=== PATIENT | female | born 1970 | race Caucasian/White ===

== ENCOUNTER → 2018-03-02 11:00 | Outpatient (CLI) | payer OTHER, SELFPAY ==
[2018-03-02 11:29] LABS: Bilirubin Urine UA NEGATIVE (NEGATIVE); Color Urine UA YELLOW; Glucose Urine UA NEGATIVE (Normal); Ketones Urine UA NEGATIVE (NEGATIVE); Leukocyte Esterase Urine UA TRACE (NEGATIVE); Nitrite Urine UA Negative (Negative); Occult Blood Urine UA 2+ (Negative); Protein Urine UA NEGATIVE (Negative); Specific Gravity Urine UA 1.025 (1.000-1.035); Urobilinogen Urine UA 0.2 E.U./dL (0.2)
[2018-03-02 11:54] LABS: Appearance Urine UA Slightly Cloudy
[2018-03-02 11:55] LABS: Bacteria Urine Few (2-10); Culture Indicated Urine Specimen Cultured; RBC Urine 30-100/HPF (0-5/HPF); Squamous Epithelial Cell Urine 1-5 /HPF; WBC Urine 10-30/HPF (0-5/HPF)
== END ==
PROVIDERS: Family Medicine; PCP Family Medicine; Visit Provider Family Medicine
DX: N30.00 Acute cystitis without hematuria (principal)
CPT/HCPCS: 81001; 87077; 87086; 87186

== ENCOUNTER → 2018-03-16 14:00 | Outpatient (CLI) | payer OTHER, SELFPAY ==
[2018-03-16 14:08] LABS: Bacteria Urine None Seen; RBC Urine None Seen (0-5/HPF); WBC Urine None Seen (0-5/HPF)
[2018-03-16 14:58] LABS: Appearance Urine UA CLEAR; Bilirubin Urine UA NEGATIVE (NEGATIVE); Color Urine UA YELLOW; Glucose Urine UA NEGATIVE (Normal); Ketones Urine UA NEGATIVE (NEGATIVE); Leukocyte Esterase Urine UA NEGATIVE (NEGATIVE); Nitrite Urine UA Negative (Negative); Occult Blood Urine UA NEGATIVE (Negative); Protein Urine UA NEGATIVE (Negative); Specific Gravity Urine UA 1.025 (1.000-1.035); Urobilinogen Urine UA 0.2 E.U./dL (0.2)
[2018-03-16 15:15] LABS: Squamous Epithelial Cell Urine 1-5 /HPF
[2018-03-16 15:16] LABS: Culture Indicated Urine Cult Not Indicated; Uric Acid Crystals Urine Occasional
== END ==
PROVIDERS: PCP Family Medicine; Visit Provider Family Medicine
DX: E06.3 Autoimmune thyroiditis (principal); N39.0 Urinary tract infection, site not specified
CPT/HCPCS: 81001

== ENCOUNTER → 2018-05-30 07:48 | Outpatient (CLI) | payer OTHER, SELFPAY ==
[2018-05-30 09:44] LABS: Thyroid Stimulating Hormone < 0.02 uIU/mL (0.47-4.68)
[2018-05-30 19:35] LABS: Free T3, Triiodothyronine Free 4.51 pg/mL (2.77-5.27); Free T4, Direct Thyroxine 1.25 ng/dL (0.78-2.19)
[2018-05-31 15:02] LABS: Anti Thyroglobulin Antibody 3 IU/mL (< 2); Thyroid Peroxidase Antibodies 15 IU/mL (< 9)
[2018-06-05 13:28] LABS: Triiodothyronine T3 Reverse 18 ng/dL (8-25)
== END ==
PROVIDERS: PCP Family Medicine; Visit Provider Family Medicine
DX: E06.3 Autoimmune thyroiditis (principal)
CPT/HCPCS: 36415; 84439; 84443; 84481; 84482; 86376; 86800

== ENCOUNTER → 2018-08-29 07:18 | Outpatient (CLI) | payer OTHER, SELFPAY ==
[2018-08-29 09:29] LABS: Free T3, Triiodothyronine Free 3.95 pg/mL (2.77-5.27); Free T4, Direct Thyroxine 1.08 ng/dL (0.78-2.19)
[2018-08-29 09:42] LABS: Thyroid Stimulating Hormone < 0.02 uIU/mL (0.47-4.68)
[2018-09-01 14:15] LABS: Triiodothyronine T3 Reverse 17 ng/dL (8-25)
== END ==
PROVIDERS: PCP Family Medicine; Visit Provider Family Medicine
DX: E06.3 Autoimmune thyroiditis (principal)
CPT/HCPCS: 36415; 84439; 84443; 84481; 84482

== ENCOUNTER → 2018-11-07 11:03 | Outpatient (CLI) | payer OTHER, SELFPAY ==
--- NOTE | 2018-11-07 | DI.MG.S_ITS ---
BILATERAL DIGITAL SCREENING MAMMOGRAM 3D/2D WITH CAD: 11/07/2018 CLINICAL: Routine screening. Comparison is made to exams dated: 10/07/2017 mammogram, 09/13/2016 mammogram, and 09/09/2015 mammogram - [facility]. The tissue of both breasts is heterogeneously dense. This may lower the sensitivity of mammography. Current study was also evaluated with a Computer Aided Detection (CAD) system. No significant masses, calcifications, or other findings are seen in either breast. There has been no significant interval change. IMPRESSION: NEGATIVE There is no mammographic evidence of malignancy. A 1 year screening mammogram is recommended. This exam was interpreted at Station ID: [id number]. NOTE: For mammograms, a report in lay terms will be sent to the patient. Approximately 15% of breast malignancies will not be visualized mammographically. In the management of a palpable breast mass, a negative mammogram must not discourage biopsy of a clinically suspicious lesion. Electronically Signed By: Nelly driver/paula:11/07/2018 13:25:22 letter sent: Normal Exam ACR BI-RADS Category 1: Negative [id number]
== END ==
PROVIDERS: PCP Family Medicine; Visit Provider Family Medicine
DX: Z12.31 Encounter for screening mammogram for malignant neoplasm of breast (principal)
CPT/HCPCS: 77063; 77067

== ENCOUNTER → 2018-12-29 07:43 | Outpatient (CLI) | payer OTHER, SELFPAY ==
[2018-12-29 09:43] LABS: Free T3, Triiodothyronine Free 4.59 pg/mL (2.77-5.27); Free T4, Direct Thyroxine 1.12 ng/dL (0.78-2.19)
[2019-01-01 14:12] LABS: Thyroid Stimulating Hormone < 0.02 uIU/mL (0.47-4.68)
[2019-01-01 21:03] LABS: Triiodothyronine T3 Reverse 16 ng/dL (8-25)
== END ==
PROVIDERS: PCP Family Medicine; Visit Provider Family Medicine
DX: E06.3 Autoimmune thyroiditis (principal)
CPT/HCPCS: 36415; 84439; 84443; 84481; 84482

== ENCOUNTER → 2019-01-10 15:48 | Outpatient (CLI) | payer OTHER, SELFPAY ==
[2019-01-10 16:49] LABS: HEMOLYSIS < 15 (0-50); Iron 42 ug/dL (37-170)
[2019-01-10 16:51] LABS: Alanine Aminotransferase 28 IU/L (9-52); Albumin Globulin Ratio 1.7 (1.0-2.8); Alkaline Phosphatase 82 U/L (38-126); Aspartate Aminotransferase 25 IU/L (14-36); Bilirubin Total 0.1 mg/dL (0.2-1.3); Blood Urea Nitrogen 21 mg/dL (7-17); Calcium 9.4 mg/dL (8.4-10.2); Carbon Dioxide 26 mmol/L (22-32); Chloride 106 mmol/L (98-107); Estimated Glomerular Filt Rate > 60.0 mL/min (>60); Globulin 2.3 g/dL (1.7-4.1); Glucose 108 mg/dL (70-100); HEMOLYSIS < 15 (0-50); Potassium 3.9 mmol/L (3.4-5.1); Sodium 140 mmol/L (137-145); Total Protein 6.3 g/dL (6.3-8.2)
[2019-01-10 16:59] LABS: Percent Iron Saturation 13 % (15-50); Total Iron Binding Capacity 314 ug/dL (265-497); Transferrin 257 mg/dL (206-381)
[2019-01-10 17:24] LABS: Ferritin 58.7 ng/mL (6.27-137)
[2019-01-10 17:54] LABS: Vitamin B12 665 pg/mL (239-931)
[2019-01-10 18:11] LABS: Vitamin D 25 Hydroxy (D3) 52.9 ng/mL (30.0-100.0)
[2019-01-12 19:45] LABS: Homocysteine 5.9 umol/L (< 10.4)
[2019-01-13 09:30] LABS: Vitamin B6 76.7 ng/mL (2.1-21.7)
[2019-01-16 16:35] LABS: Methylmalonic Acid 232 nmol/L (87-318)
== END ==
PROVIDERS: PCP Family Medicine; Visit Provider Family Medicine
DX: E06.3 Autoimmune thyroiditis (principal); K05.6 Periodontal disease, unspecified; K90.49 Malabsorption due to intolerance, not elsewhere classified; N95.9 Unspecified menopausal and perimenopausal disorder; G35 Multiple sclerosis; I10 Essential (primary) hypertension
CPT/HCPCS: 36415; 80053; 82306; 82607; 82728; 82746; 83090; 83540; 83550; 83921; 84207

== ENCOUNTER → 2019-03-08 07:49 | Outpatient (CLI) | payer OTHER, SELFPAY ==
[2019-03-08 10:30] LABS: Free T3, Triiodothyronine Free 4.34 pg/mL (2.77-5.27); Free T4, Direct Thyroxine 1.01 ng/dL (0.78-2.19)
[2019-03-08 10:43] LABS: Thyroid Stimulating Hormone < 0.02 uIU/mL (0.47-4.68)
[2019-03-12 14:40] LABS: Triiodothyronine T3 Reverse 14 ng/dL (8-25)
== END ==
PROVIDERS: PCP Family Medicine; Visit Provider Family Medicine
DX: E06.3 Autoimmune thyroiditis (principal)
CPT/HCPCS: 36415; 84439; 84443; 84481; 84482

== ENCOUNTER 2019-04-30 18:33 | Emergency (ER) | payer OTHER, SELFPAY ==
[2019-04-30 18:36] VITALS: BP 134/81; PULSE 85; RESP 16; TEMP 36.5; O2SAT 96
[2019-04-30 19:19] LABS: Appearance Urine UA CLOUDY; Bilirubin Urine UA NEGATIVE (NEGATIVE); Color Urine UA YELLOW; Glucose Urine UA NEGATIVE (Negative); Ketones Urine UA TRACE (NEGATIVE); Leukocyte Esterase Urine UA 2+ (NEGATIVE); Nitrite Urine UA POSITIVE (Negative); Occult Blood Urine UA 3+ (Negative); Protein Urine UA 2+ (Negative); Specific Gravity Urine UA 1.015 (1.000-1.035); Urobilinogen Urine UA 0.2 E.U./dL (0.2)
[2019-04-30 19:23] LABS: Bacteria Urine Moderate (10-30); Culture Indicated Urine Specimen Cultured; RBC Urine 30-100/HPF (0-5/HPF); Squamous Epithelial Cell Urine 0-1 /HPF (0-5/HPF); WBC Urine 30-100/HPF (0-5/HPF)
--- NOTE | 2019-04-30 20:02 | ED_ITS ---
HPI - Female Genitourinary <JEFFERY Hopper - Last Filed: 04/30/19 20:09> General Chief complaint: Urogenital-Female Stated complaint: UTI Time Seen by Provider: 04/30/19 19:46 Source: patient Mode of arrival: ambulatory Limitations: no limitations History of Present Illness HPI Narrative: This is a 49-year-old female, history of former smoker, presents to ED with urinary symptoms which started this afternoon such as urinary urgency, burning sensation, frequency. She noticed small blood clot this afternoon and thought will seek medical evaluation. She had in the past UTI. Patient states woke up this morning with headache, diarrhea which improved at this time. Patient denies fever, chills, nausea, vomiting, flank pain. Patient had menopause and reports no chance of being . Related Data Home Medications Medication Instructions Recorded Confirmed meclizine 25 mg PO PRN #0 06/02/12 03/16/19 Previous Rx's Medication Instructions Recorded cetirizine 10 mg PO QDAY #30 tab 05/11/17 liothyronine 5 mcg tablet 17.5 mcg PO BID #630 tab 01/10/19 Bi-est 50/50 0.2 mg TOP QAM #18 mg 03/07/19 [naltrexone] 4.5 mg PO Q DAY #90 cap 03/07/19 progesterone e4m 75 mg PO .HS #90 caplet 03/07/19 cephalexin [Keflex] 500 mg PO BID 7 Days #14 cap 04/30/19 Allergies Allergy/AdvReac Type Severity Reaction Status Date / Time No Known Drug Allergies Allergy Unknown Verified 03/16/19 14:02 DUST Allergy Mild RHINITIS Uncoded 03/16/19 14:02 GOOSE FEATHERS Allergy Mild RHINITIS Uncoded 03/16/19 14:02 Review of Systems <JEFFERY Hopper - Last Filed: 04/30/19 20:09> Review of Systems Narrative: General: See HPI HEENT: Denies sinus pain, ear pain, sore throat, difficulty swallowing, dizziness. Respiratory: Denies dyspnea, cough, wheezing, hemoptysis, sputum. Cardiovascular: Denies chest pain, palpitations, orthopnea, edema. Gastrointestinal: Denies nausea, vomiting, abdominal pain, diarrhea, c onstipation, melena. : See HPI Musculoskeletal: Denies weakness, joint pain or bony pain. Skin: Denies rash, skin lesions, or other. Neurologic: Denies weakness, headache, numbness, change in speech, confusion, seizures, incoordination. Psychiatric: No concerning psychosocial issues. 12-point review of systems is negative except for those stated above. PFSH <JEFFERY Hopper - Last Filed: 04/30/19 20:09> Medical History Abnormal Pap smear of cervix (Resolved 1988) Abnormal posture (Chronic) Anemia (Resolved 1990) Chicken pox (Resolved 1980) Chlamydia (Resolved 1988) Chronic back pain (Chronic 1982) Degenerative joint disease (DJD) of lumbar spine (Chronic 2014) Depression (Chronic 1987) Foot fracture (Resolved 1981) Genital warts (Resolved 1989) Yogesh's disease (Chronic 2014) Hyperlipidemia (Chronic 1999) Hypothyroidism (Chronic 1999) Irregular menstrual cycle (Chronic 2014) Lichen sclerosus (Chronic 1999) Mumps (Resolved 1979) Muscle weakness (Chronic) Peripheral neuropathy (Chronic 2014) Raynaud's disease (Chronic 2012) Shoulder pain (Chronic 2014) 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) Typhus (Resolved 1996) Vertigo (Resolved ~2007) Surgical History Anesthesia complication (Resolved) Status post delivery (Resolved 06/20/00) Status post hammer toe correction (Resolved 1997) Family History (Updated 05/15/18 @ 14:14 by Mela Kennedy) Brother Age: 41 Benign tumor Psoriasis High cholesterol Father Age: 71 Common variable immunodeficiency High cholesterol Restless leg syndrome Sleep apnea Grandfather Heart disease Lung disease Sleep apnea Grandmother History of hysterectomy Hypothyroidism Uterine cancer Kidney disease Yogesh's disease Mother Age: 70 Kidney disease Osteopenia Raynaud's disease MGUS (monoclonal gammopathy of unknown significance) Grandfather Heart disease Bone cancer Myeloma High cholesterol Sister Age: 46 Kidney infection High cholesterol MS (multiple sclerosis) Pancreatitis Family/Other Uterine cancer Other Alcoholism Cancer Depression Thyroid cancer Social History Smoking Status: Former smoker Family History Brother Age: 41 Benign tumor Psoriasis High cholesterol Father Age: 71 Common variable immunodeficiency High cholesterol Restless leg syndrome Sleep apnea Grandfather Heart disease Lung disease Sleep apnea Grandmother History of hysterectomy Hypothyroidism Uterine cancer Kidney disease Yogesh's disease Mother Age: 70 Kidney disease Osteopenia Raynaud's disease MGUS (monoclonal gammopathy of unknown significance) Grandfather Heart disease Bone cancer Myeloma High cholesterol Sister Age: 46 Kidney infection High cholesterol MS (multiple sclerosis) Pancreatitis Family/Other Uterine cancer Other Alcoholism Cancer Depression Thyroid cancer Social History Smoking Status: Former smoker Exam <JEFFERY Hopper - Last Filed: 04/30/19 20:09> Narrative Exam Narrative: General appearance: well developed, well nourished, in no acute distress. Head: normocephalic, atraumatic, no scalp lesions, non-tender. Eye: pupil equal, round. EOMI. Nose: nares patent. Oral: mucosa moist. Neck/Thyroid: neck supple, full range of motion, no visible masses. Skin: no suspicious rashes, lesions over visible areas. Warm and dry. Heart: no clubbing, no cyanosis, no edema. Lungs: Breathing even and unlabored. No stridor. No accessory muscles used. Chest: normal shape and expansion. Abdomen: non-obese, non-distended. Neurologic: alert and oriented. Cognitive exam, CROSSING GUARD and PNS grossly intact on informal exam. Psych: good eye contact, normal affect. Initial Vital Signs Initial Vital Signs: Vital Signs Temperature 97.7 F 04/30/19 18:36 Pulse Rate 85 04/30/19 18:36 Respiratory Rate 16 04/30/19 18:36 Blood Pressure 134/81 04/30/19 18:36 Pulse Oximetry 96 04/30/19 18:36 <Namita Clay DO - Last Filed: 05/01/19 05:36> Initial Vital Signs Initial Vital Signs: Vital Signs Temperature 97.7 F 04/30/19 18:36 Pulse Rate 85 04/30/19 18:36 Respiratory Rate 16 04/30/19 18:36 Blood Pressure 134/81 04/30/19 18:36 Pulse Oximetry 96 04/30/19 18:36 Course <JEFFERY Hopper - Last Filed: 04/30/19 20:09> Orders Ordered: ED Orders 04/30/19 18:25 Urinalysis and Microscopic Stat Urine Culture Stat Vital Signs Vital signs: Vital Signs - 8 hr 04/30/19 18:36 Temperature 97.7 F Pulse Rate 85 Respiratory Rate 16 Blood Pressure 134/81 Pulse Oximetry 96 <Namita Clay DO - Last Filed: 05/01/19 05:36> Orders Ordered: ED Orders 04/30/19 18:25 Urinalysis and Microscopic Stat Urine Culture Stat Vital Signs Vital signs: Vital Signs - 8 hr 04/30/19 18:36 Temperature 97.7 F Pulse Rate 85 Respiratory Rate 16 Blood Pressure 134/81 Pulse Oximetry 96 MDM - Female Genitourinary <JEFFERY Hopper - Last Filed: 04/30/19 20:09> Differential Diagnosis Differential diagnosis: Likely urinary tract infection and cystitis Medical Records Attestation: I reviewed the patient's medical records. Lab Data Attestation: I reviewed the patient's lab results. Labs: Lab Results 04/30/19 04/30/19 Range/Units 18:25 18:58 Urine Color Yellow Urine Appearance Cloudy Urine pH 8.0 (4.5-8.0) Ur Specific [place] 1.015 (1.000-1.035) Urine Protein 2+ H (Negative) Urine Glucose (UA) Negative (Negative) g/dL Urine Ketones Trace H (NEGATIVE) Urine Occult Blood 3+ H (Negative) Urine Nitrate Positive (Negative) Urine Bilirubin Negative (NEGATIVE) Urine Urobilinogen 0.2 (0.2) E.U./dL Ur Leukocyte Esterase 2+ H (NEGATIVE) Urine RBC 30-100/hpf H Cancelled (0-5/HPF) Urine WBC 30-100/hpf H Cancelled (0-5/HPF) Ur Squamous Epith Cells 0-1 /hpf Cancelled (0-5/HPF) Ur Transition Epith Cell Cancelled Ur Renal Epithelial Cell Cancelled Calcium Oxalate Crystal Cancelled Uric Acid Crystals Cancelled Triple Phos Crystals Cancelled Other Crystals Cancelled Amorphous Sediment Cancelled Urine Bacteria Moderate (10-30) H Cancelled (None) Hyaline Casts Cancelled Granular Casts Cancelled RBC Casts Cancelled WBC Casts Cancelled Other Casts Cancelled Urine Mucus Cancelled Urine Trichomonas Cancelled Urine Yeast Cancelled Urine Sperm Cancelled Ur Culture Indicated? Specimen cultured Cancelled Micro UA Comment Cancelled Point of Care Testing Test Results Negative Urine Dip Bedside Urine Glucose Negative Bedside Urine Bilirubin - Negative Bedside Urine Ketone +/- 5 Urine Specific [place] 1.015 Bedside Urine Occult Blood +++ Bedside Urine pH 8.0 Bedside Urine Protein ++ 100 Bedside Urine Urobilinogen +/- 1mg Bedside Urine Nitrite + Positive Bedside Urine Leukocytes +++ 500 Esterase MDM Narrative Medical decision making narrative: Patient reports UTI symptoms which started this afternoon. She is nontoxic-appearing, denies nausea vomiting, flank pain. Urine test result is consistent with UTI. Urine test micro showed moderate urine bacteria, and is being cultured at this time for the sensitivity. Patient declines Pyridium for discomfort. Patient is discharged with Keflex b.i.d. for 7 day course. Return precautions were discussed with patient and patient advised to follow up with her primary care physician in a few days for recheck. Patient has no further questions at this time and agrees with treatment plan. <Namita Clay, DO - Last Filed: 05/01/19 05:36> Lab Data Labs: Lab Results 04/30/19 04/30/19 Range/Units 18:25 18:58 Urine Color Yellow Urine Appearance Cloudy Urine pH 8.0 (4.5-8.0) Ur Specific [place] 1.015 (1.000-1.035) Urine Protein 2+ H (Negative) Urine Glucose (UA) Negative (Negative) g/dL Urine Ketones Trace H (NEGATIVE) Urine Occult Blood 3+ H (Negative) Urine Nitrate Positive (Negative) Urine Bilirubin Negative (NEGATIVE) Urine Urobilinogen 0.2 (0.2) E.U./dL Ur Leukocyte Esterase 2+ H (NEGATIVE) Urine RBC 30-100/hpf H Cancelled (0-5/HPF) Urine WBC 30-100/hpf H Cancelled (0-5/HPF) Ur Squamous Epith Cells 0-1 /hpf Cancelled (0-5/HPF) Ur Transition Epith Cell Cancelled Ur Renal Epithelial Cell Cancelled Calcium Oxalate Crystal Cancelled Uric Acid Crystals Cancelled Triple Phos Crystals Cancelled Other Crystals Cancelled Amorphous Sediment Cancelled Urine Bacteria Moderate (10-30) H Cancelled (None) Hyaline Casts Cancelled Granular Casts Cancelled RBC Casts Cancelled WBC Casts Cancelled Other Casts Cancelled Urine Mucus Cancelled Urine Trichomonas Cancelled Urine Yeast Cancelled Urine Sperm Cancelled Ur Culture Indicated? Specimen cultured Cancelled Micro UA Comment Cancelled Point of Care Testing Test Results Negative Urine Dip Bedside Urine Glucose Negative Bedside Urine Bilirubin - Negative Bedside Urine Ketone +/- 5 Urine Specific [place] 1.015 Bedside Urine Occult Blood +++ Bedside Urine pH 8.0 Bedside Urine Protein ++ 100 Bedside Urine Urobilinogen +/- 1mg Bedside Urine Nitrite + Positive Bedside Urine Leukocytes +++ 500 Esterase Discharge Plan Departure Patient Disposition: Home Clinical Impression: UTI (urinary tract infection) Qualifiers: Urinary tract infection type: site unspecified Hematuria presence: with hematuria Qualified Code(s): N39.0 - Urinary tract infection, site not specified Discharge Date/Time: 04/30/19 20:07 Instructions: DI for Urinary Tract Infection (UTI) Activity Restrictions/Additional Instructions: You have been diagnosed with [urinary tract infection. Your urine test appears to be you have any infection and is being cultured at this time for antibiotic medication sensitivity test]. What to do: *Take your medications as directed. Please start Keflex tonight and complete a 7 day course twice a day. Please increase hydration for UTI symptoms and treatment. *Follow up with your primary care provider in 2-3 days, call for an appointment. Let them know you were seen in the ED and that we asked you to be seen in follow up. *Return to ED if you have any new, worsening, or concerning symptoms, such as [fever, flank pain, unable to tolerate fluids, chest pain, breathing difficulty, or any acute concerns]. Prescriptions: New cephalexin [Keflex] 500 mg capsule 500 mg PO BID 7 Days Qty: 14 RF: 0 No Action meclizine 25 MG tablet,chewable 25 mg PO PRN Qty: 0 RF: 0 cetirizine 10 MG tablet 10 mg PO QDAY Qty: 30 RF: 5 Bi-est 50/50 cream 0.2 mg TOP QAM Qty: 18 RF: 1 [naltrexone] 4.5 mg capsule 4.5 mg PO Q DAY Qty: 90 RF: 1 progesterone e4m 75 mg PO .HS Qty: 90 RF: 1 liothyronine [Cytomel] 5 mcg tablet 17.5 mcg PO BID Qty: 630 RF: 0 Referrals: Cristiane Parish DO [Primary Care Provider] -
[2019-04-30 20:03] VITALS: BP 122/78; PULSE 72; RESP 18; O2SAT 98
== END 2019-04-30 20:07 | disposition home or self-care (01) ==
PROVIDERS: Emergency Medicine; Emergency Provider Nurse Practitioner Family; PCP Family Medicine
DX: N39.0 Urinary tract infection, site not specified (principal)
CPT/HCPCS: 81001; 81003; 81025; 87077; 87086; 87186; 99282; 99283

== ENCOUNTER → 2019-07-24 07:56 | Outpatient (CLI) | payer OTHER, SELFPAY ==
[2019-07-24 09:23] LABS: Free T3, Triiodothyronine Free 4.56 pg/mL (2.77-5.27); Free T4, Direct Thyroxine 1.21 ng/dL (0.78-2.19)
[2019-07-24 09:37] LABS: Thyroid Stimulating Hormone < 0.02 uIU/mL (0.47-4.68)
[2019-07-26 14:58] LABS: Thyroid Peroxidase Antibodies 8 IU/mL (< 9)
[2019-08-01 18:24] LABS: Triiodothyronine T3 Reverse 15 ng/dL (8-25)
== END ==
PROVIDERS: PCP Family Medicine; Visit Provider Family Medicine
DX: E06.3 Autoimmune thyroiditis (principal)
CPT/HCPCS: 36415; 82542; 84439; 84443; 84481; 84482; 86376

== ENCOUNTER → 2019-11-19 07:18 | Outpatient (CLI) | payer OTHER, SELFPAY ==
[2019-11-19 07:39] LABS: Add Manual Diff / Slide Review NO; Basophils Absolute Auto 0 /uL (0-100); Basophils Percent Auto 0.5 % (0-2); Eosinophils Absolute Auto 100 /uL (0-450); Eosinophils Percent Auto 2.5 % (2-4); Hematocrit 40.7 % (36-46); Hemoglobin 13.7 g/dL (12.0-16.0); Lymphocytes Absolute Auto 2200 /uL (1100-4500); Lymphocytes Percent Auto 40.6 % (25-40); Mean Corpuscular HGB Conc 33.5 % (30-36); Mean Corpuscular Hemoglobin 30.2 PG (26-34); Mean Corpuscular Volume 90.2 fL (80-100); Monocytes Absolute Auto 300 /uL (0-900); Monocytes Percent Auto 6.4 % (3-14); Neutrophils Absolute Auto 2800 /uL (1500-7000); Platelet Count 330 X10^3/uL (150-400); Red Blood Cell Count 4.52 X10^6/uL (4.0-5.2); Red Cell Distribution Width 13.8 % (11.6-14.8); White Blood Cell Count 5.5 X10^3/uL (4.5-11.0)
[2019-11-19 08:43] LABS: HEMOLYSIS < 15 (0-50); Iron 114 ug/dL (37-170)
[2019-11-19 08:54] LABS: Percent Iron Saturation 32 % (15-50); Total Iron Binding Capacity 357 ug/dL (265-497); Transferrin 293 mg/dL (206-381)
[2019-11-19 09:01] LABS: Free T3, Triiodothyronine Free 3.06 pg/mL (2.77-5.27); Free T4, Direct Thyroxine 0.84 ng/dL (0.78-2.19)
[2019-11-19 09:14] LABS: Thyroid Stimulating Hormone < 0.02 uIU/mL (0.47-4.68)
[2019-11-19 09:20] LABS: Ferritin 49 ng/mL (6-137)
[2019-11-20 16:36] LABS: Anti Thyroglobulin Antibody 2.3 IU/mL (0.0-0.9); Thyroid Peroxidase Antibodies 11 IU/mL (0-34)
[2019-11-22 02:44] LABS: Triiodothyronine T3 Reverse 14.6 ng/dL (9.2-24.1)
== END ==
PROVIDERS: PCP Family Medicine; Referring Provider Family Medicine; Visit Provider Family Medicine
DX: D64.9 Anemia, unspecified (principal); E06.3 Autoimmune thyroiditis; K58.0 Irritable bowel syndrome with diarrhea; K63.89 Other specified diseases of intestine
CPT/HCPCS: 36415; 82728; 83540; 83550; 84439; 84443; 84481; 84482; 85025; 86376; 86800

== ENCOUNTER → 2020-02-18 07:27 | Outpatient (CLI) | payer OTHER, SELFPAY ==
[2020-02-18 08:29] LABS: Free T3, Triiodothyronine Free 4.79 pg/mL (2.77-5.27); Free T4, Direct Thyroxine 1.37 ng/dL (0.78-2.19)
[2020-02-18 08:44] LABS: Thyroid Stimulating Hormone < 0.015 uIU/mL (0.47-4.68)
[2020-02-19 06:36] LABS: Thyroid Peroxidase Antibodies 12 IU/mL (0-34)
[2020-02-25 10:08] LABS: Triiodothyronine T3 Reverse 17.8 ng/dL (9.2-24.1)
== END ==
PROVIDERS: PCP Family Medicine; Referring Provider Family Medicine; Visit Provider Family Medicine
DX: E06.3 Autoimmune thyroiditis (principal)
CPT/HCPCS: 36415; 84439; 84443; 84481; 84482; 86376; 86800

== ENCOUNTER → 2020-03-13 11:24 | Outpatient (CLI) | payer OTHER, SELFPAY ==
--- NOTE | 2020-03-13 | DI.MG.S_ITS ---
BILATERAL DIGITAL SCREENING MAMMOGRAM 3D/2D WITH CAD: 03/13/2020 CLINICAL: Routine screening. Comparison is made to exams dated: 11/07/2018 mammogram, 10/07/2017 mammogram, and 09/13/2016 mammogram - [facility]. There are scattered fibroglandular elements in both breasts. Current study was also evaluated with a Computer Aided Detection (CAD) system. No significant masses, calcifications, or other findings are seen in either breast. There has been no significant interval change. IMPRESSION: NEGATIVE There is no mammographic evidence of malignancy. A 1 year screening mammogram is recommended. This exam was interpreted at Station ID: [id number]. NOTE: For mammograms, a report in lay terms will be sent to the patient. Approximately 15% of breast malignancies will not be visualized mammographically. In the management of a palpable breast mass, a negative mammogram must not discourage biopsy of a clinically suspicious lesion. Electronically Signed By: Prasanna stern/paula:03/13/2020 12:20:00 letter sent: Normal Exam ACR BI-RADS Category 1: Negative [id number]
== END ==
PROVIDERS: PCP Family Medicine; Referring Provider Family Medicine; Visit Provider Family Medicine
DX: Z12.31 Encounter for screening mammogram for malignant neoplasm of breast (principal)
CPT/HCPCS: 77063; 77067

== ENCOUNTER 2020-05-16 08:15 | Outpatient (RCR) | payer OTHER, SELFPAY ==
--- NOTE | 2020-01-10 16:06 | PT.OIE ---
Current Diagnoses Ankylosis, unspecified joint (01/10/20) Plantar fascial fibromatosis (01/10/20) Past Medical History (Last Updated 06/25/19 @ 14:02 by Cristiane Parish DO) Abnormal Pap smear of cervix (Resolved 1988) Abnormal posture (Chronic) Anemia (Resolved 1990) Chicken pox (Resolved 1980) Chlamydia (Resolved 1988) Chronic back pain (Chronic 1982) Degenerative joint disease (DJD) of lumbar spine (Chronic 2014) Depression (Chronic 1987) Foot fracture (Resolved 1981) Genital warts (Resolved 1989) Yogesh's disease (Chronic 2014) Hyperlipidemia (Chronic 1999) Hypothyroidism (Chronic 1999) Irregular menstrual cycle (Chronic 2014) Lichen sclerosus (Chronic 1999) Mumps (Resolved 1979) Muscle weakness (Chronic) Peripheral neuropathy (Chronic 2014) Raynaud's disease (Chronic 2012) Shoulder pain (Chronic 2014) Small intestinal bacterial overgrowth (Acute) 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) Typhus (Resolved 1996) Vertigo (Resolved ~2007) Past Surgical History (Last Reviewed 04/30/19 @ 20:04 by JEFFERY Hopper) Anesthesia complication (Resolved) Status post delivery (Resolved 06/20/00) Status post hammer toe correction (Resolved 1997) Visit Care Team Role Provider Type Cristiane Parish DO Primary Care Provider Physician Specialty: Family Practice Address: [address] [place] [address], [address], [address] Email: [email or web address] Tonia Katz DPM Attending Provider Non-Staff Referring Provider Specialty: Podiatry Address: [address] [place] [address], [phone] Email: Physical Therapy Initial Evaluation PT-OP-A Visit Information Start: 01/08/20 21:01 Freq: Status: Active Protocol: Document 01/10/20 09:51 LRN (Rec: 01/10/20 10:41 LRN [id number]) Out-Patient Physical Therapy Visit Information Visit Information Visit Type Initial Evaluation Visit Start Time 09:51 Visit Stop Time 10:41 Evaluation Information Evaluation Date 01/10/20 Precautions Precautions Hx of Vertigo Hypothyroid As child suffered crushed tailbone, with L4, L5, S1 residual dysfunction. PT-OP-B Current Condition Start: 01/08/20 21:01 Freq: Status: Active Protocol: Document 01/10/20 09:51 LRN (Rec: 01/10/20 10:41 LRN [id number]) Current Condition History of Current Condition Onset Date R foot-09/05/18; L foot - 2018 History of Current Condition Difficulty walking with limping gait. L foot hurts more after resting and decreases with gait. R foot hurts constantly. R big toe surgery to remove bone spur and debride joint - 09/05/18. L foot plantar fasciitis - 2018 Previous rx: Insoles, K-tape but causes some irritation if worn too long. Wears shoes in house not that she has plantar fasciitis. Prior Treatments and Tests Home ex's of passive and active R big toe ext/flex. Massage therapy for L foot that was interrupted by COVID 19. Future Testing and Treatments Planned No further physician visits planned. Developmental History Developmental History See above Treatment Goals Patient/Caregiver Goals Walk normal and without pain. Hiking 6 miles a day. Squatting in shower to shave legs, Squat to weed. No pain with stair ambulation. Prior Functional Status Baseline Function- ADL's Independent Baseline Function- Mobility Independent Baseline Function- Gait Antalgic gait. Needs railing for stair ambulation. Baseline Function- Recreation/Hobbies Hiked 3-6 miles daily on trails. Current Functional Impairments (Reported) Functional Limitations- ADL's Squatting for functional activities (shaving legs, weeding). Functional Limitations- Mobility/Gait Antalgic gait. Single stepping on stairs. Needs railing for stair ambulation. Functional Limitations- Recreation/ Hiking. Hobbies Walking on level pavement at most 1 mile Personal Factors Other Personal Factors That May Effect Chronicity of L foot plantar Therapy/Recovery fasciitis since 01/2019 Back pain Thyroid disorder Autoimmune disorders. PT-OP-C Subjective Start: 01/08/20 21:01 Freq: Status: Active Protocol: Document 01/10/20 09:51 LRN (Rec: 01/10/20 10:41 LRN [id number]) Patient Questionnaires Foot & Ankle Ability Measure- ADL and Sports FAAM-ADL Score 36 FAAM-ADL Impairment 40 to 59% Impaired (Score 33- 49) OP-PT Pain Assessment Location L foot Pain Location Details Plantar surface of L foot Intensity 4 Scale Used Numeric (1 - 10) Description Aching Description- Other Sharp pain in heel Variations/Patterns Pain first thing in morning. R foot Pain Location Details Tip of Big toe>plantar aspect of 1st jt, along medial foot to anterior heel Intensity 5 Scale Used Numeric (1 - 10) Description Aching,Burning,Pressure,Sharp, Tender,Tightness Description- Other Changes in level of intensity; sharp if hit or place foot wrong Frequency Constant Pain Aggravating Factors Activity Other Pain Alleviating Factors Epsom salt soak, massage, exercise to loosen joint. PT-OP-D Balance Start: 01/08/20 21: Freq: Status: Active Protocol: Document 01/10/20 09:51 LRN (Rec: 01/10/20 15:53 LRN [id number]) Balance Tests Single Limb Standing Single Limb- Right 1 Single Limb- Left 19 PT-OP-E Functional Tests Start: 01/08/20 21:01 Freq: Status: Active Protocol: Document 01/10/20 09:51 LRN (Rec: 01/10/20 15:53 LRN [id number]) Functional Tests Tinetti Balance and Gait Assessment Balance Score 15 Gait Score 8 Composite Score 23 Balance Score Impairment Rating 1 to <20% Impaired (Score 13- 15) Gait Score Impairment Rating 20 to <40% Impaired (Score 8-9 ) Composite Score Impairment Rating 1 to <20% Impaired (Score 23- 27) PT-OP-G Mobility & Gait Start: 01/08/20 21:01 Freq: Status: Active Protocol: Document 01/10/20 09:51 LRN (Rec: 01/10/20 15:53 LRN [id number]) OP Gait Assessment Assistive Devices Assistive Device None Gait Deviations General Gait Pattern Antalgic Factors Limiting Gait Function Factors Limiting Gait Function Decreased Activity Tolerance, Limited Range of Motion,Pain Stair Climbing Evaluation Technique/Endurance Stair Climbing Direction Ascend and Descend Stair Climbing Technique Step to Step PT-OP-H Neuro Start: 01/08/20 21:01 Freq: Status: Active Protocol: Document 01/10/20 09:51 LRN (Rec: 05/21/20 15:53 LRN [id number]) Sensation Evaluation Comments Summary Comments Soft touch Sensation: R foot hypersensitivity around well healed scar. L foot sensation is normal. PT-OP-J Posture/Palpation/Skin Start: 01/08/20 21:01 Freq: Status: Active Protocol: Document 01/10/20 09:51 LRN (Rec: 01/10/20 15:53 LRN [id number]) Posture Evaluation Position Standing Knee Posture (R) Genu Varus,(L) Genu Recurvatum,(R) Genu Recurvatum Ankle/Foot Posture (L) Supinated,(R) Supinated Foot Arch (L) High Arch Comments Posture Comments Big Toe Aducted. Right: slight cross over, Left: no crossover. Palpation Assessment Location R big toe Palpation Location R big toe caudal surface Palpation Findings Soft Tissue Tightness PT-OP-K Range of Motion Start: 01/08/20 21:01 Freq: Status: Active Protocol: Document 01/10/20 09:51 LRN (Rec: 01/10/20 15:53 LRN [id number]) Ankle and Foot Goniometric Range of Motion Ankle and Foot Right Active Testing Position Supine Dorsiflexion with Knee Flexed 19 Dorsiflexion with Knee Extended 14 Inversion 42 Eversion 20 Left Active Testing Position Supine Dorsiflexion with Knee Flexed 24 Dorsiflexion with Knee Extended 15 Inversion 40 Eversion 20 Toe Range of Motion Toe Right Great Toe Toe ROM WFL No MTP Flexion Active (degrees) 24 MTP Extension Active (degrees) 19 Left Great Toe Toe ROM WFL Yes MTP Flexion Active (degrees) 32 MTP Extension Active (degrees) 36 Toes ROM Limitations Comments Big toe resting position: Right: ADD 18 deg's Left: ADD 12 deg's PT-OP-M Strength Start: 01/08/20 21:01 Freq: Status: Active Protocol: Document 01/10/20 09:51 LRN (Rec: 01/10/20 15:53 LRN [id number]) Ankle/Foot Strength Ankle and Foot Manual Muscle Testing Right Reason Not Measured WFL Left Reason Not Measured WFL Toe Strength Toe Manual Muscle Testing Right Great Toe Flexion 4 Good Extension 4 Good Comments MMT is within available ROM Left Great Toe Comments Generally 5/5 Cramping of plantar fascia during testing. PT-OP-Q Treatments Start: 01/08/20 21:01 Freq: Status: Active Protocol: Document 01/10/20 09:51 LRN (Rec: 01/10/20 15:53 LRN [id number]) Manual Therapy Treatment Soft Tissue Mobilization Scar mob Body Location R foot Scar Mob Mobilization Type Myofascial Release Intensity/Depth Superficial Body Position Supine Joint Mobilizations R MTP joint Joint R MTP jt Direction PA & AP Grade II Body Position Supine Reps/Duration 3' Comments Decreased mobility in both directions, not able to normalize after mobilization. Self-Care/Home Management Treatment Education Patient Education Pain Management Activities Self-Care/Home Management Activities Pt educated in edema management of L foot with use of frozen water bottle as needed, and briefly identified objects at her home that she could use for stretching of plantar fascial tissues. I/S pt in warm up ex of active L ankle PF/DF prior to getting out of bed in AM. I/S pt in active/passive 1st toe R MTP flex/ext ROM self care ex, discussing limit of tolerance to avoid pain. PT-OP-T Assessment and Plan Start: 01/08/20 21:01 Freq: Status: Active Protocol: Document 01/10/20 09:51 LRN (Rec: 01/10/20 15:53 [facility] [id number]) Physical Therapy Assessment Rehab Potential Rehabilitation Potential Excellent Evaluation Complexity Number of Personal Factors/Comorbidities 1-2 Number of Body Systems Impaired 4 or More Clinical Presentation at Evaluation Evolving Impairments Impairments Activity Tolerance,Balance, Gait,Pain,ROM,Soft Tissue Mobility,Strength Goals Five Impairment Foot pain (Right 5/10, Left 4/ 10) limiting gait tolerance. Chart Changer Goal (LTG) Decrease foot pain to no greater than 1/10 with pt able to return to hiking 3 miles and being able to squat in the shower to shave legs without pain. LTG Duration 04/09/20 Four Impairment Decreased Balance: SLS EO ( Right - 1 sec, Left 19 sec), Tinetti 23/28 Assisted Goal (LTG) Pt will be able to SLS EO - 10 sec bilaterally without LOB to improve function and safety with resulting in improved Tinetti Score of > 24. LTG Duration 04/09/20 Three Impairment Decreased ankle AROM Assisted Goal (LTG) Active Ankle DF (legs straight ) no less than 15 deg's. Active Ankle DF (knees flexed) no less than 24 deg's Pt will be able to ambulate up /down stairs with normal gait pattern. LTG Duration 04/09/20 Two Impairment Decreased Big Toe Right MTP jt AROM (flex 24 deg's, ext 20 deg's) Short Term Goal (STG) Improve R big toe MTP AROM to ext 36 deg's, flex 32 deg's ( equal to left foot) with pt able to ambulate with equal step lengths without use of assistive device. STG Duration 02/08/20 Chart Changer Goal (LTG) Improve functional ability, per Foot and Ankle Ability Measure (FAAM) Score ( initially 36) no less than 50 . One Impairment Lacks appropriate HEP Short Term Goal (STG) Self care I/S for scar tissue management and edema management. STG Duration 01/21/20 Chart Changer Goal (LTG) Pt will be independent in a self care HEP to manage her mobility, strength and endurance of her bilateral foot/ankles. LTG Duration 04/09/20 Assessment Summary Assessment Pt presents with antalgic gait and poor balance following R big toe bone spur surgery and chronic L plantar fasciitis. The pt shows limited toe mobility, decreased mobility of feet and ankles and decreased activity tolerance due to pain. She functionally is limited in gait and stair mobility due to pain. The pt has soft tissue and joint mobility tightness and mobility restrictions. The pt will benefit from skilled physical therapy to improve ROM, functional strength, endurance, balance and gait mechanics. Physical Therapy Plan Frequency and Duration Frequency of Treatment 2x/Week Plan of Care Start Date 01/10/20 Plan of Care End Date 04/09/20 Therapeutic Interventions Therapeutic Interventions Balance Training,Gait Training ,Home Exercise Program,Joint Mobilizations,Manual Therapy, Patient/Caregiver Education, Self-Care/Home Management,Soft Tissue Mobilization,Taping, Therapeutic Exercises Modalities Cold Pack/Ice Massage,Hot Packs,Iontophoresis,Ultrasound Other Therapeutic Interventions Iontophoresis with 4 mg/mL Dexamethasone w/Sodium Phospate. Next Visit Focus/Plan Next Note Type Treatment Note Next Visit Plan R foot: Possible need for modality to start () JMT (foot/ankle), Manual therapy Therapeutic Ex - ROM, strengthening foot/ankle L foot: US Cross Friction massage of plantar fascia and Gastroc/ Soleus complex JMT (Ankle) Therapeutic Ex - Gastroc/ Soleus stretching, ankle ROM Ex for Plantar fascia strengthening Gait training - level & stairs . Contrast Baths HEP education. I/S for home mob of plantar fascia.
--- NOTE | 2020-01-10 16:06 | PT.OPPOC ---
Physical, Occupational & Speech Therapy At [facility] Current Diagnoses Ankylosis, unspecified joint (01/10/20) Plantar fascial fibromatosis (01/10/20) Visit Care Team Role Provider Type Cristiane Parish DO Primary Care Provider Physician Specialty: Family Practice Address: [address] [place] [address], [facility] [address], [place], [address] Email: [email or web address] Tonia Katz DPM Attending Provider Non-Staff Referring Provider Specialty: Podiatry Address: [address] [place], [address] Email: Plan Of Care PT-OP-T Assessment and Plan Start: 01/08/20 21:01 Freq: Status: Active Protocol: Document 01/10/20 09:51 LRN (Rec: 01/10/20 15:53 LRN [id number]) Physical Therapy Assessment Rehab Potential Rehabilitation Potential Excellent Evaluation Complexity Number of Personal Factors/Comorbidities 1-2 Number of Body Systems Impaired 4 or More Clinical Presentation at Evaluation Evolving Impairments Impairments Activity Tolerance,Balance, Gait,Pain,ROM,Soft Tissue Mobility,Strength Goals Five Impairment Foot pain (Right 5/10, Left 4/ 10) limiting gait tolerance. Labor Delivery Rn Goal (LTG) Decrease foot pain to no greater than 1/10 with pt able to return to hiking 3 miles and being able to squat in the shower to shave legs without pain. LTG Duration 04/09/20 Four Impairment Decreased Balance: SLS EO ( Right - 1 sec, Left 19 sec), Tinetti 23/28 Labor Delivery Rn Goal (LTG) Pt will be able to SLS EO - 10 sec bilaterally without LOB to improve function and safety with resulting in improved Tinetti Score of > 24. LTG Duration 04/09/20 Three Impairment Decreased ankle AROM Labor Delivery Rn Goal (LTG) Active Ankle DF (legs straight ) no less than 15 deg's. Active Ankle DF (knees flexed) no less than 24 deg's Pt will be able to ambulate up /down stairs with normal gait pattern. LTG Duration 04/09/20 Two Impairment Decreased Big Toe Right MTP jt AROM (flex 24 deg's, ext 20 deg's) Short Term Goal (STG) Improve R big toe MTP AROM to ext 36 deg's, flex 32 deg's ( equal to left foot) with pt able to ambulate with equal step lengths without use of assistive device. STG Duration 02/08/20 Labor Delivery Rn Goal (LTG) Improve functional ability, per Foot and Ankle Ability Measure (FAAM) Score ( initially 36) no less than 50 . One Impairment Lacks appropriate HEP Short Term Goal (STG) Self care I/S for scar tissue management and edema management. STG Duration 01/21/20 Half-Way Goal (LTG) Pt will be independent in a self care HEP to manage her mobility, strength and endurance of her bilateral foot/ankles. LTG Duration 04/09/20 Assessment Summary Assessment Pt presents with antalgic gait and poor balance following R big toe bone spur surgery and chronic L plantar fasciitis. The pt shows limited toe mobility, decreased mobility of feet and ankles and decreased activity tolerance due to pain. She functionally is limited in gait and stair mobility due to pain. The pt has soft tissue and joint mobility tightness and mobility restrictions. The pt will benefit from skilled physical therapy to improve ROM, functional strength, endurance, balance and gait mechanics. Physical Therapy Plan Frequency and Duration Frequency of Treatment 2x/Week Plan of Care Start Date 01/10/20 Plan of Care End Date 04/09/20 Therapeutic Interventions Therapeutic Interventions Balance Training,Gait Training ,Home Exercise Program,Joint Mobilizations,Manual Therapy, Patient/Caregiver Education, Self-Care/Home Management,Soft Tissue Mobilization,Taping, Therapeutic Exercises Modalities Cold Pack/Ice Massage,Hot Packs,Iontophoresis,Ultrasound Other Therapeutic Interventions Iontophoresis with 4 mg/mL Dexamethasone w/Sodium Phospate. Next Visit Focus/Plan Next Note Type Treatment Note Next Visit Plan R foot: Possible need for modality to start () JMT (foot/ankle), Manual therapy Therapeutic Ex - ROM, strengthening foot/ankle L foot: US Cross Friction massage of plantar fascia and Gastroc/ Soleus complex JMT (Ankle) Therapeutic Ex - Gastroc/ Soleus stretching, ankle ROM Ex for Plantar fascia strengthening Gait training - level & stairs . Contrast Baths HEP education. I/S for home mob of plantar fascia. Plan of Care Dates Plan of Care Start Date 01/10/20 Plan of Care End Date 04/09/20 Electronically Signed by: Nelly Mohr, PT 01/10/20 4820 Please Sign and Return: I have reviewed this Plan of Care and certify that the skilled therapy services above are required to meet the patient?s needs. Physician Signature Date Printed Name and Credentials Clinical Instructor Signature Printed Name and Credentials d
--- NOTE | 2020-01-15 19:57 | PT.OTN ---
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 PT-OP-B Current Condition Start: 01/08/20 21:01 Freq: Status: Active Protocol: Document 01/10/20 09:51 LRN (Rec: 01/10/20 10:41 LRN [id number]) Current Condition History of Current Condition Onset Date R foot-09/05/18; L foot - 2018 History of Current Condition Difficulty walking with limping gait. L foot hurts more after resting and decreases with gait. R foot hurts constantly. R big toe surgery to remove bone spur and debride joint - 09/05/18. L foot plantar fasciitis - 2018 Previous rx: Insoles, K-tape but causes some irritation if worn too long. Wears shoes in house not that she has plantar fasciitis. Prior Treatments and Tests Home ex's of passive and active R big toe ext/flex. Massage therapy for L foot that was interrupted by COVID 19. Future Testing and Treatments Planned No further physician visits planned. Developmental History Developmental History See above Treatment Goals Patient/Caregiver Goals Walk normal and without pain. Hiking 6 miles a day. Squatting in shower to shave legs, Squat to weed. No pain with stair ambulation. Prior Functional Status Baseline Function- ADL's Independent Baseline Function- Mobility Independent Baseline Function- Gait Antalgic gait. Needs railing for stair ambulation. Baseline Function- Recreation/Hobbies Hiked 3-6 miles daily on trails. Current Functional Impairments (Reported) Functional Limitations- ADL's Squatting for functional activities (shaving legs, weeding). Functional Limitations- Mobility/Gait Antalgic gait. Single stepping on stairs. Needs railing for stair ambulation. Functional Limitations- Recreation/ Hiking. Hobbies Walking on level pavement at most 1 mile Personal Factors Other Personal Factors That May Effect Chronicity of L foot plantar Therapy/Recovery fasciitis since 01/2019 Back pain Thyroid disorder Autoimmune disorders. PT-OP-C Subjective Start: 01/08/20 21:01 Freq: Status: Active Protocol: Document 01/15/20 16:05 LRN (Rec: 01/15/20 16:49 LRN [id number]) OP-PT Subjective Patient Comments Patient Comments No change since last appt. PT-OP-D Balance Start: 01/08/20 21:01 Freq: Status: Active Protocol: Document 01/10/20 09:51 LRN (Rec: 01/10/20 15:53 LRN [id number]) Balance Tests Single Limb Standing Single Limb- Right 1 Single Limb- Left 19 PT-OP-E Functional Tests Start: 01/08/20 21:01 Freq: Status: Active Protocol: Document 01/10/20 09:51 LRN (Rec: 01/10/20 15:53 LRN [id number]) Functional Tests Tinetti Balance and Gait Assessment Balance Score 15 Gait Score 8 Composite Score 23 Balance Score Impairment Rating 1 to <20% Impaired (Score 13- 15) Gait Score Impairment Rating 20 to <40% Impaired (Score 8-9 ) Composite Score Impairment Rating 1 to <20% Impaired (Score 23- 27) PT-OP-G Mobility & Gait Start: 01/08/20 21:01 Freq: Status: Active Protocol: Document 01/10/20 09:51 LRN (Rec: 01/10/20 15:53 LRN [id number]) OP Gait Assessment Assistive Devices Assistive Device None Gait Deviations General Gait Pattern Antalgic Factors Limiting Gait Function Factors Limiting Gait Function Decreased Activity Tolerance, Limited Range of Motion,Pain Stair Climbing Evaluation Technique/Endurance Stair Climbing Direction Ascend and Descend Stair Climbing Technique Step to Step PT-OP-H Neuro Start: 01/08/20 21:01 Freq: Status: Active Protocol: Document 01/10/20 09:51 LRN (Rec: 01/10/20 15:53 LRN [id number]) Sensation Evaluation Comments Summary Comments Soft touch Sensation: R foot hypersensitivity around well healed scar. L foot sensation is normal. PT-OP-J Posture/Palpation/Skin Start: 01/08/20 21:01 Freq: Status: Active Protocol: Document 01/10/20 09:51 LRN (Rec: 01/10/20 15:53 LRN [id number]) Posture Evaluation Position Standing Knee Posture (R) Genu Varus,(L) Genu Recurvatum,(R) Genu Recurvatum Ankle/Foot Posture (L) Supinated,(R) Supinated Foot Arch (L) High Arch Comments Posture Comments Big Toe Aducted. Right: slight cross over, Left: no crossover. Palpation Assessment Location R big toe Palpation Location R big toe caudal surface Palpation Findings Soft Tissue Tightness PT-OP-K Range of Motion Start: 01/08/20 21:01 Freq: Status: Active Protocol: Document 01/10/20 09:51 LRN (Rec: 01/10/20 15:53 LRN [id number]) Ankle and Foot Goniometric Range of Motion Ankle and Foot Right Active Testing Position Supine Dorsiflexion with Knee Flexed 19 Dorsiflexion with Knee Extended 14 Inversion 42 Eversion 20 Left Active Testing Position Supine Dorsiflexion with Knee Flexed 24 Dorsiflexion with Knee Extended 15 Inversion 40 Eversion 20 Toe Range of Motion Toe Right Great Toe Toe ROM WFL No MTP Flexion Active (degrees) 24 MTP Extension Active (degrees) 19 Left Great Toe Toe ROM WFL Yes MTP Flexion Active (degrees) 32 MTP Extension Active (degrees) 36 Toes ROM Limitations Comments Big toe resting position: Right: ADD 18 deg's Left: ADD 12 deg's PT-OP-M Strength Start: 01/08/20 21:01 Freq: Status: Active Protocol: Document 01/10/20 09:51 LRN (Rec: 01/10/20 15:53 LRN [id number]) Ankle/Foot Strength Ankle and Foot Manual Muscle Testing Right Reason Not Measured WFL Left Reason Not Measured WFL Toe Strength Toe Manual Muscle Testing Right Great Toe Flexion 4 Good Extension 4 Good Comments MMT is within available ROM Left Great Toe Comments Generally 5/5 Cramping of plantar fascia during testing. PT-OP-Q Treatments Start: 01/08/20 21:01 Freq: Status: Active Protocol: Document 01/15/20 16:05 LRN (Rec: 01/15/20 19:48 LRN [id number]) Gait Training Gait Activity R Big Toe CKC ext Description Toe off phase for proper positioning Device Used UE support Level of Assistance moderate physical and verbal cuing. Surface Level Distance/Duration 10' Treatment Focus Proper positioning for proper stretch & teaching max stretch tolerance Comments Pt needed much training before being able to identify proper positioning and posturing of knee over ankle and controlling inversion of R ankle. Manual Therapy Treatment Soft Tissue Mobilization L Gastrocsoleus Complex Body Location L Gastrocsoleus Comples Mobilization Type Myofascial Release,Trigger Point Release Intensity/Depth Moderate Body Position Prone Comments Pt had active trigger points that resolved with treatment of the medial gastroc complex. L plantar fascia Body Location L plantar fascia Mobilization Type Cross-Friction,Instrument Assisted Intensity/Depth Moderate Body Position Prone Comments Massage lotion used. Scar mob Body Location R foot Scar Mob Mobilization Type Myofascial Release Intensity/Depth Superficial Body Position Supine Joint Mobilizations L ankle Joint PA mob of Talus Grade III Body Position Prone Reps/Duration 2' R ankle Joint PA & Lateral mob of Talus Grade II Body Position Prone Reps/Duration 3' R MTP joint Joint R MTP jt Direction PA & AP Grade II Body Position Supine Reps/Duration 3' Comments Decreased mobility in both directions, not able to normalize after mobilization. Manual Traction R Big Toe Details Gentle Manual traction of R Big Toe Body Position Prone Comments No pain with gentle traction. Manual Techniques PROM R Big Toe Type Passive Flex/Ext Body Location Right Big Toe PIP joint. Body Position Prone Comments Long hold stretching with gradual progression towards greater mobility. Self-Care/Home Management Treatment Education Patient Education Home Exercise Program Activities Self-Care/Home Management Activities Issued & reviewed HEP of gastroc/soleus stretching. Pt needed training to keep heel on floor and to learn maximal stretch needed. PT-OP-R Modalities Start: 01/08/20 21:01 Freq: Status: Active Protocol: Document 01/15/20 16:05 LRN (Rec: 01/15/20 16:49 LRN [id number]) Ultrasound Therapy Treatment L plantar fascia Treatment Duration (minutes) 8 Patient Position Prone Frequency Setting (mHz) 3 Duty Cycle 100% Intensity Setting (w/cm2) 1.0 PT-OP-T Assessment and Plan Start: 01/08/20 21:01 Freq: Status: Active Protocol: Document 01/15/20 16:05 LRN (Rec: 01/15/20 16:49 LRN [id number]) Physical Therapy Assessment Goals Five Impairment Foot pain (Right 5/10, Left 4/ 10) limiting gait tolerance. Snf Goal (LTG) Decrease foot pain to no greater than 1/10 with pt able to return to hiking 3 miles and being able to squat in the shower to shave legs without pain. LTG Duration 04/09/20 Four Impairment Decreased Balance: SLS EO ( Right - 1 sec, Left 19 sec), Tinetti 23/28 Snf Goal (LTG) Pt will be able to SLS EO - 10 sec bilaterally without LOB to improve function and safety with resulting in improved Tinetti Score of > 24. LTG Duration 04/09/20 Three Impairment Decreased ankle AROM Snf Goal (LTG) Active Ankle DF (legs straight ) no less than 15 deg's. Active Ankle DF (knees flexed) no less than 24 deg's Pt will be able to ambulate up /down stairs with normal gait pattern. LTG Duration 04/09/20 Two Impairment Decreased Big Toe Right MTP jt AROM (flex 24 deg's, ext 20 deg's) Short Term Goal (STG) Improve R big toe MTP AROM to ext 36 deg's, flex 32 deg's ( equal to left foot) with pt able to ambulate with equal step lengths without use of assistive device. STG Duration 02/08/20 Policy Manager Goal (LTG) Improve functional ability, per Foot and Ankle Ability Measure (FAAM) Score ( initially 36) no less than 50 . One Impairment Lacks appropriate HEP Short Term Goal (STG) Self care I/S for scar tissue management and edema management. STG Duration 01/21/20 Snf Goal (LTG) Pt will be independent in a self care HEP to manage her mobility, strength and endurance of her bilateral foot/ankles. 01/15/20: Progressing. LTG Duration 04/09/20 Assessment Summary Assessment Decreased pain complaints L foot post therapy, + response to US & X friction massage of L plantar fascia. Pt able to stand on her feet without pain L plantar fascia pain. Pt able to perform proper techinque of R knee over toes 1/4 times during gait training without verbal cuing, physical cuing needed. Physical Therapy Plan Frequency and Duration Frequency of Treatment 2x/Week Plan of Care Start Date 01/10/20 Plan of Care End Date 04/09/20 Next Visit Focus/Plan Next Note Type Treatment Note Next Visit Plan R foot: Teach scar mob and discuss edema management ( contrast Bath HEP education). Possible need for modality to start () during US of L ankle. JMT (foot/ankle), Manual therapy Therapeutic Ex - ROM, strengthening foot/ankle L foot: Cont. US, Cross Friction massage of plantar fascia and Gastroc/Soleus complex JMT (Ankle) Therapeutic Ex - Review: Gastroc/Soleus stretching, Initiate ex for ankle & if appropriate Plantar fascia strengthening Cont: Gait training - level & stairs. I/S for home mob of plantar fascia.
--- NOTE | 2020-01-15 20:02 | PT.OTN ---
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 PT-OP-B Current Condition Start: 01/08/20 21:01 Freq: Status: Active Protocol: Document 01/10/20 09:51 LRN (Rec: 01/10/20 10:41 LRN [id number]) Current Condition History of Current Condition Onset Date R foot-09/05/18; L foot - 2018 History of Current Condition Difficulty walking with limping gait. L foot hurts more after resting and decreases with gait. R foot hurts constantly. R big toe surgery to remove bone spur and debride joint - 09/05/18. L foot plantar fasciitis - 2018 Previous rx: Insoles, K-tape but causes some irritation if worn too long. Wears shoes in house not that she has plantar fasciitis. Prior Treatments and Tests Home ex's of passive and active R big toe ext/flex. Massage therapy for L foot that was interrupted by COVID 19. Future Testing and Treatments Planned No further physician visits planned. Developmental History Developmental History See above Treatment Goals Patient/Caregiver Goals Walk normal and without pain. Hiking 6 miles a day. Squatting in shower to shave legs, Squat to weed. No pain with stair ambulation. Prior Functional Status Baseline Function- ADL's Independent Baseline Function- Mobility Independent Baseline Function- Gait Antalgic gait. Needs railing for stair ambulation. Baseline Function- Recreation/Hobbies Hiked 3-6 miles daily on trails. Current Functional Impairments (Reported) Functional Limitations- ADL's Squatting for functional activities (shaving legs, weeding). Functional Limitations- Mobility/Gait Antalgic gait. Single stepping on stairs. Needs railing for stair ambulation. Functional Limitations- Recreation/ Hiking. Hobbies Walking on level pavement at most 1 mile Personal Factors Other Personal Factors That May Effect Chronicity of L foot plantar Therapy/Recovery fasciitis since 01/2019 Back pain Thyroid disorder Autoimmune disorders. PT-OP-C Subjective Start: 01/08/20 21:01 Freq: Status: Active Protocol: Document 01/15/20 16:05 LRN (Rec: 01/15/20 16:49 LRN [id number]) OP-PT Subjective Patient Comments Patient Comments No change since last appt. PT-OP-D Balance Start: 01/08/20 21:01 Freq: Status: Active Protocol: Document 01/10/20 09:51 LRN (Rec: 01/10/20 15:53 LRN [id number]) Balance Tests Single Limb Standing Single Limb- Right 1 Single Limb- Left 19 PT-OP-E Functional Tests Start: 01/08/20 21:01 Freq: Status: Active Protocol: Document 01/10/20 09:51 LRN (Rec: 01/10/20 15:53 LRN [id number]) Functional Tests Tinetti Balance and Gait Assessment Balance Score 15 Gait Score 8 Composite Score 23 Balance Score Impairment Rating 1 to <20% Impaired (Score 13- 15) Gait Score Impairment Rating 20 to <40% Impaired (Score 8-9 ) Composite Score Impairment Rating 1 to <20% Impaired (Score 23- 27) PT-OP-G Mobility & Gait Start: 01/08/20 21:01 Freq: Status: Active Protocol: Document 01/10/20 09:51 LRN (Rec: 01/10/20 15:53 LRN [id number]) OP Gait Assessment Assistive Devices Assistive Device None Gait Deviations General Gait Pattern Antalgic Factors Limiting Gait Function Factors Limiting Gait Function Decreased Activity Tolerance, Limited Range of Motion,Pain Stair Climbing Evaluation Technique/Endurance Stair Climbing Direction Ascend and Descend Stair Climbing Technique Step to Step PT-OP-H Neuro Start: 01/08/20 21:01 Freq: Status: Active Protocol: Document 01/10/20 09:51 LRN (Rec: 01/10/20 15:53 LRN [id number]) Sensation Evaluation Comments Summary Comments Soft touch Sensation: R foot hypersensitivity around well healed scar. L foot sensation is normal. PT-OP-J Posture/Palpation/Skin Start: 01/08/20 21:01 Freq: Status: Active Protocol: Document 01/10/20 09:51 LRN (Rec: 01/10/20 15:53 LRN [id number]) Posture Evaluation Position Standing Knee Posture (R) Genu Varus,(L) Genu Recurvatum,(R) Genu Recurvatum Ankle/Foot Posture (L) Supinated,(R) Supinated Foot Arch (L) High Arch Comments Posture Comments Big Toe Aducted. Right: slight cross over, Left: no crossover. Palpation Assessment Location R big toe Palpation Location R big toe caudal surface Palpation Findings Soft Tissue Tightness PT-OP-K Range of Motion Start: 01/08/20 21:01 Freq: Status: Active Protocol: Document 01/10/20 09:51 LRN (Rec: 01/10/20 15:53 LRN [id number]) Ankle and Foot Goniometric Range of Motion Ankle and Foot Right Active Testing Position Supine Dorsiflexion with Knee Flexed 19 Dorsiflexion with Knee Extended 14 Inversion 42 Eversion 20 Left Active Testing Position Supine Dorsiflexion with Knee Flexed 24 Dorsiflexion with Knee Extended 15 Inversion 40 Eversion 20 Toe Range of Motion Toe Right Great Toe Toe ROM WFL No MTP Flexion Active (degrees) 24 MTP Extension Active (degrees) 19 Left Great Toe Toe ROM WFL Yes MTP Flexion Active (degrees) 32 MTP Extension Active (degrees) 36 Toes ROM Limitations Comments Big toe resting position: Right: ADD 18 deg's Left: ADD 12 deg's PT-OP-M Strength Start: 01/08/20 21:01 Freq: Status: Active Protocol: Document 01/10/20 09:51 LRN (Rec: 01/10/20 15:53 LRN [id number]) Ankle/Foot Strength Ankle and Foot Manual Muscle Testing Right Reason Not Measured WFL Left Reason Not Measured WFL Toe Strength Toe Manual Muscle Testing Right Great Toe Flexion 4 Good Extension 4 Good Comments MMT is within available ROM Left Great Toe Comments Generally 5/5 Cramping of plantar fascia during testing. PT-OP-Q Treatments Start: 01/08/20 21:01 Freq: Status: Active Protocol: Document 01/15/20 16:05 LRN (Rec: 01/15/20 19:48 LRN [id number]) Gait Training Gait Activity R Big Toe CKC ext Description Toe off phase for proper positioning Device Used UE support Level of Assistance moderate physical and verbal cuing. Surface Level Distance/Duration 10' Treatment Focus Proper positioning for proper stretch & teaching max stretch tolerance Comments Pt needed much training before being able to identify proper positioning and posturing of knee over ankle and controlling inversion of R ankle. Manual Therapy Treatment Soft Tissue Mobilization L Gastrocsoleus Complex Body Location L Gastrocsoleus Comples Mobilization Type Myofascial Release,Trigger Point Release Intensity/Depth Moderate Body Position Prone Comments Pt had active trigger points that resolved with treatment of the medial gastroc complex. L plantar fascia Body Location L plantar fascia Mobilization Type Cross-Friction,Instrument Assisted Intensity/Depth Moderate Body Position Prone Comments Massage lotion used. Scar mob Body Location R foot Scar Mob Mobilization Type Myofascial Release Intensity/Depth Superficial Body Position Supine Joint Mobilizations L ankle Joint PA mob of Talus Grade III Body Position Prone Reps/Duration 2' R ankle Joint PA & Lateral mob of Talus Grade II Body Position Prone Reps/Duration 3' R MTP joint Joint R MTP jt Direction PA & AP Grade II Body Position Supine Reps/Duration 3' Comments Decreased mobility in both directions, not able to normalize after mobilization. Manual Traction R Big Toe Details Gentle Manual traction of R Big Toe Body Position Prone Comments No pain with gentle traction. Manual Techniques PROM R Big Toe Type Passive Flex/Ext Body Location Right Big Toe PIP joint. Body Position Prone Comments Long hold stretching with gradual progression towards greater mobility. Self-Care/Home Management Treatment Education Patient Education Home Exercise Program Activities Self-Care/Home Management Activities Issued & reviewed HEP of gastroc/soleus stretching. Pt needed training to keep heel on floor and to learn maximal stretch needed. PT-OP-R Modalities Start: 01/08/20 21:01 Freq: Status: Active Protocol: Document 01/15/20 16:05 LRN (Rec: 01/15/20 16:49 LRN [id number]) Ultrasound Therapy Treatment L plantar fascia Treatment Duration (minutes) 8 Patient Position Prone Frequency Setting (mHz) 3 Duty Cycle 100% Intensity Setting (w/cm2) 1.0 PT-OP-T Assessment and Plan Start: 01/08/20 21:01 Freq: Status: Active Protocol: Document 01/15/20 16:05 LRN (Rec: 01/15/20 16:49 LRN [id number]) Physical Therapy Assessment Goals Five Impairment Foot pain (Right 5/10, Left 4/ 10) limiting gait tolerance. Fci Goal (LTG) Decrease foot pain to no greater than 1/10 with pt able to return to hiking 3 miles and being able to squat in the shower to shave legs without pain. LTG Duration 04/09/20 Four Impairment Decreased Balance: SLS EO ( Right - 1 sec, Left 19 sec), Tinetti 23/28 [facility]ci Goal (LTG) Pt will be able to SLS EO - 10 sec bilaterally without LOB to improve function and safety with resulting in improved Tinetti Score of > 24. LTG Duration 04/09/20 Three Impairment Decreased ankle AROM [facility]ci Goal (LTG) Active Ankle DF (legs straight ) no less than 15 deg's. Active Ankle DF (knees flexed) no less than 24 deg's Pt will be able to ambulate up /down stairs with normal gait pattern. LTG Duration 04/09/20 Two Impairment Decreased Big Toe Right MTP jt AROM (flex 24 deg's, ext 20 deg's) Short Term Goal (STG) Improve R big toe MTP AROM to ext 36 deg's, flex 32 deg's ( equal to left foot) with pt able to ambulate with equal step lengths without use of assistive device. STG Duration 02/08/20 Heat Seal Operator Goal (LTG) Improve functional ability, per Foot and Ankle Ability Measure (FAAM) Score ( initially 36) no less than 50 . One Impairment Lacks appropriate HEP Short Term Goal (STG) Self care I/S for scar tissue management and edema management. STG Duration 01/21/20 Fci Goal (LTG) Pt will be independent in a self care HEP to manage her mobility, strength and endurance of her bilateral foot/ankles. 01/15/20: Progressing. LTG Duration 04/09/20 Assessment Summary Assessment Decreased pain complaints L foot post therapy, + response to US & X friction massage of L plantar fascia. Pt able to stand on her feet without pain L plantar fascia pain. Pt able to perform proper techinque of R knee over toes 1/4 times during gait training without verbal cuing, physical cuing needed. Physical Therapy Plan Frequency and Duration Frequency of Treatment 2x/Week Plan of Care Start Date 01/10/20 Plan of Care End Date 04/09/20 Next Visit Focus/Plan Next Note Type Treatment Note Next Visit Plan R foot: Teach scar mob and discuss edema management ( contrast Bath HEP education). Possible need for modality to start () during US of L ankle. JMT (foot/ankle), Manual therapy Therapeutic Ex - ROM, strengthening foot/ankle L foot: Cont. US, Cross Friction massage of plantar fascia and Gastroc/Soleus complex JMT (Ankle) Therapeutic Ex - Review: Gastroc/Soleus stretching, Initiate ex for ankle & if appropriate Plantar fascia strengthening Cont: Gait training - level & stairs. I/S for home mob of plantar fascia.
--- NOTE | 2020-01-17 15:25 | PT.OTN ---
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 PT-OP-B Current Condition Start: 01/08/20 21:01 Freq: Status: Active Protocol: Document 01/10/20 09:51 LRN (Rec: 01/10/20 10:41 LRN [id number]) Current Condition History of Current Condition Onset Date R foot-09/05/18; L foot - 2018 History of Current Condition Difficulty walking with limping gait. L foot hurts more after resting and decreases with gait. R foot hurts constantly. R big toe surgery to remove bone spur and debride joint - 09/05/18. L foot plantar fasciitis - 2018 Previous rx: Insoles, K-tape but causes some irritation if worn too long. Wears shoes in house not that she has plantar fasciitis. Prior Treatments and Tests Home ex's of passive and active R big toe ext/flex. Massage therapy for L foot that was interrupted by COVID 19. Future Testing and Treatments Planned No further physician visits planned. Developmental History Developmental History See above Treatment Goals Patient/Caregiver Goals Walk normal and without pain. Hiking 6 miles a day. Squatting in shower to shave legs, Squat to weed. No pain with stair ambulation. Prior Functional Status Baseline Function- ADL's Independent Baseline Function- Mobility Independent Baseline Function- Gait Antalgic gait. Needs railing for stair ambulation. Baseline Function- Recreation/Hobbies Hiked 3-6 miles daily on trails. Current Functional Impairments (Reported) Functional Limitations- ADL's Squatting for functional activities (shaving legs, weeding). Functional Limitations- Mobility/Gait Antalgic gait. Single stepping on stairs. Needs railing for stair ambulation. Functional Limitations- Recreation/ Hiking. Hobbies Walking on level pavement at most 1 mile Personal Factors Other Personal Factors That May Effect Chronicity of L foot plantar Therapy/Recovery fasciitis since 01/2019 Back pain Thyroid disorder Autoimmune disorders. PT-OP-C Subjective Start: 01/08/20 21:01 Freq: Status: Active Protocol: Document 01/17/20 09:49 LRN (Rec: 01/17/20 10:35 LRN [id number]) OP-PT Subjective Patient Comments Patient Comments L foot pain is less at 4-5/10, R foot is worse at 6/10. Did a lot of walking for errands and grocery store walking. PT-OP-D Balance Start: 01/08/20 21:01 Freq: Status: Active Protocol: Document 01/10/20 09:51 LRN (Rec: 01/10/20 15:53 LRN [id number]) Balance Tests Single Limb Standing Single Limb- Right 1 Single Limb- Left 19 PT-OP-E Functional Tests Start: 01/08/20 21:01 Freq: Status: Active Protocol: Document 01/10/20 09:51 LRN (Rec: 01/10/20 15:53 LRN [id number]) Functional Tests Tinetti Balance and Gait Assessment Balance Score 15 Gait Score 8 Composite Score 23 Balance Score Impairment Rating 1 to <20% Impaired (Score 13- 15) Gait Score Impairment Rating 20 to <40% Impaired (Score 8-9 ) Composite Score Impairment Rating 1 to <20% Impaired (Score 23- 27) PT-OP-G Mobility & Gait Start: 01/08/20 21:01 Freq: Status: Active Protocol: Document 01/10/20 09:51 LRN (Rec: 01/10/20 15:53 LRN [id number]) OP Gait Assessment Assistive Devices Assistive Device None Gait Deviations General Gait Pattern Antalgic Factors Limiting Gait Function Factors Limiting Gait Function Decreased Activity Tolerance, Limited Range of Motion,Pain Stair Climbing Evaluation Technique/Endurance Stair Climbing Direction Ascend and Descend Stair Climbing Technique Step to Step PT-OP-H Neuro Start: 01/08/20 21:01 Freq: Status: Active Protocol: Document 01/10/20 09:51 LRN (Rec: 01/10/20 15:53 LRN [id number]) Sensation Evaluation Comments Summary Comments Soft touch Sensation: R foot hypersensitivity around well healed scar. L foot sensation is normal. PT-OP-J Posture/Palpation/Skin Start: 01/08/20 21:01 Freq: Status: Active Protocol: Document 01/10/20 09:51 LRN (Rec: 01/10/20 15:53 LRN [id number]) Posture Evaluation Position Standing Knee Posture (R) Genu Varus,(L) Genu Recurvatum,(R) Genu Recurvatum Ankle/Foot Posture (L) Supinated,(R) Supinated Foot Arch (L) High Arch Comments Posture Comments Big Toe Aducted. Right: slight cross over, Left: no crossover. Palpation Assessment Location R big toe Palpation Location R big toe caudal surface Palpation Findings Soft Tissue Tightness PT-OP-K Range of Motion Start: 01/08/20 21:01 Freq: Status: Active Protocol: Document 01/10/20 09:51 LRN (Rec: 01/10/20 15:53 LRN [id number]) Ankle and Foot Goniometric Range of Motion Ankle and Foot Right Active Testing Position Supine Dorsiflexion with Knee Flexed 19 Dorsiflexion with Knee Extended 14 Inversion 42 Eversion 20 Left Active Testing Position Supine Dorsiflexion with Knee Flexed 24 Dorsiflexion with Knee Extended 15 Inversion 40 Eversion 20 Toe Range of Motion Toe Right Great Toe Toe ROM WFL No MTP Flexion Active (degrees) 24 MTP Extension Active (degrees) 19 Left Great Toe Toe ROM WFL Yes MTP Flexion Active (degrees) 32 MTP Extension Active (degrees) 36 Toes ROM Limitations Comments Big toe resting position: Right: ADD 18 deg's Left: ADD 12 deg's PT-OP-M Strength Start: 01/08/20 21:01 Freq: Status: Active Protocol: Document 01/10/20 09:51 LRN (Rec: 01/10/20 15:53 LRN [id number]) Ankle/Foot Strength Ankle and Foot Manual Muscle Testing Right Reason Not Measured WFL Left Reason Not Measured WFL Toe Strength Toe Manual Muscle Testing Right Great Toe Flexion 4 Good Extension 4 Good Comments MMT is within available ROM Left Great Toe Comments Generally 5/5 Cramping of plantar fascia during testing. PT-OP-Q Treatments Start: 01/08/20 21:01 Freq: Status: Active Protocol: Document 01/17/20 09:49 LRN (Rec: 01/17/20 10:35 LRN [id number]) Therapeutic Exercises Standing Exercises Long foot ms strengthening Standing Exercise Name Lifting of arch Reps/Minutes 10 hold x 6 Comments Pain limiting reps. L soleus Standing Exercise Name Stretch Reps/Minutes 20 x 3 L Gastroc Standing Exercise Name Stretch Reps/Minutes 20 x 3 Gait Training Gait Activity L Big Toe off Description Toe off phase for proper positioning Device Used UE support Level of Assistance Level Surface moderate physical and verbal cuing. Distance/Duration 8' Treatment Focus Proper positioning for proper stretch & teaching max stretch tolerance Comments Pt needed much training before being able to identify proper positioning and posturing of knee over ankle and controlling inversion of R ankle. R Big Toe CKC ext Description Toe off phase for proper positioning Device Used UE support Level of Assistance moderate physical and verbal cuing. Surface Level Distance/Duration 8' Treatment Focus Proper positioning for proper stretch & teaching max stretch tolerance Comments Pt needed much training before being able to identify proper positioning and posturing of knee over ankle and controlling inversion of R ankle. Manual Therapy Treatment Soft Tissue Mobilization L Gastrocsoleus Complex Body Location L Gastrocsoleus Complex Mobilization Type Myofascial Release Intensity/Depth Moderate Body Position Prone Comments Minimal tenderness and mobility restriction. Ankle DF limited by Plantar fascial pain. L plantar fascia Body Location L plantar fascia Mobilization Type Cross-Friction,Instrument Assisted Intensity/Depth Moderate Body Position Prone Comments Massage lotion used. Scar mob Body Location R foot Scar Mob - minimal performed Mobilization Type Myofascial Release Intensity/Depth Superficial Body Position Supine Comments No pain with scar mob, mobility is good. Joint Mobilizations R ankle Joint PA & Lateral mob of Talus Grade II Body Position Prone Reps/Duration 2' R MTP joint Joint R MTP jt Direction Traction & PA Grade II Body Position Supine Reps/Duration 2' Comments Limited by pain. Manual Techniques PROM R Big Toe Type Passive Flex/Ext Body Location Right Big Toe PIP & MTP joint. Body Position Prone Comments MWM: Big toe phalanx compression and slight AB of toe during flex/ext. Self-Care/Home Management Treatment Activities Self-Care/Home Management Activities I/S pt to do long plantar flex strengthening and active toe ext/flex with approximation of the joint and possibly AB and a rotation of big toe for pain relief. Pt to practice walking 3x/day for short periods for proper gait mechanics training. PT-OP-R Modalities Start: 01/08/20 21:01 Freq: Status: Active Protocol: Document 01/17/20 09:49 LRN (Rec: 01/17/20 10:35 LRN [id number]) Ultrasound Therapy Treatment L plantar fascia Treatment Duration (minutes) 8 Patient Position Prone Frequency Setting (mHz) 3 Duty Cycle 50% Intensity Setting (w/cm2) 0.8 Comments Pt had c/o tingling in foot with intensity 1.0 and 100% duty cycle. PT-OP-T Assessment and Plan Start: 01/08/20 21:01 Freq: Status: Active Protocol: Document 01/17/20 09:49 LRN (Rec: 01/17/20 10:35 LRN [id number]) Physical Therapy Assessment Goals Five Impairment Foot pain (Right 5/10, Left 4/ 10) limiting gait tolerance. Nursing Services Manager Goal (LTG) Decrease foot pain to no greater than 1/10 with pt able to return to hiking 3 miles and being able to squat in the shower to shave legs without pain. 01/17/20: Pt notes L foot pain is less, indicates it is 4-5/ 10, R foot is worse at 6/10. LTG Duration 04/09/20 Four Impairment Decreased Balance: SLS EO ( Right - 1 sec, Left 19 sec), Tinetti 23/28 Nursing Services Manager Goal (LTG) Pt will be able to SLS EO - 10 sec bilaterally without LOB to improve function and safety with resulting in improved Tinetti Score of > 24. LTG Duration 04/09/20 Three Impairment Decreased ankle AROM Snf Goal (LTG) Active Ankle DF (legs straight ) no less than 15 deg's. Active Ankle DF (knees flexed) no less than 24 deg's Pt will be able to ambulate up /down stairs with normal gait pattern. LTG Duration 04/09/20 Two Impairment Decreased Big Toe Right MTP jt AROM (flex 24 deg's, ext 20 deg's) Short Term Goal (STG) Improve R big toe MTP AROM to ext 36 deg's, flex 32 deg's ( equal to left foot) with pt able to ambulate with equal step lengths without use of assistive device. STG Duration 02/08/20 Snf Goal (LTG) Improve functional ability, per Foot and Ankle Ability Measure (FAAM) Score ( initially 36) no less than 50 . One Impairment Lacks appropriate HEP Short Term Goal (STG) Self care I/S for scar tissue management and edema management. STG Duration 01/21/20 Snf Goal (LTG) Pt will be independent in a self care HEP to manage her mobility, strength and endurance of her bilateral foot/ankles. 01/15/20: Progressing. LTG Duration 04/09/20 Progress Towards Goals Progress Comments Pain less on L foot. Assessment Summary Assessment Pt feeling like her L foot pain is better, but pain rating is same. Pt demonstrated improved L ankle DF tolerance to stretching and was able to walk with very short steps keeping ankle from IVing. R ankle IV's during gait due to pain on R big toe with weight bearing. R big toe mobility appears loose; therefore approximation during ROM decreases pain. Physical Therapy Plan Frequency and Duration Frequency of Treatment 2x/Week Plan of Care Start Date 01/10/20 Plan of Care End Date 04/09/20 Next Visit Focus/Plan Next Note Type Treatment Note Next Visit Plan K-tape assessment for use. Pt educ for contrast bath home treatment. R foot: Assess self scar mob. Discuss edema management ( contrast Bath HEP education). Possible need for modality to start (MH) during US of L ankle. JMT ankle (med>lat mob) Manual therapy (MWM of Big toe with approximation of jt during ROM). Therapeutic Ex - ROM, strengthening foot/ankle L foot: Cont. US, Cross Friction massage of plantar fascia and Gastroc/Soleus complex JMT (Ankle) Therapeutic Ex - strengthen Long foot plantar flexors. Initiate ankle DF's. Cont: Gait training - level & stairs. I/S for home mob of plantar fascia.
--- NOTE | 2020-01-22 17:30 | PT.OTN ---
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 PT-OP-B Current Condition Start: 01/08/20 21:01 Freq: Status: Active Protocol: Document 01/10/20 09:51 LRN (Rec: 01/10/20 10:41 LRN [id number]) Current Condition History of Current Condition Onset Date R foot-09/05/18; L foot - 2018 History of Current Condition Difficulty walking with limping gait. L foot hurts more after resting and decreases with gait. R foot hurts constantly. R big toe surgery to remove bone spur and debride joint - 09/05/18. L foot plantar fasciitis - 2018 Previous rx: Insoles, K-tape but causes some irritation if worn too long. Wears shoes in house not that she has plantar fasciitis. Prior Treatments and Tests Home ex's of passive and active R big toe ext/flex. Massage therapy for L foot that was interrupted by COVID 19. Future Testing and Treatments Planned No further physician visits planned. Developmental History Developmental History See above Treatment Goals Patient/Caregiver Goals Walk normal and without pain. Hiking 6 miles a day. Squatting in shower to shave legs, Squat to weed. No pain with stair ambulation. Prior Functional Status Baseline Function- ADL's Independent Baseline Function- Mobility Independent Baseline Function- Gait Antalgic gait. Needs railing for stair ambulation. Baseline Function- Recreation/Hobbies Hiked 3-6 miles daily on trails. Current Functional Impairments (Reported) Functional Limitations- ADL's Squatting for functional activities (shaving legs, weeding). Functional Limitations- Mobility/Gait Antalgic gait. Single stepping on stairs. Needs railing for stair ambulation. Functional Limitations- Recreation/ Hiking. Hobbies Walking on level pavement at most 1 mile Personal Factors Other Personal Factors That May Effect Chronicity of L foot plantar Therapy/Recovery fasciitis since 01/2019 Back pain Thyroid disorder Autoimmune disorders. PT-OP-C Subjective Start: 01/08/20 21:01 Freq: Status: Active Protocol: Document 01/22/20 16:02 LRN (Rec: 01/22/20 17:25 LRN [id number]) OP-PT Subjective Patient Comments Patient Comments States after last session her L foot didn't hurt until the next day when she went on a hike. She went on a hike yesterday and is more sore in her feet. L foot pain 2/10, post therapy is 0/10. R foot hurts in Big toe with gait still. PT-OP-D Balance Start: 01/08/20 21:01 Freq: Status: Active Protocol: Document 01/10/20 09:51 LRN (Rec: 01/10/20 15:53 LRN [id number]) Balance Tests Single Limb Standing Single Limb- Right 1 Single Limb- Left 19 PT-OP-E Functional Tests Start: 01/08/20 21:01 Freq: Status: Active Protocol: Document 01/10/20 09:51 LRN (Rec: 01/10/20 15:53 LRN [id number]) Functional Tests Tinetti Balance and Gait Assessment Balance Score 15 Gait Score 8 Composite Score 23 Balance Score Impairment Rating 1 to <20% Impaired (Score 13- 15) Gait Score Impairment Rating 20 to <40% Impaired (Score 8-9 ) Composite Score Impairment Rating 1 to <20% Impaired (Score 23- 27) PT-OP-G Mobility & Gait Start: 01/08/20 21:01 Freq: Status: Active Protocol: Document 01/10/20 09:51 LRN (Rec: 01/10/20 15:53 LRN [id number]) OP Gait Assessment Assistive Devices Assistive Device None Gait Deviations General Gait Pattern Antalgic Factors Limiting Gait Function Factors Limiting Gait Function Decreased Activity Tolerance, Limited Range of Motion,Pain Stair Climbing Evaluation Technique/Endurance Stair Climbing Direction Ascend and Descend Stair Climbing Technique Step to Step PT-OP-H Neuro Start: 01/08/20 21:01 Freq: Status: Active Protocol: Document 01/10/20 09:51 LRN (Rec: 01/10/20 15:53 LRN [id number]) Sensation Evaluation Comments Summary Comments Soft touch Sensation: R foot hypersensitivity around well healed scar. L foot sensation is normal. PT-OP-J Posture/Palpation/Skin Start: 01/08/20 21:01 Freq: Status: Active Protocol: Document 01/10/20 09:51 LRN (Rec: 01/10/20 15:53 LRN [id number]) Posture Evaluation Position Standing Knee Posture (R) Genu Varus,(L) Genu Recurvatum,(R) Genu Recurvatum Ankle/Foot Posture (L) Supinated,(R) Supinated Foot Arch (L) High Arch Comments Posture Comments Big Toe Aducted. Right: slight cross over, Left: no crossover. Palpation Assessment Location R big toe Palpation Location R big toe caudal surface Palpation Findings Soft Tissue Tightness PT-OP-K Range of Motion Start: 01/08/20 21: Freq: Status: Active Protocol: Document 01/22/20 16:02 LRN (Rec: 01/22/20 17:27 LRN [id number]) Toe Range of Motion Toe Right Great Toe Toe ROM WFL No MTP Flexion Active (degrees) 16 MTP Extension Active (degrees) 40 Left Great Toe Toe ROM WFL Yes MTP Flexion Active (degrees) 32 MTP Extension Active (degrees) 36 PT-OP-M Strength Start: 01/08/20 21:01 Freq: Status: Active Protocol: Document 01/10/20 09:51 LRN (Rec: 01/10/20 15:53 LRN [id number]) Ankle/Foot Strength Ankle and Foot Manual Muscle Testing Right Reason Not Measured WFL Left Reason Not Measured WFL Toe Strength Toe Manual Muscle Testing Right Great Toe Flexion 4 Good Extension 4 Good Comments MMT is within available ROM Left Great Toe Comments Generally 5/5 Cramping of plantar fascia during testing. PT-OP-Q Treatments Start: 01/08/20 21:01 Freq: Status: Active Protocol: Document 01/22/20 16:02 LRN (Rec: 01/22/20 17:25 LRN [id number]) Gait Training Gait Activity L Big Toe off Description Toe off phase for proper positioning Level of Assistance Level Distance/Duration 1' Treatment Focus min physical and verbal cuing. Comments Reviewing of proper gait R Big Toe CKC ext Description Toe off phase for proper positioning Device Used UE support Level of Assistance moderate physical and verbal cuing. Surface Level Distance/Duration 10' Treatment Focus Proper positioning for proper stretch & teaching max stretch tolerance Comments Pt needed much training before being able to identify proper positioning and posturing of knee over ankle and controlling inversion of R ankle. Manual Therapy Treatment Soft Tissue Mobilization L Gastrocsoleus Complex Body Location L Gastrocsoleus Complex - briefly Mobilization Type Myofascial Release Intensity/Depth Moderate Body Position Prone Comments Minimal tenderness and mobility restriction. Ankle DF limited by Plantar fascial pain. L plantar fascia Body Location L plantar fascia - briefly Mobilization Type Cross-Friction,Instrument Assisted Intensity/Depth Moderate Body Position Prone Comments Massage lotion used. Scar mob Body Location R foot Scar Mob - minimal performed Mobilization Type Myofascial Release Intensity/Depth Superficial Body Position Supine Comments Restriction medially, distally and with rotation. Joint Mobilizations R ankle Joint Lateral mob of calcaneous laterally on Talus. Grade II Body Position Prone Reps/Duration 2' Taping K-tape Body Location R Big toe scar Treatment Focus Improving scar mobility Type of Tape Kinesio Tape Skin Inspection Good Comments Restriction medially, distally and with rotation. Manual Techniques PROM R Big Toe Type Passive Flex/Ext Body Location Right Big Toe PIP & MTP joint. Body Position Prone Reps/Duration 6' Comments MWM: Big toe phalanx compression and slight AB of toe during flex/ext. Self-Care/Home Management Treatment Education Patient Education Pain Management Activities Self-Care/Home Management Activities Pt issued and discussed use of contrast bath of pain/ inflammation management at home. Pt to do R ankle EV strengthening @ home. Educated pt in self scar mob and directions of most restriction. PT-OP-R Modalities Start: 01/08/20 21:01 Freq: Status: Active Protocol: Document 01/22/20 16:02 LRN (Rec: 01/22/20 17:25 LRN [id number]) Ultrasound Therapy Treatment L plantar fascia Treatment Duration (minutes) 8 Patient Position Prone Frequency Setting (mHz) 3 Duty Cycle 50% Intensity Setting (w/cm2) 1.0 Comments L foot placed in DF and toes in extension during US. No c/ o tingling in foot during treatment. PT-OP-T Assessment and Plan Start: 01/08/20 21:01 Freq: Status: Active Protocol: Document 01/22/20 16:02 LRN (Rec: 01/22/20 17:25 LRN [id number]) Physical Therapy Assessment Goals Five Impairment Foot pain (Right 5/10, Left 4/ 10) limiting gait tolerance. Construction Project Administrator Goal (LTG) Decrease foot pain to no greater than 1/10 with pt able to return to hiking 3 miles and being able to squat in the shower to shave legs without pain. 01/17/20: Pt notes L foot pain is less, indicates it is 4-5/ 10, R foot is worse at 6/10. LTG Duration 04/09/20 Four Impairment Decreased Balance: SLS EO ( Right - 1 sec, Left 19 sec), Tinetti Construction Project Administrator Goal (LTG) Pt will be able to SLS EO - 10 sec bilaterally without LOB to improve function and safety with resulting in improved Tinetti Score of > 24. LTG Duration 04/09/20 Three Impairment Decreased ankle AROM Construction Project Administrator Goal (LTG) Active Ankle DF (legs straight ) no less than 15 deg's. Active Ankle DF (knees flexed) no less than 24 deg's Pt will be able to ambulate up /down stairs with normal gait pattern. LTG Duration 04/09/20 Two Impairment Decreased Big Toe Right MTP jt AROM (flex 24 deg's, ext 20 deg's) Short Term Goal (STG) Improve R big toe MTP AROM to ext 36 deg's, flex 32 deg's ( equal to left foot) with pt able to ambulate with equal step lengths without use of assistive device. 12/22/19: Ext goal met (40 degs ) Flex is worse at 16 deg's. STG Duration 02/08/20 (12/22/19: Partially met. Not met for flex, met for ext) Construction Project Administrator Goal (LTG) Improve functional ability, per Foot and Ankle Ability Measure (FAAM) Score ( initially 36) no less than 50 . LTG Duration 04/09/20 One Impairment Lacks appropriate HEP Short Term Goal (STG) Self care I/S for scar tissue management and edema management. STG Duration 01/21/20 (12/22/19: Goal met) Construction Project Administrator Goal (LTG) Pt will be independent in a self care HEP to manage her mobility, strength and endurance of her bilateral foot/ankles. 12/22/19: Progressing 01/15/20: Progressing. LTG Duration 04/09/20 Progress Towards Goals Progress Comments No pain today in L foot at end of therapy. R Big toe active: flex is 16 degs, ext is 40 degs (was flex 24 degs, ext 20 degs) Assessment Summary Assessment Pt shows improved R big toe ext (WNL) mobility, but decreased flex due to what appears to be scar tissue soft tissue restriction and poor gait mechancis at the ankle. L foot is painfree at end of session with flare ups at home after hiking per subjective reports. Pt R ankle needs mobilization to improve ankle EV with gait. Physical Therapy Plan Frequency and Duration Frequency of Treatment 2x/Week Plan of Care Start Date 01/10/20 Plan of Care End Date 04/09/20 Next Visit Focus/Plan Next Note Type Treatment Note Next Visit Plan R foot: Assess response to K- tape on scar. PROM for flex, PROM ext during gait/WBing. Start MH to R foot if US needed to L foot. JMT ankle (med>lat mob). Manual therapy (MWM of Big toe with approximation of jt during ROM). Therapeutic Ex - ROM, strengthening foot/ankle L foot: US if needed for pain , Cross Friction massage of plantar fascia and assess for proper gait. Therapeutic Ex - strengthen Long foot plantar flexors. Initiate ankle DF's. Cont: Gait training - level & stairs.
--- NOTE | 2020-01-24 19:00 | PT.OTN ---
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 PT-OP-B Current Condition Start: 01/08/20 21:01 Freq: Status: Active Protocol: Document 01/10/20 09:51 LRN (Rec: 01/10/20 10:41 LRN [id number]) Current Condition History of Current Condition Onset Date R foot-09/05/18; L foot - 2018 History of Current Condition Difficulty walking with limping gait. L foot hurts more after resting and decreases with gait. R foot hurts constantly. R big toe surgery to remove bone spur and debride joint - 09/05/18. L foot plantar fasciitis - 2018 Previous rx: Insoles, K-tape but causes some irritation if worn too long. Wears shoes in house not that she has plantar fasciitis. Prior Treatments and Tests Home ex's of passive and active R big toe ext/flex. Massage therapy for L foot that was interrupted by COVID 19. Future Testing and Treatments Planned No further physician visits planned. Developmental History Developmental History See above Treatment Goals Patient/Caregiver Goals Walk normal and without pain. Hiking 6 miles a day. Squatting in shower to shave legs, Squat to weed. No pain with stair ambulation. Prior Functional Status Baseline Function- ADL's Independent Baseline Function- Mobility Independent Baseline Function- Gait Antalgic gait. Needs railing for stair ambulation. Baseline Function- Recreation/Hobbies Hiked 3-6 miles daily on trails. Current Functional Impairments (Reported) Functional Limitations- ADL's Squatting for functional activities (shaving legs, weeding). Functional Limitations- Mobility/Gait Antalgic gait. Single stepping on stairs. Needs railing for stair ambulation. Functional Limitations- Recreation/ Hiking. Hobbies Walking on level pavement at most 1 mile Personal Factors Other Personal Factors That May Effect Chronicity of L foot plantar Therapy/Recovery fasciitis since 01/2019 Back pain Thyroid disorder Autoimmune disorders. PT-OP-C Subjective Start: 01/08/20 21:01 Freq: Status: Active Protocol: Document 01/24/20 09:02 LRN (Rec: 01/24/20 09:51 LRN [id number]) OP-PT Subjective Patient Comments Patient Comments Thinks the K-tape helped because she was able to work in her yard off/on all day and her toe didn't hurt. But yesterday had a lot of pain ( day after working in the yard) bilaterally. L foot pain 6/ 10, R foot pain 5-6/10 walking into therapy. Flat footed it down stairs. PT-OP-D Balance Start: 01/08/20 21:01 Freq: Status: Active Protocol: Document 01/10/20 09:51 LRN (Rec: 01/10/20 15:53 LRN [id number]) Balance Tests Single Limb Standing Single Limb- Right 1 Single Limb- Left 19 PT-OP-E Functional Tests Start: 01/08/20 21:01 Freq: Status: Active Protocol: Document 01/10/20 09:51 LRN (Rec: 01/10/20 15:53 LRN [id number]) Functional Tests Tinetti Balance and Gait Assessment Balance Score 15 Gait Score 8 Composite Score 23 Balance Score Impairment Rating 1 to <20% Impaired (Score 13- 15) Gait Score Impairment Rating 20 to <40% Impaired (Score 8-9 ) Composite Score Impairment Rating 1 to <20% Impaired (Score 23- 27) PT-OP-G Mobility & Gait Start: 01/08/20 21:01 Freq: Status: Active Protocol: Document 01/10/20 09:51 LRN (Rec: 01/10/20 15:53 LRN [id number]) OP Gait Assessment Assistive Devices Assistive Device None Gait Deviations General Gait Pattern Antalgic Factors Limiting Gait Function Factors Limiting Gait Function Decreased Activity Tolerance, Limited Range of Motion,Pain Stair Climbing Evaluation Technique/Endurance Stair Climbing Direction Ascend and Descend Stair Climbing Technique Step to Step PT-OP-H Neuro Start: 01/08/20 21:01 Freq: Status: Active Protocol: Document 01/10/20 09:51 LRN (Rec: 01/10/20 15:53 LRN [id number]) Sensation Evaluation Comments Summary Comments Soft touch Sensation: R foot hypersensitivity around well healed scar. L foot sensation is normal. PT-OP-J Posture/Palpation/Skin Start: 01/08/20 21:01 Freq: Status: Active Protocol: Document 01/10/20 09:51 LRN (Rec: 01/10/20 15:53 LRN [id number]) Posture Evaluation Position Standing Knee Posture (R) Genu Varus,(L) Genu Recurvatum,(R) Genu Recurvatum Ankle/Foot Posture (L) Supinated,(R) Supinated Foot Arch (L) High Arch Comments Posture Comments Big Toe Aducted. Right: slight cross over, Left: no crossover. Palpation Assessment Location R big toe Palpation Location R big toe caudal surface Palpation Findings Soft Tissue Tightness PT-OP-K Range of Motion Start: 01/08/20 21: Freq: Status: Active Protocol: Document 01/22/20 16:02 LRN (Rec: 01/22/20 17:27 LRN [id number]) Toe Range of Motion Toe Right Great Toe Toe ROM WFL No MTP Flexion Active (degrees) 16 MTP Extension Active (degrees) 40 Left Great Toe Toe ROM WFL Yes MTP Flexion Active (degrees) 32 MTP Extension Active (degrees) 36 PT-OP-M Strength Start: 01/08/20 21:01 Freq: Status: Active Protocol: Document 01/10/20 09:51 LRN (Rec: 01/10/20 15:53 LRN [id number]) Ankle/Foot Strength Ankle and Foot Manual Muscle Testing Right Reason Not Measured WFL Left Reason Not Measured WFL Toe Strength Toe Manual Muscle Testing Right Great Toe Flexion 4 Good Extension 4 Good Comments MMT is within available ROM Left Great Toe Comments Generally 5/5 Cramping of plantar fascia during testing. PT-OP-Q Treatments Start: 01/08/20 21:01 Freq: Status: Active Protocol: Document 01/24/20 09:02 LRN (Rec: 01/24/20 09:51 LRN [id number]) Therapeutic Exercises Prone Exercises Active ankle ROM Prone Exercise Name DF/PF after US Reps/Minutes 2' Comments painfree range Sidelying Exercises R ankle EV Sidelying Exercise Name R ankle Side right Reps/Minutes 10 x 3 Comments Incr ex from 15x at home to 10 x 3 Standing Exercises Long foot ms strengthening Standing Exercise Name Lifting of arch Reps/Minutes 2' L soleus Standing Exercise Name Stretch Reps/Minutes 20 x 3 L Gastroc Standing Exercise Name Stretch Reps/Minutes 20 x 3 Manual Therapy Treatment Soft Tissue Mobilization L plantar fascia Body Location L plantar fascia Mobilization Type Cross-Friction,Instrument Assisted Intensity/Depth Moderate Body Position Supine Comments Massage lotion used. Scar mob Body Location R foot Scar Mob - minimal performed Mobilization Type Myofascial Release Intensity/Depth Superficial Body Position Supine Comments Traction of skin Joint Mobilizations R ankle Joint Lateral mob of calcaneous laterally on Talus. Grade II Body Position Sidelying Reps/Duration 3' Comments Pt able to lift with crease in ankle after mob Taping K-tape Body Location R Big toe scar Treatment Focus Improving scar mobility Type of Tape Kinesio Tape Skin Inspection Good Comments Restriction medially, distally and with rotation. Self-Care/Home Management Treatment Education Patient Education Home Exercise Program Activities Self-Care/Home Management Activities Issued Lev 2 T-Band but held ankle strengthening due to pain in feet bilaterally to end. PT-OP-R Modalities Start: 01/08/20 21:01 Freq: Status: Active Protocol: Document 01/24/20 09:02 LRN (Rec: 01/24/20 09:51 [facility] [id number]) Ultrasound Therapy Treatment L plantar fascia Treatment Duration (minutes) 8 Patient Position Prone Frequency Setting (mHz) 3 Duty Cycle 50% Intensity Setting (w/cm2) 1.0 Comments L foot placed in DF and toes in extension during US. No c/ o tingling in foot during treatment. PT-OP-T Assessment and Plan Start: 01/08/20 21:01 Freq: Status: Active Protocol: Document 01/24/20 09:02 LRN (Rec: 01/24/20 09:51 [facility] [id number]) Physical Therapy Assessment Goals Five Impairment Foot pain (Right 5/10, Left 4/ 10) limiting gait tolerance. 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 01/17/20: Pt notes L foot pain is less, indicates it is 4-5/ 10, R foot is worse at 6/10. LTG Duration 04/09/20 Four Impairment Decreased Balance: SLS EO ( Right - 1 sec, Left 19 sec), Tinetti [facility] Home Goal (LTG) Pt will be able to SLS EO - 10 sec bilaterally without LOB to improve function and safety with resulting in improved Tinetti Score of > 24. LTG Duration 04/09/20 Three Impairment Decreased ankle AROM Group Home Goal (LTG) Active Ankle DF (legs straight ) no less than 15 deg's. Active Ankle DF (knees flexed) no less than 24 deg's Pt will be able to ambulate up /down stairs with normal gait pattern. LTG Duration 04/09/20 Two Impairment Decreased Big Toe Right MTP jt AROM (flex 24 deg's, ext 20 deg's) Short Term Goal (STG) Improve R big toe MTP AROM to ext 36 deg's, flex 32 deg's ( equal to left foot) with pt able to ambulate with equal step lengths without use of assistive device. 12/22/19: Ext goal met (40 degs ) Flex is worse at 16 deg's. STG Duration 02/08/20 (12/22/19: Partially met. Not met for flex, met for ext) Group Home Goal (LTG) Improve functional ability, per Foot and Ankle Ability Measure (FAAM) Score ( initially 36) no less than 50 . LTG Duration 04/09/20 One Impairment Lacks appropriate HEP Short Term Goal (STG) Self care I/S for scar tissue management and edema management. STG Duration 01/21/20 (12/22/19: Goal met) Group Home Goal (LTG) Pt will be independent in a self care HEP to manage her mobility, strength and endurance of her bilateral foot/ankles. 12/22/19: Progressing 01/15/20: Progressing. LTG Duration 04/09/20 Assessment Summary Assessment Pain decreased from 5-6/10 bilaterally to R-1/10, L-2/10. Less rolling onto side of foot with gait at end of therapy. Physical Therapy Plan Frequency and Duration Frequency of Treatment 2x/Week Plan of Care Start Date 01/10/20 Plan of Care End Date 04/09/20 Next Visit Focus/Plan Next Note Type Treatment Note Next Visit Plan R foot: Start MH to R foot if US needed to L foot. ROM for flex, PROM ext during gait/WBing. JMT ankle (med>lat mob). Manual therapy (MWM of Big toe with approximation of jt during ROM). Therapeutic Ex - ROM, strengthening foot/ankle L foot: US if needed for pain , Cross Friction massage of plantar fascia and assess for proper gait. Therapeutic Ex - strengthen Long foot plantar flexors. Add marble toe gripping. Initiate ankle strengthening ( emphasis DF). Cont: Gait training - level & stairs. Balance training.
--- NOTE | 2020-01-29 16:35 | PT.OTN ---
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 PT-OP-B Current Condition Start: 01/08/20 21:01 Freq: Status: Active Protocol: Document 01/10/20 09:51 LRN (Rec: 01/10/20 10:41 LRN [id number]) Current Condition History of Current Condition Onset Date R foot-09/05/18; L foot - 2018 History of Current Condition Difficulty walking with limping gait. L foot hurts more after resting and decreases with gait. R foot hurts constantly. R big toe surgery to remove bone spur and debride joint - 09/05/18. L foot plantar fasciitis - 2018 Previous rx: Insoles, K-tape but causes some irritation if worn too long. Wears shoes in house not that she has plantar fasciitis. Prior Treatments and Tests Home ex's of passive and active R big toe ext/flex. Massage therapy for L foot that was interrupted by COVID 19. Future Testing and Treatments Planned No further physician visits planned. Developmental History Developmental History See above Treatment Goals Patient/Caregiver Goals Walk normal and without pain. Hiking 6 miles a day. Squatting in shower to shave legs, Squat to weed. No pain with stair ambulation. Prior Functional Status Baseline Function- ADL's Independent Baseline Function- Mobility Independent Baseline Function- Gait Antalgic gait. Needs railing for stair ambulation. Baseline Function- Recreation/Hobbies Hiked 3-6 miles daily on trails. Current Functional Impairments (Reported) Functional Limitations- ADL's Squatting for functional activities (shaving legs, weeding). Functional Limitations- Mobility/Gait Antalgic gait. Single stepping on stairs. Needs railing for stair ambulation. Functional Limitations- Recreation/ Hiking. Hobbies Walking on level pavement at most 1 mile Personal Factors Other Personal Factors That May Effect Chronicity of L foot plantar Therapy/Recovery fasciitis since 01/2019 Back pain Thyroid disorder Autoimmune disorders. PT-OP-C Subjective Start: 01/08/20 21:01 Freq: Status: Active Protocol: Document 01/29/20 15:14 LRN (Rec: 01/29/20 16:35 LRN [id number]) OP-PT Subjective Patient Comments Patient Comments States she was sitting cross legged and getting up to standing, felt a pop along the heel distally and has not felt pain every since. PT-OP-D Balance Start: 01/08/20 21:01 Freq: Status: Active Protocol: Document 01/10/20 09:51 LRN (Rec: 01/10/20 15:53 LRN [id number]) Balance Tests Single Limb Standing Single Limb- Right 1 Single Limb- Left 19 PT-OP-E Functional Tests Start: 01/08/20 21:01 Freq: Status: Active Protocol: Document 01/10/20 09:51 LRN (Rec: 01/10/20 15:53 LRN [id number]) Functional Tests Tinetti Balance and Gait Assessment Balance Score 15 Gait Score 8 Composite Score 23 Balance Score Impairment Rating 1 to <20% Impaired (Score 13- 15) Gait Score Impairment Rating 20 to <40% Impaired (Score 8-9 ) Composite Score Impairment Rating 1 to <20% Impaired (Score 23- 27) PT-OP-G Mobility & Gait Start: 01/08/20 21:01 Freq: Status: Active Protocol: Document 01/10/20 09:51 LRN (Rec: 01/10/20 15:53 LRN [id number]) OP Gait Assessment Assistive Devices Assistive Device None Gait Deviations General Gait Pattern Antalgic Factors Limiting Gait Function Factors Limiting Gait Function Decreased Activity Tolerance, Limited Range of Motion,Pain Stair Climbing Evaluation Technique/Endurance Stair Climbing Direction Ascend and Descend Stair Climbing Technique Step to Step PT-OP-H Neuro Start: 01/08/20 21:01 Freq: Status: Active Protocol: Document 01/10/20 09:51 LRN (Rec: 01/10/20 15:53 LRN [id number]) Sensation Evaluation Comments Summary Comments Soft touch Sensation: R foot hypersensitivity around well healed scar. L foot sensation is normal. PT-OP-J Posture/Palpation/Skin Start: 01/08/20 21:01 Freq: Status: Active Protocol: Document 01/10/20 09:51 LRN (Rec: 01/10/20 15:53 LRN [id number]) Posture Evaluation Position Standing Knee Posture (R) Genu Varus,(L) Genu Recurvatum,(R) Genu Recurvatum Ankle/Foot Posture (L) Supinated,(R) Supinated Foot Arch (L) High Arch Comments Posture Comments Big Toe Aducted. Right: slight cross over, Left: no crossover. Palpation Assessment Location R big toe Palpation Location R big toe caudal surface Palpation Findings Soft Tissue Tightness PT-OP-K Range of Motion Start: 01/08/20 21:01 Freq: Status: Active Protocol: Document 01/22/20 16:02 LRN (Rec: 01/22/20 17:27 LRN [id number]) Toe Range of Motion Toe Right Great Toe Toe ROM WFL No MTP Flexion Active (degrees) 16 MTP Extension Active (degrees) 40 Left Great Toe Toe ROM WFL Yes MTP Flexion Active (degrees) 32 MTP Extension Active (degrees) 36 PT-OP-M Strength Start: 01/08/20 21:01 Freq: Status: Active Protocol: Document 01/10/20 09:51 LRN (Rec: 01/10/20 15:53 LRN [id number]) Ankle/Foot Strength Ankle and Foot Manual Muscle Testing Right Reason Not Measured WFL Left Reason Not Measured WFL Toe Strength Toe Manual Muscle Testing Right Great Toe Flexion 4 Good Extension 4 Good Comments MMT is within available ROM Left Great Toe Comments Generally 5/5 Cramping of plantar fascia during testing. PT-OP-Q Treatments Start: 01/08/20 21:01 Freq: Status: Active Protocol: Document 01/29/20 15:14 LRN (Rec: 01/29/20 16:35 LRN [id number]) Therapeutic Exercises Standing Exercises L soleus Standing Exercise Name Stretch Reps/Minutes 20 x 3 L Gastroc Standing Exercise Name Stretch Reps/Minutes 20 x 3 Manual Therapy Treatment Soft Tissue Mobilization R Big toe Body Location R Big toe, MTP joint Mobilization Type Other Body Position Supine Comments MWM: aproximation of joint with passive toe flex/ext. L Gastrocsoleus Complex Body Location L Gastrocsoleus Complex - briefly Mobilization Type Myofascial Release Intensity/Depth Moderate Body Position Prone Comments Minimal tenderness and mobility restriction. Ankle DF limited by Plantar fascial pain. L plantar fascia Body Location L plantar fascia Mobilization Type Cross-Friction,Instrument Assisted Intensity/Depth Superficial to moderate Body Position Supine Comments Massage lotion used. No notable change in ligament or fascia noted. Pt had one area of burning pain distal to heel lateral to midline. Scar mob Body Location R foot Scar Mob - minimal performed Mobilization Type Myofascial Release Intensity/Depth Superficial Body Position Supine Comments Traction of skin Taping K-tape Body Location R Big toe scar starting proximally today Treatment Focus Improving scar mobility Type of Tape Kinesio Tape Skin Inspection Good Comments Restriction medially, distally and proximal to distal. Self-Care/Home Management Treatment Education Patient Education Pain Management Activities Self-Care/Home Management Activities Pt I/S and shown self MWM: R big toe: aproximation of joint with passive toe flex/ext. Pt issued K-tape for taping of scar tomorrow if needed. PT-OP-R Modalities Start: 01/08/20 21:01 Freq: Status: Active Protocol: Document 01/29/20 15:14 LRN (Rec: 01/29/20 16:35 LRN [id number]) Ultrasound Therapy Treatment R Ball of foot at 1st & 2nd toe Treatment Duration (minutes) 8 Patient Position Prone Coupling Medium Ultrasound Gel Applicator Size (cm2) 2 Frequency Setting (mHz) 3 Mode Setting Pulsed Duty Cycle 50% Intensity Setting (w/cm2) 1 PT-OP-T Assessment and Plan Start: 01/08/20 21:01 Freq: Status: Active Protocol: Document 01/29/20 15:14 LRN (Rec: 01/29/20 16:35 LRN [id number]) Physical Therapy Assessment Goals Five Impairment Foot pain (Right 5/10, Left 4/ 10) limiting gait tolerance. Correction Goal (LTG) Decrease foot pain to no greater than 1/10 with pt able to return to hiking 3 miles and being able to squat in the shower to shave legs without pain. 01/17/20: Pt notes L foot pain is less, indicates it is 4-5/ 10, R foot is worse at 6/10. LTG Duration 04/09/20 (01/29/20: L foot-no pain) Four Impairment Decreased Balance: SLS EO ( Right - 1 sec, Left 19 sec), Tinetti 23/28 Correction Goal (LTG) Pt will be able to SLS EO - 10 sec bilaterally without LOB to improve function and safety with resulting in improved Tinetti Score of > 24. (SLS left 38 secs). LTG Duration 04/09/20 Three Impairment Decreased ankle AROM Correction Goal (LTG) Active Ankle DF (legs straight ) no less than 15 deg's. Active Ankle DF (knees flexed) no less than 24 deg's Pt will be able to ambulate up /down stairs with normal gait pattern. LTG Duration 04/09/20 Two Impairment Decreased Big Toe Right MTP jt AROM (flex 24 deg's, ext 20 deg's) Short Term Goal (STG) Improve R big toe MTP AROM to ext 36 deg's, flex 32 deg's ( equal to left foot) with pt able to ambulate with equal step lengths without use of assistive device. 12/22/19: Ext goal met (40 degs ) Flex is worse at 16 deg's. STG Duration 02/08/20 (12/22/19: Partially met. Not met for flex, EXT- MET) Correction Goal (LTG) Improve functional ability, per Foot and Ankle Ability Measure (FAAM) Score ( initially 36) no less than 50 . LTG Duration 04/09/20 One Impairment Lacks appropriate HEP Short Term Goal (STG) Self care I/S for scar tissue management and edema management. 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 12/22/19: Progressing 01/15/20: Progressing. LTG Duration 04/09/20 (Progressing, L foot started) Progress Towards Goals Progress Comments L foot: No pain standing or with gait. L Ankle DF improved: legs straight 12 deg's. Active Ankle DF (knees flexed) no less than 20 deg's. Assessment Summary Assessment Pn decreased on R foot from 7- 8/10 to 3/10 at end of treatment. L foot - No pain. Pt rolls mildly to outside of R foot with gait, L side appears normal. Pain in R foot in ball of foot primarily of big toe and adjacent area proximally. Physical Therapy Plan Frequency and Duration Frequency of Treatment 2x/Week Plan of Care Start Date 01/10/20 Plan of Care End Date 04/09/20 Next Visit Focus/Plan Next Note Type Treatment Note Next Visit Plan R foot: Start MH to R foot if needed. US to ball of foot @ Big toe and proximally. ROM for flex, PROM ext during gait/WBing. JMT ankle (med>lat mob). Check pt self care of Manual therapy (MWM of Big toe with approximation of jt during ROM ). Therapeutic Ex - ROM, strengthening foot/ankle L foot: US & Cross Friction massage of plantar fascia if needed for pain. Therapeutic Ex - strengthening Long foot plantar flexors. Add marble toe gripping. Initiate ankle strengthening ( emphasis DF). Cont: Gait training - level & stairs. Balance training.
--- NOTE | 2020-01-31 17:25 | PT.OTN ---
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 PT-OP-B Current Condition Start: 01/08/20 21:01 Freq: Status: Active Protocol: Document 01/10/20 09:51 LRN (Rec: 01/10/20 10:41 LRN [id number]) Current Condition History of Current Condition Onset Date R foot-09/05/18; L foot - 2018 History of Current Condition Difficulty walking with limping gait. L foot hurts more after resting and decreases with gait. R foot hurts constantly. R big toe surgery to remove bone spur and debride joint - 09/05/18. L foot plantar fasciitis - 2018 Previous rx: Insoles, K-tape but causes some irritation if worn too long. Wears shoes in house not that she has plantar fasciitis. Prior Treatments and Tests Home ex's of passive and active R big toe ext/flex. Massage therapy for L foot that was interrupted by COVID 19. Future Testing and Treatments Planned No further physician visits planned. Developmental History Developmental History See above Treatment Goals Patient/Caregiver Goals Walk normal and without pain. Hiking 6 miles a day. Squatting in shower to shave legs, Squat to weed. No pain with stair ambulation. Prior Functional Status Baseline Function- ADL's Independent Baseline Function- Mobility Independent Baseline Function- Gait Antalgic gait. Needs railing for stair ambulation. Baseline Function- Recreation/Hobbies Hiked 3-6 miles daily on trails. Current Functional Impairments (Reported) Functional Limitations- ADL's Squatting for functional activities (shaving legs, weeding). Functional Limitations- Mobility/Gait Antalgic gait. Single stepping on stairs. Needs railing for stair ambulation. Functional Limitations- Recreation/ Hiking. Hobbies Walking on level pavement at most 1 mile Personal Factors Other Personal Factors That May Effect Chronicity of L foot plantar Therapy/Recovery fasciitis since 01/2019 Back pain Thyroid disorder Autoimmune disorders. PT-OP-C Subjective Start: 01/08/20 21:01 Freq: Status: Active Protocol: Document 01/31/20 12:44 LRN (Rec: 01/31/20 13:37 LRN [id number]) OP-PT Subjective Patient Comments Patient Comments States she spent the day shopping yesterday and both feet were really sore that evening and L foot hurt during the night with tension pain in R foot. Pain today is 2/10 left at the proximal medial heel, 1/10 R on lateral side of the foot; 0/10 at ball of foot. OP-PT Pain Assessment Pain Assessment Grid Paper Pain Assessment Grid Completed No Location L foot Pain Location Details proximal medial heel, calcaneal tuberacle. Intensity 2 Scale Used Numeric (0 - 10) R foot Pain Location Details Lateral foot Intensity 1 Scale Used Numeric (0 - 10) Description Aching Comments Pain Comments Pt reports R foot tension at ball of foot, no pain. PT-OP-D Balance Start: 01/08/20 21:01 Freq: Status: Active Protocol: Document 01/31/20 12:44 LRN (Rec: 01/31/20 17:25 LRN [id number]) Balance Tests Single Limb Standing Single Limb- Right 01/29/20 (late entry): 38 secs left (initial 19 secs L, 1 sec R) PT-OP-E Functional Tests Start: 01/08/20 21:01 Freq: Status: Active Protocol: Document 01/10/20 09:51 LRN (Rec: 01/10/20 15:53 LRN [id number]) Functional Tests Tinetti Balance and Gait Assessment Balance Score 15 Gait Score 8 Composite Score 23 Balance Score Impairment Rating 1 to <20% Impaired (Score 13- 15) Gait Score Impairment Rating 20 to <40% Impaired (Score 8-9 ) Composite Score Impairment Rating 1 to <20% Impaired (Score 23- 27) PT-OP-G Mobility & Gait Start: 01/08/20 21:01 Freq: Status: Active Protocol: Document 01/10/20 09:51 LRN (Rec: 01/10/20 15:53 LRN [id number]) OP Gait Assessment Assistive Devices Assistive Device None Gait Deviations General Gait Pattern Antalgic Factors Limiting Gait Function Factors Limiting Gait Function Decreased Activity Tolerance, Limited Range of Motion,Pain Stair Climbing Evaluation Technique/Endurance Stair Climbing Direction Ascend and Descend Stair Climbing Technique Step to Step PT-OP-H Neuro Start: 01/08/20 21:01 Freq: Status: Active Protocol: Document 01/10/20 09:51 LRN (Rec: 01/10/20 15:53 LRN [id number]) Sensation Evaluation Comments Summary Comments Soft touch Sensation: R foot hypersensitivity around well healed scar. L foot sensation is normal. PT-OP-J Posture/Palpation/Skin Start: 01/08/20 21:01 Freq: Status: Active Protocol: Document 01/10/20 09:51 LRN (Rec: 01/10/20 15:53 LRN [id number]) Posture Evaluation Position Standing Knee Posture (R) Genu Varus,(L) Genu Recurvatum,(R) Genu Recurvatum Ankle/Foot Posture (L) Supinated,(R) Supinated Foot Arch (L) High Arch Comments Posture Comments Big Toe Aducted. Right: slight cross over, Left: no crossover. Palpation Assessment Location R big toe Palpation Location R big toe caudal surface Palpation Findings Soft Tissue Tightness PT-OP-K Range of Motion Start: 01/08/20 21:01 Freq: Status: Active Protocol: Document 01/31/20 12:44 LRN (Rec: 01/31/20 13:37 LRN [id number]) Ankle and Foot Goniometric Range of Motion Ankle and Foot Left Active Testing Position Supine Dorsiflexion with Knee Flexed 12 Dorsiflexion with Knee Extended 15 Ankle and Foot ROM Limitations Comments Noted L ankle swollen. L. ankle DF AROM: After stretching: knee extended: 13 deg's. knee flexed: 21 deg's. After Ultrasound: knee extended: 13 deg's. knee flexed: 21 deg's. No complaints of pain. PT-OP-M Strength Start: 01/08/20 21:01 Freq: Status: Active Protocol: Document 01/10/20 09:51 LRN (Rec: 01/10/20 15:53 LRN [id number]) Ankle/Foot Strength Ankle and Foot Manual Muscle Testing Right Reason Not Measured WFL Left Reason Not Measured WFL Toe Strength Toe Manual Muscle Testing Right Great Toe Flexion 4 Good Extension 4 Good Comments MMT is within available ROM Left Great Toe Comments Generally 5/5 Cramping of plantar fascia during testing. PT-OP-Q Treatments Start: 01/08/20 21:01 Freq: Status: Active Protocol: Document 01/31/20 12:44 LRN (Rec: 01/31/20 13:37 LRN [id number]) Therapeutic Exercises Standing Exercises L soleus Standing Exercise Name Stretch Reps/Minutes 20 x 5 L Gastroc Standing Exercise Name Stretch Reps/Minutes 20 x 3 Manual Therapy Treatment Soft Tissue Mobilization Web space Body Location R foot: Between digits 1 and 2 . Mobilization Type Sustained Pressure Intensity/Depth Superficial Body Position Supine L plantar fascia Body Location L plantar fascia Mobilization Type Cross-Friction,Instrument Assisted Intensity/Depth Superficial to moderate Body Position Supine Comments Massage lotion used. No notable change in ligament or fascia noted. Pt had one area of burning pain distal to heel lateral to midline. Scar mob Body Location R foot Scar Mob - minimal performed Mobilization Type Myofascial Release Intensity/Depth Superficial Body Position Supine Comments Traction of skin Taping K-tape Body Location R Big toe scar starting proximally to distal. Treatment Focus Improving scar mobility Type of Tape Kinesio Tape Skin Inspection Good Comments Restriction medially, distally and proximal to distal. Manual Techniques PROM R Big Toe Type C/R stretch into flex with approximation at joint. Body Location Passive Flex R big toe MTP jt Reps/Duration 3' Self-Care/Home Management Treatment Activities Self-Care/Home Management Activities Discussed increasing reps and times per day of Soleus stretch > gastroc stretch. Cont K-tape and STM at web space and ROM at R Big Toe. Pt to cont use of ice for pain management. PT-OP-R Modalities Start: 01/08/20 21:01 Freq: Status: Active Protocol: Document 01/31/20 12:44 LRN (Rec: 01/31/20 13:37 LRN [id number]) Ultrasound Therapy Treatment R Ball of foot at 1st & 2nd toe Treatment Duration (minutes) 8 Patient Position Prone Coupling Medium Ultrasound Gel Applicator Size (cm2) 2 Frequency Setting (mHz) 3 Mode Setting Pulsed Duty Cycle 50% Intensity Setting (w/cm2) 1 L plantar fascia Treatment Duration (minutes) 8 Patient Position Prone Frequency Setting (mHz) 3 Duty Cycle 50% Intensity Setting (w/cm2) 1.0 Comments L foot placed in DF and toes in extension during US. No c/ o tingling in foot during treatment. PT-OP-T Assessment and Plan Start: 01/08/20 21:01 Freq: Status: Active Protocol: Document 01/31/20 12:44 LRN (Rec: 01/31/20 13:37 LRN [id number]) Physical Therapy Assessment Goals Five Impairment Foot pain (Right 5/10, Left 4/ 10) limiting gait tolerance. Mcc Goal (LTG) Decrease foot pain to no greater than 1/10 with pt able to return to hiking 3 miles and being able to squat in the shower to shave legs without pain. 01/17/20: Pt notes L foot pain is less, indicates it is 4-5/ 10, R foot is worse at 6/10. LTG Duration 04/09/20 (01/29/20: L foot-no pain) Four Impairment Decreased Balance: SLS EO ( Right - 1 sec, Left 19 sec), Tinetti 23/28 Mcc Goal (LTG) Pt will be able to SLS EO - 10 sec bilaterally without LOB to improve function and safety with resulting in improved Tinetti Score of > 24. (SLS left 38 secs). LTG Duration 04/09/20 Three Impairment Decreased ankle AROM Mcc Goal (LTG) Active Ankle DF (legs straight ) no less than 15 deg's. Active Ankle DF (knees flexed) no less than 24 deg's Pt will be able to ambulate up /down stairs with normal gait pattern. LTG Duration 04/09/20 Two Impairment Decreased Big Toe Right MTP jt AROM (flex 24 deg's, ext 20 deg's) Short Term Goal (STG) Improve R big toe MTP AROM to ext 36 deg's, flex 32 deg's ( equal to left foot) with pt able to ambulate with equal step lengths without use of assistive device. 12/22/19: Ext goal met (40 degs ) Flex is worse at 16 deg's. STG Duration 02/08/20 (12/22/19: Partially met. Not met for flex, EXT- MET) Ciaio Lumite Injector Goal (LTG) Improve functional ability, per Foot and Ankle Ability Measure (FAAM) Score ( initially 36) no less than 50 . LTG Duration 04/09/20 One Impairment Lacks appropriate HEP Short Term Goal (STG) Self care I/S for scar tissue management and edema management. STG Duration 01/21/20 (12/22/19: GOAL MET) Ciaio Lumite Injector Goal (LTG) Pt will be independent in a self care HEP to manage her mobility, strength and endurance of her bilateral foot/ankles. 12/22/19: Progressing 01/15/20: Progressing. LTG Duration 04/09/20 (Progressing, L foot started) Progress Towards Goals Progress Comments R foot: 0/10, tightness with gait, no pain when holding foot for C/R stretch to 1st toe MTP joint. Improved L ankle DF after standing stretching. Gait improving. Assessment Summary Assessment Pt flared from shopping trip. Foot pn overall is slightly increased on left at 2/10, same after therapy. R foot improved 1/10 to 0/10 post therapy. Pt gait shows minimal rolling onto lateral side of R foot and mild limping off R toe. Pt L lateral ankle is swollen with tenderness in the anterior, inferior and slightly posterior at ankle joint. Pt self care: MWM of Big toe with approximation of jt during ROM is good. Physical Therapy Plan Frequency and Duration Frequency of Treatment 2x/Week Plan of Care Start Date 01/10/20 Plan of Care End Date 04/09/20 Next Visit Focus/Plan Next Note Type Treatment Note Next Visit Plan Recheck SLS bilaterally. R foot: While US L foot, Start MH to R foot before ROM if able. US to ball of foot @ Big toe and proximally if swelling present. ROM for flex, review PROM ext during gait/WBing. JMT ankle (med>lat mob). Therapeutic Ex - ROM, strengthening foot/ankle L foot: US & Cross Friction massage of plantar fascia if needed for pain. ?JMT L ankle and small bone to improve ankle DF ROM. Therapeutic Ex - strengthening Long foot plantar flexors. Add marble toe gripping. Initiate ankle strengthening ( emphasis DF). Cont: Gait training - level & stairs. Balance training.
--- NOTE | 2020-02-05 16:52 | PT.OTN ---
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 PT-OP-B Current Condition Start: 01/08/20 21:01 Freq: Status: Active Protocol: Document 01/10/20 09:51 LRN (Rec: 01/10/20 10:41 LRN [id number]) Current Condition History of Current Condition Onset Date R foot-09/05/18; L foot - 2018 History of Current Condition Difficulty walking with limping gait. L foot hurts more after resting and decreases with gait. R foot hurts constantly. R big toe surgery to remove bone spur and debride joint - 09/05/18. L foot plantar fasciitis - 2018 Previous rx: Insoles, K-tape but causes some irritation if worn too long. Wears shoes in house not that she has plantar fasciitis. Prior Treatments and Tests Home ex's of passive and active R big toe ext/flex. Massage therapy for L foot that was interrupted by COVID 19. Future Testing and Treatments Planned No further physician visits planned. Developmental History Developmental History See above Treatment Goals Patient/Caregiver Goals Walk normal and without pain. Hiking 6 miles a day. Squatting in shower to shave legs, Squat to weed. No pain with stair ambulation. Prior Functional Status Baseline Function- ADL's Independent Baseline Function- Mobility Independent Baseline Function- Gait Antalgic gait. Needs railing for stair ambulation. Baseline Function- Recreation/Hobbies Hiked 3-6 miles daily on trails. Current Functional Impairments (Reported) Functional Limitations- ADL's Squatting for functional activities (shaving legs, weeding). Functional Limitations- Mobility/Gait Antalgic gait. Single stepping on stairs. Needs railing for stair ambulation. Functional Limitations- Recreation/ Hiking. Hobbies Walking on level pavement at most 1 mile Personal Factors Other Personal Factors That May Effect Chronicity of L foot plantar Therapy/Recovery fasciitis since 01/2019 Back pain Thyroid disorder Autoimmune disorders. PT-OP-C Subjective Start: 01/08/20 21:01 Freq: Status: Active Protocol: Document 02/05/20 13:40 LRN (Rec: 02/05/20 14:22 LRN [id number]) OP-PT Subjective Patient Comments Patient Comments R toe hurts w/WBing and intermittently with walking, R foot 0-4/10 with pain when stepping on the foot wrong; L foot hurts 2/10 walking into therapy. L foot hurts intermittently during standing and walking and with first standing after sitting. Longest on feet has been cooking dinner. PT-OP-D Balance Start: 01/08/20 21:01 Freq: Status: Active Protocol: Document 01/31/20 12:44 LRN (Rec: 01/31/20 17:25 LRN [id number]) Balance Tests Single Limb Standing Single Limb- Right 01/29/20 (late entry): 38 secs left (initial 19 secs L, 1 sec R) PT-OP-E Functional Tests Start: 01/08/20 21:01 Freq: Status: Active Protocol: Document 01/10/20 09:51 LRN (Rec: 01/10/20 15:53 LRN [id number]) Functional Tests Tinetti Balance and Gait Assessment Balance Score 15 Gait Score 8 Composite Score 23 Balance Score Impairment Rating 1 to <20% Impaired (Score 13- 15) Gait Score Impairment Rating 20 to <40% Impaired (Score 8-9 ) Composite Score Impairment Rating 1 to <20% Impaired (Score 23- 27) PT-OP-G Mobility & Gait Start: 01/08/20 21:01 Freq: Status: Active Protocol: Document 01/10/20 09:51 LRN (Rec: 01/10/20 15:53 LRN [id number]) OP Gait Assessment Assistive Devices Assistive Device None Gait Deviations General Gait Pattern Antalgic Factors Limiting Gait Function Factors Limiting Gait Function Decreased Activity Tolerance, Limited Range of Motion,Pain Stair Climbing Evaluation Technique/Endurance Stair Climbing Direction Ascend and Descend Stair Climbing Technique Step to Step PT-OP-H Neuro Start: 01/08/20 21:01 Freq: Status: Active Protocol: Document 01/10/20 09:51 LRN (Rec: 01/10/20 15:53 LRN [id number]) Sensation Evaluation Comments Summary Comments Soft touch Sensation: R foot hypersensitivity around well healed scar. L foot sensation is normal. PT-OP-J Posture/Palpation/Skin Start: 01/08/20 21:01 Freq: Status: Active Protocol: Document 01/10/20 09:51 LRN (Rec: 01/10/20 15:53 LRN [id number]) Posture Evaluation Position Standing Knee Posture (R) Genu Varus,(L) Genu Recurvatum,(R) Genu Recurvatum Ankle/Foot Posture (L) Supinated,(R) Supinated Foot Arch (L) High Arch Comments Posture Comments Big Toe Aducted. Right: slight cross over, Left: no crossover. Palpation Assessment Location R big toe Palpation Location R big toe caudal surface Palpation Findings Soft Tissue Tightness PT-OP-K Range of Motion Start: 01/08/20 21:01 Freq: Status: Active Protocol: Document 01/31/20 12:44 LRN (Rec: 01/31/20 13:37 LRN [id number]) Ankle and Foot Goniometric Range of Motion Ankle and Foot Left Active Testing Position Supine Dorsiflexion with Knee Flexed 12 Dorsiflexion with Knee Extended 15 Ankle and Foot ROM Limitations Comments Noted L ankle swollen. L. ankle DF AROM: After stretching: knee extended: 13 deg's. knee flexed: 21 deg's. After Ultrasound: knee extended: 13 deg's. knee flexed: 21 deg's. No complaints of pain. PT-OP-M Strength Start: 01/08/20 21:01 Freq: Status: Active Protocol: Document 01/10/20 09:51 LRN (Rec: 01/10/20 15:53 LRN [id number]) Ankle/Foot Strength Ankle and Foot Manual Muscle Testing Right Reason Not Measured WFL Left Reason Not Measured WFL Toe Strength Toe Manual Muscle Testing Right Great Toe Flexion 4 Good Extension 4 Good Comments MMT is within available ROM Left Great Toe Comments Generally 5/5 Cramping of plantar fascia during testing. PT-OP-Q Treatments Start: 01/08/20 21:01 Freq: Status: Active Protocol: Document 02/05/20 13:40 LRN (Rec: 02/05/20 14:22 LRN [id number]) Therapeutic Exercises Standing Exercises Toe Curls Standing Exercise Name Picking up marbles, moving to other side of foot Side bilateral Reps/Minutes 5x 4 Long foot ms strengthening Standing Exercise Name Lifting of arch Side bilateral Reps/Minutes 10 hold, 10x Comments Discomfort in L heel at end L soleus Standing Exercise Name Stretch Reps/Minutes 20 x 5 L Gastroc Standing Exercise Name Stretch Reps/Minutes 20 x 3 Manual Therapy Treatment Soft Tissue Mobilization Web space Body Location R foot: Between digits 1 and 2 . Mobilization Type Sustained Pressure Intensity/Depth Superficial Body Position Supine L plantar fascia Body Location L plantar fascia Mobilization Type Cross-Friction,Instrument Assisted Intensity/Depth Superficial to moderate Body Position Supine Comments Massage lotion used. No notable change in ligament or fascia noted. Pt had one area of burning pain distal to heel lateral to midline. Scar mob Body Location R foot Scar Mob - brief Mobilization Type Myofascial Release Intensity/Depth Superficial Body Position Supine Comments Traction of skin Neuro Re-Education Treatment Balance Activities SLS Details SLS bilaterally Surface Level firm Reps/Duration 5' PT-OP-R Modalities Start: 01/08/20 21:01 Freq: Status: Active Protocol: Document 02/05/20 13:40 LRN (Rec: 02/05/20 14:22 LRN [id number]) Hot Pack/Cold Pack Treatment Hot Pack Location R big toe during US to L plantar fascia. Patient Position Prone Treatment Duration (minutes) 8 Ultrasound Therapy Treatment R Ball of foot at 1st & 2nd toe Treatment Duration (minutes) 4 Patient Position Prone Coupling Medium Ultrasound Gel Applicator Size (cm2) 2 Frequency Setting (mHz) 3 Mode Setting Pulsed Duty Cycle 50% Intensity Setting (w/cm2) 1 L plantar fascia Treatment Duration (minutes) 8 Patient Position Prone Frequency Setting (mHz) 3 Duty Cycle 50% Intensity Setting (w/cm2) 1.0 Comments L foot placed in DF and toes in extension during US. No c/ o tingling in foot during treatment. PT-OP-T Assessment and Plan Start: 01/08/20 21:01 Freq: Status: Active Protocol: Document 02/05/20 13:40 LRN (Rec: 02/05/20 14:22 LRN [id number]) Physical Therapy Assessment Goals Five Impairment Foot pain (Right 5/10, Left 4/ 10) limiting gait tolerance. Laborer/Grade Check Goal (LTG) Decrease foot pain to no greater than 1/10 with pt able to return to hiking 3 miles and being able to squat in the shower to shave legs without pain. 01/17/20: Pt notes L foot pain is less, indicates it is 4-5/ 10, R foot is worse at 6/10. LTG Duration 04/09/20 (02/05/20: L foot- intermittently no pain) Four Impairment Decreased Balance: SLS EO ( Right - 1 sec, Left 19 sec), Tinetti Longterm Goal (LTG) Pt will be able to SLS EO - 10 sec bilaterally without LOB to improve function and safety with resulting in improved Tinetti Score of > 24. (: Goal met for L foot). LTG Duration 04/09/20 Three Impairment Decreased ankle AROM Laborer/Grade Check Goal (LTG) Active Ankle DF (legs straight ) no less than 15 deg's. Active Ankle DF (knees flexed) no less than 24 deg's Pt will be able to ambulate up /down stairs with normal gait pattern. LTG Duration 04/09/20 Two Impairment Decreased Big Toe Right MTP jt AROM (flex 24 deg's, ext 20 deg's) Short Term Goal (STG) Improve R big toe MTP AROM to ext 36 deg's, flex 32 deg's ( equal to left foot) with pt able to ambulate with equal step lengths without use of assistive device. 12/22/19: Ext goal met (40 degs ) Flex is worse at 16 deg's. STG Duration 02/08/20 (12/22/19: Partially met. Not met for flex, EXT- MET) Laborer/Grade Check Goal (LTG) Improve functional ability, per Foot and Ankle Ability Measure (FAAM) Score ( initially 36) no less than 50. LTG Duration 04/09/20 One Impairment Lacks appropriate HEP Short Term Goal (STG) Self care I/S for scar tissue management and edema management. STG Duration 01/21/20 (12/22/19: GOAL MET) Longterm Goal (LTG) Pt will be independent in a self care HEP to manage her mobility, strength and endurance of her bilateral foot/ankles. 12/22/19: Progressing 01/15/20: Progressing. LTG Duration 04/09/20 (Progressing, L foot started) Assessment Summary Assessment Pt R Big toe pain with static standing and gait with short periods painfree. L foot plantar fascia pain decreased from constant to intermittent upon first standing. Physical Therapy Plan Frequency and Duration Frequency of Treatment 2x/Week Plan of Care Start Date 01/10/20 Plan of Care End Date 04/09/20 Next Visit Focus/Plan Next Note Type Treatment Note Next Visit Plan Recheck SLS bilaterally and ankle mobilty (also stair ambulation mechanics). Initiate ankle strengthening ( emphasis DF). R foot: While US L foot, Start MH to R foot before ROM if able. US to ball of foot @ Big toe and proximally if swelling present. ROM for flex, review PROM ext during gait/WBing. JMT ankle (med>lat mob). Therapeutic Ex - ROM, strengthening foot/ankle L foot: US & Cross Friction massage of plantar fascia if needed for pain. ?JMT L ankle and small bone to improve ankle DF ROM. Therapeutic Ex - strengthening Long foot plantar flexors. Add marble toe gripping. Cont: Gait training - level & stairs. Balance training.
--- NOTE | 2020-02-07 16:06 | PT.OTN ---
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 PT-OP-B Current Condition Start: 01/08/20 21:01 Freq: Status: Active Protocol: Document 01/10/20 09:51 LRN (Rec: 01/10/20 10:41 LRN [id number]) Current Condition History of Current Condition Onset Date R foot-09/05/18; L foot - 2018 History of Current Condition Difficulty walking with limping gait. L foot hurts more after resting and decreases with gait. R foot hurts constantly. R big toe surgery to remove bone spur and debride joint - 09/05/18. L foot plantar fasciitis - 2018 Previous rx: Insoles, K-tape but causes some irritation if worn too long. Wears shoes in house not that she has plantar fasciitis. Prior Treatments and Tests Home ex's of passive and active R big toe ext/flex. Massage therapy for L foot that was interrupted by COVID 19. Future Testing and Treatments Planned No further physician visits planned. Developmental History Developmental History See above Treatment Goals Patient/Caregiver Goals Walk normal and without pain. Hiking 6 miles a day. Squatting in shower to shave legs, Squat to weed. No pain with stair ambulation. Prior Functional Status Baseline Function- ADL's Independent Baseline Function- Mobility Independent Baseline Function- Gait Antalgic gait. Needs railing for stair ambulation. Baseline Function- Recreation/Hobbies Hiked 3-6 miles daily on trails. Current Functional Impairments (Reported) Functional Limitations- ADL's Squatting for functional activities (shaving legs, weeding). Functional Limitations- Mobility/Gait Antalgic gait. Single stepping on stairs. Needs railing for stair ambulation. Functional Limitations- Recreation/ Hiking. Hobbies Walking on level pavement at most 1 mile Personal Factors Other Personal Factors That May Effect Chronicity of L foot plantar Therapy/Recovery fasciitis since 01/2019 Back pain Thyroid disorder Autoimmune disorders. PT-OP-C Subjective Start: 01/08/20 21:01 Freq: Status: Active Protocol: Document 02/07/20 13:45 LRN (Rec: 02/07/20 14:35 LRN [id number]) OP-PT Subjective Patient Comments Patient Comments No pain in either feet. Has stiffness and one time pain on first out of bed. Getting up from sitting on the shower floor, has pain only if putting too much weight throught R foot. PT-OP-D Balance Start: 01/08/20 21:01 Freq: Status: Active Protocol: Document 02/07/20 13:45 LRN (Rec: 02/07/20 14:35 LRN [id number]) Balance Tests Single Limb Standing Single Limb- Right 46 (late entry on 02/05/20 Single Limb- Left 47 (late entry on 02/05/20 27) Tinetti Balance Assessment Scoring and Interpretation Interpretation of Scores At risk for falls (19-24) Tinetti Impairment Rating from Composite 1 to <20% Impaired (Score 23- Score 27) PT-OP-E Functional Tests Start: 01/08/20 21:01 Freq: Status: Active Protocol: Document 01/10/20 09:51 LRN (Rec: 01/10/20 15:53 LRN [id number]) Functional Tests Tinetti Balance and Gait Assessment Balance Score 15 Gait Score 8 Composite Score 23 Balance Score Impairment Rating 1 to <20% Impaired (Score 13- 15) Gait Score Impairment Rating 20 to <40% Impaired (Score 8-9 ) Composite Score Impairment Rating 1 to <20% Impaired (Score 23- 27) PT-OP-G Mobility & Gait Start: 01/08/20 21:01 Freq: Status: Active Protocol: Document 01/10/20 09:51 LRN (Rec: 01/10/20 15:53 LRN [id number]) OP Gait Assessment Assistive Devices Assistive Device None Gait Deviations General Gait Pattern Antalgic Factors Limiting Gait Function Factors Limiting Gait Function Decreased Activity Tolerance, Limited Range of Motion,Pain Stair Climbing Evaluation Technique/Endurance Stair Climbing Direction Ascend and Descend Stair Climbing Technique Step to Step PT-OP-H Neuro Start: 01/08/20 21:01 Freq: Status: Active Protocol: Document 01/10/20 09:51 LRN (Rec: 01/10/20 15:53 LRN [id number]) Sensation Evaluation Comments Summary Comments Soft touch Sensation: R foot hypersensitivity around well healed scar. L foot sensation is normal. PT-OP-J Posture/Palpation/Skin Start: 01/08/20 21:01 Freq: Status: Active Protocol: Document 01/10/20 09:51 LRN (Rec: 01/10/20 15:53 LRN [id number]) Posture Evaluation Position Standing Knee Posture (R) Genu Varus,(L) Genu Recurvatum,(R) Genu Recurvatum Ankle/Foot Posture (L) Supinated,(R) Supinated Foot Arch (L) High Arch Comments Posture Comments Big Toe Aducted. Right: slight cross over, Left: no crossover. Palpation Assessment Location R big toe Palpation Location R big toe caudal surface Palpation Findings Soft Tissue Tightness PT-OP-K Range of Motion Start: 01/08/20 21:01 Freq: Status: Active Protocol: Document 01/31/20 12:44 LRN (Rec: 01/31/20 13:37 LRN [id number]) Ankle and Foot Goniometric Range of Motion Ankle and Foot Left Active Testing Position Supine Dorsiflexion with Knee Flexed 12 Dorsiflexion with Knee Extended 15 Ankle and Foot ROM Limitations Comments Noted L ankle swollen. L. ankle DF AROM: After stretching: knee extended: 13 deg's. knee flexed: 21 deg's. After Ultrasound: knee extended: 13 deg's. knee flexed: 21 deg's. No complaints of pain. PT-OP-M Strength Start: 01/08/20 21:01 Freq: Status: Active Protocol: Document 01/10/20 09:51 LRN (Rec: 01/10/20 15:53 LRN [id number]) Ankle/Foot Strength Ankle and Foot Manual Muscle Testing Right Reason Not Measured WFL Left Reason Not Measured WFL Toe Strength Toe Manual Muscle Testing Right Great Toe Flexion 4 Good Extension 4 Good Comments MMT is within available ROM Left Great Toe Comments Generally 5/5 Cramping of plantar fascia during testing. PT-OP-Q Treatments Start: 01/08/20 21:01 Freq: Status: Active Protocol: Document 02/07/20 13:45 LRN (Rec: 02/07/20 14:35 LRN [id number]) Cardio Equipment Bicycle (Upright) Duration (Minutes) 8 Resistance 3 Seat Position 4 Therapeutic Exercises Sidelying Exercises Ankle DF Sidelying Exercise Name Ankle DF Side bilateral Equipment Used Lev2 TB Reps/Minutes 30x Ankle IV Sidelying Exercise Name Ankle IV Side bilateral Equipment Used Lev2 TB Reps/Minutes 30x each R ankle EV Sidelying Exercise Name Ankle EV Side bilateral Resistance Lev 2 TB Reps/Minutes 30x each Standing Exercises L soleus Standing Exercise Name Stretch, f/b 1 Side bilateral Reps/Minutes 60 x 1, f/b active ROM L Gastroc Standing Exercise Name Stretch, f/b 10 active DF Side bilateral Reps/Minutes 60 x 1, f/b active DF Comments Left felt tight Gait Training Gait Activity Trunk sway correction Description Trunk sway correction Device Used none Level of Assistance v. cues Surface level/firm Treatment Focus Minimize limping off R big toe and trunk sway Comments Pt gait dynamics improved after US with minimal limping off R foot. Neuro Re-Education Treatment Balance Activities SLS Details SLS bilaterally Surface Level firm Reps/Duration 3' Self-Care/Home Management Treatment Education Patient Education Home Exercise Program Activities Self-Care/Home Management Activities Issued & reviewed HEP: Ankle strengthening with TB. Issued Lev3 T-Band since pt already has L2 @ home. PT-OP-R Modalities Start: 01/08/20 21:01 Freq: Status: Active Protocol: Document 02/07/20 13:45 LRN (Rec: 02/07/20 14:35 LRN [id number]) Ultrasound Therapy Treatment R Ball of foot at 1st & 2nd toe Treatment Duration (minutes) 8 Patient Position Prone Coupling Medium Ultrasound Gel Applicator Size (cm2) 2 Frequency Setting (mHz) 3 Mode Setting Pulsed Duty Cycle 50% Intensity Setting (w/cm2) 1 PT-OP-T Assessment and Plan Start: 01/08/20 21:01 Freq: Status: Active Protocol: Document 02/07/20 13:45 LRN (Rec: 02/07/20 14:35 LRN [id number]) Physical Therapy Assessment Goals Five Impairment Foot pain (Right 5/10, Left 4/ 10) limiting gait tolerance. Longterm Goal (LTG) Decrease foot pain to no greater than 1/10 with pt able to return to hiking 3 miles and being able to squat in the shower to shave legs without pain. 01/17/20: Pt notes L foot pain is less, indicates it is 4-5/ 10, R foot is worse at 6/10. LTG Duration 04/09/20 (02/05/20: L foot- intermittently no pain) Four Impairment Decreased Balance: SLS EO ( Right - 1 sec, Left 19 sec), Tinetti Calender Tender Goal (LTG) Pt will be able to SLS EO - 10 sec bilaterally without LOB to improve function and safety with resulting in improved Tinetti Score of > 24. (: Goal partially met. L foot SLS 47, Tinetti = 24). LTG Duration 04/09/20 (02/07/20: Progressing) Three Impairment Decreased ankle AROM Longterm Goal (LTG) Active Ankle DF (legs straight ) no less than 15 deg's. Active Ankle DF (knees flexed) no less than 24 deg's Pt will be able to ambulate up /down stairs with normal gait pattern. LTG Duration 04/09/20 Two Impairment Decreased Big Toe Right MTP jt AROM (flex 24 deg's, ext 20 deg's) Short Term Goal (STG) Improve R big toe MTP AROM to ext 36 deg's, flex 32 deg's ( equal to left foot) with pt able to ambulate with equal step lengths without use of assistive device. 12/22/19: Ext goal met (40 degs ) Flex is worse at 16 deg's. STG Duration 02/08/20 (12/22/19: Partially met. Not met for flex, EXT- MET) Longterm Goal (LTG) Improve functional ability, per Foot and Ankle Ability Measure (FAAM) Score ( initially 36) no less than 50. LTG Duration 04/09/20 One Impairment Lacks appropriate HEP Short Term Goal (STG) Self care I/S for scar tissue management and edema management. STG Duration 01/21/20 (12/22/19: GOAL MET) Calender Tender Goal (LTG) Pt will be independent in a self care HEP to manage her mobility, strength and endurance of her bilateral foot/ankles. 01/15/20: Progressing. LTG Duration 04/09/20 (Progressing, L foot started) Progress Towards Goals Progress Comments Periods of no pain at home. No foot pain bilaterally s/p therapy treatment. SLS > 10 secs (see above) Assessment Summary Assessment Needs improvement in R big toe ROM and to progress L foot long flexor strength, ankle strength to promote improved balance and gait (per Tinetti) and ankle ROM to progress normal gait on stairs. Physical Therapy Plan Frequency and Duration Frequency of Treatment 2x/Week Plan of Care Start Date 01/10/20 Plan of Care End Date 04/09/20 Next Visit Focus/Plan Next Note Type Treatment Note Next Visit Plan Recheck ankle mobilty (also stair ambulation mechanics). Review HEP of ankle ex's and progress ankle strengthening ( emphasis DF, as well as EV/IV ) - ?Balance shuttle. R foot: If US L foot needed, Start MH to R foot before ROM if able. US to ball of foot @ Big toe and proximally if swelling present. ROM flex > ext. JMT ankle (med>lat mob). Therapeutic Ex - ROM, strengthening foot/ankle L foot: US & Cross Friction massage of plantar fascia as needed for pain. ?JMT: L ankle and small bone to improve ankle DF ROM. Therapeutic Ex - strengthening Long foot plantar flexors. Cont: Gait training - level & stairs. Balance training.
--- NOTE | 2020-02-12 19:08 | PT.OTN ---
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 PT-OP-B Current Condition Start: 01/08/20 21:01 Freq: Status: Active Protocol: Document 01/10/20 09:51 LRN (Rec: 01/10/20 10:41 LRN [id number]) Current Condition History of Current Condition Onset Date R foot-09/05/18; L foot - 2018 History of Current Condition Difficulty walking with limping gait. L foot hurts more after resting and decreases with gait. R foot hurts constantly. R big toe surgery to remove bone spur and debride joint - 09/05/18. L foot plantar fasciitis - 2018 Previous rx: Insoles, K-tape but causes some irritation if worn too long. Wears shoes in house not that she has plantar fasciitis. Prior Treatments and Tests Home ex's of passive and active R big toe ext/flex. Massage therapy for L foot that was interrupted by COVID 19. Future Testing and Treatments Planned No further physician visits planned. Developmental History Developmental History See above Treatment Goals Patient/Caregiver Goals Walk normal and without pain. Hiking 6 miles a day. Squatting in shower to shave legs, Squat to weed. No pain with stair ambulation. Prior Functional Status Baseline Function- ADL's Independent Baseline Function- Mobility Independent Baseline Function- Gait Antalgic gait. Needs railing for stair ambulation. Baseline Function- Recreation/Hobbies Hiked 3-6 miles daily on trails. Current Functional Impairments (Reported) Functional Limitations- ADL's Squatting for functional activities (shaving legs, weeding). Functional Limitations- Mobility/Gait Antalgic gait. Single stepping on stairs. Needs railing for stair ambulation. Functional Limitations- Recreation/ Hiking. Hobbies Walking on level pavement at most 1 mile Personal Factors Other Personal Factors That May Effect Chronicity of L foot plantar Therapy/Recovery fasciitis since 01/2019 Back pain Thyroid disorder Autoimmune disorders. PT-OP-C Subjective Start: 01/08/20 21:01 Freq: Status: Active Protocol: Document 02/12/20 13:33 LRN (Rec: 02/12/20 14:18 LRN [id number]) OP-PT Subjective Patient Comments Patient Comments Pain L foot is 1/10. R foot pain with hitting it or wgt bearing. Reports grissly feeling in L heel. Patient Questionnaires Foot & Ankle Ability Measure- ADL and Sports FAAM-ADL Score 33 FAAM-ADL Impairment 40 to 59% Impaired (Score 33- 49) FAAM-Sport Score 4 FAAM-Sport Impairment 80 to 99% Impaired (Score 1-5) OP-PT Pain Assessment Pain Assessment Grid Paper Pain Assessment Grid Completed No Location L foot Pain Location Details Inner foot end of heel and calcaneal fat pad Intensity 1 Scale Used Numeric (0 - 10) Pain Aggravating Factors Activity R foot Pain Location Details Plantar surface or R big toe at MTP jt region & well healed scar Intensity 4 Scale Used Numeric (0 - 10) Pain Aggravating Factors Activity,Exercise,Walking, Bending Other Pain Aggravating Factors Stair ambulation when WBing on the Big toe. Comments Pain Comments Pain post therapy was R 2/10, L 0/10. PT-OP-D Balance Start: 01/08/20 21:01 Freq: Status: Active Protocol: Document 02/07/20 13:45 LRN (Rec: 02/07/20 14:35 LRN [id number]) Balance Tests Single Limb Standing Single Limb- Right 46 (late entry on 02/05/20 Single Limb- Left 47 (late entry on 02/05/20 27) Tinetti Balance Assessment Scoring and Interpretation Interpretation of Scores At risk for falls (19-24) Tinetti Impairment Rating from Composite 1 to <20% Impaired (Score 23- Score 27) PT-OP-E Functional Tests Start: 01/08/20 21:01 Freq: Status: Active Protocol: Document 01/10/20 09:51 LRN (Rec: 01/10/20 15:53 LRN [id number]) Functional Tests Tinetti Balance and Gait Assessment Balance Score 15 Gait Score 8 Composite Score 23 Balance Score Impairment Rating 1 to <20% Impaired (Score 13- 15) Gait Score Impairment Rating 20 to <40% Impaired (Score 8-9 ) Composite Score Impairment Rating 1 to <20% Impaired (Score 23- 27) PT-OP-G Mobility & Gait Start: 01/08/20 21:01 Freq: Status: Active Protocol: Document 01/10/20 09:51 LRN (Rec: 01/10/20 15:53 LRN [id number]) OP Gait Assessment Assistive Devices Assistive Device None Gait Deviations General Gait Pattern Antalgic Factors Limiting Gait Function Factors Limiting Gait Function Decreased Activity Tolerance, Limited Range of Motion,Pain Stair Climbing Evaluation Technique/Endurance Stair Climbing Direction Ascend and Descend Stair Climbing Technique Step to Step PT-OP-H Neuro Start: 01/08/20 21:01 Freq: Status: Active Protocol: Document 01/10/20 09:51 LRN (Rec: 01/10/20 15:53 LRN [id number]) Sensation Evaluation Comments Summary Comments Soft touch Sensation: R foot hypersensitivity around well healed scar. L foot sensation is normal. PT-OP-J Posture/Palpation/Skin Start: 01/08/20 21:01 Freq: Status: Active Protocol: Document 01/10/20 09:51 LRN (Rec: 01/10/20 15:53 LRN [id number]) Posture Evaluation Position Standing Knee Posture (R) Genu Varus,(L) Genu Recurvatum,(R) Genu Recurvatum Ankle/Foot Posture (L) Supinated,(R) Supinated Foot Arch (L) High Arch Comments Posture Comments Big Toe Aducted. Right: slight cross over, Left: no crossover. Palpation Assessment Location R big toe Palpation Location R big toe caudal surface Palpation Findings Soft Tissue Tightness PT-OP-K Range of Motion Start: 01/08/20 21:01 Freq: Status: Active Protocol: Document 02/12/20 13:33 LRN (Rec: 02/12/20 18:24 LRN [id number]) Ankle and Foot Goniometric Range of Motion Ankle and Foot Right Active Testing Position Supine Dorsiflexion with Knee Flexed 32 Dorsiflexion with Knee Extended 20 Left Active Testing Position Supine Dorsiflexion with Knee Flexed 30 Dorsiflexion with Knee Extended 18 Toe Range of Motion Toe Right Great Toe MTP Flexion Active (degrees) 18 MTP Extension Active (degrees) 40 Left Great Toe MTP Flexion Active (degrees) 36 MTP Extension Active (degrees) 46 PT-OP-M Strength Start: 01/08/20 21:01 Freq: Status: Active Protocol: Document 01/10/20 09:51 LRN (Rec: 01/10/20 15:53 LRN [id number]) Ankle/Foot Strength Ankle and Foot Manual Muscle Testing Right Reason Not Measured WFL Left Reason Not Measured WFL Toe Strength Toe Manual Muscle Testing Right Great Toe Flexion 4 Good Extension 4 Good Comments MMT is within available ROM Left Great Toe Comments Generally 5/5 Cramping of plantar fascia during testing. PT-OP-Q Treatments Start: 01/08/20 21:01 Freq: Status: Active Protocol: Document 02/12/20 13:33 LRN (Rec: 02/12/20 14:18 LRN [id number]) Therapeutic Exercises Standing Exercises Toe Curls Standing Exercise Name Picking up marbles, moving to other side of foot Side bilateral Reps/Minutes 5x 4 Long foot ms strengthening Standing Exercise Name Lifting of arch Side bilateral Reps/Minutes 10 hold, 10x Comments Discomfort in L heel at end L soleus Standing Exercise Name Stretch, f/b 1 Side bilateral Reps/Minutes 60 x 1, f/b active ROM L Gastroc Standing Exercise Name Stretch, f/b 10 active DF Side bilateral Reps/Minutes 60 x 1, f/b active DF Comments Left felt tight Gait Training Gait Activity WBing/Wgt shifting Description WBing/Wgt shifting Surface Firm/Level Treatment Focus WBing into Big toe Manual Therapy Treatment Soft Tissue Mobilization L plantar fascia Body Location L Plantar fascia attachment to Calcaneous Mobilization Type Instrument Assisted,Other Intensity/Depth Moderate Body Position Prone Comments Cupping Mobilization PT-OP-R Modalities Start: 01/08/20 21:01 Freq: Status: Active Protocol: Document 02/12/20 13:33 LRN (Rec: 02/12/20 14:18 LRN [id number]) Ultrasound Therapy Treatment R Ball of foot at 1st & 2nd toe Treatment Duration (minutes) 4 Patient Position Prone Coupling Medium Ultrasound Gel Applicator Size (cm2) 2 Frequency Setting (mHz) 3 Mode Setting Pulsed Duty Cycle 50% Intensity Setting (w/cm2) 1 L plantar fascia Treatment Duration (minutes) 8 Patient Position Prone Frequency Setting (mHz) 3 Duty Cycle 50% Intensity Setting (w/cm2) 1.0 Comments L foot placed in DF and toes in extension during US. No c/ o tingling in foot during treatment. PT-OP-T Assessment and Plan Start: 01/08/20 21:01 Freq: Status: Active Protocol: Document 02/12/20 13:33 LRN (Rec: 02/12/20 14:18 LRN [id number]) Physical Therapy Assessment Rehab Potential Rehabilitation Potential Excellent Evaluation Complexity Number of Personal Factors/Comorbidities 1-2 Number of Body Systems Impaired 4 or More Clinical Presentation at Evaluation Evolving Impairments Impairments Activity Tolerance,Balance, Gait,Pain,ROM,Soft Tissue Mobility,Strength Goals Five Impairment Foot pain (Right 5/10, Left 4/ 10) limiting gait tolerance. [employer] Goal (LTG) Decrease foot pain to no greater than 1/10 with pt able to return to hiking 3 miles and being able to squat in the shower to shave legs without pain. 02/12/20: Pain to start: 4/10 R, 1/10 L; Pain at end: 2/10 R, 0/10 L. LTG Duration 04/09/20 (02/12/20: L foot- intermittently no pain, R with WBing) Four Impairment Decreased Balance: SLS EO ( Right - 1 sec, Left 19 sec), Tinetti 23/28 Jail Goal (LTG) Pt will be able to SLS EO - 10 sec bilaterally without LOB to improve function and safety with resulting in improved Tinetti Score of > 24. (: Goal partially met. L foot SLS 47, Tinetti = 24). LTG Duration 04/09/20 (02/07/20: Progressing) Three Impairment Decreased ankle AROM [employer] Goal (LTG) Active Ankle DF (legs straight ) no less than 15 deg's. Active Ankle DF (knees flexed) no less than 24 deg's Pt will be able to ambulate up /down stairs with normal gait pattern. (02/12/20: Ankle DF legs straight: 20 degs R, 18 degs L Ankle DF knee flexed: 32 degs R, 30 degs L) LTG Duration 04/09/20 (02/12/20: ROM GOAL MET) Two Impairment Decreased Big Toe Right MTP jt AROM (flex 24 deg's, ext 20 deg's) Short Term Goal (STG) Improve R big toe MTP AROM to ext 36 deg's, flex 32 deg's ( equal to left foot) with pt able to ambulate with equal step lengths without use of assistive device. 12/22/19: Ext goal met (40 degs ) Flex is worse at 16 deg's. STG Duration 02/08/20 (12/22/19: Partially met. Not met for flex, EXT- MET) [employer] Goal (LTG) Improve functional ability, per Foot and Ankle Ability Measure (FAAM) Score ( initially 36) no less than 50. LTG Duration 04/09/20 One Impairment Lacks appropriate HEP Short Term Goal (STG) Self care I/S for scar tissue management and edema management. STG Duration 01/21/20 (12/22/19: GOAL MET) Jail Goal (LTG) Pt will be independent in a self care HEP to manage her mobility, strength and endurance of her bilateral foot/ankles. 01/15/20: Progressing. LTG Duration 04/09/20 (Progressing, L foot started) Progress Towards Goals Progress Comments GOAL 1 STG MET. PROGRESSING LTG HEP. GOAL 2 STG PARTIALLY MET: R Big Toe mobility for flexion is 18 degs, ext is 40 degs ( initially flex 24 deg's, ext 20 deg's). Step lengths are now equal with minimal antalgic gait present. Antalgic gait due to pain with WBing on R Big Toe. LTG NOT MET. GOAL 3 MET: Active ankle DF legs straight: 20 degs R, 18 degs L (initially was 14 degs R, 15 degs L) Ankle DF knee flexed: 32 degs R, 30 degs L ( initially was 14 degs R, 24 degs L). LTG NOT MET. GOAL 4 PARTIALLY MET: Left SLS improved to 47 (was 19). Right SLS deferred due to pain with WBing on Big toe. Function slightly improved per Tinetti score of 24 (was 23). GOAL 5 NOT MET, PROGRESSING. R foot pain is decreased with therapy. L foot pain is variable depending on activity level. Currently she has periods of no pain. She has not returned to her active lifestyle of hiking. Assessment Summary Assessment Pt continues to slowly improve with a decrease in pain and improved gait on level and stairs. She is limited on the R foot when weightbearing on the Big toe and she lacks normal flexion at the MTP joint. She has had some change in function with slight improvement in her Tinetti and FAAM scores. She would benefit from skilled physical therapy to improve her R big toe mobility and tolerance to WBing (reducing inflammation). On her left foot, continued therapy would be beneficial to decrease pain in the foot and lower leg, and improve strength of her long foot flexors to help her tolerate a return to functional and recreation activities that require her to be on her feet. Physical Therapy Plan Frequency and Duration Frequency of Treatment 2x/Week Plan of Care Start Date 01/10/20 Plan of Care End Date 04/09/20 Therapeutic Interventions Therapeutic Interventions Balance Training,Gait Training ,Home Exercise Program,Joint Mobilizations,Manual Therapy, Neuromuscular Re-education, Patient/Caregiver Education, Self-Care/Home Management,Soft Tissue Mobilization,Taping, Therapeutic Activities, Therapeutic Exercises Next Visit Focus/Plan Next Note Type Treatment Note Next Visit Plan K-tape R big toe to facilitate flexion at MTP joint. DTM L Gastrocsoleus complex. Review HEP of ankle ex's and progress ankle strengthening ( emphasis DF, as well as EV/IV ) - ?Balance shuttle. R foot: If US L foot needed, Start MH to R foot before ROM if able. US to ball of foot @ Big toe and proximally if swelling present. ROM flex > ext. JMT ankle (med>lat mob & fibula). Strengthening foot/ankle L foot: US & Cross Friction massage of plantar fascia as needed for pain. ?JMT: L ankle and small bones & fibula to improve ankle DF ROM. Therapeutic Ex - strengthening Long foot plantar flexors. Balance training.
--- NOTE | 2020-02-12 19:10 | PT.OTN ---
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 PT-OP-B Current Condition Start: 01/08/20 21:01 Freq: Status: Active Protocol: Document 01/10/20 09:51 LRN (Rec: 01/10/20 10:41 LRN [id number]) Current Condition History of Current Condition Onset Date R foot-09/05/18; L foot - 2018 History of Current Condition Difficulty walking with limping gait. L foot hurts more after resting and decreases with gait. R foot hurts constantly. R big toe surgery to remove bone spur and debride joint - 09/05/18. L foot plantar fasciitis - 2018 Previous rx: Insoles, K-tape but causes some irritation if worn too long. Wears shoes in house not that she has plantar fasciitis. Prior Treatments and Tests Home ex's of passive and active R big toe ext/flex. Massage therapy for L foot that was interrupted by COVID 19. Future Testing and Treatments Planned No further physician visits planned. Developmental History Developmental History See above Treatment Goals Patient/Caregiver Goals Walk normal and without pain. Hiking 6 miles a day. Squatting in shower to shave legs, Squat to weed. No pain with stair ambulation. Prior Functional Status Baseline Function- ADL's Independent Baseline Function- Mobility Independent Baseline Function- Gait Antalgic gait. Needs railing for stair ambulation. Baseline Function- Recreation/Hobbies Hiked 3-6 miles daily on trails. Current Functional Impairments (Reported) Functional Limitations- ADL's Squatting for functional activities (shaving legs, weeding). Functional Limitations- Mobility/Gait Antalgic gait. Single stepping on stairs. Needs railing for stair ambulation. Functional Limitations- Recreation/ Hiking. Hobbies Walking on level pavement at most 1 mile Personal Factors Other Personal Factors That May Effect Chronicity of L foot plantar Therapy/Recovery fasciitis since 01/2019 Back pain Thyroid disorder Autoimmune disorders. PT-OP-C Subjective Start: 01/08/20 21:01 Freq: Status: Active Protocol: Document 02/12/20 13:33 LRN (Rec: 02/12/20 14:18 LRN [id number]) OP-PT Subjective Patient Comments Patient Comments Pain L foot is 1/10. R foot pain with hitting it or wgt bearing. Reports grissly feeling in L heel. Patient Questionnaires Foot & Ankle Ability Measure- ADL and Sports FAAM-ADL Score 33 FAAM-ADL Impairment 40 to 59% Impaired (Score 33- 49) FAAM-Sport Score 4 FAAM-Sport Impairment 80 to 99% Impaired (Score 1-5) OP-PT Pain Assessment Pain Assessment Grid Paper Pain Assessment Grid Completed No Location L foot Pain Location Details Inner foot end of heel and calcaneal fat pad Intensity 1 Scale Used Numeric (0 - 10) Pain Aggravating Factors Activity R foot Pain Location Details Plantar surface or R big toe at MTP jt region & well healed scar Intensity 4 Scale Used Numeric (0 - 10) Pain Aggravating Factors Activity,Exercise,Walking, Bending Other Pain Aggravating Factors Stair ambulation when WBing on the Big toe. Comments Pain Comments Pain post therapy was R 2/10, L 0/10. PT-OP-D Balance Start: 01/08/20 21:01 Freq: Status: Active Protocol: Document 02/07/20 13:45 LRN (Rec: 02/07/20 14:35 LRN [id number]) Balance Tests Single Limb Standing Single Limb- Right 46 (late entry on 02/05/20 Single Limb- Left 47 (late entry on 02/05/20 27) Tinetti Balance Assessment Scoring and Interpretation Interpretation of Scores At risk for falls (19-24) Tinetti Impairment Rating from Composite 1 to <20% Impaired (Score 23- Score 27) PT-OP-E Functional Tests Start: 01/08/20 21:01 Freq: Status: Active Protocol: Document 01/10/20 09:51 LRN (Rec: 01/10/20 15:53 LRN [id number]) Functional Tests Tinetti Balance and Gait Assessment Balance Score 15 Gait Score 8 Composite Score 23 Balance Score Impairment Rating 1 to <20% Impaired (Score 13- 15) Gait Score Impairment Rating 20 to <40% Impaired (Score 8-9 ) Composite Score Impairment Rating 1 to <20% Impaired (Score 23- 27) PT-OP-G Mobility & Gait Start: 01/08/20 21:01 Freq: Status: Active Protocol: Document 01/10/20 09:51 LRN (Rec: 01/10/20 15:53 LRN [id number]) OP Gait Assessment Assistive Devices Assistive Device None Gait Deviations General Gait Pattern Antalgic Factors Limiting Gait Function Factors Limiting Gait Function Decreased Activity Tolerance, Limited Range of Motion,Pain Stair Climbing Evaluation Technique/Endurance Stair Climbing Direction Ascend and Descend Stair Climbing Technique Step to Step PT-OP-H Neuro Start: 01/08/20 21:01 Freq: Status: Active Protocol: Document 01/10/20 09:51 LRN (Rec: 01/10/20 15:53 LRN [id number]) Sensation Evaluation Comments Summary Comments Soft touch Sensation: R foot hypersensitivity around well healed scar. L foot sensation is normal. PT-OP-J Posture/Palpation/Skin Start: 01/08/20 21:01 Freq: Status: Active Protocol: Document 01/10/20 09:51 LRN (Rec: 01/10/20 15:53 LRN [id number]) Posture Evaluation Position Standing Knee Posture (R) Genu Varus,(L) Genu Recurvatum,(R) Genu Recurvatum Ankle/Foot Posture (L) Supinated,(R) Supinated Foot Arch (L) High Arch Comments Posture Comments Big Toe Aducted. Right: slight cross over, Left: no crossover. Palpation Assessment Location R big toe Palpation Location R big toe caudal surface Palpation Findings Soft Tissue Tightness PT-OP-K Range of Motion Start: 01/08/20 21:01 Freq: Status: Active Protocol: Document 02/12/20 13:33 LRN (Rec: 02/12/20 18:24 LRN [id number]) Ankle and Foot Goniometric Range of Motion Ankle and Foot Right Active Testing Position Supine Dorsiflexion with Knee Flexed 32 Dorsiflexion with Knee Extended 20 Left Active Testing Position Supine Dorsiflexion with Knee Flexed 30 Dorsiflexion with Knee Extended 18 Toe Range of Motion Toe Right Great Toe MTP Flexion Active (degrees) 18 MTP Extension Active (degrees) 40 Left Great Toe MTP Flexion Active (degrees) 36 MTP Extension Active (degrees) 46 PT-OP-M Strength Start: 01/08/20 21:01 Freq: Status: Active Protocol: Document 01/10/20 09:51 LRN (Rec: 01/10/20 15:53 LRN [id number]) Ankle/Foot Strength Ankle and Foot Manual Muscle Testing Right Reason Not Measured WFL Left Reason Not Measured WFL Toe Strength Toe Manual Muscle Testing Right Great Toe Flexion 4 Good Extension 4 Good Comments MMT is within available ROM Left Great Toe Comments Generally 5/5 Cramping of plantar fascia during testing. PT-OP-Q Treatments Start: 01/08/20 21:01 Freq: Status: Active Protocol: Document 02/12/20 13:33 LRN (Rec: 02/12/20 14:18 LRN [id number]) Therapeutic Exercises Standing Exercises Toe Curls Standing Exercise Name Picking up marbles, moving to other side of foot Side bilateral Reps/Minutes 5x 4 Long foot ms strengthening Standing Exercise Name Lifting of arch Side bilateral Reps/Minutes 10 hold, 10x Comments Discomfort in L heel at end L soleus Standing Exercise Name Stretch, f/b 1 Side bilateral Reps/Minutes 60 x 1, f/b active ROM L Gastroc Standing Exercise Name Stretch, f/b 10 active DF Side bilateral Reps/Minutes 60 x 1, f/b active DF Comments Left felt tight Gait Training Gait Activity WBing/Wgt shifting Description WBing/Wgt shifting Surface Firm/Level Treatment Focus WBing into Big toe Manual Therapy Treatment Soft Tissue Mobilization L plantar fascia Body Location L Plantar fascia attachment to Calcaneous Mobilization Type Instrument Assisted,Other Intensity/Depth Moderate Body Position Prone Comments Cupping Mobilization PT-OP-R Modalities Start: 01/08/20 21:01 Freq: Status: Active Protocol: Document 02/12/20 13:33 LRN (Rec: 02/12/20 14:18 LRN [id number]) Ultrasound Therapy Treatment R Ball of foot at 1st & 2nd toe Treatment Duration (minutes) 4 Patient Position Prone Coupling Medium Ultrasound Gel Applicator Size (cm2) 2 Frequency Setting (mHz) 3 Mode Setting Pulsed Duty Cycle 50% Intensity Setting (w/cm2) 1 L plantar fascia Treatment Duration (minutes) 8 Patient Position Prone Frequency Setting (mHz) 3 Duty Cycle 50% Intensity Setting (w/cm2) 1.0 Comments L foot placed in DF and toes in extension during US. No c/ o tingling in foot during treatment. PT-OP-T Assessment and Plan Start: 01/08/20 21:01 Freq: Status: Active Protocol: Document 02/12/20 13:33 LRN (Rec: 02/12/20 14:18 LRN [id number]) Physical Therapy Assessment Rehab Potential Rehabilitation Potential Excellent Evaluation Complexity Number of Personal Factors/Comorbidities 1-2 Number of Body Systems Impaired 4 or More Clinical Presentation at Evaluation Evolving Impairments Impairments Activity Tolerance,Balance, Gait,Pain,ROM,Soft Tissue Mobility,Strength Goals Five Impairment Foot pain (Right 5/10, Left 4/ 10) limiting gait tolerance. Lead Java Programmer Goal (LTG) Decrease foot pain to no greater than 1/10 with pt able to return to hiking 3 miles and being able to squat in the shower to shave legs without pain. 02/12/20: Pain to start: 4/10 R, 1/10 L; Pain at end: 2/10 R, 0/10 L. LTG Duration 04/09/20 (02/12/20: L foot- intermittently no pain, R with WBing) Four Impairment Decreased Balance: SLS EO ( Right - 1 sec, Left 19 sec), Tinetti 23/28 Skilled Nursing Goal (LTG) Pt will be able to SLS EO - 10 sec bilaterally without LOB to improve function and safety with resulting in improved Tinetti Score of > 24. (: Goal partially met. L foot SLS 47, Tinetti = 24). LTG Duration 04/09/20 (02/07/20: Progressing) Three Impairment Decreased ankle AROM Lead Java Programmer Goal (LTG) Active Ankle DF (legs straight ) no less than 15 deg's. Active Ankle DF (knees flexed) no less than 24 deg's Pt will be able to ambulate up /down stairs with normal gait pattern. (02/12/20: Ankle DF legs straight: 20 degs R, 18 degs L Ankle DF knee flexed: 32 degs R, 30 degs L) LTG Duration 04/09/20 (02/12/20: ROM GOAL MET) Two Impairment Decreased Big Toe Right MTP jt AROM (flex 24 deg's, ext 20 deg's) Short Term Goal (STG) Improve R big toe MTP AROM to ext 36 deg's, flex 32 deg's ( equal to left foot) with pt able to ambulate with equal step lengths without use of assistive device. 12/22/19: Ext goal met (40 degs ) Flex is worse at 16 deg's. STG Duration 03/09/20 (12/22/19: Partially met. Not met for flex, EXT- MET) Lead Java Programmer Goal (LTG) Improve functional ability, per Foot and Ankle Ability Measure (FAAM) Score ( initially 36) no less than 50. LTG Duration 04/09/20 One Impairment Lacks appropriate HEP Short Term Goal (STG) Self care I/S for scar tissue management and edema management. STG Duration 01/21/20 (12/22/19: GOAL MET) Skilled Nursing Goal (LTG) Pt will be independent in a self care HEP to manage her mobility, strength and endurance of her bilateral foot/ankles. 01/15/20: Progressing. LTG Duration 04/09/20 (Progressing, L foot started) Progress Towards Goals Progress Comments GOAL 1 STG MET. PROGRESSING LTG HEP. GOAL 2 STG PARTIALLY MET: R Big Toe mobility for flexion is 18 degs, ext is 40 degs ( initially flex 24 deg's, ext 20 deg's). Step lengths are now equal with minimal antalgic gait present. Antalgic gait due to pain with WBing on R Big Toe. LTG NOT MET. GOAL 3 MET: Active ankle DF legs straight: 20 degs R, 18 degs L (initially was 14 degs R, 15 degs L) Ankle DF knee flexed: 32 degs R, 30 degs L ( initially was 14 degs R, 24 degs L). LTG NOT MET. GOAL 4 PARTIALLY MET: Left SLS improved to 47 (was 19). Right SLS deferred due to pain with WBing on Big toe. Function slightly improved per Tinetti score of 24 (was 23). GOAL 5 NOT MET, PROGRESSING. R foot pain is decreased with therapy. L foot pain is variable depending on activity level. Currently she has periods of no pain. She has not returned to her active lifestyle of hiking. Assessment Summary Assessment Pt continues to slowly improve with a decrease in pain and improved gait on level and stairs. She is limited on the R foot when weightbearing on the Big toe and she lacks normal flexion at the MTP joint. She has had some change in function with slight improvement in her Tinetti and FAAM scores. She would benefit from skilled physical therapy to improve her R big toe mobility and tolerance to WBing (reducing inflammation). On her left foot, continued therapy would be beneficial to decrease pain in the foot and lower leg, and improve strength of her long foot flexors to help her tolerate a return to functional and recreation activities that require her to be on her feet. Physical Therapy Plan Frequency and Duration Frequency of Treatment 2x/Week Plan of Care Start Date 01/10/20 Plan of Care End Date 04/09/20 Therapeutic Interventions Therapeutic Interventions Balance Training,Gait Training ,Home Exercise Program,Joint Mobilizations,Manual Therapy, Neuromuscular Re-education, Patient/Caregiver Education, Self-Care/Home Management,Soft Tissue Mobilization,Taping, Therapeutic Activities, Therapeutic Exercises Next Visit Focus/Plan Next Note Type Treatment Note Next Visit Plan K-tape R big toe to facilitate flexion at MTP joint. DTM L Gastrocsoleus complex. Review HEP of ankle ex's and progress ankle strengthening ( emphasis DF, as well as EV/IV ) - ?Balance shuttle. R foot: If US L foot needed, Start MH to R foot before ROM if able. US to ball of foot @ Big toe and proximally if swelling present. ROM flex > ext. JMT ankle (med>lat mob & fibula). Strengthening foot/ankle L foot: US & Cross Friction massage of plantar fascia as needed for pain. ?JMT: L ankle and small bones & fibula to improve ankle DF ROM. Therapeutic Ex - strengthening Long foot plantar flexors. Balance training.
--- NOTE | 2020-02-14 17:18 | PT.OTN ---
Current Diagnoses Ankylosis, unspecified joint (02/14/20) Plantar fascial fibromatosis (02/14/20) Physical Therapy Treatment Note PT-OP-A Visit Information Start: 01/08/20 21:01 Freq: Status: Active Protocol: Document 02/14/20 13:33 LRN (Rec: 02/14/20 14:22 LRN [id number]) Out-Patient Physical Therapy Visit Information Visit Information Visit Type Treatment Note Visit Note 1 after PN Visit Start Time 13:33 Visit Stop Time 14:21 Total Visit Minutes 48 Visit Number 11 Evaluation Information Evaluation Date 02/05/20 Precautions Precautions Hx of Vertigo Hypothyroid As child suffered crushed tailbone, with L4, L5, S1 residual dysfunction. PT-OP-B Current Condition Start: 01/08/20 21:01 Freq: Status: Active Protocol: Document 01/10/20 09:51 LRN (Rec: 01/10/20 10:41 LRN [id number]) Current Condition History of Current Condition Onset Date R foot-09/05/18; L foot - 2018 History of Current Condition Difficulty walking with limping gait. L foot hurts more after resting and decreases with gait. R foot hurts constantly. R big toe surgery to remove bone spur and debride joint - 09/05/18. L foot plantar fasciitis - 2018 Previous rx: Insoles, K-tape but causes some irritation if worn too long. Wears shoes in house not that she has plantar fasciitis. Prior Treatments and Tests Home ex's of passive and active R big toe ext/flex. Massage therapy for L foot that was interrupted by COVID 19. Future Testing and Treatments Planned No further physician visits planned. Developmental History Developmental History See above Treatment Goals Patient/Caregiver Goals Walk normal and without pain. Hiking 6 miles a day. Squatting in shower to shave legs, Squat to weed. No pain with stair ambulation. Prior Functional Status Baseline Function- ADL's Independent Baseline Function- Mobility Independent Baseline Function- Gait Antalgic gait. Needs railing for stair ambulation. Baseline Function- Recreation/Hobbies Hiked 3-6 miles daily on trails. Current Functional Impairments (Reported) Functional Limitations- ADL's Squatting for functional activities (shaving legs, weeding). Functional Limitations- Mobility/Gait Antalgic gait. Single stepping on stairs. Needs railing for stair ambulation. Functional Limitations- Recreation/ Hiking. Hobbies Walking on level pavement at most 1 mile Personal Factors Other Personal Factors That May Effect Chronicity of L foot plantar Therapy/Recovery fasciitis since 01/2019 Back pain Thyroid disorder Autoimmune disorders. PT-OP-C Subjective Start: 01/08/20 21:01 Freq: Status: Active Protocol: Document 02/14/20 13:33 LRN (Rec: 02/14/20 14:22 LRN [id number]) OP-PT Subjective Patient Comments Patient Comments States pain worse after doing to errands yesterday until icing and ROM, pain eliminated . This morning no heel pain and both feet were stiff. Feet pain bothering less. Most discomfort getting out of car after driving to local store. PT-OP-D Balance Start: 01/08/20 21:01 Freq: Status: Active Protocol: Document 02/07/20 13:45 LRN (Rec: 02/07/20 14:35 LRN [id number]) Balance Tests Single Limb Standing Single Limb- Right 46 (late entry on 02/05/20 Single Limb- Left 47 (late entry on 02/05/20 27) Tinetti Balance Assessment Scoring and Interpretation Interpretation of Scores At risk for falls (19-24) Tinetti Impairment Rating from Composite 1 to <20% Impaired (Score 23- Score 27) PT-OP-E Functional Tests Start: 01/08/20 21:01 Freq: Status: Active Protocol: Document 01/10/20 09:51 LRN (Rec: 01/10/20 15:53 LRN [id number]) Functional Tests Tinetti Balance and Gait Assessment Balance Score 15 Gait Score 8 Composite Score 23 Balance Score Impairment Rating 1 to <20% Impaired (Score 13- 15) Gait Score Impairment Rating 20 to <40% Impaired (Score 8-9 ) Composite Score Impairment Rating 1 to <20% Impaired (Score 23- 27) PT-OP-G Mobility & Gait Start: 01/08/20 21:01 Freq: Status: Active Protocol: Document 01/10/20 09:51 LRN (Rec: 01/10/20 15:53 LRN [id number]) OP Gait Assessment Assistive Devices Assistive Device None Gait Deviations General Gait Pattern Antalgic Factors Limiting Gait Function Factors Limiting Gait Function Decreased Activity Tolerance, Limited Range of Motion,Pain Stair Climbing Evaluation Technique/Endurance Stair Climbing Direction Ascend and Descend Stair Climbing Technique Step to Step PT-OP-H Neuro Start: 01/08/20 21:01 Freq: Status: Active Protocol: Document 01/10/20 09:51 LRN (Rec: 01/10/20 15:53 LRN [id number]) Sensation Evaluation Comments Summary Comments Soft touch Sensation: R foot hypersensitivity around well healed scar. L foot sensation is normal. PT-OP-J Posture/Palpation/Skin Start: 01/08/20 21:01 Freq: Status: Active Protocol: Document 01/10/20 09:51 LRN (Rec: 01/10/20 15:53 LRN [id number]) Posture Evaluation Position Standing Knee Posture (R) Genu Varus,(L) Genu Recurvatum,(R) Genu Recurvatum Ankle/Foot Posture (L) Supinated,(R) Supinated Foot Arch (L) High Arch Comments Posture Comments Big Toe Aducted. Right: slight cross over, Left: no crossover. Palpation Assessment Location R big toe Palpation Location R big toe caudal surface Palpation Findings Soft Tissue Tightness PT-OP-K Range of Motion Start: 01/08/20 21:01 Freq: Status: Active Protocol: Document 02/12/20 13:33 LRN (Rec: 02/12/20 18:24 LRN [id number]) Ankle and Foot Goniometric Range of Motion Ankle and Foot Right Active Testing Position Supine Dorsiflexion with Knee Flexed 32 Dorsiflexion with Knee Extended 20 Left Active Testing Position Supine Dorsiflexion with Knee Flexed 30 Dorsiflexion with Knee Extended 18 Toe Range of Motion Toe Right Great Toe MTP Flexion Active (degrees) 18 MTP Extension Active (degrees) 40 Left Great Toe MTP Flexion Active (degrees) 36 MTP Extension Active (degrees) 46 PT-OP-M Strength Start: 01/08/20 21:01 Freq: Status: Active Protocol: Document 01/10/20 09:51 LRN (Rec: 01/10/20 15:53 LRN [id number]) Ankle/Foot Strength Ankle and Foot Manual Muscle Testing Right Reason Not Measured WFL Left Reason Not Measured WFL Toe Strength Toe Manual Muscle Testing Right Great Toe Flexion 4 Good Extension 4 Good Comments MMT is within available ROM Left Great Toe Comments Generally 5/5 Cramping of plantar fascia during testing. PT-OP-Q Treatments Start: 01/08/20 21:01 Freq: Status: Active Protocol: Document 02/14/20 13:33 LRN (Rec: 02/14/20 14:22 LRN [id number]) Therapeutic Exercises Standing Exercises L soleus Standing Exercise Name Stretch, f/b active ankle DF Side bilateral Reps/Minutes 60 x 1, f/b active ROM L Gastroc Standing Exercise Name Stretch, f/b 10 active DF Side bilateral Reps/Minutes 60 x 1, f/b active DF Comments Left felt tight Manual Therapy Treatment Soft Tissue Mobilization L lateral leg Body Location Peronius Brevis & Tertius, Extensor Digitorum Longus Mobilization Type Instrument Assisted,Trigger Point Release Intensity/Depth Moderate Body Position Prone L plantar fascia Body Location L Plantar fascia attachment to Calcaneous Mobilization Type Instrument Assisted,Other Intensity/Depth Moderate Body Position Prone Joint Mobilizations R MTP joint Joint R MTP joint Direction PA & AP Grade II Body Position Supine Reps/Duration 6' Self-Care/Home Management Treatment Education Patient Education Pain Management Other Education Educated pt and I/S pt to try use of Water pressure (R foot in bucket)/cryotherapy to reduce inflammation after activities. PT-OP-R Modalities Start: 01/08/20 21:01 Freq: Status: Active Protocol: Document 02/14/20 13:33 LRN (Rec: 02/14/20 14:22 LRN [id number]) Ultrasound Therapy Treatment R Ball of foot at 1st & 2nd toe Treatment Duration (minutes) 4 Patient Position Prone Coupling Medium Ultrasound Gel Applicator Size (cm2) 2 Frequency Setting (mHz) 3 Mode Setting Pulsed Duty Cycle 50% Intensity Setting (w/cm2) 1 L plantar fascia Treatment Duration (minutes) 8 Patient Position Prone Frequency Setting (mHz) 3 Duty Cycle 50% Intensity Setting (w/cm2) 1.0 Comments L foot placed in DF and toes in extension during US. No c/ o tingling in foot during treatment. PT-OP-T Assessment and Plan Start: 01/08/20 21:01 Freq: Status: Active Protocol: Document 02/14/20 13:33 LRN (Rec: 02/14/20 17:07 LRN [id number]) Physical Therapy Assessment Goals Five Impairment Foot pain (Right 5/10, Left 4/ 10) limiting gait tolerance. Intermediate Goal (LTG) Decrease foot pain to no greater than 1/10 with pt able to return to hiking 3 miles and being able to squat in the shower to shave legs without pain. 02/12/20: Pain to start: 4/10 R, 1/10 L; Pain at end: 2/10 R, 0/10 L. LTG Duration 04/09/20 (02/12/20: L foot- intermittently no pain, R with WBing) Four Impairment Decreased Balance: SLS EO ( Right - 1 sec, Left 19 sec), Tinetti Analysis Internship Goal (LTG) Pt will be able to SLS EO - 10 sec bilaterally without LOB to improve function and safety with resulting in improved Tinetti Score of > 24. (: Goal partially met. L foot SLS 47, Tinetti = 24). LTG Duration 04/09/20 (02/07/20: Progressing) Three Impairment Decreased ankle AROM [employer]ship Goal (LTG) Active Ankle DF (legs straight ) no less than 15 deg's. Active Ankle DF (knees flexed) no less than 24 deg's Pt will be able to ambulate up /down stairs with normal gait pattern. (02/12/20: Ankle DF legs straight: 20 degs R, 18 degs L Ankle DF knee flexed: 32 degs R, 30 degs L) LTG Duration 04/09/20 (02/12/20: ROM GOAL MET) Two Impairment Decreased Big Toe Right MTP jt AROM (flex 24 deg's, ext 20 deg's) Short Term Goal (STG) Improve R big toe MTP AROM to ext 36 deg's, flex 32 deg's ( equal to left foot) with pt able to ambulate with equal step lengths without use of assistive device. 12/22/19: Ext goal met (40 degs ) Flex is worse at 16 deg's. STG Duration 03/09/20 (12/22/19: Partially met. Not met for flex, EXT- MET) Analysis Internship Goal (LTG) Improve functional ability, per Foot and Ankle Ability Measure (FAAM) Score ( initially 36) no less than 50. LTG Duration 04/09/20 One Impairment Lacks appropriate HEP Short Term Goal (STG) Self care I/S for scar tissue management and edema management. STG Duration 01/21/20 (12/22/19: GOAL MET) Intermediate Goal (LTG) Pt will be independent in a self care HEP to manage her mobility, strength and endurance of her bilateral foot/ankles. 01/15/20: Progressing. LTG Duration 04/09/20 (Progressing, L foot started) Progress Towards Goals Progress Towards Goals Progressing Toward Goals Progress Comments Pt's pain complaints are slowly lessening. Pain after activities. No pain L foot on standing, pain at R MTP jt on plantar surface on standing s/p therapy. Assessment Summary Assessment Pt L foot plantar fasciitis symptom is only with pain at anterior calcaneous, probably fascial restrictions and gastrocnemius tightness. US appeared to be most helpful at calcaneous. Pn resolved with WBing post treatment, but tenderness to palpation was present. R foot MTP jt mobility slightly improved post therapy, but general edema was visibly present on plantar surface. Pain was still present on WBing s/p therapy. Physical Therapy Plan Frequency and Duration Frequency of Treatment 2x/Week Plan of Care Start Date 01/10/20 Plan of Care End Date 04/09/20 Next Visit Focus/Plan Next Note Type Treatment Note Next Visit Plan K-tape R big toe to facilitate flexion at MTP joint & measure before and after ROM stretching. DTM L Gastrocsoleus lateral complex. Review HEP of ankle ex's and progress ankle strengthening ( emphasis DF, as well as EV/IV ) - ?Balance shuttle. R foot: If US L foot needed, Start MH to R foot before ROM if able. US to ball of foot @ Big toe and proximally if swelling present. ROM flex > ext. JMT ankle (med>lat mob & fibula). Strengthening foot/ankle L foot: US & Cross Friction massage of plantar fascia as needed for pain. ?JMT: L ankle and small bones & fibula to improve ankle DF ROM. Therapeutic Ex - strengthening Long foot plantar flexors. Balance training.
--- NOTE | 2020-02-19 16:46 | PT.OTN ---
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 PT-OP-B Current Condition Start: 01/08/20 21:01 Freq: Status: Active Protocol: Document 01/10/20 09:51 LRN (Rec: 01/10/20 10:41 LRN [id number]) Current Condition History of Current Condition Onset Date R foot-09/05/18; L foot - 2018 History of Current Condition Difficulty walking with limping gait. L foot hurts more after resting and decreases with gait. R foot hurts constantly. R big toe surgery to remove bone spur and debride joint - 09/05/18. L foot plantar fasciitis - 2018 Previous rx: Insoles, K-tape but causes some irritation if worn too long. Wears shoes in house not that she has plantar fasciitis. Prior Treatments and Tests Home ex's of passive and active R big toe ext/flex. Massage therapy for L foot that was interrupted by COVID 19. Future Testing and Treatments Planned No further physician visits planned. Developmental History Developmental History See above Treatment Goals Patient/Caregiver Goals Walk normal and without pain. Hiking 6 miles a day. Squatting in shower to shave legs, Squat to weed. No pain with stair ambulation. Prior Functional Status Baseline Function- ADL's Independent Baseline Function- Mobility Independent Baseline Function- Gait Antalgic gait. Needs railing for stair ambulation. Baseline Function- Recreation/Hobbies Hiked 3-6 miles daily on trails. Current Functional Impairments (Reported) Functional Limitations- ADL's Squatting for functional activities (shaving legs, weeding). Functional Limitations- Mobility/Gait Antalgic gait. Single stepping on stairs. Needs railing for stair ambulation. Functional Limitations- Recreation/ Hiking. Hobbies Walking on level pavement at most 1 mile Personal Factors Other Personal Factors That May Effect Chronicity of L foot plantar Therapy/Recovery fasciitis since 01/2019 Back pain Thyroid disorder Autoimmune disorders. PT-OP-C Subjective Start: 01/08/20 21:01 Freq: Status: Active Protocol: Document 02/19/20 13:35 LRN (Rec: 02/19/20 14:16 LRN [id number]) OP-PT Subjective Patient Comments Patient Comments States her L foot has stayed a 1/10 pain, today R toe hurts, 4/10 but thinks she has more mobility. Feet have been good and bad but more good. PT-OP-D Balance Start: 01/08/20 21:01 Freq: Status: Active Protocol: Document 02/07/20 13:45 LRN (Rec: 02/07/20 14:35 LRN [id number]) Balance Tests Single Limb Standing Single Limb- Right 46 (late entry on 02/05/20 Single Limb- Left 47 (late entry on 02/05/20 27) Tinetti Balance Assessment Scoring and Interpretation Interpretation of Scores At risk for falls (19-24) Tinetti Impairment Rating from Composite 1 to <20% Impaired (Score 23- Score 27) PT-OP-E Functional Tests Start: 01/08/20 21:01 Freq: Status: Active Protocol: Document 01/10/20 09:51 LRN (Rec: 01/10/20 15:53 LRN [id number]) Functional Tests Tinetti Balance and Gait Assessment Balance Score 15 Gait Score 8 Composite Score 23 Balance Score Impairment Rating 1 to <20% Impaired (Score 13- 15) Gait Score Impairment Rating 20 to <40% Impaired (Score 8-9 ) Composite Score Impairment Rating 1 to <20% Impaired (Score 23- 27) PT-OP-G Mobility & Gait Start: 01/08/20 21:01 Freq: Status: Active Protocol: Document 01/10/20 09:51 LRN (Rec: 01/10/20 15:53 LRN [id number]) OP Gait Assessment Assistive Devices Assistive Device None Gait Deviations General Gait Pattern Antalgic Factors Limiting Gait Function Factors Limiting Gait Function Decreased Activity Tolerance, Limited Range of Motion,Pain Stair Climbing Evaluation Technique/Endurance Stair Climbing Direction Ascend and Descend Stair Climbing Technique Step to Step PT-OP-H Neuro Start: 01/08/20 21:01 Freq: Status: Active Protocol: Document 01/10/20 09:51 LRN (Rec: 01/10/20 15:53 LRN [id number]) Sensation Evaluation Comments Summary Comments Soft touch Sensation: R foot hypersensitivity around well healed scar. L foot sensation is normal. PT-OP-J Posture/Palpation/Skin Start: 01/08/20 21:01 Freq: Status: Active Protocol: Document 01/10/20 09:51 LRN (Rec: 01/10/20 15:53 LRN [id number]) Posture Evaluation Position Standing Knee Posture (R) Genu Varus,(L) Genu Recurvatum,(R) Genu Recurvatum Ankle/Foot Posture (L) Supinated,(R) Supinated Foot Arch (L) High Arch Comments Posture Comments Big Toe Aducted. Right: slight cross over, Left: no crossover. Palpation Assessment Location R big toe Palpation Location R big toe caudal surface Palpation Findings Soft Tissue Tightness PT-OP-K Range of Motion Start: 01/08/20 21:01 Freq: Status: Active Protocol: Document 02/12/20 13:33 LRN (Rec: 02/12/20 18:24 LRN [id number]) Ankle and Foot Goniometric Range of Motion Ankle and Foot Right Active Testing Position Supine Dorsiflexion with Knee Flexed 32 Dorsiflexion with Knee Extended 20 Left Active Testing Position Supine Dorsiflexion with Knee Flexed 30 Dorsiflexion with Knee Extended 18 Toe Range of Motion Toe Right Great Toe MTP Flexion Active (degrees) 18 MTP Extension Active (degrees) 40 Left Great Toe MTP Flexion Active (degrees) 36 MTP Extension Active (degrees) 46 PT-OP-M Strength Start: 01/08/20 21:01 Freq: Status: Active Protocol: Document 01/10/20 09:51 LRN (Rec: 01/10/20 15:53 LRN [id number]) Ankle/Foot Strength Ankle and Foot Manual Muscle Testing Right Reason Not Measured WFL Left Reason Not Measured WFL Toe Strength Toe Manual Muscle Testing Right Great Toe Flexion 4 Good Extension 4 Good Comments MMT is within available ROM Left Great Toe Comments Generally 5/5 Cramping of plantar fascia during testing. PT-OP-Q Treatments Start: 01/08/20 21:01 Freq: Status: Active Protocol: Document 02/19/20 13:35 LRN (Rec: 02/19/20 16:37 LRN [id number]) Therapeutic Exercises Standing Exercises L soleus Standing Exercise Name Stretch, f/b active ankle DF Side bilateral Reps/Minutes 60 x 1, f/b active ROM L Gastroc Standing Exercise Name Stretch, f/b 10 active DF Side bilateral Reps/Minutes 60 x 1, f/b active DF Comments Left felt tight Manual Therapy Treatment Soft Tissue Mobilization L foot Dorsal surface Body Location L foot Dorsal surface Mobilization Type Myofascial Release Intensity/Depth Superficial Body Position Prone Web space Body Location R web space of 1st & 2nd toe Mobilization Type Cross-Friction,Myofascial Release,Strumming Intensity/Depth Moderate Body Position Prone Scar mob Body Location R foot Scar Mob Mobilization Type Myofascial Release Intensity/Depth Superficial Body Position Supine Joint Mobilizations R MTP joint Joint R MTP & IP joint Direction PA & AP Grade II Body Position Supine Reps/Duration 6' Taping K-tape Comments Pt issued K-tape to do at home . Manual Techniques PROM R Big Toe Type PROM Flex/Ext of MTP & PIP jt Body Location Big toe Body Position Prone Reps/Duration 8' PT-OP-R Modalities Start: 01/08/20 21:01 Freq: Status: Active Protocol: Document 02/19/20 13:35 LRN (Rec: 02/19/20 16:30 LRN [id number]) Ultrasound Therapy Treatment R Ball of foot at 1st & 2nd toe Treatment Duration (minutes) 4 Patient Position Prone Coupling Medium Ultrasound Gel Applicator Size (cm2) 2 Frequency Setting (mHz) 3 Mode Setting Pulsed Duty Cycle 50% Intensity Setting (w/cm2) 1 L plantar fascia Treatment Duration (minutes) 8 Patient Position Prone Frequency Setting (mHz) 3 Duty Cycle 50% Intensity Setting (w/cm2) 1.0 Comments L foot placed in DF and toes in extension during US. No c/ o tingling in foot during treatment. PT-OP-T Assessment and Plan Start: 01/08/20 21:01 Freq: Status: Active Protocol: Document 02/19/20 13:35 LRN (Rec: 02/19/20 14:16 LRN [id number]) Physical Therapy Assessment Goals Five Impairment Foot pain (Right 5/10, Left 4/ 10) limiting gait tolerance. Electrostatic [employer] Co[employer] Technician Goal (LTG) Decrease foot pain to no greater than 1/10 with pt able to return to hiking 3 miles and being able to squat in the shower to shave legs without pain. 02/19/20: Pain to start: 4/10 R, 1/10 L; Pain at end: 1/10 R, 1/10 L. LTG Duration 04/09/20 (02/12/20: L foot- intermittently no pain, R with WBing) Four Impairment Decreased Balance: SLS EO ( Right - 1 sec, Left 19 sec), Tinetti Fpc Goal (LTG) Pt will be able to SLS EO - 10 sec bilaterally without LOB to improve function and safety with resulting in improved Tinetti Score of > 24. (: Goal partially met. L foot SLS 47, Tinetti = 24). LTG Duration 04/09/20 (02/07/20: Progressing) Three Impairment Decreased ankle AROM Fpc Goal (LTG) Active Ankle DF (legs straight ) no less than 15 deg's. Active Ankle DF (knees flexed) no less than 24 deg's Pt will be able to ambulate up /down stairs with normal gait pattern. (02/12/20: Ankle DF legs straight: 20 degs R, 18 degs L Ankle DF knee flexed: 32 degs R, 30 degs L) LTG Duration 04/09/20 (02/12/20: ROM GOAL MET) Two Impairment Decreased Big Toe Right MTP jt AROM (flex 24 deg's, ext 20 deg's) Short Term Goal (STG) Improve R big toe MTP AROM to ext 36 deg's, flex 32 deg's ( equal to left foot) with pt able to ambulate with equal step lengths without use of assistive device. 12/22/19: Ext goal met (40 degs ) Flex is worse at 16 deg's. STG Duration 03/09/20 (12/22/19: Partially met. Not met for flex, EXT- MET) Fpc Goal (LTG) Improve functional ability, per Foot and Ankle Ability Measure (FAAM) Score ( initially 36) no less than 50. LTG Duration 04/09/20 One Impairment Lacks appropriate HEP Short Term Goal (STG) Self care I/S for scar tissue management and edema management. STG Duration 01/21/20 (12/22/19: GOAL MET) Fpc Goal (LTG) Pt will be independent in a self care HEP to manage her mobility, strength and endurance of her bilateral foot/ankles. 01/15/20: Progressing. LTG Duration 04/09/20 (Progressing, L foot started) Progress Towards Goals Progress Comments Overall foot pain is reported with less onset. Pain was 1/ 10 L with change in location after therapy from heel distal calcaneous to midfoot. Pre and post pain of R big toe was 4/10 ending 08/31. Assessment Summary Assessment Pain in L foot at end of therapy was at midfoot. Pt mobility of R 1st digit: appeared improved from MTP 0 deg's to 5 deg's and IP jt ended at ~20 deg's. Physical Therapy Plan Frequency and Duration Frequency of Treatment 2x/Week Plan of Care Start Date 01/10/20 Plan of Care End Date 04/09/20 Next Visit Focus/Plan Next Note Type Treatment Note Next Visit Plan K-tape R big toe to facilitate flexion at MTP joint & measure before and after ROM stretching. DTM R web space of 1st and 2nd toe and dorsal surface of foot from medial to lateral foot. Review HEP of ankle ex's and progress ankle strengthening ( emphasis DF, as well as EV/IV) - ?Balance shuttle. R foot: If US L foot needed, Start MH to R foot before ROM if able. US as needed. ROM Big toe for flex > ext. JMT ankle (med>lat mob & fibula). Strengthening foot/ankle L foot: US & Cross Friction massage of plantar fascia as needed for pain. ?JMT: L ankle and small bones & fibula to improve ankle DF ROM. Therapeutic Ex - strengthening Long foot plantar flexors. Balance training.
--- NOTE | 2020-02-26 17:14 | PT.OTN ---
Current Diagnoses Ankylosis, unspecified joint (02/26/20) Plantar fascial fibromatosis (02/26/20) Physical Therapy Treatment Note PT-OP-A Visit Information Start: 01/08/20 21:01 Freq: Status: Active Protocol: Document 02/26/20 13:34 LRN (Rec: 02/26/20 14:19 LRN [id number]) Out-Patient Physical Therapy Visit Information Visit Information Visit Type Treatment Note Visit Start Time 13:34 Visit Stop Time 14:16 Total Visit Minutes 42 Visit Number 13 Evaluation Information Evaluation Date 02/05/20 Precautions Precautions Hx of Vertigo Hypothyroid As child suffered crushed tailbone, with L4, L5, S1 residual dysfunction. PT-OP-B Current Condition Start: 01/08/20 21:01 Freq: Status: Active Protocol: Document 01/10/20 09:51 LRN (Rec: 01/10/20 10:41 LRN [id number]) Current Condition History of Current Condition Onset Date R foot-09/05/18; L foot - 2018 History of Current Condition Difficulty walking with limping gait. L foot hurts more after resting and decreases with gait. R foot hurts constantly. R big toe surgery to remove bone spur and debride joint - 09/05/18. L foot plantar fasciitis - 2018 Previous rx: Insoles, K-tape but causes some irritation if worn too long. Wears shoes in house not that she has plantar fasciitis. Prior Treatments and Tests Home ex's of passive and active R big toe ext/flex. Massage therapy for L foot that was interrupted by COVID 19. Future Testing and Treatments Planned No further physician visits planned. Developmental History Developmental History See above Treatment Goals Patient/Caregiver Goals Walk normal and without pain. Hiking 6 miles a day. Squatting in shower to shave legs, Squat to weed. No pain with stair ambulation. Prior Functional Status Baseline Function- ADL's Independent Baseline Function- Mobility Independent Baseline Function- Gait Antalgic gait. Needs railing for stair ambulation. Baseline Function- Recreation/Hobbies Hiked 3-6 miles daily on trails. Current Functional Impairments (Reported) Functional Limitations- ADL's Squatting for functional activities (shaving legs, weeding). Functional Limitations- Mobility/Gait Antalgic gait. Single stepping on stairs. Needs railing for stair ambulation. Functional Limitations- Recreation/ Hiking. Hobbies Walking on level pavement at most 1 mile Personal Factors Other Personal Factors That May Effect Chronicity of L foot plantar Therapy/Recovery fasciitis since 01/2019 Back pain Thyroid disorder Autoimmune disorders. PT-OP-C Subjective Start: 01/08/20 21:01 Freq: Status: Active Protocol: Document 02/26/20 13:34 LRN (Rec: 02/26/20 14:19 LRN [id number]) OP-PT Subjective Patient Comments Patient Comments States L has 1/10 plantar fascitis at heel. Entire foot is tight, most it's been is a 3/10. Swollen every morning. R foot after last treatment had no pain for 1 day, then slowly coming back Standing on flat surface is okay, but uneven and walking increases the pain. Today pain R foot is intermittent @ 1/10. Tight this morning. PT-OP-D Balance Start: 01/08/20 21:01 Freq: Status: Active Protocol: Document 02/07/20 13:45 LRN (Rec: 02/07/20 14:35 LRN [id number]) Balance Tests Single Limb Standing Single Limb- Right 46 (late entry on 02/05/20 Single Limb- Left 47 (late entry on 02/05/20 27) Tinetti Balance Assessment Scoring and Interpretation Interpretation of Scores At risk for falls (19-24) Tinetti Impairment Rating from Composite 1 to <20% Impaired (Score 23- Score 27) PT-OP-E Functional Tests Start: 01/08/20 21:01 Freq: Status: Active Protocol: Document 01/10/20 09:51 LRN (Rec: 01/10/20 15:53 LRN [id number]) Functional Tests Tinetti Balance and Gait Assessment Balance Score 15 Gait Score 8 Composite Score 23 Balance Score Impairment Rating 1 to <20% Impaired (Score 13- 15) Gait Score Impairment Rating 20 to <40% Impaired (Score 8-9 ) Composite Score Impairment Rating 1 to <20% Impaired (Score 23- 27) PT-OP-G Mobility & Gait Start: 01/08/20 21:01 Freq: Status: Active Protocol: Document 01/10/20 09:51 LRN (Rec: 01/10/20 15:53 LRN [id number]) OP Gait Assessment Assistive Devices Assistive Device None Gait Deviations General Gait Pattern Antalgic Factors Limiting Gait Function Factors Limiting Gait Function Decreased Activity Tolerance, Limited Range of Motion,Pain Stair Climbing Evaluation Technique/Endurance Stair Climbing Direction Ascend and Descend Stair Climbing Technique Step to Step PT-OP-H Neuro Start: 01/08/20 21:01 Freq: Status: Active Protocol: Document 01/10/20 09:51 LRN (Rec: 01/10/20 15:53 LRN [id number]) Sensation Evaluation Comments Summary Comments Soft touch Sensation: R foot hypersensitivity around well healed scar. L foot sensation is normal. PT-OP-J Posture/Palpation/Skin Start: 01/08/20 21:01 Freq: Status: Active Protocol: Document 01/10/20 09:51 LRN (Rec: 01/10/20 15:53 LRN [id number]) Posture Evaluation Position Standing Knee Posture (R) Genu Varus,(L) Genu Recurvatum,(R) Genu Recurvatum Ankle/Foot Posture (L) Supinated,(R) Supinated Foot Arch (L) High Arch Comments Posture Comments Big Toe Aducted. Right: slight cross over, Left: no crossover. Palpation Assessment Location R big toe Palpation Location R big toe caudal surface Palpation Findings Soft Tissue Tightness PT-OP-K Range of Motion Start: 01/08/20 21:01 Freq: Status: Active Protocol: Document 02/12/20 13:33 LRN (Rec: 02/12/20 18:24 LRN [id number]) Ankle and Foot Goniometric Range of Motion Ankle and Foot Right Active Testing Position Supine Dorsiflexion with Knee Flexed 32 Dorsiflexion with Knee Extended 20 Left Active Testing Position Supine Dorsiflexion with Knee Flexed 30 Dorsiflexion with Knee Extended 18 Toe Range of Motion Toe Right Great Toe MTP Flexion Active (degrees) 18 MTP Extension Active (degrees) 40 Left Great Toe MTP Flexion Active (degrees) 36 MTP Extension Active (degrees) 46 PT-OP-M Strength Start: 01/08/20 21:01 Freq: Status: Active Protocol: Document 01/10/20 09:51 LRN (Rec: 01/10/20 15:53 LRN [id number]) Ankle/Foot Strength Ankle and Foot Manual Muscle Testing Right Reason Not Measured WFL Left Reason Not Measured WFL Toe Strength Toe Manual Muscle Testing Right Great Toe Flexion 4 Good Extension 4 Good Comments MMT is within available ROM Left Great Toe Comments Generally 5/5 Cramping of plantar fascia during testing. PT-OP-Q Treatments Start: 01/08/20 21:01 Freq: Status: Active Protocol: Document 02/26/20 13:34 LRN (Rec: 02/26/20 17:08 LRN [id number]) Therapeutic Exercises Standing Exercises L soleus Standing Exercise Name Stretch, f/b active ankle DF Side bilateral Reps/Minutes 60 x 1, f/b active ROM L Gastroc Standing Exercise Name Stretch, f/b 10 active DF Side bilateral Reps/Minutes 60 x 1, f/b active DF Comments Left felt tight Manual Therapy Treatment Soft Tissue Mobilization L foot Dorsal surface Body Location L foot Dorsal surface Mobilization Type Myofascial Release Intensity/Depth Superficial Body Position Prone Web space Body Location R web space of 1st & 2nd toe Mobilization Type Cross-Friction,Myofascial Release,Strumming Intensity/Depth Moderate Body Position Prone R Big toe Body Location R Big Toe Mobilization Type Myofascial Release Intensity/Depth Superficial Body Position Prone L plantar fascia Body Location L Plantar fascia attachment to Calcaneous Mobilization Type Instrument Assisted,Other Intensity/Depth Moderate Body Position Prone Scar mob Body Location R foot Scar Mob Mobilization Type Myofascial Release Intensity/Depth Superficial Body Position Supine Joint Mobilizations R ankle Joint R ankle Direction PA Grade III Body Position Prone Reps/Duration 2' R MTP joint Joint R MTP & IP joint Direction PA & AP Grade II Body Position Supine Reps/Duration 6' Manual Techniques PROM R Big Toe Type PROM Flex/Ext of MTP & PIP jt Body Location Big toe Body Position Prone Reps/Duration 8' PT-OP-R Modalities Start: 01/08/20 21:01 Freq: Status: Active Protocol: Document 02/26/20 13:34 LRN (Rec: 02/26/20 14:19 LRN [id number]) Ultrasound Therapy Treatment R Ball of foot at 1st & 2nd toe Treatment Duration (minutes) 4 Patient Position Prone Coupling Medium Ultrasound Gel Applicator Size (cm2) 2 Frequency Setting (mHz) 3 Mode Setting Pulsed Duty Cycle 50% Intensity Setting (w/cm2) 1 L plantar fascia Treatment Duration (minutes) 4 Patient Position Prone Frequency Setting (mHz) 3 Duty Cycle 50% Intensity Setting (w/cm2) 1.0 Comments L foot placed in DF and toes in extension during US. No c/ o tingling in foot during treatment. PT-OP-T Assessment and Plan Start: 01/08/20 21:01 Freq: Status: Active Protocol: Document 02/26/20 13:34 LRN (Rec: 02/26/20 14:19 LRN [id number]) Physical Therapy Assessment Goals Five Impairment Foot pain (Right 5/10, Left 4/ 10) limiting gait tolerance. [facility] Goal (LTG) Decrease foot pain to no greater than 1/10 with pt able to return to hiking 3 miles and being able to squat in the shower to shave legs without pain. 02/26/20: Pain to start: 1/10 R , 1/10 L (heel); Pain at end: 0/10 R, 1/10 L(heel). LTG Duration 04/09/20 (02/26/20: L foot- intermittently no pain, R 1 day no pain) Four Impairment Decreased Balance: SLS EO ( Right - 1 sec, Left 19 sec), Tinetti 23/28 [employer] Goal (LTG) Pt will be able to SLS EO - 10 sec bilaterally without LOB to improve function and safety with resulting in improved Tinetti Score of > 24. (: Goal partially met. L foot SLS 47, Tinetti = 24). LTG Duration 04/09/20 (02/07/20: Progressing) Two Impairment Decreased Big Toe Right MTP jt AROM (flex 24 deg's, ext 20 deg's) Short Term Goal (STG) Improve R big toe MTP AROM to ext 36 deg's, flex 32 deg's ( equal to left foot) with pt able to ambulate with equal step lengths without use of assistive device. 12/22/19: Ext goal met (40 degs ) Flex is worse at 16 deg's. STG Duration 03/09/20 (12/22/19: Partially met. Not met for flex, EXT- MET) [employer] Goal (LTG) Improve functional ability, per Foot and Ankle Ability Measure (FAAM) Score ( initially 36) no less than 50. LTG Duration 04/09/20 One Impairment Lacks appropriate HEP Short Term Goal (STG) Self care I/S for scar tissue management and edema management. STG Duration 01/21/20 (12/22/19: GOAL MET) [facility] Goal (LTG) Pt will be independent in a self care HEP to manage her mobility, strength and endurance of her bilateral foot/ankles. 01/15/20: Progressing. LTG Duration 04/09/20 (Progressing, L foot started) Progress Towards Goals Progress Comments Normal gait with R foot after treatment (mild limp to start) . No change with L foot heel pain. Assessment Summary Assessment Pt has noted swelling in feet first in AM, possibly from poor lymphatic drainage. 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 Pt able to walk after therapy treatment in bare feet with normal gait and no pain R foot . Pain still at heel after therapy, level 1/10. Might try K-tape to L heel (Star pattern) to decrease pain. Physical Therapy Plan Frequency and Duration Frequency of Treatment 2x/Week Plan of Care Start Date 01/10/20 Plan of Care End Date 04/09/20 Next Visit Focus/Plan Next Note Type Treatment Note Next Visit Plan Hold L foot US and use K-tape L heel (star) to decrease inflammation and pain K-tape R big toe to facilitate flexion at MTP joint & measure before and after US & ROM stretching. R foot: If US L foot needed, Start MH to R foot before ROM if able. US as needed. DTM R web space of 1st and 2nd toe and dorsal surface of foot from medial to lateral foot. ROM Big toe for flex > ext. JMT ankle (med>lat mob & fibula). Strengthening Big toe/ankle L foot: Cross Friction massage of plantar fascia & K- tape as needed for pain. ?JMT: L ankle and small bones & fibula to improve ankle DF ROM. Therapeutic Ex - strengthening Long foot plantar flexors. Balance training shuttle.
--- NOTE | 2020-02-29 17:00 | PT.OTN ---
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 PT-OP-B Current Condition Start: 01/08/20 21:01 Freq: Status: Active Protocol: Document 01/10/20 09:51 LRN (Rec: 01/10/20 10:41 LRN [id number]) Current Condition History of Current Condition Onset Date R foot-09/05/18; L foot - 2018 History of Current Condition Difficulty walking with limping gait. L foot hurts more after resting and decreases with gait. R foot hurts constantly. R big toe surgery to remove bone spur and debride joint - 09/05/18. L foot plantar fasciitis - 2018 Previous rx: Insoles, K-tape but causes some irritation if worn too long. Wears shoes in house not that she has plantar fasciitis. Prior Treatments and Tests Home ex's of passive and active R big toe ext/flex. Massage therapy for L foot that was interrupted by COVID 19. Future Testing and Treatments Planned No further physician visits planned. Developmental History Developmental History See above Treatment Goals Patient/Caregiver Goals Walk normal and without pain. Hiking 6 miles a day. Squatting in shower to shave legs, Squat to weed. No pain with stair ambulation. Prior Functional Status Baseline Function- ADL's Independent Baseline Function- Mobility Independent Baseline Function- Gait Antalgic gait. Needs railing for stair ambulation. Baseline Function- Recreation/Hobbies Hiked 3-6 miles daily on trails. Current Functional Impairments (Reported) Functional Limitations- ADL's Squatting for functional activities (shaving legs, weeding). Functional Limitations- Mobility/Gait Antalgic gait. Single stepping on stairs. Needs railing for stair ambulation. Functional Limitations- Recreation/ Hiking. Hobbies Walking on level pavement at most 1 mile Personal Factors Other Personal Factors That May Effect Chronicity of L foot plantar Therapy/Recovery fasciitis since 01/2019 Back pain Thyroid disorder Autoimmune disorders. PT-OP-C Subjective Start: 01/08/20 21:01 Freq: Status: Active Protocol: Document 02/29/20 10:36 LRN (Rec: 02/29/20 11:24 LRN [id number]) OP-PT Subjective Patient Comments Patient Comments L foot is not bother her today , the R foot is improving. Pain shifts around from from ball of foot (1st toe) to the tip of the toe. Popping without pain in the R toe. OP-PT Pain Assessment Pain Assessment Grid Paper Pain Assessment Grid Completed No Location L foot Intensity 0 R foot Pain Location Details MTP joint Intensity 4 Other Pain Alleviating Factors Post therapy pain is 1/10 PT-OP-D Balance Start: 01/08/20 21:01 Freq: Status: Active Protocol: Document 02/29/20 10:36 LRN (Rec: 03/03/20 16:57 LRN [id number]) Balance Tests Single Limb Standing Single Limb- Right 10 secs, pain 4/10 Single Limb- Left 35 secs PT-OP-E Functional Tests Start: 01/08/20 21:01 Freq: Status: Active Protocol: Document 01/10/20 09:51 LRN (Rec: 01/10/20 15:53 LRN [id number]) Functional Tests Tinetti Balance and Gait Assessment Balance Score 15 Gait Score 8 Composite Score 23 Balance Score Impairment Rating 1 to <20% Impaired (Score 13- 15) Gait Score Impairment Rating 20 to <40% Impaired (Score 8-9 ) Composite Score Impairment Rating 1 to <20% Impaired (Score 23- 27) PT-OP-G Mobility & Gait Start: 01/08/20 21:01 Freq: Status: Active Protocol: Document 01/10/20 09:51 LRN (Rec: 01/10/20 15:53 LRN [id number]) OP Gait Assessment Assistive Devices Assistive Device None Gait Deviations General Gait Pattern Antalgic Factors Limiting Gait Function Factors Limiting Gait Function Decreased Activity Tolerance, Limited Range of Motion,Pain Stair Climbing Evaluation Technique/Endurance Stair Climbing Direction Ascend and Descend Stair Climbing Technique Step to Step PT-OP-H Neuro Start: 01/08/20 21:01 Freq: Status: Active Protocol: Document 01/10/20 09:51 LRN (Rec: 01/10/20 15:53 LRN [id number]) Sensation Evaluation Comments Summary Comments Soft touch Sensation: R foot hypersensitivity around well healed scar. L foot sensation is normal. PT-OP-J Posture/Palpation/Skin Start: 01/08/20 21:01 Freq: Status: Active Protocol: Document 01/10/20 09:51 LRN (Rec: 01/10/20 15:53 LRN [id number]) Posture Evaluation Position Standing Knee Posture (R) Genu Varus,(L) Genu Recurvatum,(R) Genu Recurvatum Ankle/Foot Posture (L) Supinated,(R) Supinated Foot Arch (L) High Arch Comments Posture Comments Big Toe Aducted. Right: slight cross over, Left: no crossover. Palpation Assessment Location R big toe Palpation Location R big toe caudal surface Palpation Findings Soft Tissue Tightness PT-OP-K Range of Motion Start: 01/08/20 21:01 Freq: Status: Active Protocol: Document 02/29/20 10:36 LRN (Rec: 03/03/20 16:57 LRN [id number]) Toe Range of Motion Toe Right Great Toe MTP Flexion Active (degrees) 9 MTP Extension Active (degrees) 30 PIP Flexion Active (degrees) 20 PT-OP-M Strength Start: 01/08/20 21:01 Freq: Status: Active Protocol: Document 01/10/20 09:51 LRN (Rec: 01/10/20 15:53 LRN [id number]) Ankle/Foot Strength Ankle and Foot Manual Muscle Testing Right Reason Not Measured WFL Left Reason Not Measured WFL Toe Strength Toe Manual Muscle Testing Right Great Toe Flexion 4 Good Extension 4 Good Comments MMT is within available ROM Left Great Toe Comments Generally 5/5 Cramping of plantar fascia during testing. PT-OP-Q Treatments Start: 01/08/20 21:01 Freq: Status: Active Protocol: Document 02/29/20 10:36 LRN (Rec: 02/29/20 11:24 LRN [id number]) Therapeutic Exercises Standing Exercises L soleus Standing Exercise Name Stretch, f/b active ankle DF Side bilateral Reps/Minutes 60 x 1, f/b active ROM L Gastroc Standing Exercise Name Stretch, f/b 10 active DF Side bilateral Reps/Minutes 60 x 1, f/b active DF Comments Left felt tight Manual Therapy Treatment Soft Tissue Mobilization Web space Body Location R web space of 1st & 2nd toe Mobilization Type Cross-Friction,Myofascial Release,Strumming Intensity/Depth Moderate Body Position Prone R Big toe Body Location R Big Toe Mobilization Type Myofascial Release Intensity/Depth Superficial Body Position Prone Scar mob Body Location R foot Scar Mob Mobilization Type Myofascial Release Intensity/Depth Superficial Body Position Supine Joint Mobilizations R MTP joint Joint R MTP & IP joint Direction PA & AP Grade II Body Position Supine Reps/Duration 6' Taping K-tape Body Location R foot scar and ball of 1st toe Comments 3-1 inch strips for Star tape at ball of 1st toe 1/4 I strip along scar for scar mobilization Manual Techniques PROM R Big Toe Type PROM Flex/Ext of MTP & PIP jt Body Location Big toe Body Position Prone Reps/Duration 8' Neuro Re-Education Treatment Balance Activities SLS Details SLS bilaterally Surface Level, firm Comments SLS 35 left, 10 right. R foot pain 4/10. PT-OP-R Modalities Start: 01/08/20 21:01 Freq: Status: Active Protocol: Document 02/29/20 10:36 LRN (Rec: 02/29/20 11:24 LRN [id number]) Ultrasound Therapy Treatment R Ball of foot at 1st & 2nd toe Treatment Duration (minutes) 8 Patient Position Prone Coupling Medium Ultrasound Gel Applicator Size (cm2) 2 Frequency Setting (mHz) 3 Mode Setting Pulsed Duty Cycle 50% Intensity Setting (w/cm2) 1 PT-OP-T Assessment and Plan Start: 01/08/20 21:01 Freq: Status: Active Protocol: Document 02/29/20 10:36 LRN (Rec: 02/29/20 11:24 LRN [id number]) Physical Therapy Assessment Goals Five Impairment Foot pain (Right 5/10, Left 4/ 10) limiting gait tolerance. [employer] Goal (LTG) Decrease foot pain to no greater than 1/10 with pt able to return to hiking 3 miles and being able to squat in the shower to shave legs without pain. 02/26/20: Pain to start: 1/10 R , 1/10 L (heel); Pain at end: 0/10 R, 1/10 L(heel). 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 (: Goal partially met. L foot SLS 47, Tinetti = 24). LTG Duration 04/09/20 (02/07/20: Progressing) Three Impairment Decreased ankle AROM [employer] Goal (LTG) Active Ankle DF (legs straight ) no less than 15 deg's. Active Ankle DF (knees flexed) no less than 24 deg's Pt will be able to ambulate up /down stairs with normal gait pattern. (02/12/20: Ankle DF legs straight: 20 degs R, 18 degs L Ankle DF knee flexed: 32 degs R, 30 degs L) LTG Duration 04/09/20 (02/12/20: ROM GOAL MET) Two Impairment Decreased Big Toe Right MTP jt AROM (flex 24 deg's, ext 20 deg's) Short Term Goal (STG) Improve R big toe MTP AROM to ext 36 deg's, flex 32 deg's ( equal to left foot) with pt able to ambulate with equal step lengths without use of assistive device. 12/22/19: Ext goal met (40 degs ) Flex is worse at 16 deg's. STG Duration 03/09/20 (12/22/19: Partially met. Not met for flex, EXT- MET) [facility] Goal (LTG) Improve functional ability, per Foot and Ankle Ability Measure (FAAM) Score ( initially 36) no less than 50. LTG Duration 04/09/20 One Impairment Lacks appropriate HEP Short Term Goal (STG) Self care I/S for scar tissue management and edema management. STG Duration 01/21/20 (12/22/19: GOAL MET) [facility] Goal (LTG) Pt will be independent in a self care HEP to manage her mobility, strength and endurance of her bilateral foot/ankles. 01/15/20: Progressing. LTG Duration 04/09/20 (Progressing, L foot started) Progress Towards Goals Progress Comments No c/o pain in L foot. R foot AROM sitting: Big toe: MTP: flex 9 deg's, ext 30 deg' s; IP jt: flex 20 deg's. No improvement in range, although no pain. Improved SLS: 35 left, 10 right (R foot pain 4/10) (: Initally: 19 left, 1 right) Assessment Summary Assessment Appears + response with lymphatic massage to LE's. Pt had no L foot pain today. Her R big toe was sore at 3-4/ 10, but decreased to 1/10 post treatment. Her SLS time is much improved from R foot 1 to 10 secs, and L foot 19 to 35 secs. R big toe mobility does not appear improved but her ext goal is still met and her pain level is decreased overall. Physical Therapy Plan Frequency and Duration Frequency of Treatment 2x/Week Plan of Care Start Date 01/10/20 Plan of Care End Date 04/09/20 Next Visit Focus/Plan Next Note Type Treatment Note Next Visit Plan Balance training, Hold L foot US, use K-tape L heel (star) to decrease inflammation and pain if needed. K-tape R big toe to facilitate flexion at MTP joint & measure before and after US & ROM stretching. R foot: MH if US L foot needed , Start MH to R foot before ROM if able. US as needed. DTM R dorsal surface of foot from medial to lateral foot. ROM Big toe for flex > ext. JMT ankle (med>lat mob & fibula). Strengthening Big toe/ankle L foot: Cross Friction massage of plantar fascia & K- tape as needed for pain. ?JMT: L ankle and small bones & fibula to improve ankle DF ROM. Therapeutic Ex - strengthening Long foot plantar flexors. Balance training shuttle.
--- NOTE | 2020-03-04 17:34 | PT-OP ANOTE ---
Cancelled due to stomach flu
--- NOTE | 2020-03-07 14:46 | PT.OTN ---
Current Diagnoses Ankylosis, unspecified joint (03/07/20) Plantar fascial fibromatosis (03/07/20) Physical Therapy Treatment Note PT-OP-A Visit Information Start: 01/08/20 21:01 Freq: Status: Active Protocol: Document 03/07/20 13:34 LRN (Rec: 03/07/20 14:45 LRN [id number]) Out-Patient Physical Therapy Visit Information Visit Information Visit Type Treatment Note Visit Start Time 13:34 Visit Stop Time 14:30 Total Visit Minutes 56 Visit Number 15 Evaluation Information Evaluation Date 02/05/20 Precautions Precautions Hx of Vertigo Hypothyroid As child suffered crushed tailbone, with L4, L5, S1 residual dysfunction. PT-OP-B Current Condition Start: 01/08/20 21:01 Freq: Status: Active Protocol: Document 01/10/20 09:51 LRN (Rec: 01/10/20 10:41 LRN [id number]) Current Condition History of Current Condition Onset Date R foot-09/05/18; L foot - 2018 History of Current Condition Difficulty walking with limping gait. L foot hurts more after resting and decreases with gait. R foot hurts constantly. R big toe surgery to remove bone spur and debride joint - 09/05/18. L foot plantar fasciitis - 2018 Previous rx: Insoles, K-tape but causes some irritation if worn too long. Wears shoes in house not that she has plantar fasciitis. Prior Treatments and Tests Home ex's of passive and active R big toe ext/flex. Massage therapy for L foot that was interrupted by COVID 19. Future Testing and Treatments Planned No further physician visits planned. Developmental History Developmental History See above Treatment Goals Patient/Caregiver Goals Walk normal and without pain. Hiking 6 miles a day. Squatting in shower to shave legs, Squat to weed. No pain with stair ambulation. Prior Functional Status Baseline Function- ADL's Independent Baseline Function- Mobility Independent Baseline Function- Gait Antalgic gait. Needs railing for stair ambulation. Baseline Function- Recreation/Hobbies Hiked 3-6 miles daily on trails. Current Functional Impairments (Reported) Functional Limitations- ADL's Squatting for functional activities (shaving legs, weeding). Functional Limitations- Mobility/Gait Antalgic gait. Single stepping on stairs. Needs railing for stair ambulation. Functional Limitations- Recreation/ Hiking. Hobbies Walking on level pavement at most 1 mile Personal Factors Other Personal Factors That May Effect Chronicity of L foot plantar Therapy/Recovery fasciitis since 01/2019 Back pain Thyroid disorder Autoimmune disorders. PT-OP-C Subjective Start: 01/08/20 21:01 Freq: Status: Active Protocol: Document 03/07/20 13:34 LRN (Rec: 03/07/20 14:45 LRN [id number]) OP-PT Subjective Patient Comments Patient Comments States tape on the bottom of R foot was helpful, then she got sick and was in bed for a couple of days. Wearing sandal today, some walking and then did a lot of driving. Did a lot of standing on the feet yesterday moving father- in-law and had only temporary L foot pain 2-3/10, but after icing was able to go to bed without pain. Today her R foot is painful 2-3/10; L foot no pain. Uses recumbent bike at home 20'. PT-OP-D Balance Start: 01/08/20 21:01 Freq: Status: Active Protocol: Document 02/29/20 10:36 LRN (Rec: 03/03/20 16:57 LRN [id number]) Balance Tests Single Limb Standing Single Limb- Right 10 secs, pain 4/10 Single Limb- Left 35 secs PT-OP-E Functional Tests Start: 01/08/20 21:01 Freq: Status: Active Protocol: Document 01/10/20 09:51 LRN (Rec: 01/10/20 15:53 LRN [id number]) Functional Tests Tinetti Balance and Gait Assessment Balance Score 15 Gait Score 8 Composite Score 23 Balance Score Impairment Rating 1 to <20% Impaired (Score 13- 15) Gait Score Impairment Rating 20 to <40% Impaired (Score 8-9 ) Composite Score Impairment Rating 1 to <20% Impaired (Score 23- 27) PT-OP-G Mobility & Gait Start: 01/08/20 21:01 Freq: Status: Active Protocol: Document 01/10/20 09:51 LRN (Rec: 01/10/20 15:53 LRN [id number]) OP Gait Assessment Assistive Devices Assistive Device None Gait Deviations General Gait Pattern Antalgic Factors Limiting Gait Function Factors Limiting Gait Function Decreased Activity Tolerance, Limited Range of Motion,Pain Stair Climbing Evaluation Technique/Endurance Stair Climbing Direction Ascend and Descend Stair Climbing Technique Step to Step PT-OP-H Neuro Start: 01/08/20 21:01 Freq: Status: Active Protocol: Document 01/10/20 09:51 LRN (Rec: 01/10/20 15:53 LRN [id number]) Sensation Evaluation Comments Summary Comments Soft touch Sensation: R foot hypersensitivity around well healed scar. L foot sensation is normal. PT-OP-J Posture/Palpation/Skin Start: 01/08/20 21:01 Freq: Status: Active Protocol: Document 01/10/20 09:51 LRN (Rec: 01/10/20 15:53 LRN [id number]) Posture Evaluation Position Standing Knee Posture (R) Genu Varus,(L) Genu Recurvatum,(R) Genu Recurvatum Ankle/Foot Posture (L) Supinated,(R) Supinated Foot Arch (L) High Arch Comments Posture Comments Big Toe Aducted. Right: slight cross over, Left: no crossover. Palpation Assessment Location R big toe Palpation Location R big toe caudal surface Palpation Findings Soft Tissue Tightness PT-OP-K Range of Motion Start: 01/08/20 21:01 Freq: Status: Active Protocol: Document 02/29/20 10:36 LRN (Rec: 03/03/20 16:57 LRN [id number]) Toe Range of Motion Toe Right Great Toe MTP Flexion Active (degrees) 9 MTP Extension Active (degrees) 30 PIP Flexion Active (degrees) 20 PT-OP-M Strength Start: 01/08/20 21:01 Freq: Status: Active Protocol: Document 01/10/20 09:51 LRN (Rec: 01/10/20 15:53 LRN [id number]) Ankle/Foot Strength Ankle and Foot Manual Muscle Testing Right Reason Not Measured WFL Left Reason Not Measured WFL Toe Strength Toe Manual Muscle Testing Right Great Toe Flexion 4 Good Extension 4 Good Comments MMT is within available ROM Left Great Toe Comments Generally 5/5 Cramping of plantar fascia during testing. PT-OP-Q Treatments Start: 01/08/20 21:01 Freq: Status: Active Protocol: Document 03/07/20 13:34 LRN (Rec: 03/07/20 14:45 LRN [id number]) Cardio Equipment Recumbent Bicycle Duration (Minutes) 5 Resistance 3 Seat Position 6 Treadmill Duration (Minutes) 4 Speed 2 Incline 0 Therapeutic Exercises Standing Exercises L soleus Standing Exercise Name Stretch, f/b active ankle DF Side bilateral Reps/Minutes 60 x 1, f/b active ROM L Gastroc Standing Exercise Name Stretch, f/b 10 active DF Side bilateral Reps/Minutes 60 x 1, f/b active DF Comments Left felt tight Manual Therapy Treatment Soft Tissue Mobilization Web space Body Location R web space of 1st & 2nd toe Mobilization Type Strumming Intensity/Depth Moderate Body Position Prone L plantar fascia Body Location Bilateral Plantar fascia attachment to Calcaneous Mobilization Type Instrument Assisted,Other Intensity/Depth Moderate Body Position Prone Joint Mobilizations R MTP joint Joint R MTP & IP joint Direction PA & AP Grade II Body Position Supine Reps/Duration 6' Taping K-tape Body Location R foot scar and ball of 1st toe Comments 3-1 inch strips for Star tape at ball of 1st toe Manual Techniques PROM R Big Toe Type PROM Flex/Ext of MTP & PIP jt Body Location Big toe Body Position Prone Reps/Duration 4' PT-OP-R Modalities Start: 01/08/20 21:01 Freq: Status: Active Protocol: Document 03/07/20 13:34 LRN (Rec: 03/07/20 14:45 LRN [id number]) Ultrasound Therapy Treatment R Ball of foot at 1st & 2nd toe Treatment Duration (minutes) 8 Patient Position Prone Coupling Medium Ultrasound Gel Applicator Size (cm2) 2 Frequency Setting (mHz) 3 Mode Setting Pulsed Duty Cycle 50% Intensity Setting (w/cm2) 1 PT-OP-T Assessment and Plan Start: 01/08/20 21:01 Freq: Status: Active Protocol: Document 03/07/20 13:34 LRN (Rec: 03/07/20 14:45 LRN [id number]) Physical Therapy Assessment Goals Five Impairment Foot pain (Right 5/10, Left 4/ 10) limiting gait tolerance. [employer] Goal (LTG) Decrease foot pain to no greater than 1/10 with pt able to return to hiking 3 miles and being able to squat in the shower to shave legs without pain. 02/26/20: Pain to start: 1/10 R , 1/10 L (heel); Pain at end: 0/10 R, 1/10 L(heel). LTG Duration 04/09/20 (02/26/20: L foot- intermittently no pain, R 1 day no pain) Four Impairment Decreased Balance: SLS EO ( Right - 1 sec, Left 19 sec), Tinetti 23/28 [facility] Goal (LTG) Pt will be able to SLS EO - 10 sec bilaterally without LOB to improve function and safety with resulting in improved Tinetti Score of > 24. (: Goal partially met. L foot SLS 47, Tinetti = 24). LTG Duration 04/09/20 (02/07/20: Progressing) Three Impairment Decreased ankle AROM [facility] Goal (LTG) Active Ankle DF (legs straight ) no less than 15 deg's. Active Ankle DF (knees flexed) no less than 24 deg's Pt will be able to ambulate up /down stairs with normal gait pattern. (02/12/20: Ankle DF legs straight: 20 degs R, 18 degs L Ankle DF knee flexed: 32 degs R, 30 degs L) LTG Duration 04/09/20 (02/12/20: ROM GOAL MET) Two Impairment Decreased Big Toe Right MTP jt AROM (flex 24 deg's, ext 20 deg's) Short Term Goal (STG) Improve R big toe MTP AROM to ext 36 deg's, flex 32 deg's ( equal to left foot) with pt able to ambulate with equal step lengths without use of assistive device. 12/22/19: Ext goal met (40 degs ) Flex is worse at 16 deg's. STG Duration 03/09/20 (12/22/19: Partially met. Not met for flex, EXT- MET) [employer] Goal (LTG) Improve functional ability, per Foot and Ankle Ability Measure (FAAM) Score ( initially 36) no less than 50. LTG Duration 04/09/20 One Impairment Lacks appropriate HEP Short Term Goal (STG) Self care I/S for scar tissue management and edema management. STG Duration 01/21/20 (12/22/19: GOAL MET) [employer] Goal (LTG) Pt will be independent in a self care HEP to manage her mobility, strength and endurance of her bilateral foot/ankles. 01/15/20: Progressing. LTG Duration 04/09/20 (Progressing, L foot started) Progress Towards Goals Progress Comments No c/o L foot, but at end of therapy 1/10. Pain R toe 3-4/10, after therapy 0/10. Slight pain in toe with push off during gait. Assessment Summary Assessment Pt had 1/10 pain after therapy , probably due to addition of recumbent bike & gait on treadmill. Physical Therapy Plan Frequency and Duration Frequency of Treatment 2x/Week Plan of Care Start Date 01/10/20 Plan of Care End Date 04/09/20 Next Visit Focus/Plan Next Note Type Treatment Note Next Visit Plan Balance training, Hold L foot US, use K-tape L heel (star) to decrease inflammation and pain if needed. K-tape R big toe to facilitate flexion at MTP joint & measure before and after US & ROM stretching. R foot: MH if US L foot needed , Start MH to R foot before ROM if able. US as needed. DTM R dorsal surface of foot from medial to lateral foot. ROM Big toe for flex > ext. JMT ankle (med>lat mob & fibula). Strengthening Big toe/ankle L foot: Cross Friction massage of plantar fascia & K- tape as needed for pain. ?JMT: L ankle and small bones & fibula to improve ankle DF ROM. Therapeutic Ex - strengthening Long foot plantar flexors. Balance training shuttle.
--- NOTE | 2020-03-11 16:16 | PT.OTN ---
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 PT-OP-B Current Condition Start: 01/08/20 21:01 Freq: Status: Active Protocol: Document 01/10/20 09:51 LRN (Rec: 01/10/20 10:41 LRN [id number]) Current Condition History of Current Condition Onset Date R foot-09/05/18; L foot - 2018 History of Current Condition Difficulty walking with limping gait. L foot hurts more after resting and decreases with gait. R foot hurts constantly. R big toe surgery to remove bone spur and debride joint - 09/05/18. L foot plantar fasciitis - 2018 Previous rx: Insoles, K-tape but causes some irritation if worn too long. Wears shoes in house not that she has plantar fasciitis. Prior Treatments and Tests Home ex's of passive and active R big toe ext/flex. Massage therapy for L foot that was interrupted by COVID 19. Future Testing and Treatments Planned No further physician visits planned. Developmental History Developmental History See above Treatment Goals Patient/Caregiver Goals Walk normal and without pain. Hiking 6 miles a day. Squatting in shower to shave legs, Squat to weed. No pain with stair ambulation. Prior Functional Status Baseline Function- ADL's Independent Baseline Function- Mobility Independent Baseline Function- Gait Antalgic gait. Needs railing for stair ambulation. Baseline Function- Recreation/Hobbies Hiked 3-6 miles daily on trails. Current Functional Impairments (Reported) Functional Limitations- ADL's Squatting for functional activities (shaving legs, weeding). Functional Limitations- Mobility/Gait Antalgic gait. Single stepping on stairs. Needs railing for stair ambulation. Functional Limitations- Recreation/ Hiking. Hobbies Walking on level pavement at most 1 mile Personal Factors Other Personal Factors That May Effect Chronicity of L foot plantar Therapy/Recovery fasciitis since 01/2019 Back pain Thyroid disorder Autoimmune disorders. PT-OP-C Subjective Start: 01/08/20 21:01 Freq: Status: Active Protocol: Document 03/11/20 13:35 LRN (Rec: 03/11/20 14:17 LRN [id number]) OP-PT Subjective Patient Comments Patient Comments R foot pain 4/10, Left foot pain 0/10. Post therapy R foot 1/10, Left foot 0/10. PT-OP-D Balance Start: 01/08/20 21:01 Freq: Status: Active Protocol: Document 02/29/20 10:36 LRN (Rec: 03/03/20 16:57 LRN [id number]) Balance Tests Single Limb Standing Single Limb- Right 10 secs, pain 4/10 Single Limb- Left 35 secs PT-OP-E Functional Tests Start: 01/08/20 21:01 Freq: Status: Active Protocol: Document 01/10/20 09:51 LRN (Rec: 01/10/20 15:53 LRN [id number]) Functional Tests Tinetti Balance and Gait Assessment Balance Score 15 Gait Score 8 Composite Score 23 Balance Score Impairment Rating 1 to <20% Impaired (Score 13- 15) Gait Score Impairment Rating 20 to <40% Impaired (Score 8-9 ) Composite Score Impairment Rating 1 to <20% Impaired (Score 23- 27) PT-OP-G Mobility & Gait Start: 01/08/20 21:01 Freq: Status: Active Protocol: Document 01/10/20 09:51 LRN (Rec: 01/10/20 15:53 LRN [id number]) OP Gait Assessment Assistive Devices Assistive Device None Gait Deviations General Gait Pattern Antalgic Factors Limiting Gait Function Factors Limiting Gait Function Decreased Activity Tolerance, Limited Range of Motion,Pain Stair Climbing Evaluation Technique/Endurance Stair Climbing Direction Ascend and Descend Stair Climbing Technique Step to Step PT-OP-H Neuro Start: 01/08/20 21:01 Freq: Status: Active Protocol: Document 01/10/20 09:51 LRN (Rec: 01/10/20 15:53 LRN [id number]) Sensation Evaluation Comments Summary Comments Soft touch Sensation: R foot hypersensitivity around well healed scar. L foot sensation is normal. PT-OP-J Posture/Palpation/Skin Start: 01/08/20 21:01 Freq: Status: Active Protocol: Document 01/10/20 09:51 LRN (Rec: 01/10/20 15:53 LRN [id number]) Posture Evaluation Position Standing Knee Posture (R) Genu Varus,(L) Genu Recurvatum,(R) Genu Recurvatum Ankle/Foot Posture (L) Supinated,(R) Supinated Foot Arch (L) High Arch Comments Posture Comments Big Toe Aducted. Right: slight cross over, Left: no crossover. Palpation Assessment Location R big toe Palpation Location R big toe caudal surface Palpation Findings Soft Tissue Tightness PT-OP-K Range of Motion Start: 01/08/20 21:01 Freq: Status: Active Protocol: Document 03/11/20 13:35 LRN (Rec: 03/11/20 14:17 LRN [id number]) Toe Range of Motion Toe Right Great Toe Toe ROM WFL No MTP Flexion Active (degrees) 20 MTP Extension Active (degrees) 22 PIP Flexion Active (degrees) 10 Left Great Toe Toe ROM WFL Yes MTP Flexion Active (degrees) 42 MTP Extension Active (degrees) 36 PIP Flexion Active (degrees) 14 PT-OP-M Strength Start: 01/08/20 21:01 Freq: Status: Active Protocol: Document 01/10/20 09:51 LRN (Rec: 01/10/20 15:53 LRN [id number]) Ankle/Foot Strength Ankle and Foot Manual Muscle Testing Right Reason Not Measured WFL Left Reason Not Measured WFL Toe Strength Toe Manual Muscle Testing Right Great Toe Flexion 4 Good Extension 4 Good Comments MMT is within available ROM Left Great Toe Comments Generally 5/5 Cramping of plantar fascia during testing. PT-OP-Q Treatments Start: 01/08/20 21:01 Freq: Status: Active Protocol: Document 03/11/20 13:35 LRN (Rec: 03/11/20 14:32 LRN [id number]) Therapeutic Exercises Supine Exercises Active Big Toe ROM Supine Exercise Name Active Big toe Flex/Ext Before & After JMT & STM Side right Reps/Minutes 10' Comments ROM taken before & after JMT/ STM Manual Therapy Treatment Soft Tissue Mobilization Web space Body Location R web space of 1st & 2nd toe Mobilization Type Myofascial Release,Strumming Intensity/Depth Moderate Body Position Prone Scar mob Body Location R foot Scar Mob Mobilization Type Myofascial Release Intensity/Depth Superficial Body Position Supine Joint Mobilizations R fibula Joint Talofibular joint Direction PA, AP Grade II Body Position Supine Reps/Duration 2' R ankle Joint R ankle joint Direction PA, AP, Med/Lat, Lat/Med Grade II Body Position Supine Reps/Duration 5' R MTP joint Joint R MTP & IP joint Direction PA & AP Grade II Body Position Supine Reps/Duration 6' Comments Mob with compression into the joint to reduce pain. Taping K-tape Body Location R foot scar and ball of 1st toe scar. Comments 3-1 inch strips for Star tape at ball of 1st toe Manual Techniques PROM R Big Toe Type PROM Flex/Ext of MTP & PIP jt Body Location Big toe Body Position Prone Reps/Duration 8' Comments Axial compression into the joint PT-OP-R Modalities Start: 01/08/20 21:01 Freq: Status: Active Protocol: Document 03/11/20 13:35 LRN (Rec: 03/11/20 14:35 LRN [id number]) Hot Pack/Cold Pack Treatment Hot Pack Location R foot Patient Position Supine Treatment Duration (minutes) 20 Patient Tolerance Good Comments Used during Manual therapy to R foot PT-OP-T Assessment and Plan Start: 01/08/20 21:01 Freq: Status: Active Protocol: Document 03/11/20 13:35 LRN (Rec: 03/11/20 14:32 LRN [id number]) Physical Therapy Assessment Goals Five Impairment Foot pain (Right 5/10, Left 4/ 10) limiting gait tolerance. [facility] Goal (LTG) Decrease foot pain to no greater than 1/10 with pt able to return to hiking 3 miles and being able to squat in the shower to shave legs without pain. 02/26/20: Pain to start: 1/10 R , 0/10 L; Pain at end: 1/10 R, 0/10 L. LTG Duration 04/09/20 (02/26/20: L foot- intermittently no pain, R 1 day no pain) Four Impairment Decreased Balance: SLS EO ( Right - 1 sec, Left 19 sec), Tinetti [facility] Goal (LTG) Pt will be able to SLS EO - 10 sec bilaterally without LOB to improve function and safety with resulting in improved Tinetti Score of > 24. (: Goal partially met. L foot SLS 47, Tinetti = 24). LTG Duration 04/09/20 (02/07/20: Progressing) Three Impairment Decreased ankle AROM [facility] [employer] Goal (LTG) Active Ankle DF (legs straight ) no less than 15 deg's. Active Ankle DF (knees flexed) no less than 24 deg's Pt will be able to ambulate up /down stairs with normal gait pattern. (02/12/20: Ankle DF legs straight: 20 degs R, 18 degs L Ankle DF knee flexed: 32 degs R, 30 degs L) LTG Duration 04/09/20 (02/12/20: ROM GOAL MET) Two Impairment Decreased Big Toe Right MTP jt AROM (flex 24 deg's, ext 20 deg's) Short Term Goal (STG) Improve R big toe MTP AROM to ext 36 deg's, flex 32 deg's ( equal to left foot) with pt able to ambulate with equal step lengths without use of assistive device. 12/22/19: Ext goal met (40 degs ) Flex is worse at 16 deg's. STG Duration 03/09/20 (12/22/19: Partially met. Not met for flex, EXT- MET) [facility] Goal (LTG) Improve functional ability, per Foot and Ankle Ability Measure (FAAM) Score ( initially 36) no less than 50. LTG Duration 04/09/20 One Impairment Lacks appropriate HEP Short Term Goal (STG) Self care I/S for scar tissue management and edema management. STG Duration 01/21/20 (12/22/19: GOAL MET) [facility] Goal (LTG) Pt will be independent in a self care HEP to manage her mobility, strength and endurance of her bilateral foot/ankles. 01/15/20: Progressing. LTG Duration 04/09/20 (Progressing, L foot started) Progress Towards Goals Progress Comments L foot pain - 0/10 to start and end. R foot pain - 4/10 to start and 1/10 to end Assessment Summary Assessment R ball of foot pain decreased with JMT, MFR at big toe web space, and K-tape. Lateral foot pain persists, appears due to fascial tightness of foot and possibly needs mob of 5th digint long bone and tarsals. Physical Therapy Plan Frequency and Duration Frequency of Treatment 2x/Week Plan of Care Start Date 01/10/20 Plan of Care End Date 04/09/20 Next Visit Focus/Plan Next Note Type Treatment Note Next Visit Plan Balance training (try shuttle) , Strengthening R Big toe/ankle Hold US, L foot: use K-tape L heel (star) to decrease inflammation and pain if needed, use for R big toe to facilitate flexion at MTP joint and inflammation at ball of foot. Measure before and after ROM stretching. R foot: Start MH to R foot before ROM if able. DTM R dorsal surface of foot from medial to lateral foot. ROM Big toe for flex > ext. JMT ankle (med>lat mob & fibula). L foot: Cross Friction massage of plantar fascia & K- tape as needed for pain. ?JMT: L ankle and small bones & fibula to improve ankle DF ROM. Therapeutic Ex - strengthening Long foot plantar flexors.
--- NOTE | 2020-03-13 16:52 | PT.OTN ---
Current Diagnoses Ankylosis, unspecified joint (03/13/20) Plantar fascial fibromatosis (03/13/20) Physical Therapy Treatment Note PT-OP-A Visit Information Start: 01/08/20 21:01 Freq: Status: Active Protocol: Document 03/13/20 13:40 LRN (Rec: 03/13/20 14:20 LRN [id number]) Out-Patient Physical Therapy Visit Information Visit Information Visit Type Treatment Note Visit Start Time 13:40 Visit Stop Time 14:15 Total Visit Minutes 35 Visit Number 17 Evaluation Information Evaluation Date 02/05/20 Precautions Precautions Hx of Vertigo Hypothyroid As child suffered crushed tailbone, with L4, L5, S1 residual dysfunction. PT-OP-B Current Condition Start: 01/08/20 21:01 Freq: Status: Active Protocol: Document 01/10/20 09:51 LRN (Rec: 01/10/20 10:41 LRN [id number]) Current Condition History of Current Condition Onset Date R foot-09/05/18; L foot - 2018 History of Current Condition Difficulty walking with limping gait. L foot hurts more after resting and decreases with gait. R foot hurts constantly. R big toe surgery to remove bone spur and debride joint - 09/05/18. L foot plantar fasciitis - 2018 Previous rx: Insoles, K-tape but causes some irritation if worn too long. Wears shoes in house not that she has plantar fasciitis. Prior Treatments and Tests Home ex's of passive and active R big toe ext/flex. Massage therapy for L foot that was interrupted by COVID 19. Future Testing and Treatments Planned No further physician visits planned. Developmental History Developmental History See above Treatment Goals Patient/Caregiver Goals Walk normal and without pain. Hiking 6 miles a day. Squatting in shower to shave legs, Squat to weed. No pain with stair ambulation. Prior Functional Status Baseline Function- ADL's Independent Baseline Function- Mobility Independent Baseline Function- Gait Antalgic gait. Needs railing for stair ambulation. Baseline Function- Recreation/Hobbies Hiked 3-6 miles daily on trails. Current Functional Impairments (Reported) Functional Limitations- ADL's Squatting for functional activities (shaving legs, weeding). Functional Limitations- Mobility/Gait Antalgic gait. Single stepping on stairs. Needs railing for stair ambulation. Functional Limitations- Recreation/ Hiking. Hobbies Walking on level pavement at most 1 mile Personal Factors Other Personal Factors That May Effect Chronicity of L foot plantar Therapy/Recovery fasciitis since 01/2019 Back pain Thyroid disorder Autoimmune disorders. PT-OP-C Subjective Start: 01/08/20 21:01 Freq: Status: Active Protocol: Document 03/13/20 13:40 LRN (Rec: 03/13/20 14:20 LRN [id number]) OP-PT Subjective Patient Comments Patient Comments States the L foot has hurt 2x since last visit but was able to ice and stretch with pain resolution. The R foot hurts at the big toe and with walking the toe and lateral foot hurts. PT-OP-D Balance Start: 01/08/20 21:01 Freq: Status: Active Protocol: Document 02/29/20 10:36 LRN (Rec: 03/03/20 16:57 LRN [id number]) Balance Tests Single Limb Standing Single Limb- Right 10 secs, pain 4/10 Single Limb- Left 35 secs PT-OP-E Functional Tests Start: 01/08/20 21:01 Freq: Status: Active Protocol: Document 01/10/20 09:51 LRN (Rec: 01/10/20 15:53 LRN [id number]) Functional Tests Tinetti Balance and Gait Assessment Balance Score 15 Gait Score 8 Composite Score 23 Balance Score Impairment Rating 1 to <20% Impaired (Score 13- 15) Gait Score Impairment Rating 20 to <40% Impaired (Score 8-9 ) Composite Score Impairment Rating 1 to <20% Impaired (Score 23- 27) PT-OP-G Mobility & Gait Start: 01/08/20 21:01 Freq: Status: Active Protocol: Document 01/10/20 09:51 LRN (Rec: 01/10/20 15:53 LRN [id number]) OP Gait Assessment Assistive Devices Assistive Device None Gait Deviations General Gait Pattern Antalgic Factors Limiting Gait Function Factors Limiting Gait Function Decreased Activity Tolerance, Limited Range of Motion,Pain Stair Climbing Evaluation Technique/Endurance Stair Climbing Direction Ascend and Descend Stair Climbing Technique Step to Step PT-OP-H Neuro Start: 01/08/20 21:01 Freq: Status: Active Protocol: Document 01/10/20 09:51 LRN (Rec: 01/10/20 15:53 LRN [id number]) Sensation Evaluation Comments Summary Comments Soft touch Sensation: R foot hypersensitivity around well healed scar. L foot sensation is normal. PT-OP-J Posture/Palpation/Skin Start: 01/08/20 21:01 Freq: Status: Active Protocol: Document 01/10/20 09:51 LRN (Rec: 01/10/20 15:53 LRN [id number]) Posture Evaluation Position Standing Knee Posture (R) Genu Varus,(L) Genu Recurvatum,(R) Genu Recurvatum Ankle/Foot Posture (L) Supinated,(R) Supinated Foot Arch (L) High Arch Comments Posture Comments Big Toe Aducted. Right: slight cross over, Left: no crossover. Palpation Assessment Location R big toe Palpation Location R big toe caudal surface Palpation Findings Soft Tissue Tightness PT-OP-K Range of Motion Start: 01/08/20 21:01 Freq: Status: Active Protocol: Document 03/11/20 13:35 LRN (Rec: 03/11/20 14:17 LRN [id number]) Toe Range of Motion Toe Right Great Toe Toe ROM WFL No MTP Flexion Active (degrees) 20 MTP Extension Active (degrees) 22 PIP Flexion Active (degrees) 10 Left Great Toe Toe ROM WFL Yes MTP Flexion Active (degrees) 42 MTP Extension Active (degrees) 36 PIP Flexion Active (degrees) 14 PT-OP-M Strength Start: 01/08/20 21:01 Freq: Status: Active Protocol: Document 01/10/20 09:51 LRN (Rec: 01/10/20 15:53 LRN [id number]) Ankle/Foot Strength Ankle and Foot Manual Muscle Testing Right Reason Not Measured WFL Left Reason Not Measured WFL Toe Strength Toe Manual Muscle Testing Right Great Toe Flexion 4 Good Extension 4 Good Comments MMT is within available ROM Left Great Toe Comments Generally 5/5 Cramping of plantar fascia during testing. PT-OP-Q Treatments Start: 01/08/20 21:01 Freq: Status: Active Protocol: Document 03/13/20 13:40 LRN (Rec: 03/13/20 14:20 LRN [id number]) Therapeutic Exercises Sitting Exercises Toe Curls Sitting Exercise Name Toe Curls Reps/Minutes 3' Manual Therapy Treatment Soft Tissue Mobilization R Big toe Body Location R Big Toe Mobilization Type Myofascial Release Intensity/Depth Superficial Body Position Supine Scar mob Body Location R foot Scar Mob Mobilization Type Myofascial Release Intensity/Depth Superficial Body Position Supine Joint Mobilizations R fibula Joint Talofibular joint Direction PA, AP Grade II Body Position Supine Reps/Duration 2' R ankle Joint R ankle joint Direction PA, AP, Med/Lat, Lat/Med Grade II Body Position Supine Reps/Duration 5' R MTP joint Joint R MTP & IP joint Direction PA & AP Grade II Body Position Supine Reps/Duration 6' Comments Mob with compression into the joint to reduce pain. Taping K-tape R lateral foot Body Location R lateral foot Treatment Focus Stability R lateral MTP joint Type of Tape Kinesio Tape Skin Inspection Good K-tape Body Location R foot scar and ball of 1st toe scar. Comments 3-1 inch strips for Star tape at ball of 1st toe Manual Techniques PROM R Big Toe Type PROM Flex/Ext of MTP & PIP jt Body Location Big toe Body Position Prone Reps/Duration 8' Comments Axial compression into the joint PT-OP-R Modalities Start: 01/08/20 21:01 Freq: Status: Active Protocol: Document 03/11/20 13:35 LRN (Rec: 03/11/20 14:35 LRN [id number]) Hot Pack/Cold Pack Treatment Hot Pack Location R foot Patient Position Supine Treatment Duration (minutes) 20 Patient Tolerance Good Comments Used during Manual therapy to R foot PT-OP-T Assessment and Plan Start: 01/08/20 21:01 Freq: Status: Active Protocol: Document 03/13/20 13:40 LRN (Rec: 03/13/20 14:20 LRN [id number]) Physical Therapy Assessment Goals Five Impairment Foot pain (Right 5/10, Left 4/ 10) limiting gait tolerance. Correction Goal (LTG) Decrease foot pain to no greater than 1/10 with pt able to return to hiking 3 miles and being able to squat in the shower to shave legs without pain. 02/26/20: Pain to start: 1/10 R , 0/10 L; Pain at end: 1/10 R, 0/10 L. LTG Duration 04/09/20 (03/13/20: L foot-pain controlled with ice/stretc, R ft-1/10 pain) Four Impairment Decreased Balance: SLS EO ( Right - 1 sec, Left 19 sec), Tinetti Physicians Assistant Goal (LTG) Pt will be able to SLS EO - 10 sec bilaterally without LOB to improve function and safety with resulting in improved Tinetti Score of > 24. (: Goal partially met. L foot SLS 47, Tinetti = 24). LTG Duration 04/09/20 (02/07/20: Progressing) Three Impairment Decreased ankle AROM Correction Goal (LTG) Active Ankle DF (legs straight ) no less than 15 deg's. Active Ankle DF (knees flexed) no less than 24 deg's Pt will be able to ambulate up /down stairs with normal gait pattern. (02/12/20: Ankle DF legs straight: 20 degs R, 18 degs L Ankle DF knee flexed: 32 degs R, 30 degs L) LTG Duration 04/09/20 (02/12/20: ROM GOAL MET) Two Impairment Decreased Big Toe Right MTP jt AROM (flex 24 deg's, ext 20 deg's) Short Term Goal (STG) Improve R big toe MTP AROM to ext 36 deg's, flex 32 deg's ( equal to left foot) with pt able to ambulate with equal step lengths without use of assistive device. 12/22/19: Ext goal met (40 degs ) Flex is worse at 16 deg's. STG Duration 03/09/20 (12/22/19: Partially met. Not met for flex, EXT- MET) Correction Goal (LTG) Improve functional ability, per Foot and Ankle Ability Measure (FAAM) Score ( initially 36) no less than 50. LTG Duration 04/09/20 One Impairment Lacks appropriate HEP Short Term Goal (STG) Self care I/S for scar tissue management and edema management. STG Duration 01/21/20 (12/22/19: GOAL MET) Correction Goal (LTG) Pt will be independent in a self care HEP to manage her mobility, strength and endurance of her bilateral foot/ankles. 01/15/20: Progressing. LTG Duration 04/09/20 (Progressing, L foot started) Progress Towards Goals Progress Comments No L foot pain. Pt able to control onset of pain with cryotherapy and stretch. Pain decreased in R big toe with gait and shoes on. Only pain is with push off of toe during gait. Assessment Summary Assessment Pt had pop in R toe with big toe when placed in ext for K- taping at ball of foot. Post therapy gait: No pain left, pain in R foot without shoe on ; pain on plantar surface of R big toe with push off with shoes on. Physical Therapy Plan Frequency and Duration Frequency of Treatment 2x/Week Plan of Care Start Date 01/10/20 Plan of Care End Date 04/09/20 Next Visit Focus/Plan Next Note Type Treatment Note Next Visit Plan Strengthening R Big toe/ankle & L long foot flexors; Balance training (try shuttle) , Measure before and after ROM stretching. Hold US R foot: Start MH to R foot before ROM if able. Add K-tape for R big toe to facilitate flexion at MTP joint, cont for inflammation at ball of foot. DTM R dorsal surface of foot from medial to lateral foot. ROM Big toe for flex > ext. JMT ankle (med>lat mob & fibula). L foot: JMT: L ankle and small bones & fibula to improve ankle DF ROM. Therapeutic Ex - strengthening Long foot plantar flexors.
--- NOTE | 2020-03-18 16:56 | PT.OTN ---
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 PT-OP-B Current Condition Start: 01/08/20 21:01 Freq: Status: Active Protocol: Document 01/10/20 09:51 LRN (Rec: 01/10/20 10:41 LRN [id number]) Current Condition History of Current Condition Onset Date R foot-09/05/18; L foot - 2018 History of Current Condition Difficulty walking with limping gait. L foot hurts more after resting and decreases with gait. R foot hurts constantly. R big toe surgery to remove bone spur and debride joint - 09/05/18. L foot plantar fasciitis - 2018 Previous rx: Insoles, K-tape but causes some irritation if worn too long. Wears shoes in house not that she has plantar fasciitis. Prior Treatments and Tests Home ex's of passive and active R big toe ext/flex. Massage therapy for L foot that was interrupted by COVID 19. Future Testing and Treatments Planned No further physician visits planned. Developmental History Developmental History See above Treatment Goals Patient/Caregiver Goals Walk normal and without pain. Hiking 6 miles a day. Squatting in shower to shave legs, Squat to weed. No pain with stair ambulation. Prior Functional Status Baseline Function- ADL's Independent Baseline Function- Mobility Independent Baseline Function- Gait Antalgic gait. Needs railing for stair ambulation. Baseline Function- Recreation/Hobbies Hiked 3-6 miles daily on trails. Current Functional Impairments (Reported) Functional Limitations- ADL's Squatting for functional activities (shaving legs, weeding). Functional Limitations- Mobility/Gait Antalgic gait. Single stepping on stairs. Needs railing for stair ambulation. Functional Limitations- Recreation/ Hiking. Hobbies Walking on level pavement at most 1 mile Personal Factors Other Personal Factors That May Effect Chronicity of L foot plantar Therapy/Recovery fasciitis since 01/2019 Back pain Thyroid disorder Autoimmune disorders. PT-OP-C Subjective Start: 01/08/20 21:01 Freq: Status: Active Protocol: Document 03/18/20 13:33 LRN (Rec: 03/18/20 14:27 LRN [id number]) OP-PT Subjective Patient Comments Patient Comments Tightness of L foot, no heel pain and minimal difficulty on first standing. R foot is better with tape. Went shopping all day yesterday ( driving and shopping), no real pain with tape on feet. PT-OP-D Balance Start: 01/08/20 21:01 Freq: Status: Active Protocol: Document 02/29/20 10:36 LRN (Rec: 03/03/20 16:57 LRN [id number]) Balance Tests Single Limb Standing Single Limb- Right 10 secs, pain 4/10 Single Limb- Left 35 secs PT-OP-E Functional Tests Start: 01/08/20 21:01 Freq: Status: Active Protocol: Document 01/10/20 09:51 LRN (Rec: 01/10/20 15:53 LRN [id number]) Functional Tests Tinetti Balance and Gait Assessment Balance Score 15 Gait Score 8 Composite Score 23 Balance Score Impairment Rating 1 to <20% Impaired (Score 13- 15) Gait Score Impairment Rating 20 to <40% Impaired (Score 8-9 ) Composite Score Impairment Rating 1 to <20% Impaired (Score 23- 27) PT-OP-G Mobility & Gait Start: 01/08/20 21:01 Freq: Status: Active Protocol: Document 01/10/20 09:51 LRN (Rec: 01/10/20 15:53 LRN [id number]) OP Gait Assessment Assistive Devices Assistive Device None Gait Deviations General Gait Pattern Antalgic Factors Limiting Gait Function Factors Limiting Gait Function Decreased Activity Tolerance, Limited Range of Motion,Pain Stair Climbing Evaluation Technique/Endurance Stair Climbing Direction Ascend and Descend Stair Climbing Technique Step to Step PT-OP-H Neuro Start: 01/08/20 21:01 Freq: Status: Active Protocol: Document 01/10/20 09:51 LRN (Rec: 01/10/20 15:53 LRN [id number]) Sensation Evaluation Comments Summary Comments Soft touch Sensation: R foot hypersensitivity around well healed scar. L foot sensation is normal. PT-OP-J Posture/Palpation/Skin Start: 01/08/20 21:01 Freq: Status: Active Protocol: Document 01/10/20 09:51 LRN (Rec: 01/10/20 15:53 LRN [id number]) Posture Evaluation Position Standing Knee Posture (R) Genu Varus,(L) Genu Recurvatum,(R) Genu Recurvatum Ankle/Foot Posture (L) Supinated,(R) Supinated Foot Arch (L) High Arch Comments Posture Comments Big Toe Aducted. Right: slight cross over, Left: no crossover. Palpation Assessment Location R big toe Palpation Location R big toe caudal surface Palpation Findings Soft Tissue Tightness PT-OP-K Range of Motion Start: 01/08/20 21:01 Freq: Status: Active Protocol: Document 03/11/20 13:35 LRN (Rec: 03/11/20 14:17 LRN [id number]) Toe Range of Motion Toe Right Great Toe Toe ROM WFL No MTP Flexion Active (degrees) 20 MTP Extension Active (degrees) 22 PIP Flexion Active (degrees) 10 Left Great Toe Toe ROM WFL Yes MTP Flexion Active (degrees) 42 MTP Extension Active (degrees) 36 PIP Flexion Active (degrees) 14 PT-OP-M Strength Start: 01/08/20 21:01 Freq: Status: Active Protocol: Document 01/10/20 09:51 LRN (Rec: 01/10/20 15:53 LRN [id number]) Ankle/Foot Strength Ankle and Foot Manual Muscle Testing Right Reason Not Measured WFL Left Reason Not Measured WFL Toe Strength Toe Manual Muscle Testing Right Great Toe Flexion 4 Good Extension 4 Good Comments MMT is within available ROM Left Great Toe Comments Generally 5/5 Cramping of plantar fascia during testing. PT-OP-Q Treatments Start: 01/08/20 21:01 Freq: Status: Active Protocol: Document 03/18/20 13:33 LRN (Rec: 03/18/20 14:27 LRN [id number]) Therapeutic Exercises Sitting Exercises Long Plantar Flexor strengthening Sitting Exercise Name Long foot ms strengthening Side bilateral Reps/Minutes 4' Comments Phys & v. cuing required Gait Training Gait Activity R Big Toe CKC ext Description Toe off phase for proper positioning Device Used UE support Level of Assistance moderate physical and verbal cuing. Surface Level Distance/Duration 4' Treatment Focus Proper positioning for proper stretch & teaching max stretch tolerance Manual Therapy Treatment Soft Tissue Mobilization Web space Body Location R web space of 1st & 2nd toe Mobilization Type Myofascial Release,Strumming Intensity/Depth Moderate Body Position Prone R Big toe Body Location R Big Toe Flexor Mobilization Type Myofascial Release,Strumming, Sustained Pressure Intensity/Depth Superficial Body Position Supine Scar mob Body Location R foot Scar Mob Mobilization Type Myofascial Release Intensity/Depth Superficial Body Position Supine Joint Mobilizations R MTP joint Joint R MTP joint Direction PA & AP Grade II Body Position Supine Reps/Duration 6' Comments Mob with compression into the joint to reduce pain. Taping L Foot plantar arch Body Location L foot plantar arch Treatment Focus Stability of arch Type of Tape Kinesio Tape Skin Inspection Good K-tape R lateral foot Body Location R lateral foot Treatment Focus Stability R lateral MTP joint Type of Tape Kinesio Tape Skin Inspection Good K-tape Body Location R foot scar and ball of 1st toe scar. Comments 3-1 inch strips for Star tape at ball of 1st toe Manual Techniques PROM R Big Toe Type PROM Flex/Ext of MTP jt Body Location Big toe Body Position Supine Reps/Duration 4' Comments Sometimes with axial compression into the joint PT-OP-R Modalities Start: 01/08/20 21:01 Freq: Status: Active Protocol: Document 03/11/20 13:35 LRN (Rec: 03/11/20 14:35 LRN [id number]) Hot Pack/Cold Pack Treatment Hot Pack Location R foot Patient Position Supine Treatment Duration (minutes) 20 Patient Tolerance Good Comments Used during Manual therapy to R foot PT-OP-T Assessment and Plan Start: 01/08/20 21:01 Freq: Status: Active Protocol: Document 03/18/20 13:33 LRN (Rec: 03/18/20 14:27 LRN [id number]) Physical Therapy Assessment Goals Five Impairment Foot pain (Right 5/10, Left 4/ 10) limiting gait tolerance. Fdc Goal (LTG) Decrease foot pain to no greater than 1/10 with pt able to return to hiking 3 miles and being able to squat in the shower to shave legs without pain. 02/26/20: Pain to start: 1/10 R , 0/10 L; Pain at end: 1/10 R, 0/10 L. LTG Duration 04/09/20 (03/13/20: L foot-pain controlled with ice/stretc, R ft-1/10 pain) Four Impairment Decreased Balance: SLS EO ( Right - 1 sec, Left 19 sec), Tinetti Index Clerk Goal (LTG) Pt will be able to SLS EO - 10 sec bilaterally without LOB to improve function and safety with resulting in improved Tinetti Score of > 24. (: Goal partially met. L foot SLS 47, Tinetti = 24). LTG Duration 04/09/20 (02/07/20: Progressing) Three Impairment Decreased ankle AROM Index Clerk Goal (LTG) Active Ankle DF (legs straight ) no less than 15 deg's. Active Ankle DF (knees flexed) no less than 24 deg's Pt will be able to ambulate up /down stairs with normal gait pattern. (02/12/20: Ankle DF legs straight: 20 degs R, 18 degs L Ankle DF knee flexed: 32 degs R, 30 degs L) LTG Duration 04/09/20 (02/12/20: ROM GOAL MET) Two Impairment Decreased Big Toe Right MTP jt AROM (flex 24 deg's, ext 20 deg's) Short Term Goal (STG) Improve R big toe MTP AROM to ext 36 deg's, flex 32 deg's ( equal to left foot) with pt able to ambulate with equal step lengths without use of assistive device. 12/22/19: Ext goal met (40 degs ) Flex is worse at 16 deg's. STG Duration 03/09/20 (12/22/19: Partially met. Not met for flex, EXT- MET) Fdc Goal (LTG) Improve functional ability, per Foot and Ankle Ability Measure (FAAM) Score ( initially 36) no less than 50. LTG Duration 04/09/20 One Impairment Lacks appropriate HEP Short Term Goal (STG) Self care I/S for scar tissue management and edema management. STG Duration 01/21/20 (12/22/19: GOAL MET) Index Clerk Goal (LTG) Pt will be independent in a self care HEP to manage her mobility, strength and endurance of her bilateral foot/ankles. 01/15/20: Progressing. LTG Duration 04/09/20 (Progressing, L foot started) Progress Towards Goals Progress Comments Pt able to shop one day, with her foot self K-taped, without pain. Assessment Summary Assessment After K-tape, pt was able to walk without shoes and no pain . She did have pain in the R big toe when positioning of the toe was controlled. The pt appears to have tension of the Big toe flexor attaching at the most distal phalanx of the DIP joint. Physical Therapy Plan Frequency and Duration Frequency of Treatment 2x/Week Plan of Care Start Date 01/10/20 Plan of Care End Date 04/09/20 Next Visit Focus/Plan Next Note Type Treatment Note Next Visit Plan Measure before and after ROM stretching. Hold US DTM/MFR of R big toe flexor tendon attached to distal phalanx at DIP joint. Strengthen R Big toe/ankle & L long foot flexors; Balance training (try shuttle) , R foot: Add K-tape for R big toe to facilitate flexion at MTP joint, cont for inflammation at ball of foot. DTM R plantar surface of foot from heel to DIP jt of big toe . ROM Big toe for flex > ext. JMT ankle (med>lat mob & fibula). L foot: JMT: L ankle and small bones & fibula to improve ankle DF ROM. Therapeutic Ex - strengthening Long foot plantar flexors.
--- NOTE | 2020-03-20 17:59 | PT.OTN ---
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 PT-OP-B Current Condition Start: 01/08/20 21:01 Freq: Status: Active Protocol: Document 01/10/20 09:51 LRN (Rec: 01/10/20 10:41 LRN [id number]) Current Condition History of Current Condition Onset Date R foot-09/05/18; L foot - 2018 History of Current Condition Difficulty walking with limping gait. L foot hurts more after resting and decreases with gait. R foot hurts constantly. R big toe surgery to remove bone spur and debride joint - 09/05/18. L foot plantar fasciitis - 2018 Previous rx: Insoles, K-tape but causes some irritation if worn too long. Wears shoes in house not that she has plantar fasciitis. Prior Treatments and Tests Home ex's of passive and active R big toe ext/flex. Massage therapy for L foot that was interrupted by COVID 19. Future Testing and Treatments Planned No further physician visits planned. Developmental History Developmental History See above Treatment Goals Patient/Caregiver Goals Walk normal and without pain. Hiking 6 miles a day. Squatting in shower to shave legs, Squat to weed. No pain with stair ambulation. Prior Functional Status Baseline Function- ADL's Independent Baseline Function- Mobility Independent Baseline Function- Gait Antalgic gait. Needs railing for stair ambulation. Baseline Function- Recreation/Hobbies Hiked 3-6 miles daily on trails. Current Functional Impairments (Reported) Functional Limitations- ADL's Squatting for functional activities (shaving legs, weeding). Functional Limitations- Mobility/Gait Antalgic gait. Single stepping on stairs. Needs railing for stair ambulation. Functional Limitations- Recreation/ Hiking. Hobbies Walking on level pavement at most 1 mile Personal Factors Other Personal Factors That May Effect Chronicity of L foot plantar Therapy/Recovery fasciitis since 01/2019 Back pain Thyroid disorder Autoimmune disorders. PT-OP-C Subjective Start: 01/08/20 21:01 Freq: Status: Active Protocol: Document 03/20/20 13:35 LRN (Rec: 03/20/20 14:21 LRN [id number]) OP-PT Subjective Patient Comments Patient Comments ................ PT-OP-D Balance Start: 01/08/20 21:01 Freq: Status: Active Protocol: Document 03/20/20 13:35 LRN (Rec: 03/20/20 17:57 LRN [id number]) Balance Tests Romberg Romberg 60+ Single Limb Standing Single Limb- Right 3 Single Limb- Left 19 Tandem Tandem Standing R behind 18, L behind 24 Tinetti Balance Assessment Sitting Balance Sitting Balance Steady, safe Arising from Chair Ability to Arise Able, w/o using arms Standing Balance Immediate Standing Balance Steady w/o support Standing Balance Narrow stance w/o support Nudged Response Steady Standing with Eyes Closed Steady Turning Step Pattern Turning 360 Degrees Continuous steps Stability Turning 360 Degrees Steady Sitting Down Sitting Down Safe, steady Gait and Step Initiation of Gait No hesitancy Right Foot Step Length Does pass stance foot Right Foot Step Height Completely clears floor Left Foot Step Length Does pass stance foot Left Foot Step Height Completely clears floor Step Description Step Symmetry Step length appears equal Step Continuity Steps appear continuous Gait Description Path Description Straight Trunk Description No sway Walking Stance Heels apart Scoring and Interpretation Tinetti Composite Score (points) 25 Interpretation of Scores Low risk for falls (>24) PT-OP-E Functional Tests Start: 01/08/20 21:01 Freq: Status: Active Protocol: Document 01/10/20 09:51 LRN (Rec: 01/10/20 15:53 LRN [id number]) Functional Tests Tinetti Balance and Gait Assessment Balance Score 15 Gait Score 8 Composite Score 23 Balance Score Impairment Rating 1 to <20% Impaired (Score 13- 15) Gait Score Impairment Rating 20 to <40% Impaired (Score 8-9 ) Composite Score Impairment Rating 1 to <20% Impaired (Score 23- 27) PT-OP-G Mobility & Gait Start: 01/08/20 21:01 Freq: Status: Active Protocol: Document 01/10/20 09:51 LRN (Rec: 01/10/20 15:53 LRN [id number]) OP Gait Assessment Assistive Devices Assistive Device None Gait Deviations General Gait Pattern Antalgic Factors Limiting Gait Function Factors Limiting Gait Function Decreased Activity Tolerance, Limited Range of Motion,Pain Stair Climbing Evaluation Technique/Endurance Stair Climbing Direction Ascend and Descend Stair Climbing Technique Step to Step PT-OP-H Neuro Start: 01/08/20 21:01 Freq: Status: Active Protocol: Document 01/10/20 09:51 LRN (Rec: 01/10/20 15:53 LRN [id number]) Sensation Evaluation Comments Summary Comments Soft touch Sensation: R foot hypersensitivity around well healed scar. L foot sensation is normal. PT-OP-J Posture/Palpation/Skin Start: 01/08/20 21:01 Freq: Status: Active Protocol: Document 01/10/20 09:51 LRN (Rec: 01/10/20 15:53 LRN [id number]) Posture Evaluation Position Standing Knee Posture (R) Genu Varus,(L) Genu Recurvatum,(R) Genu Recurvatum Ankle/Foot Posture (L) Supinated,(R) Supinated Foot Arch (L) High Arch Comments Posture Comments Big Toe Aducted. Right: slight cross over, Left: no crossover. Palpation Assessment Location R big toe Palpation Location R big toe caudal surface Palpation Findings Soft Tissue Tightness PT-OP-K Range of Motion Start: 01/08/20 21:01 Freq: Status: Active Protocol: Document 03/11/20 13:35 LRN (Rec: 03/11/20 14:17 LRN [id number]) Toe Range of Motion Toe Right Great Toe Toe ROM WFL No MTP Flexion Active (degrees) 20 MTP Extension Active (degrees) 22 PIP Flexion Active (degrees) 10 Left Great Toe Toe ROM WFL Yes MTP Flexion Active (degrees) 42 MTP Extension Active (degrees) 36 PIP Flexion Active (degrees) 14 PT-OP-M Strength Start: 01/08/20 21:01 Freq: Status: Active Protocol: Document 01/10/20 09:51 LRN (Rec: 01/10/20 15:53 LRN [id number]) Ankle/Foot Strength Ankle and Foot Manual Muscle Testing Right Reason Not Measured WFL Left Reason Not Measured WFL Toe Strength Toe Manual Muscle Testing Right Great Toe Flexion 4 Good Extension 4 Good Comments MMT is within available ROM Left Great Toe Comments Generally 5/5 Cramping of plantar fascia during testing. PT-OP-Q Treatments Start: 01/08/20 21:01 Freq: Status: Active Protocol: Document 03/20/20 13:35 LRN (Rec: 03/20/20 17:35 LRN [id number]) Manual Therapy Treatment Soft Tissue Mobilization R plantar fascia Body Location R Plantar Fascia & Flexor Hallicus Longus Mobilization Type Cross-Friction,Instrument Assisted,Myofascial Release, Strumming Intensity/Depth Moderate Body Position Supine Web space Body Location R web space of 1st & 2nd toe Mobilization Type Myofascial Release,Strumming Intensity/Depth Moderate Body Position Prone R Big toe Body Location R Big Toe Flexor Mobilization Type Myofascial Release,Strumming, Sustained Pressure Intensity/Depth Superficial Body Position Supine Taping K-tape R Big Toe Flexor tendon Body Location R Big toe flexon tendon Treatment Focus Scar tissue release Type of Tape Kinesio Tape Skin Inspection Excellent Comments 1/4 width I-strip. L Foot plantar arch Body Location L foot plantar arch Treatment Focus Stability of arch Type of Tape Kinesio Tape Skin Inspection Good K-tape R lateral foot Body Location R lateral foot Treatment Focus Stability R lateral MTP joint Type of Tape Kinesio Tape Skin Inspection Good K-tape Body Location R foot scar and ball of 1st toe scar. Comments 3-1 inch strips for Star tape at ball of 1st toe Manual Techniques PROM R Big Toe Type PROM Flex/Ext of MTP jt Body Location Big toe Body Position Supine Reps/Duration 4' Comments Sometimes with axial compression into the joint Neuro Re-Education Treatment Balance Activities Tandem stance Details Tandem standing EO Surface Level, firm Reps/Duration 3' Comments Right behind: 18 secs Left behind: 24 secs Rhomberg Details Rhomberg position EO, EC Reps/Duration 3' Comments EO: 60+ secs EC: 7 secs SLS Details SLS Surface Firm Reps/Duration 2' Comments Right: 3 secs Left: 19 secs PT-OP-R Modalities Start: 01/08/20 21:01 Freq: Status: Active Protocol: Document 03/20/20 13:35 LRN (Rec: 03/20/20 17:37 LRN [id number]) Ultrasound Therapy Treatment R plantar fascia Treatment Duration (minutes) 8 Patient Position Supine Coupling Medium Ultrasound Gel Applicator Size (cm2) 10 Frequency Setting (mHz) 3 Mode Setting Pulsed Duty Cycle 50% Intensity Setting (w/cm2) 1.5 Comments Stretch applied to plantar fascia. PT-OP-T Assessment and Plan Start: 01/08/20 21:01 Freq: Status: Active Protocol: Document 03/20/20 13:35 LRN (Rec: 03/20/20 14:21 LRN [id number]) Physical Therapy Assessment Rehab Potential Rehabilitation Potential Excellent Evaluation Complexity Number of Personal Factors/Comorbidities 1-2 Number of Body Systems Impaired 4 or More Clinical Presentation at Evaluation Evolving Impairments Impairments Activity Tolerance,Balance, Gait,Pain,ROM,Soft Tissue Mobility,Strength Goals Five Impairment Foot pain (Right 5/10, Left 4/ 10) limiting gait tolerance. Order Picker Goal (LTG) Decrease foot pain to no greater than 1/10 with pt able to return to hiking 3 miles and being able to squat in the shower to shave legs without pain. 03/20/20: Pain to start: 1/10 R, 0/10 L; Pain at end: 0/10 R, 0/10 L. LTG Duration 05/02/20 (03/20/20: L foot-pain controlled with ice/stretc, R ft-1/10 pain) Four Impairment Decreased Balance: SLS EO ( Right - 1 sec, Left 19 sec), Tinetti 23/28 Nursing Home Goal (LTG) Pt will be able to SLS EO - 10 sec bilaterally without LOB to improve function and safety with resulting in improved Tinetti Score of > 24. (: Tinetti score = 26; SLS: L is 19 secs, R is 3 secs). LTG Duration 05/02/20 (03/20/20: Parially met goals; MET for Tinetti score) Three Impairment Decreased ankle AROM Order Picker Goal (LTG) Active Ankle DF (legs straight ) no less than 15 deg's. Active Ankle DF (knees flexed) no less than 24 deg's Pt will be able to ambulate up /down stairs with normal gait pattern. (02/12/20: Ankle DF legs straight: 20 degs R, 18 degs L Ankle DF knee flexed: 32 degs R, 30 degs L) LTG Duration 05/02/20 (02/12/20: ROM GOAL MET) Two Impairment Decreased Big Toe Right MTP jt AROM (flex 24 deg's, ext 20 deg's) Short Term Goal (STG) Improve R big toe MTP AROM to ext 36 deg's, flex 32 deg's ( equal to left foot) with pt able to ambulate with equal step lengths without use of assistive device. 12/22/19: Ext goal met (40 degs ) Flex is worse at 16 deg's. STG Duration 04/09/20 (12/22/19: Partially met. Not met for flex, EXT- MET) Order Picker Goal (LTG) Improve functional ability, per Foot and Ankle Ability Measure (FAAM) Score ( initially 36) no less than 50. (03/20/20: FAAM Score = 50) LTG Duration 04/09/20 (03/20/20: MET GOAL) One Impairment Lacks appropriate HEP Short Term Goal (STG) Self care I/S for scar tissue management and edema management. STG Duration 01/21/20 (12/22/19: GOAL MET) Order Picker Goal (LTG) Pt will be independent in a self care HEP to manage her mobility, strength and endurance of her bilateral foot/ankles. 01/15/20: Progressing. LTG Duration 05/02/20 (Progressing, L foot started) Progress Towards Goals Progress Comments LTG #2 MET for FAAM score. LTG #4 Partially met with Tinetti Score 26 (>24) Assessment Summary Assessment Pt slowly but steadily improving. Primary discomfort on R foot is ball of foot on Big toe and very tight flexor tendon. L foot being controlled by stretches, but tight first in AM. Pt will benefit from continued skilled physical therapy to continue with progression to return to prior level of function and independence on self care to maintain painfree gait. Physical Therapy Plan Frequency and Duration Frequency of Treatment 2x/Week Plan of Care Start Date 01/10/20 Plan of Care End Date 05/02/20 Therapeutic Interventions Therapeutic Interventions Balance Training,Gait Training ,Home Exercise Program,Joint Mobilizations,Manual Therapy, Neuromuscular Re-education, Patient/Caregiver Education, Self-Care/Home Management,Soft Tissue Mobilization,Taping, Therapeutic Activities, Therapeutic Exercises Next Visit Focus/Plan Next Note Type Treatment Note Next Visit Plan ROM R big toe measure before and after ROM stretching. Hold US on ball of R foot. DTM/MFR of R big toe flexor tendon attached to distal phalanx at DIP joint. Strengthen R Big toe/ankle & L long foot flexors; Balance training (try shuttle) , R foot: ? K-tape for R big toe to facilitate flexion at MTP joint, cont for inflammation at ball of foot. ROM Big toe for flex > ext. JMT ankle (med>lat mob & fibula). L foot: JMT: L ankle and small bones & fibula to improve ankle DF ROM. Therapeutic Ex - strengthening Long foot plantar flexors. DTM to plantar fascia.
--- NOTE | 2020-03-20 17:59 | PT.OPPOC ---
Physical, Occupational & Speech Therapy At [facility] Current Diagnoses Ankylosis, unspecified joint (03/20/20) Plantar fascial fibromatosis (03/20/20) Visit Care Team Role Provider Type Cristiane Parish DO Primary Care Provider Physician Specialty: Family Practice Address: [address] [place] [address], [address], [address] Email: [email or web address] Tonia Katz DPM Attending Provider Non-Staff Referring Provider Specialty: Podiatry Address: [address] [place], [address] Email: Plan Of Care PT-OP-T Assessment and Plan Start: 01/08/20 21:01 Freq: Status: Active Protocol: Document 03/20/20 13:35 LRN (Rec: 03/20/20 14:21 LRN [id number]) Physical Therapy Assessment Rehab Potential Rehabilitation Potential Excellent Evaluation Complexity Number of Personal Factors/Comorbidities 1-2 Number of Body Systems Impaired 4 or More Clinical Presentation at Evaluation Evolving Impairments Impairments Activity Tolerance,Balance, Gait,Pain,ROM,Soft Tissue Mobility,Strength Goals Five Impairment Foot pain (Right 5/10, Left 4/ 10) limiting gait tolerance. Residential Goal (LTG) Decrease foot pain to no greater than 1/10 with pt able to return to hiking 3 miles and being able to squat in the shower to shave legs without pain. 03/20/20: Pain to start: 1/10 R, 0/10 L; Pain at end: 0/10 R, 0/10 L. LTG Duration 05/02/20 (03/20/20: L foot-pain controlled with ice/stretc, R ft-1/10 pain) Four Impairment Decreased Balance: SLS EO ( Right - 1 sec, Left 19 sec), Tinetti 23/28 Residential Goal (LTG) Pt will be able to SLS EO - 10 sec bilaterally without LOB to improve function and safety with resulting in improved Tinetti Score of > 24. (: Tinetti score = 26; SLS: L is 19 secs, R is 3 secs). LTG Duration 05/02/20 (03/20/20: Parially met goals; MET for Tinetti score) Three Impairment Decreased ankle AROM Residential Goal (LTG) Active Ankle DF (legs straight ) no less than 15 deg's. Active Ankle DF (knees flexed) no less than 24 deg's Pt will be able to ambulate up /down stairs with normal gait pattern. (02/12/20: Ankle DF legs straight: 20 degs R, 18 degs L Ankle DF knee flexed: 32 degs R, 30 degs L) LTG Duration 05/02/20 (02/12/20: ROM GOAL MET) Two Impairment Decreased Big Toe Right MTP jt AROM (flex 24 deg's, ext 20 deg's) Short Term Goal (STG) Improve R big toe MTP AROM to ext 36 deg's, flex 32 deg's ( equal to left foot) with pt able to ambulate with equal step lengths without use of assistive device. 12/22/19: Ext goal met (40 degs ) Flex is worse at 16 deg's. STG Duration 04/09/20 (12/22/19: Partially met. Not met for flex, EXT- MET) Director Of Physical Education Goal (LTG) Improve functional ability, per Foot and Ankle Ability Measure (FAAM) Score ( initially 36) no less than 50. (03/20/20: FAAM Score = 50) LTG Duration 04/09/20 (03/20/20: MET GOAL) One Impairment Lacks appropriate HEP Short Term Goal (STG) Self care I/S for scar tissue management and edema management. STG Duration 01/21/20 (12/22/19: GOAL MET) Residential Goal (LTG) Pt will be independent in a self care HEP to manage her mobility, strength and endurance of her bilateral foot/ankles. 01/15/20: Progressing. LTG Duration 05/02/20 (Progressing, L foot started) Progress Towards Goals Progress Comments LTG #2 MET for FAAM score. LTG #4 Partially met with Tinetti Score 26 (>24) Assessment Summary Assessment Pt slowly but steadily improving. Primary discomfort on R foot is ball of foot on Big toe and very tight flexor tendon. L foot being controlled by stretches, but tight first in AM. Pt will benefit from continued skilled physical therapy to continue with progression to return to prior level of function and independence on self care to maintain painfree gait. Physical Therapy Plan Frequency and Duration Frequency of Treatment 2x/Week Plan of Care Start Date 01/10/20 Plan of Care End Date 05/02/20 Therapeutic Interventions Therapeutic Interventions Balance Training,Gait Training ,Home Exercise Program,Joint Mobilizations,Manual Therapy, Neuromuscular Re-education, Patient/Caregiver Education, Self-Care/Home Management,Soft Tissue Mobilization,Taping, Therapeutic Activities, Therapeutic Exercises Next Visit Focus/Plan Next Note Type Treatment Note Next Visit Plan ROM R big toe measure before and after ROM stretching. Hold US on ball of R foot. DTM/MFR of R big toe flexor tendon attached to distal phalanx at DIP joint. Strengthen R Big toe/ankle & L long foot flexors; Balance training (try shuttle) , R foot: ? K-tape for R big toe to facilitate flexion at MTP joint, cont for inflammation at ball of foot. ROM Big toe for flex > ext. JMT ankle (med>lat mob & fibula). L foot: JMT: L ankle and small bones & fibula to improve ankle DF ROM. Therapeutic Ex - strengthening Long foot plantar flexors. DTM to plantar fascia. Plan of Care Dates Plan of Care Start Date 01/10/20 Plan of Care End Date 05/02/20 Electronically Signed by: Nelly Mohr, PT 03/20/20 [id number] Please Sign and Return: I have reviewed this Plan of Care and certify that the skilled therapy services above are required to meet the patient?s needs. Physician Signature Date Printed Name and Credentials Clinical Instructor Signature Printed Name and Credentials
--- NOTE | 2020-03-24 16:43 | PT.OTN ---
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 PT-OP-B Current Condition Start: 01/08/20 21:01 Freq: Status: Active Protocol: Document 01/10/20 09:51 LRN (Rec: 01/10/20 10:41 LRN [id number]) Current Condition History of Current Condition Onset Date R foot-09/05/18; L foot - 2018 History of Current Condition Difficulty walking with limping gait. L foot hurts more after resting and decreases with gait. R foot hurts constantly. R big toe surgery to remove bone spur and debride joint - 09/05/18. L foot plantar fasciitis - 2018 Previous rx: Insoles, K-tape but causes some irritation if worn too long. Wears shoes in house not that she has plantar fasciitis. Prior Treatments and Tests Home ex's of passive and active R big toe ext/flex. Massage therapy for L foot that was interrupted by COVID 19. Future Testing and Treatments Planned No further physician visits planned. Developmental History Developmental History See above Treatment Goals Patient/Caregiver Goals Walk normal and without pain. Hiking 6 miles a day. Squatting in shower to shave legs, Squat to weed. No pain with stair ambulation. Prior Functional Status Baseline Function- ADL's Independent Baseline Function- Mobility Independent Baseline Function- Gait Antalgic gait. Needs railing for stair ambulation. Baseline Function- Recreation/Hobbies Hiked 3-6 miles daily on trails. Current Functional Impairments (Reported) Functional Limitations- ADL's Squatting for functional activities (shaving legs, weeding). Functional Limitations- Mobility/Gait Antalgic gait. Single stepping on stairs. Needs railing for stair ambulation. Functional Limitations- Recreation/ Hiking. Hobbies Walking on level pavement at most 1 mile Personal Factors Other Personal Factors That May Effect Chronicity of L foot plantar Therapy/Recovery fasciitis since 01/2019 Back pain Thyroid disorder Autoimmune disorders. PT-OP-C Subjective Start: 01/08/20 21:01 Freq: Status: Active Protocol: Document 03/24/20 15:16 LRN (Rec: 03/24/20 16:38 LRN [id number]) OP-PT Subjective Patient Comments Patient Comments States the entire R toe joint hurts top and bottom and a little bit laterally, tender to walk. Woke with foot stiff and after walking was sore. The R Big toe is clicking, doesn't hurt when clicks, just hurts. PT-OP-D Balance Start: 01/08/20 21:01 Freq: Status: Active Protocol: Document 03/20/20 13:35 LRN (Rec: 03/20/20 17:57 LRN [id number]) Balance Tests Romberg Romberg 60+ Single Limb Standing Single Limb- Right 3 Single Limb- Left 19 Tandem Tandem Standing R behind 18, L behind 24 Tinetti Balance Assessment Sitting Balance Sitting Balance Steady, safe Arising from Chair Ability to Arise Able, w/o using arms Standing Balance Immediate Standing Balance Steady w/o support Standing Balance Narrow stance w/o support Nudged Response Steady Standing with Eyes Closed Steady Turning Step Pattern Turning 360 Degrees Continuous steps Stability Turning 360 Degrees Steady Sitting Down Sitting Down Safe, steady Gait and Step Initiation of Gait No hesitancy Right Foot Step Length Does pass stance foot Right Foot Step Height Completely clears floor Left Foot Step Length Does pass stance foot Left Foot Step Height Completely clears floor Step Description Step Symmetry Step length appears equal Step Continuity Steps appear continuous Gait Description Path Description Straight Trunk Description No sway Walking Stance Heels apart Scoring and Interpretation Tinetti Composite Score (points) 25 Interpretation of Scores Low risk for falls (>24) PT-OP-E Functional Tests Start: 01/08/20 21:01 Freq: Status: Active Protocol: Document 01/10/20 09:51 LRN (Rec: 01/10/20 15:53 LRN [id number]) Functional Tests Tinetti Balance and Gait Assessment Balance Score 15 Gait Score 8 Composite Score 23 Balance Score Impairment Rating 1 to <20% Impaired (Score 13- 15) Gait Score Impairment Rating 20 to <40% Impaired (Score 8-9 ) Composite Score Impairment Rating 1 to <20% Impaired (Score 23- 27) PT-OP-G Mobility & Gait Start: 01/08/20 21:01 Freq: Status: Active Protocol: Document 01/10/20 09:51 LRN (Rec: 01/10/20 15:53 LRN [id number]) OP Gait Assessment Assistive Devices Assistive Device None Gait Deviations General Gait Pattern Antalgic Factors Limiting Gait Function Factors Limiting Gait Function Decreased Activity Tolerance, Limited Range of Motion,Pain Stair Climbing Evaluation Technique/Endurance Stair Climbing Direction Ascend and Descend Stair Climbing Technique Step to Step PT-OP-H Neuro Start: 01/08/20 21:01 Freq: Status: Active Protocol: Document 01/10/20 09:51 LRN (Rec: 01/10/20 15:53 LRN [id number]) Sensation Evaluation Comments Summary Comments Soft touch Sensation: R foot hypersensitivity around well healed scar. L foot sensation is normal. PT-OP-J Posture/Palpation/Skin Start: 01/08/20 21:01 Freq: Status: Active Protocol: Document 01/10/20 09:51 LRN (Rec: 01/10/20 15:53 LRN [id number]) Posture Evaluation Position Standing Knee Posture (R) Genu Varus,(L) Genu Recurvatum,(R) Genu Recurvatum Ankle/Foot Posture (L) Supinated,(R) Supinated Foot Arch (L) High Arch Comments Posture Comments Big Toe Aducted. Right: slight cross over, Left: no crossover. Palpation Assessment Location R big toe Palpation Location R big toe caudal surface Palpation Findings Soft Tissue Tightness PT-OP-K Range of Motion Start: 01/08/20 21:01 Freq: Status: Active Protocol: Document 03/11/20 13:35 LRN (Rec: 03/11/20 14:17 LRN [id number]) Toe Range of Motion Toe Right Great Toe Toe ROM WFL No MTP Flexion Active (degrees) 20 MTP Extension Active (degrees) 22 PIP Flexion Active (degrees) 10 Left Great Toe Toe ROM WFL Yes MTP Flexion Active (degrees) 42 MTP Extension Active (degrees) 36 PIP Flexion Active (degrees) 14 PT-OP-M Strength Start: 01/08/20 21:01 Freq: Status: Active Protocol: Document 01/10/20 09:51 LRN (Rec: 01/10/20 15:53 LRN [id number]) Ankle/Foot Strength Ankle and Foot Manual Muscle Testing Right Reason Not Measured WFL Left Reason Not Measured WFL Toe Strength Toe Manual Muscle Testing Right Great Toe Flexion 4 Good Extension 4 Good Comments MMT is within available ROM Left Great Toe Comments Generally 5/5 Cramping of plantar fascia during testing. PT-OP-Q Treatments Start: 01/08/20 21:01 Freq: Status: Active Protocol: Document 03/24/20 15:16 LRN (Rec: 03/24/20 16:38 LRN [id number]) Cardio Equipment Recumbent Bicycle Duration (Minutes) 8 Resistance 3 Seat Position 5 Other Cycling fwd/bkwd Therapeutic Exercises Sitting Exercises BiG Toe ABD strengthening Sitting Exercise Name Big Toe AB Side bilateral Reps/Minutes 4' Comments L toe needs much practice, poor holding, R toe able but painful Long Plantar Flexor strengthening Sitting Exercise Name Lifting of toes into ext with Big toe planted Side bilateral Reps/Minutes 3' Comments Able to on R, not on L. Standing Exercises L soleus Standing Exercise Name Stretch, f/b active ankle DF Side bilateral Reps/Minutes 60 x 1, f/b active ROM L Gastroc Standing Exercise Name Stretch, f/b 10 active DF Side bilateral Reps/Minutes 60 x 1, f/b active DF Comments Left felt tight Manual Therapy Treatment Soft Tissue Mobilization R Dorsal Foot Body Location Dorsal skin of R foot Mobilization Type Myofascial Release Intensity/Depth Moderate Comments Release in areas affecting R lateral foot (top, lateral, Big toe) R plantar fascia Body Location R Plantar Fascia & Flexor Hallicus Longus Mobilization Type Cross-Friction,Instrument Assisted,Myofascial Release, Strumming Intensity/Depth Moderate Body Position Supine Web space Body Location R web space of 1st & 2nd toe Mobilization Type Myofascial Release,Strumming Intensity/Depth Moderate Body Position Prone R Big toe Body Location R Big Toe Flexor & Extensor tendon Mobilization Type Myofascial Release,Strumming, Sustained Pressure Intensity/Depth Superficial Body Position Supine Joint Mobilizations R ankle Joint Small Bones & 5th Long bone @ C[facility] joint Direction AP/PA Reps/Duration 2' R MTP joint Joint R MTP joint Direction PA & AP Grade II Body Position Supine Reps/Duration 4' Comments Mob with compression into the joint to reduce pain. Taping K-tape R Big toe to facilitate flexion Body Location R Big Toe Treatment Focus flexion facilitation Type of Tape Kinesio Tape Comments 1/ I-strip toe to attachment. K-tape R Big Toe Flexor tendon Body Location R Big toe flexon tendon Treatment Focus Scar tissue release Type of Tape Kinesio Tape Skin Inspection Excellent Comments / width I-strip. Manual Techniques MWM Type MWM 5th digit long bone distraction with Reps/Duration 5' Comments Pt had no pain at end of treatment. PROM R Big Toe Type PROM Flex/Ext of MTP jt Body Location Big toe Body Position Supine Reps/Duration 4' Comments Sometimes with axial compression into the joint Self-Care/Home Management Treatment Activities Self-Care/Home Management Activities Pt I/S in self care of MWM for Wgt bearing on R foot for gait with distraction w/slight IR of 5th digit long bone during ankle DF and partial wgt bearing. Issued & reviewed HEP of ankle long bone strengthening (toe lifts with foot planted, with big toe planted), and toe AB strengthening. PT-OP-R Modalities Start: 01/08/20 21:01 Freq: Status: Active Protocol: Document 03/20/20 13:35 LRN (Rec: 03/20/20 17:37 LRN [id number]) Ultrasound Therapy Treatment R plantar fascia Treatment Duration (minutes) 8 Patient Position Supine Coupling Medium Ultrasound Gel Applicator Size (cm2) 10 Frequency Setting (mHz) 3 Mode Setting Pulsed Duty Cycle 50% Intensity Setting (w/cm2) 1.5 Comments Stretch applied to plantar fascia. PT-OP-T Assessment and Plan Start: 01/08/20 21:01 Freq: Status: Active Protocol: Document 03/24/20 15:16 LRN (Rec: 03/24/20 16:38 LRN [id number]) Physical Therapy Assessment Goals Five Impairment Foot pain (Right 5/10, Left 4/ 10) limiting gait tolerance. Production Team Manager Goal (LTG) Decrease foot pain to no greater than 1/10 with pt able to return to hiking 3 miles and being able to squat in the shower to shave legs without pain. 03/20/20: Pain to start: 1/10 R, 0/10 L; Pain at end: 0/10 R, 0/10 L. LTG Duration 05/02/20 (03/20/20: L foot-pain controlled with ice/stretc, R ft-1/10 pain) Four Impairment Decreased Balance: SLS EO ( Right - 1 sec, Left 19 sec), Tinetti 23/28 Production Team Manager Goal (LTG) Pt will be able to SLS EO - 10 sec bilaterally without LOB to improve function and safety with resulting in improved Tinetti Score of > 24. (: Tinetti score = 26; SLS: L is 19 secs, R is 3 secs). LTG Duration 05/02/20 (03/20/20: Parially met goals; MET for Tinetti score) Three Impairment Decreased ankle AROM Mcc Goal (LTG) Active Ankle DF (legs straight ) no less than 15 deg's. Active Ankle DF (knees flexed) no less than 24 deg's Pt will be able to ambulate up /down stairs with normal gait pattern. (02/12/20: Ankle DF legs straight: 20 degs R, 18 degs L Ankle DF knee flexed: 32 degs R, 30 degs L) LTG Duration 05/02/20 (02/12/20: ROM GOAL MET) Two Impairment Decreased Big Toe Right MTP jt AROM (flex 24 deg's, ext 20 deg's) Short Term Goal (STG) Improve R big toe MTP AROM to ext 36 deg's, flex 32 deg's ( equal to left foot) with pt able to ambulate with equal step lengths without use of assistive device. 12/22/19: Ext goal met (40 degs ) Flex is worse at 16 deg's. STG Duration 04/09/20 (12/22/19: Partially met. Not met for flex, EXT- MET) Production Team Manager Goal (LTG) Improve functional ability, per Foot and Ankle Ability Measure (FAAM) Score ( initially 36) no less than 50. (03/20/20: FAAM Score = 50) LTG Duration 04/09/20 (03/20/20: MET GOAL) One Impairment Lacks appropriate HEP Short Term Goal (STG) Self care I/S for scar tissue management and edema management. STG Duration 01/21/20 (12/22/19: GOAL MET) Production Team Manager Goal (LTG) Pt will be independent in a self care HEP to manage her mobility, strength and endurance of her bilateral foot/ankles. 01/15/20: Progressing. LTG Duration 05/02/20 (03/24/20: Progressing , L foot started) Progress Towards Goals Progress Comments Pt able to walk at end of therapy without hina foot pain. No pain in R lateral foot after therapy and immediately after MWM, and no lateral support of K-tape. Assessment Summary Assessment Pt improving. No L foot pain, only stiffness first in AM. R toe painful today after pt did a lot of self STM. No lateral foot pain with gait after treatment and MWM. Physical Therapy Plan Frequency and Duration Frequency of Treatment 2x/Week Plan of Care Start Date 01/10/20 Plan of Care End Date 05/02/20 Next Visit Focus/Plan Next Note Type Treatment Note Next Visit Plan ROM R big toe measure before and after ROM stretching. Hold US on ball of R foot. Strengthening on Recumbent bike (toe push and toe lifts). DTM/MFR of R big toe flexor tendon attached to distal phalanx at DIP joint. Assess response to R Big toe K -tape for flexion and self MWM of 5th digit. Strengthen R Big toe/ankle & L long foot flexors; & Balance training (shuttle), R foot: K-tape for R big toe to facilitate flexion at MTP joint, cont for inflammation at ball of foot. ROM Big toe for flex > ext. JMT ankle (med>lat mob). L foot: JMT: L ankle and small bones & fibula to improve ankle DF ROM. Therapeutic Ex - review strengthening Long foot plantar flexors. DTM to plantar fascia as needed.
--- NOTE | 2020-03-28 17:11 | PT.OTN ---
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 PT-OP-B Current Condition Start: 01/08/20 21:01 Freq: Status: Active Protocol: Document 01/10/20 09:51 LRN (Rec: 01/10/20 10:41 LRN [id number]) Current Condition History of Current Condition Onset Date R foot-09/05/18; L foot - 2018 History of Current Condition Difficulty walking with limping gait. L foot hurts more after resting and decreases with gait. R foot hurts constantly. R big toe surgery to remove bone spur and debride joint - 09/05/18. L foot plantar fasciitis - 2018 Previous rx: Insoles, K-tape but causes some irritation if worn too long. Wears shoes in house not that she has plantar fasciitis. Prior Treatments and Tests Home ex's of passive and active R big toe ext/flex. Massage therapy for L foot that was interrupted by COVID 19. Future Testing and Treatments Planned No further physician visits planned. Developmental History Developmental History See above Treatment Goals Patient/Caregiver Goals Walk normal and without pain. Hiking 6 miles a day. Squatting in shower to shave legs, Squat to weed. No pain with stair ambulation. Prior Functional Status Baseline Function- ADL's Independent Baseline Function- Mobility Independent Baseline Function- Gait Antalgic gait. Needs railing for stair ambulation. Baseline Function- Recreation/Hobbies Hiked 3-6 miles daily on trails. Current Functional Impairments (Reported) Functional Limitations- ADL's Squatting for functional activities (shaving legs, weeding). Functional Limitations- Mobility/Gait Antalgic gait. Single stepping on stairs. Needs railing for stair ambulation. Functional Limitations- Recreation/ Hiking. Hobbies Walking on level pavement at most 1 mile Personal Factors Other Personal Factors That May Effect Chronicity of L foot plantar Therapy/Recovery fasciitis since 01/2019 Back pain Thyroid disorder Autoimmune disorders. PT-OP-C Subjective Start: 01/08/20 21:01 Freq: Status: Active Protocol: Document 03/28/20 12:45 LRN (Rec: 03/28/20 13:39 LRN [id number]) OP-PT Subjective Patient Comments Patient Comments Entire R toe joint hurts top and bottom and a little bit laterally, tender to walk on bottom of foot. Stubbing toe is very painful. L foot has no pain. 2 days ago had a terrible day with pain in both feet as in the beginning. Pain R foot 3/10 to start, ending 10/01. PT-OP-D Balance Start: 01/08/20 21:01 Freq: Status: Active Protocol: Document 03/20/20 13:35 LRN (Rec: 03/20/20 17:57 LRN [id number]) Balance Tests Romberg Romberg 60+ Single Limb Standing Single Limb- Right 3 Single Limb- Left 19 Tandem Tandem Standing R behind 18, L behind 24 Tinetti Balance Assessment Sitting Balance Sitting Balance Steady, safe Arising from Chair Ability to Arise Able, w/o using arms Standing Balance Immediate Standing Balance Steady w/o support Standing Balance Narrow stance w/o support Nudged Response Steady Standing with Eyes Closed Steady Turning Step Pattern Turning 360 Degrees Continuous steps Stability Turning 360 Degrees Steady Sitting Down Sitting Down Safe, steady Gait and Step Initiation of Gait No hesitancy Right Foot Step Length Does pass stance foot Right Foot Step Height Completely clears floor Left Foot Step Length Does pass stance foot Left Foot Step Height Completely clears floor Step Description Step Symmetry Step length appears equal Step Continuity Steps appear continuous Gait Description Path Description Straight Trunk Description No sway Walking Stance Heels apart Scoring and Interpretation Tinetti Composite Score (points) 25 Interpretation of Scores Low risk for falls (>24) PT-OP-E Functional Tests Start: 01/08/20 21:01 Freq: Status: Active Protocol: Document 01/10/20 09:51 LRN (Rec: 01/10/20 15:53 LRN [id number]) Functional Tests Tinetti Balance and Gait Assessment Balance Score 15 Gait Score 8 Composite Score 23 Balance Score Impairment Rating 1 to <20% Impaired (Score 13- 15) Gait Score Impairment Rating 20 to <40% Impaired (Score 8-9 ) Composite Score Impairment Rating 1 to <20% Impaired (Score 23- 27) PT-OP-G Mobility & Gait Start: 01/08/20 21:01 Freq: Status: Active Protocol: Document 01/10/20 09:51 LRN (Rec: 01/10/20 15:53 LRN [id number]) OP Gait Assessment Assistive Devices Assistive Device None Gait Deviations General Gait Pattern Antalgic Factors Limiting Gait Function Factors Limiting Gait Function Decreased Activity Tolerance, Limited Range of Motion,Pain Stair Climbing Evaluation Technique/Endurance Stair Climbing Direction Ascend and Descend Stair Climbing Technique Step to Step PT-OP-H Neuro Start: 01/08/20 21:01 Freq: Status: Active Protocol: Document 01/10/20 09:51 LRN (Rec: 01/10/20 15:53 LRN [id number]) Sensation Evaluation Comments Summary Comments Soft touch Sensation: R foot hypersensitivity around well healed scar. L foot sensation is normal. PT-OP-J Posture/Palpation/Skin Start: 01/08/20 21:01 Freq: Status: Active Protocol: Document 01/10/20 09:51 LRN (Rec: 01/10/20 15:53 LRN [id number]) Posture Evaluation Position Standing Knee Posture (R) Genu Varus,(L) Genu Recurvatum,(R) Genu Recurvatum Ankle/Foot Posture (L) Supinated,(R) Supinated Foot Arch (L) High Arch Comments Posture Comments Big Toe Aducted. Right: slight cross over, Left: no crossover. Palpation Assessment Location R big toe Palpation Location R big toe caudal surface Palpation Findings Soft Tissue Tightness PT-OP-K Range of Motion Start: 01/08/20 21:01 Freq: Status: Active Protocol: Document 03/28/20 12:45 LRN (Rec: 03/28/20 13:39 LRN [id number]) Toe Range of Motion Toe Right Great Toe MTP Flexion Active (degrees) 5 MTP Flexion Passive (degrees) 18 MTP Extension Active (degrees) 24 MTP Extension Passive (degrees) 34 PIP Flexion Active (degrees) 20 PIP Flexion Passive (degrees) 28 Left Great Toe MTP Flexion Active (degrees) 20 MTP Flexion Passive (degrees) 40 MTP Extension Active (degrees) 40 MTP Extension Passive (degrees) 70 PIP Flexion Active (degrees) 34 PIP Flexion Passive (degrees) 40 Toes ROM Limitations Comments MTP active & passive flexion is 22 deg's, Exgt is 28/30 deg's PT-OP-M Strength Start: 01/08/20 21:01 Freq: Status: Active Protocol: Document 01/10/20 09:51 LRN (Rec: 01/10/20 15:53 LRN [id number]) Ankle/Foot Strength Ankle and Foot Manual Muscle Testing Right Reason Not Measured WFL Left Reason Not Measured WFL Toe Strength Toe Manual Muscle Testing Right Great Toe Flexion 4 Good Extension 4 Good Comments MMT is within available ROM Left Great Toe Comments Generally 5/5 Cramping of plantar fascia during testing. PT-OP-Q Treatments Start: 01/08/20 21:01 Freq: Status: Active Protocol: Document 03/28/20 12:45 LRN (Rec: 03/28/20 13:39 LRN [id number]) Cardio Equipment Recumbent Bicycle Duration (Minutes) 8 Resistance 3 Seat Position 5 Other Cycling fwd/bkwd Therapeutic Exercises Standing Exercises L soleus Standing Exercise Name Stretch, f/b active ankle DF Side bilateral Equipment Used PARUL Reps/Minutes 60 x 1, f/b active ROM L Gastroc Standing Exercise Name Stretch, f/b 10 active DF Side bilateral Equipment Used PARUL Reps/Minutes 60 x 1, f/b active DF Comments Left felt tight Manual Therapy Treatment Soft Tissue Mobilization R Dorsal Foot Body Location Dorsal skin of R foot Mobilization Type Myofascial Release Intensity/Depth Moderate Comments Release in areas affecting R lateral foot (top, lateral, Big toe) Web space Body Location R web space of 1st & 2nd toe Mobilization Type Myofascial Release,Strumming Intensity/Depth Moderate Body Position Prone R Big toe Body Location R Big Toe Flexor & Extensor tendon Mobilization Type Myofascial Release,Strumming, Sustained Pressure Intensity/Depth Superficial Body Position Supine Joint Mobilizations R MTP joint Joint R MTP joint Direction PA & AP Grade II Body Position Supine Reps/Duration 4' Comments Mob with compression into the joint to reduce pain. Taping K-tape Body Location R foot scar and ball of 1st toe scar. Comments 3-1 inch strips for Star tape at ball of 1st toe Manual Techniques PROM R Big Toe Type PROM Flex/Ext of MTP jt Body Location Big toe Body Position Supine Reps/Duration 4' Comments Sometimes with axial compression into the joint PT-OP-R Modalities Start: 01/08/20 21:01 Freq: Status: Active Protocol: Document 03/20/20 13:35 LRN (Rec: 03/20/20 17:37 LRN [id number]) Ultrasound Therapy Treatment R plantar fascia Treatment Duration (minutes) 8 Patient Position Supine Coupling Medium Ultrasound Gel Applicator Size (cm2) 10 Frequency Setting (mHz) 3 Mode Setting Pulsed Duty Cycle 50% Intensity Setting (w/cm2) 1.5 Comments Stretch applied to plantar fascia. PT-OP-T Assessment and Plan Start: 01/08/20 21:01 Freq: Status: Active Protocol: Document 03/28/20 12:45 LRN (Rec: 03/28/20 13:39 LRN [id number]) Physical Therapy Assessment Goals Five Impairment Foot pain (Right 5/10, Left 4/ 10) limiting gait tolerance. Halfway Goal (LTG) Decrease foot pain to no greater than 1/10 with pt able to return to hiking 3 miles and being able to squat in the shower to shave legs without pain. 03/28/20: Pain to start: 3/10 R , 0/10 L; Pain at end: 2/10 R, 0/10 L. LTG Duration 05/02/20 (03/28/20: L foot-pain controlled with ice/stretc, R ft-2/10 pain) Four Impairment Decreased Balance: SLS EO ( Right - 1 sec, Left 19 sec), Tinetti 23/28 Halfway Goal (LTG) Pt will be able to SLS EO - 10 sec bilaterally without LOB to improve function and safety with resulting in improved Tinetti Score of > 24. (: Tinetti score = 26; SLS: L is 19 secs, R is 3 secs). LTG Duration 05/02/20 (03/20/20: Partially met goals; MET for Tinetti score) Three Impairment Decreased ankle AROM Halfway Goal (LTG) Active Ankle DF (legs straight ) no less than 15 deg's. Active Ankle DF (knees flexed) no less than 24 deg's Pt will be able to ambulate up /down stairs with normal gait pattern. (02/12/20: Ankle DF legs straight: 20 degs R, 18 degs L Ankle DF knee flexed: 32 degs R, 30 degs L) LTG Duration 05/02/20 (02/12/20: ROM GOAL MET) Two Impairment Decreased Big Toe Right MTP jt AROM (ext 20 deg's, flex 24 deg's) Short Term Goal (STG) Improve R big toe MTP AROM to ext 36 deg's, flex 32 deg's ( equal to left foot) with pt able to ambulate with equal step lengths without use of assistive device. 03/28/20: Right: Ext is 24 degs , Flex is 5 deg's; Left: Ext 40 deg's, Flex 20 deg's. STG Duration 04/09/20 (03/28/20: Goal not met ) Halfway Goal (LTG) Improve functional ability, per Foot and Ankle Ability Measure (FAAM) Score ( initially 36) no less than 50. (03/20/20: FAAM Score = 50) LTG Duration 04/09/20 (03/20/20: MET GOAL) One Impairment Lacks appropriate HEP Short Term Goal (STG) Self care I/S for scar tissue management and edema management. STG Duration 01/21/20 (12/22/19: GOAL MET) Halfway Goal (LTG) Pt will be independent in a self care HEP to manage her mobility, strength and endurance of her bilateral foot/ankles. 01/15/20: Progressing. LTG Duration 05/02/20 (03/24/20: Progressing , L foot started) Progress Towards Goals Progress Comments R foot pain is variable, today decreased from 3/10 to 2/10. L foot pain controlled by cryotherapy and stretching. Assessment Summary Assessment K-Taping of R big toe for flexion assist did not appear helpful. R gastroc/soleus mildly tighter than L. R Big toe and 2nd toe foot AB/AD tightness appears to refer pain to ball of foot at Big Toe. R Big toe is adducting. R Big toe MCP mobility is decreased at least 50% and IP jt is decreased. L foot mobility and strength is good although cramping of the long foot flexors caused cramping with MMT of toe flexion. Physical Therapy Plan Frequency and Duration Frequency of Treatment 2x/Week Plan of Care Start Date 01/10/20 Plan of Care End Date 05/02/20 Next Visit Focus/Plan Next Note Type Treatment Note Next Visit Plan ROM R big toe measure before and after ROM stretching. Hold US on ball of R foot. Strengthening on Recumbent bike (toe push and toe lifts), increase to 9-10'. DTM/MFR of R big toe flexor tendon attached to distal phalanx at DIP joint. STM to interosseous ms btn right 1st and 2nd toe. Assess response to self MWM of 5th digit. Strengthen R Big toe/ankle & L long foot flexors; & Balance training (shuttle), R foot: K-tape for R big toe for inflammation at ball of foot. ROM Big toe for flex > ext. JMT ankle (med>lat mob). L foot: JMT as needed to L ankle and small bones & fibula to improve ankle DF ROM. Therapeutic Ex - strengthening Long foot plantar flexors. DTM to plantar fascia as needed.
--- NOTE | 2020-04-01 16:35 | PT.OTN ---
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 PT-OP-B Current Condition Start: 01/08/20 21:01 Freq: Status: Active Protocol: Document 01/10/20 09:51 LRN (Rec: 01/10/20 10:41 LRN [id number]) Current Condition History of Current Condition Onset Date R foot-09/05/18; L foot - 2018 History of Current Condition Difficulty walking with limping gait. L foot hurts more after resting and decreases with gait. R foot hurts constantly. R big toe surgery to remove bone spur and debride joint - 09/05/18. L foot plantar fasciitis - 2018 Previous rx: Insoles, K-tape but causes some irritation if worn too long. Wears shoes in house not that she has plantar fasciitis. Prior Treatments and Tests Home ex's of passive and active R big toe ext/flex. Massage therapy for L foot that was interrupted by COVID 19. Future Testing and Treatments Planned No further physician visits planned. Developmental History Developmental History See above Treatment Goals Patient/Caregiver Goals Walk normal and without pain. Hiking 6 miles a day. Squatting in shower to shave legs, Squat to weed. No pain with stair ambulation. Prior Functional Status Baseline Function- ADL's Independent Baseline Function- Mobility Independent Baseline Function- Gait Antalgic gait. Needs railing for stair ambulation. Baseline Function- Recreation/Hobbies Hiked 3-6 miles daily on trails. Current Functional Impairments (Reported) Functional Limitations- ADL's Squatting for functional activities (shaving legs, weeding). Functional Limitations- Mobility/Gait Antalgic gait. Single stepping on stairs. Needs railing for stair ambulation. Functional Limitations- Recreation/ Hiking. Hobbies Walking on level pavement at most 1 mile Personal Factors Other Personal Factors That May Effect Chronicity of L foot plantar Therapy/Recovery fasciitis since 01/2019 Back pain Thyroid disorder Autoimmune disorders. PT-OP-C Subjective Start: 01/08/20 21:01 Freq: Status: Active Protocol: Document 04/01/20 15:03 LRN (Rec: 04/01/20 16:26 LRN [id number]) OP-PT Subjective Patient Comments Patient Comments Been pretty good since last visit Having more pain on top of R Big Toe joint pain. Pain on bottom of R foot and arch. L foot no pain. Pain in R Big toe to start was 10/29 , post treatment is 08/31. PT-OP-D Balance Start: 01/08/20 21:01 Freq: Status: Active Protocol: Document 03/20/20 13:35 LRN (Rec: 03/20/20 17:57 LRN [id number]) Balance Tests Romberg Romberg 60+ Single Limb Standing Single Limb- Right 3 Single Limb- Left 19 Tandem Tandem Standing R behind 18, L behind 24 Tinetti Balance Assessment Sitting Balance Sitting Balance Steady, safe Arising from Chair Ability to Arise Able, w/o using arms Standing Balance Immediate Standing Balance Steady w/o support Standing Balance Narrow stance w/o support Nudged Response Steady Standing with Eyes Closed Steady Turning Step Pattern Turning 360 Degrees Continuous steps Stability Turning 360 Degrees Steady Sitting Down Sitting Down Safe, steady Gait and Step Initiation of Gait No hesitancy Right Foot Step Length Does pass stance foot Right Foot Step Height Completely clears floor Left Foot Step Length Does pass stance foot Left Foot Step Height Completely clears floor Step Description Step Symmetry Step length appears equal Step Continuity Steps appear continuous Gait Description Path Description Straight Trunk Description No sway Walking Stance Heels apart Scoring and Interpretation Tinetti Composite Score (points) 25 Interpretation of Scores Low risk for falls (>24) PT-OP-E Functional Tests Start: 01/08/20 21:01 Freq: Status: Active Protocol: Document 01/10/20 09:51 LRN (Rec: 01/10/20 15:53 LRN [id number]) Functional Tests Tinetti Balance and Gait Assessment Balance Score 15 Gait Score 8 Composite Score 23 Balance Score Impairment Rating 1 to <20% Impaired (Score 13- 15) Gait Score Impairment Rating 20 to <40% Impaired (Score 8-9 ) Composite Score Impairment Rating 1 to <20% Impaired (Score 23- 27) PT-OP-G Mobility & Gait Start: 01/08/20 21:01 Freq: Status: Active Protocol: Document 01/10/20 09:51 LRN (Rec: 01/10/20 15:53 LRN [id number]) OP Gait Assessment Assistive Devices Assistive Device None Gait Deviations General Gait Pattern Antalgic Factors Limiting Gait Function Factors Limiting Gait Function Decreased Activity Tolerance, Limited Range of Motion,Pain Stair Climbing Evaluation Technique/Endurance Stair Climbing Direction Ascend and Descend Stair Climbing Technique Step to Step PT-OP-H Neuro Start: 01/08/20 21:01 Freq: Status: Active Protocol: Document 01/10/20 09:51 LRN (Rec: 01/10/20 15:53 LRN [id number]) Sensation Evaluation Comments Summary Comments Soft touch Sensation: R foot hypersensitivity around well healed scar. L foot sensation is normal. PT-OP-J Posture/Palpation/Skin Start: 01/08/20 21:01 Freq: Status: Active Protocol: Document 01/10/20 09:51 LRN (Rec: 01/10/20 15:53 LRN [id number]) Posture Evaluation Position Standing Knee Posture (R) Genu Varus,(L) Genu Recurvatum,(R) Genu Recurvatum Ankle/Foot Posture (L) Supinated,(R) Supinated Foot Arch (L) High Arch Comments Posture Comments Big Toe Aducted. Right: slight cross over, Left: no crossover. Palpation Assessment Location R big toe Palpation Location R big toe caudal surface Palpation Findings Soft Tissue Tightness PT-OP-K Range of Motion Start: 01/08/20 21:01 Freq: Status: Active Protocol: Document 04/01/20 15:03 LRN (Rec: 04/01/20 16:26 LRN [id number]) Toe Range of Motion Toe Right Great Toe MTP Flexion Active (degrees) 12 MTP Extension Active (degrees) 60 PIP Flexion Active (degrees) 26 Left Great Toe MTP Flexion Active (degrees) 20 MTP Flexion Passive (degrees) 40 MTP Extension Active (degrees) 40 MTP Extension Passive (degrees) 70 PIP Flexion Active (degrees) 34 PIP Flexion Passive (degrees) 40 Toes ROM Limitations Comments R MTP active ext as measured from bottom of foot today. PT-OP-M Strength Start: 01/08/20 21:01 Freq: Status: Active Protocol: Document 01/10/20 09:51 LRN (Rec: 01/10/20 15:53 LRN [id number]) Ankle/Foot Strength Ankle and Foot Manual Muscle Testing Right Reason Not Measured WFL Left Reason Not Measured WFL Toe Strength Toe Manual Muscle Testing Right Great Toe Flexion 4 Good Extension 4 Good Comments MMT is within available ROM Left Great Toe Comments Generally 5/5 Cramping of plantar fascia during testing. PT-OP-Q Treatments Start: 01/08/20 21:01 Freq: Status: Active Protocol: Document 04/01/20 15:03 LRN (Rec: 04/01/20 16:26 LRN [id number]) Cardio Equipment Treadmill Duration (Minutes) 10 Incline 0 Therapeutic Exercises Sitting Exercises BiG Toe ABD strengthening Sitting Exercise Name Big Toe AB Side bilateral Reps/Minutes 8' Comments Manual stim to Big Toe AB to facilitate AB, 3x felt L AB contract, R weak Standing Exercises L soleus Standing Exercise Name Stretch, f/b active ankle DF Side bilateral Reps/Minutes 60 x 1, f/b active ROM L Gastroc Standing Exercise Name Stretch, f/b 10 active DF Side bilateral Reps/Minutes 60 x 1, f/b active DF Comments Left felt tight Manual Therapy Treatment Soft Tissue Mobilization R Dorsal Foot Body Location Dorsal skin of R foot Mobilization Type Myofascial Release Intensity/Depth Moderate Comments Release in areas affecting R lateral foot (top, lateral, Big toe) R plantar fascia Body Location R Plantar Fascia & Flexor Hallicus Longus Mobilization Type Cross-Friction,Myofascial Release,Strumming Intensity/Depth Moderate Body Position Supine Web space Body Location R web space of 1st & 2nd toe Mobilization Type Myofascial Release,Strumming Intensity/Depth Moderate Body Position Longsit R Big toe Body Location R Big Toe Flexor & Extensor tendon Mobilization Type Instrument Assisted,Myofascial Release,Strumming,Sustained Pressure Intensity/Depth Superficial Body Position Supine Comments Used Small suction cup, but was not able to get a good seal. Scar mob Body Location R Big toe scar Mobilization Type Sustained Pressure Intensity/Depth Superficial Body Position Log sit Comments Pressure to medial side of foot. Joint Mobilizations R MTP joint Joint R MTP joint Direction PA & AP Grade II Body Position Supine Reps/Duration 2' Comments Mob with compression into the joint to reduce pain. Taping K-tape R Big Toe Flexor tendon Body Location R Big toe flexon tendon Treatment Focus Scar tissue release Type of Tape Kinesio Tape Skin Inspection Excellent Comments 1/4 width I-strip. K-tape Body Location R foot scar and ball of 1st toe scar. Comments 3-1 inch strips for Star tape at ball of 1st toe Manual Techniques PROM R Big Toe Type PROM Flex/Ext of MTP jt Body Location Big toe Body Position Supine Reps/Duration 4' PT-OP-R Modalities Start: 01/08/20 21:01 Freq: Status: Active Protocol: Document 03/20/20 13:35 LRN (Rec: 03/20/20 17:37 LRN [id number]) Ultrasound Therapy Treatment R plantar fascia Treatment Duration (minutes) 8 Patient Position Supine Coupling Medium Ultrasound Gel Applicator Size (cm2) 10 Frequency Setting (mHz) 3 Mode Setting Pulsed Duty Cycle 50% Intensity Setting (w/cm2) 1.5 Comments Stretch applied to plantar fascia. PT-OP-T Assessment and Plan Start: 01/08/20 21:01 Freq: Status: Active Protocol: Document 04/01/20 15:03 LRN (Rec: 04/01/20 16:26 LRN [id number]) Physical Therapy Assessment Goals Five Impairment Foot pain (Right 5/10, Left 4/ 10) limiting gait tolerance. Picker And Packer Goal (LTG) Decrease foot pain to no greater than 1/10 with pt able to return to hiking 3 miles and being able to squat in the shower to shave legs without pain. (04/01/20: Pain to start: 3/10 R, 0/10 L; Pain at end: 2/ 10 R, 0/10 L.) LTG Duration 05/02/20 (04/01/20: 0/10 L foot pain, R ft is 1-3/10 pain) Four Impairment Decreased Balance: SLS EO ( Right - 1 sec, Left 19 sec), Tinetti 23/28 Jail Goal (LTG) Pt will be able to SLS EO - 10 sec bilaterally without LOB to improve function and safety with resulting in improved Tinetti Score of > 24. (: Tinetti score = 26; SLS: L is 19 secs, R is 3 secs). LTG Duration 05/02/20 (03/20/20: Partially met goals; MET for Tinetti score) Three Impairment Decreased ankle AROM Jail Goal (LTG) Active Ankle DF (legs straight ) no less than 15 deg's. Active Ankle DF (knees flexed) no less than 24 deg's Pt will be able to ambulate up /down stairs with normal gait pattern. (02/12/20: Ankle DF legs straight: 20 degs R, 18 degs L Ankle DF knee flexed: 32 degs R, 30 degs L) LTG Duration 05/02/20 (02/12/20: ROM GOAL MET) Two Impairment Decreased Big Toe Right MTP jt AROM (ext 20 deg's, flex 24 deg's) Short Term Goal (STG) Improve R big toe MTP AROM to ext 36 deg's, flex 32 deg's ( equal to left foot) with pt able to ambulate with equal step lengths without use of assistive device. (03/28/20: Right: Ext is 24 degs, Flex is 5 deg's; Left: Ext 40 deg's, Flex 20 deg's.) STG Duration 04/09/20 (03/28/20: Goal not met ) Picker And Packer Goal (LTG) Improve functional ability, per Foot and Ankle Ability Measure (FAAM) Score ( initially 36) no less than 50. (03/20/20: FAAM Score = 50) LTG Duration 04/09/20 (03/20/20: MET GOAL) One Impairment Lacks appropriate HEP Short Term Goal (STG) Self care I/S for scar tissue management and edema management. STG Duration 01/21/20 (12/22/19: GOAL MET) Jail Goal (LTG) Pt will be independent in a self care HEP to manage her mobility, strength and endurance of her bilateral foot/ankles. 01/15/20: Progressing. LTG Duration 05/02/20 (03/24/20: Progressing , L foot started) Assessment Summary Assessment No L foot pain. R Big toe Plantar aspect at ball of foot is tender, fascia is still tight on plantar aspect, btn the big toe and 2nd toe. R big toe pain at joint possibly due to weakness of feet. Physical Therapy Plan Frequency and Duration Frequency of Treatment 2x/Week Plan of Care Start Date 01/10/20 Plan of Care End Date 05/02/20 Next Visit Focus/Plan Next Note Type Treatment Note Next Visit Plan Check ankle DF and stairs, SLS EO, ROM R big toe measure before and after ROM stretching. Hold US on ball of R foot. Strengthening on Recumbent bike (toe push and toe lifts), increase to 9-10'. DTM/MFR of R big toe flexor tendon attached to distal phalanx at DIP joint. STM to interosseous ms btn right 1st and 2nd toe. Assess response to self MWM of 5th digit. Strengthen R Big toe/ankle & L long foot flexors; & Balance training (shuttle), R foot: K-tape for R big toe for inflammation at ball of foot. ROM Big toe for flex > ext. JMT ankle (med>lat mob). L foot: JMT as needed to L ankle and small bones & fibula to improve ankle DF ROM. Therapeutic Ex - strengthening Long foot plantar flexors. DTM to plantar fascia as needed.
--- NOTE | 2020-04-04 18:27 | PT.OTN ---
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 PT-OP-B Current Condition Start: 01/08/20 21:01 Freq: Status: Active Protocol: Document 01/10/20 09:51 LRN (Rec: 01/10/20 10:41 LRN [id number]) Current Condition History of Current Condition Onset Date R foot-09/05/18; L foot - 2018 History of Current Condition Difficulty walking with limping gait. L foot hurts more after resting and decreases with gait. R foot hurts constantly. R big toe surgery to remove bone spur and debride joint - 09/05/18. L foot plantar fasciitis - 2018 Previous rx: Insoles, K-tape but causes some irritation if worn too long. Wears shoes in house not that she has plantar fasciitis. Prior Treatments and Tests Home ex's of passive and active R big toe ext/flex. Massage therapy for L foot that was interrupted by COVID 19. Future Testing and Treatments Planned No further physician visits planned. Developmental History Developmental History See above Treatment Goals Patient/Caregiver Goals Walk normal and without pain. Hiking 6 miles a day. Squatting in shower to shave legs, Squat to weed. No pain with stair ambulation. Prior Functional Status Baseline Function- ADL's Independent Baseline Function- Mobility Independent Baseline Function- Gait Antalgic gait. Needs railing for stair ambulation. Baseline Function- Recreation/Hobbies Hiked 3-6 miles daily on trails. Current Functional Impairments (Reported) Functional Limitations- ADL's Squatting for functional activities (shaving legs, weeding). Functional Limitations- Mobility/Gait Antalgic gait. Single stepping on stairs. Needs railing for stair ambulation. Functional Limitations- Recreation/ Hiking. Hobbies Walking on level pavement at most 1 mile Personal Factors Other Personal Factors That May Effect Chronicity of L foot plantar Therapy/Recovery fasciitis since 01/2019 Back pain Thyroid disorder Autoimmune disorders. PT-OP-C Subjective Start: 01/08/20 21:01 Freq: Status: Active Protocol: Document 04/04/20 12:50 LRN (Rec: 04/04/20 13:44 LRN [id number]) OP-PT Subjective Patient Comments Patient Comments No change except felt pull at L heel this morning going down stairs, better now. R Big toe with ext at ball of Big toe and dorsal surface along scar. Walked all day yestday and neither foot hurt worse ( no pain left, sore/fatigued right). OP-PT Pain Assessment Location L foot Pain Location Details Inner foot end of heel and calcaneal fat pad Intensity 0 R foot Pain Location Details MTP joint Intensity 1 PT-OP-D Balance Start: 01/08/20 21:01 Freq: Status: Active Protocol: Document 03/20/20 13:35 LRN (Rec: 03/20/20 17:57 LRN [id number]) Balance Tests Romberg Romberg 60+ Single Limb Standing Single Limb- Right 3 Single Limb- Left 19 Tandem Tandem Standing R behind 18, L behind 24 Tinetti Balance Assessment Sitting Balance Sitting Balance Steady, safe Arising from Chair Ability to Arise Able, w/o using arms Standing Balance Immediate Standing Balance Steady w/o support Standing Balance Narrow stance w/o support Nudged Response Steady Standing with Eyes Closed Steady Turning Step Pattern Turning 360 Degrees Continuous steps Stability Turning 360 Degrees Steady Sitting Down Sitting Down Safe, steady Gait and Step Initiation of Gait No hesitancy Right Foot Step Length Does pass stance foot Right Foot Step Height Completely clears floor Left Foot Step Length Does pass stance foot Left Foot Step Height Completely clears floor Step Description Step Symmetry Step length appears equal Step Continuity Steps appear continuous Gait Description Path Description Straight Trunk Description No sway Walking Stance Heels apart Scoring and Interpretation Tinetti Composite Score (points) 25 Interpretation of Scores Low risk for falls (>24) PT-OP-E Functional Tests Start: 01/08/20 21:01 Freq: Status: Active Protocol: Document 01/10/20 09:51 LRN (Rec: 01/10/20 15:53 LRN [id number]) Functional Tests Tinetti Balance and Gait Assessment Balance Score 15 Gait Score 8 Composite Score 23 Balance Score Impairment Rating 1 to <20% Impaired (Score 13- 15) Gait Score Impairment Rating 20 to <40% Impaired (Score 8-9 ) Composite Score Impairment Rating 1 to <20% Impaired (Score 23- 27) PT-OP-G Mobility & Gait Start: 01/08/20 21:01 Freq: Status: Active Protocol: Document 01/10/20 09:51 LRN (Rec: 01/10/20 15:53 LRN [id number]) OP Gait Assessment Assistive Devices Assistive Device None Gait Deviations General Gait Pattern Antalgic Factors Limiting Gait Function Factors Limiting Gait Function Decreased Activity Tolerance, Limited Range of Motion,Pain Stair Climbing Evaluation Technique/Endurance Stair Climbing Direction Ascend and Descend Stair Climbing Technique Step to Step PT-OP-H Neuro Start: 01/08/20 21:01 Freq: Status: Active Protocol: Document 01/10/20 09:51 LRN (Rec: 01/10/20 15:53 LRN [id number]) Sensation Evaluation Comments Summary Comments Soft touch Sensation: R foot hypersensitivity around well healed scar. L foot sensation is normal. PT-OP-J Posture/Palpation/Skin Start: 01/08/20 21:01 Freq: Status: Active Protocol: Document 01/10/20 09:51 LRN (Rec: 01/10/20 15:53 LRN [id number]) Posture Evaluation Position Standing Knee Posture (R) Genu Varus,(L) Genu Recurvatum,(R) Genu Recurvatum Ankle/Foot Posture (L) Supinated,(R) Supinated Foot Arch (L) High Arch Comments Posture Comments Big Toe Aducted. Right: slight cross over, Left: no crossover. Palpation Assessment Location R big toe Palpation Location R big toe caudal surface Palpation Findings Soft Tissue Tightness PT-OP-K Range of Motion Start: 01/08/20 21:01 Freq: Status: Active Protocol: Document 04/04/20 12:50 LRN (Rec: 04/04/20 13:44 LRN [id number]) Ankle and Foot Goniometric Range of Motion Ankle and Foot Right Active Testing Position Supine Dorsiflexion with Knee Extended 25 Plantarflexion 53 Left Active Testing Position Supine Dorsiflexion with Knee Extended 25 Plantarflexion 56 Ankle and Foot ROM Limitations Comments Post therapy Ankle AROM: DF: 28 R PF: 48 R Toe Range of Motion Toe Right Great Toe MTP Flexion Active (degrees) 16 MTP Extension Active (degrees) 56 PIP Flexion Active (degrees) 12 Left Great Toe MTP Flexion Active (degrees) 40 MTP Extension Active (degrees) 40 PIP Flexion Active (degrees) 14 Toes ROM Limitations Comments Post therapy: R foot AROM: MTP Flex 6 deg's , Ext 28 deg's; PIP Flex 16 deg's PT-OP-M Strength Start: 01/08/20 21:01 Freq: Status: Active Protocol: Document 01/10/20 09:51 LRN (Rec: 01/10/20 15:53 LRN [id number]) Ankle/Foot Strength Ankle and Foot Manual Muscle Testing Right Reason Not Measured WFL Left Reason Not Measured WFL Toe Strength Toe Manual Muscle Testing Right Great Toe Flexion 4 Good Extension 4 Good Comments MMT is within available ROM Left Great Toe Comments Generally 5/5 Cramping of plantar fascia during testing. PT-OP-Q Treatments Start: 01/08/20 21:01 Freq: Status: Active Protocol: Document 04/04/20 12:50 LRN (Rec: 04/04/20 13:44 LRN [id number]) Cardio Equipment Treadmill Duration (Minutes) 6 Speed 1.7 Incline 0 Therapeutic Exercises Standing Exercises L Gastroc Standing Exercise Name Stretch, f/b 10 active DF Side bilateral Reps/Minutes 60 x 1, f/b active DF Comments Left felt tight Manual Therapy Treatment Soft Tissue Mobilization R Dorsal Foot Body Location Dorsal skin of R foot Mobilization Type Myofascial Release Intensity/Depth Moderate Comments Release in areas affecting R lateral foot (top, lateral, Big toe) R plantar fascia Body Location R Plantar Fascia & Flexor Hallicus Longus Mobilization Type Cross-Friction,Myofascial Release,Strumming Intensity/Depth Moderate Body Position Supine Web space Body Location R web space of 1st & 2nd toe Mobilization Type Myofascial Release,Strumming Intensity/Depth Moderate Body Position Longsit R Big toe Body Location R Big Toe Flexor & Extensor tendon Mobilization Type Instrument Assisted,Myofascial Release,Strumming,Sustained Pressure Intensity/Depth Superficial Body Position Supine Joint Mobilizations R MTP joint Joint R MTP joint Direction PD>DP Grade II Body Position Supine Reps/Duration 2' Comments Mob with occasional compression into the joint to reduce pain. Manual Techniques PROM R Big Toe Type PROM Flex/Ext of MTP jt Body Location Big toe Body Position Supine Reps/Duration 4' Comments ROM taken after stretching. Neuro Re-Education Treatment Balance Activities SLS Details SLS Surface Firm Reps/Duration 2' Comments Right: 53 secs (lateral foot pain) Left: 52 secs (heel pain) Self-Care/Home Management Treatment Education Patient Education Home Exercise Program Activities Self-Care/Home Management Activities Issued & reviewed HEP: Ankle strengthening: PF/DF. V. review of prior HEP of T-Band ankle IV/EV strengthening. PT-OP-R Modalities Start: 01/08/20 21:01 Freq: Status: Active Protocol: Document 03/20/20 13:35 LRN (Rec: 03/20/20 17:37 LRN [id number]) Ultrasound Therapy Treatment R plantar fascia Treatment Duration (minutes) 8 Patient Position Supine Coupling Medium Ultrasound Gel Applicator Size (cm2) 10 Frequency Setting (mHz) 3 Mode Setting Pulsed Duty Cycle 50% Intensity Setting (w/cm2) 1.5 Comments Stretch applied to plantar fascia. PT-OP-T Assessment and Plan Start: 01/08/20 21:01 Freq: Status: Active Protocol: Document 04/04/20 12:50 LRN (Rec: 04/04/20 13:44 LRN [id number]) Physical Therapy Assessment Goals Five Impairment Foot pain (Right 5/10, Left 4/ 10) limiting gait tolerance. Fdc Goal (LTG) Decrease foot pain to no greater than 1/10 with pt able to return to hiking 3 miles and being able to squat in the shower to shave legs without pain. (04/01/20: Pain to start: 3/10 R, 0/10 L; Pain at end: 2/ 10 R, 0/10 L.) LTG Duration 05/02/20 (04/01/20: 0/10 L foot pain, R ft is 1-3/10 pain) Four Impairment Decreased Balance: SLS EO ( Right - 1 sec, Left 19 sec), Tinetti 23/28 Fdc Goal (LTG) Pt will be able to SLS EO - 10 sec bilaterally without LOB to improve function and safety with resulting in improved Tinetti Score of > 24. (: Tinetti score = 26; 04/04: SLS: L is 52 secs, R is 54 secs). 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 Active Ankle DF (knees flexed) no less than 24 deg's Pt will be able to ambulate up /down stairs with normal gait pattern. (02/12/20: Ankle DF legs straight: 20 degs R, 18 degs L Ankle DF knee flexed: 32 degs R, 30 degs L) LTG Duration 05/02/20 (02/12/20: ROM GOAL MET) Two Impairment Decreased Big Toe Right MTP jt AROM (ext 20 deg's, flex 24 deg's) Short Term Goal (STG) Improve R big toe MTP AROM to ext 36 deg's, flex 32 deg's ( equal to left foot) with pt able to ambulate with equal step lengths without use of assistive device. (03/28/20: Right: Ext is 24 degs, Flex is 5 deg's; Left: Ext 40 deg's, Flex 20 deg's.) STG Duration 04/09/20 (03/28/20: Goal not met ) Fdc Goal (LTG) Improve functional ability, per Foot and Ankle Ability Measure (FAAM) Score ( initially 36) no less than 50. (03/20/20: FAAM Score = 50) LTG Duration 04/09/20 (03/20/20: MET GOAL) One Impairment Lacks appropriate HEP Short Term Goal (STG) Self care I/S for scar tissue management and edema management. STG Duration 01/21/20 (12/22/19: GOAL MET) Fdc Goal (LTG) Pt will be independent in a self care HEP to manage her mobility, strength and endurance of her bilateral foot/ankles. 01/15/20: Progressing. LTG Duration 05/02/20 (04/04/20: Progressing) Progress Towards Goals Progress Comments Active ankle mobility is mostly bilaterally symmetrical (DF 25 degs, PF is 53 deg's right, 56 degs left). GOAL #4 MET. Balance has greatly improved with SLS: L - 52 secs, R - 54 secs; initially was Left 19 sec, Right - 1 sec, Assessment Summary Assessment Pt ankle mobility is symmetrical with DF (PF L is 3 deg's greater than the R). Her R Big toe mobility was better prior to therapy due to irritation at the joint after JMT and STM. Pt reportedly was more sore. Overall pt's pain is decreasing on the right and has been painfree on the left except for a twinge of pain after being on her feet the day before all day. She was able to manage the L foot pain. Her SLS is good with 52 secs left, 53 secs right (EO). She did have heel pain on the left and lateral foot pain on the right, limiting her SLS. K-tape appears to be very helpful in reducing her foot pain. Physical Therapy Plan Frequency and Duration Frequency of Treatment 2x/Week Plan of Care Start Date 01/10/20 Plan of Care End Date 05/02/20 Next Visit Focus/Plan Next Note Type Treatment Note Next Visit Plan Last appt approved. Check for approval of more appts. Check stair ambulation, monitor ROM R big toe measure after ROM stretching. Hold US on ball of R foot. Gait tolerance, try inclines and soft surfaces. DTM/MFR of R big toe flexor tendon attached to distal phalanx at DIP joint. STM to interosseous ms btn right 1st and 2nd toe. Assess response to self MWM of 5th digit. Strengthen R Big toe/ankle & L long foot flexors; & Balance training (shuttle), R foot: K-tape for R big toe for inflammation at ball of foot. ROM Big toe for flex > ext. L foot: Therapeutic Ex - strengthening Long foot plantar flexors. DTM to plantar fascia as needed.
--- NOTE | 2020-04-10 13:38 | PT.OTN ---
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 PT-OP-B Current Condition Start: 01/08/20 21:01 Freq: Status: Active Protocol: Document 01/10/20 09:51 LRN (Rec: 01/10/20 10:41 LRN [id number]) Current Condition History of Current Condition Onset Date R foot-09/05/18; L foot - 2018 History of Current Condition Difficulty walking with limping gait. L foot hurts more after resting and decreases with gait. R foot hurts constantly. R big toe surgery to remove bone spur and debride joint - 09/05/18. L foot plantar fasciitis - 2018 Previous rx: Insoles, K-tape but causes some irritation if worn too long. Wears shoes in house not that she has plantar fasciitis. Prior Treatments and Tests Home ex's of passive and active R big toe ext/flex. Massage therapy for L foot that was interrupted by COVID 19. Future Testing and Treatments Planned No further physician visits planned. Developmental History Developmental History See above Treatment Goals Patient/Caregiver Goals Walk normal and without pain. Hiking 6 miles a day. Squatting in shower to shave legs, Squat to weed. No pain with stair ambulation. Prior Functional Status Baseline Function- ADL's Independent Baseline Function- Mobility Independent Baseline Function- Gait Antalgic gait. Needs railing for stair ambulation. Baseline Function- Recreation/Hobbies Hiked 3-6 miles daily on trails. Current Functional Impairments (Reported) Functional Limitations- ADL's Squatting for functional activities (shaving legs, weeding). Functional Limitations- Mobility/Gait Antalgic gait. Single stepping on stairs. Needs railing for stair ambulation. Functional Limitations- Recreation/ Hiking. Hobbies Walking on level pavement at most 1 mile Personal Factors Other Personal Factors That May Effect Chronicity of L foot plantar Therapy/Recovery fasciitis since 01/2019 Back pain Thyroid disorder Autoimmune disorders. PT-OP-C Subjective Start: 01/08/20 21:01 Freq: Status: Active Protocol: Document 04/10/20 11:21 LRN (Rec: 04/10/20 12:06 LRN [id number]) OP-PT Subjective Patient Comments Patient Comments Pt states she is now able to perform L Big toe resisted flexion and ext without plantar MTP jt pain. Day before yesterday was standing on feet a lot and the feet were both sore that night. She iced and stretched and the next day had 1st 5 minutes out of bed was limping. Loosened after stretching and ice and walking. PT-OP-D Balance Start: 01/08/20 21:01 Freq: Status: Active Protocol: Document 03/20/20 13:35 LRN (Rec: 03/20/20 17:57 LRN [id number]) Balance Tests Romberg Romberg 60+ Single Limb Standing Single Limb- Right 3 Single Limb- Left 19 Tandem Tandem Standing R behind 18, L behind 24 Tinetti Balance Assessment Sitting Balance Sitting Balance Steady, safe Arising from Chair Ability to Arise Able, w/o using arms Standing Balance Immediate Standing Balance Steady w/o support Standing Balance Narrow stance w/o support Nudged Response Steady Standing with Eyes Closed Steady Turning Step Pattern Turning 360 Degrees Continuous steps Stability Turning 360 Degrees Steady Sitting Down Sitting Down Safe, steady Gait and Step Initiation of Gait No hesitancy Right Foot Step Length Does pass stance foot Right Foot Step Height Completely clears floor Left Foot Step Length Does pass stance foot Left Foot Step Height Completely clears floor Step Description Step Symmetry Step length appears equal Step Continuity Steps appear continuous Gait Description Path Description Straight Trunk Description No sway Walking Stance Heels apart Scoring and Interpretation Tinetti Composite Score (points) 25 Interpretation of Scores Low risk for falls (>24) PT-OP-E Functional Tests Start: 01/08/20 21:01 Freq: Status: Active Protocol: Document 01/10/20 09:51 LRN (Rec: 01/10/20 15:53 LRN [id number]) Functional Tests Tinetti Balance and Gait Assessment Balance Score 15 Gait Score 8 Composite Score 23 Balance Score Impairment Rating 1 to <20% Impaired (Score 13- 15) Gait Score Impairment Rating 20 to <40% Impaired (Score 8-9 ) Composite Score Impairment Rating 1 to <20% Impaired (Score 23- 27) PT-OP-G Mobility & Gait Start: 01/08/20 21:01 Freq: Status: Active Protocol: Document 01/10/20 09:51 LRN (Rec: 01/10/20 15:53 LRN [id number]) OP Gait Assessment Assistive Devices Assistive Device None Gait Deviations General Gait Pattern Antalgic Factors Limiting Gait Function Factors Limiting Gait Function Decreased Activity Tolerance, Limited Range of Motion,Pain Stair Climbing Evaluation Technique/Endurance Stair Climbing Direction Ascend and Descend Stair Climbing Technique Step to Step PT-OP-H Neuro Start: 01/08/20 21:01 Freq: Status: Active Protocol: Document 01/10/20 09:51 LRN (Rec: 01/10/20 15:53 LRN [id number]) Sensation Evaluation Comments Summary Comments Soft touch Sensation: R foot hypersensitivity around well healed scar. L foot sensation is normal. PT-OP-J Posture/Palpation/Skin Start: 01/08/20 21:01 Freq: Status: Active Protocol: Document 01/10/20 09:51 LRN (Rec: 01/10/20 15:53 LRN [id number]) Posture Evaluation Position Standing Knee Posture (R) Genu Varus,(L) Genu Recurvatum,(R) Genu Recurvatum Ankle/Foot Posture (L) Supinated,(R) Supinated Foot Arch (L) High Arch Comments Posture Comments Big Toe Aducted. Right: slight cross over, Left: no crossover. Palpation Assessment Location R big toe Palpation Location R big toe caudal surface Palpation Findings Soft Tissue Tightness PT-OP-K Range of Motion Start: 01/08/20 21:01 Freq: Status: Active Protocol: Document 04/10/20 11:21 LRN (Rec: 04/10/20 13:26 LRN [id number]) Toe Range of Motion Toe Right Great Toe Toe ROM WFL No MTP Flexion Active (degrees) 18 MTP Extension Active (degrees) 28 PIP Flexion Active (degrees) 30 Left Great Toe MTP Flexion Active (degrees) 40 MTP Extension Active (degrees) 40 PIP Flexion Passive (degrees) 40 PT-OP-M Strength Start: 01/08/20 21:01 Freq: Status: Active Protocol: Document 01/10/20 09:51 LRN (Rec: 01/10/20 15:53 LRN [id number]) Ankle/Foot Strength Ankle and Foot Manual Muscle Testing Right Reason Not Measured WFL Left Reason Not Measured WFL Toe Strength Toe Manual Muscle Testing Right Great Toe Flexion 4 Good Extension 4 Good Comments MMT is within available ROM Left Great Toe Comments Generally 5/5 Cramping of plantar fascia during testing. PT-OP-Q Treatments Start: 01/08/20 21:01 Freq: Status: Active Protocol: Document 04/10/20 11:21 LRN (Rec: 04/10/20 12:06 LRN [id number]) Therapeutic Exercises Supine Exercises Ankle AROM Supine Exercise Name PF/DF/Circles CW & CCW f/b ankle Mob. Side bilateral Reps/Minutes 2' Active Big Toe ROM Supine Exercise Name Active R Big Toe ROM Side left Reps/Minutes 4' Comments ROM msmts taken Manual Therapy Treatment Soft Tissue Mobilization Web space Body Location R web space of 1st & 2nd toe Mobilization Type Myofascial Release,Strumming Intensity/Depth Moderate Body Position Longsit R Big toe Body Location R Big Toe Flexor & Extensor tendon Mobilization Type Myofascial Release Intensity/Depth Superficial Body Position Supine L plantar fascia Body Location L Plantar fascia attachment to Calcaneous Mobilization Type Instrument Assisted,Other Intensity/Depth Moderate Body Position Supine Joint Mobilizations L ankle Joint L ankle joint Direction PA, AP, lat to medial Grade III Body Position Supine Reps/Duration 6' R ankle Joint R ankle joint Direction PA, AP, lat to medial Grade III Body Position Supine Reps/Duration 6' PT-OP-R Modalities Start: 01/08/20 21:01 Freq: Status: Active Protocol: Document 03/20/20 13:35 LRN (Rec: 03/20/20 17:37 LRN [id number]) Ultrasound Therapy Treatment R plantar fascia Treatment Duration (minutes) 8 Patient Position Supine Coupling Medium Ultrasound Gel Applicator Size (cm2) 10 Frequency Setting (mHz) 3 Mode Setting Pulsed Duty Cycle 50% Intensity Setting (w/cm2) 1.5 Comments Stretch applied to plantar fascia. PT-OP-T Assessment and Plan Start: 01/08/20 21:01 Freq: Status: Active Protocol: Document 04/10/20 11:21 LRN (Rec: 04/10/20 13:36 LRN [id number]) Physical Therapy Assessment Goals Five Impairment Foot pain (Right 5/10, Left 4/ 10) limiting gait tolerance. Accounting Support Specialist Goal (LTG) Decrease foot pain to no greater than 1/10 with pt able to return to hiking 3 miles and being able to squat in the shower to shave legs without pain. (04/01/20: Pain to start: 3/10 R, 0/10 L; Pain at end: 2/ 10 R, 0/10 L.) LTG Duration 05/02/20 (04/01/20: 0/10 L foot pain, R ft is 1-3/10 pain) Four Impairment Decreased Balance: SLS EO ( Right - 1 sec, Left 19 sec), Tinetti 23/ [facility] Goal (LTG) Pt will be able to SLS EO - 10 sec bilaterally without LOB to improve function and safety with resulting in improved Tinetti Score of > 24. (: Tinetti score = 26; 04/04: SLS: L is 52 secs, R is 54 secs). LTG Duration 05/02/20 (04/04/20: MET GOAL) Three Impairment Decreased ankle AROM [facility] Goal (LTG) Active Ankle DF (legs straight ) no less than 15 deg's. Active Ankle DF (knees flexed) no less than 24 deg's Pt will be able to ambulate up /down stairs with normal gait pattern. (02/12/20: Ankle DF legs straight: 20 degs R, 18 degs L Ankle DF knee flexed: 32 degs R, 30 degs L) LTG Duration 05/02/20 (02/12/20: ROM GOAL MET) Two Impairment Decreased Big Toe Right MTP jt AROM (ext 20 deg's, flex 24 deg's) Short Term Goal (STG) Improve R big toe MTP AROM to ext 36 deg's, flex 32 deg's ( equal to left foot) with pt able to ambulate with equal step lengths without use of assistive device. (04/10/20: Right: Ext is 18 degs, Flex is 28 deg's; Left: Ext 40 deg's, Flex 20 deg's.) STG Duration 04/09/20 (04/10/20: Improving) Accounting Support Specialist Goal (LTG) Improve functional ability, per Foot and Ankle Ability Measure (FAAM) Score ( initially 36) no less than 50. (03/20/20: FAAM Score = 50) LTG Duration 04/09/20 (03/20/20: MET GOAL) One Impairment Lacks appropriate HEP Short Term Goal (STG) Self care I/S for scar tissue management and edema management. STG Duration 01/21/20 (12/22/19: GOAL MET) Accounting Support Specialist Goal (LTG) Pt will be independent in a self care HEP to manage her mobility, strength and endurance of her bilateral foot/ankles. 01/15/20: Progressing. LTG Duration 05/02/20 (04/04/20: Progressing) Progress Towards Goals Progress Comments Improved R Big Toe active mobility: MTP flex is 18 deg's (was 12 deg's), ext is 28 deg 's (was 28 degs), PIP flexion is 30 deg's (was 26 deg's). Expect previous measurment of MTP ext of 60 deg's was innacurate. Assessment Summary Assessment Pt allowed 24 more PT visits. Pt R big toe mobility is improving. She is now able to resist R big toe flexion without pain at the plantar surface (ball of foot) at the MTP joint. She is having less pain overall. Today she was a little flared after doing prolonged standing causing bilateral foot pain for part of her day yesterday. Physical Therapy Plan Frequency and Duration Frequency of Treatment 2x/Week Plan of Care Start Date 01/10/20 Plan of Care End Date 05/02/20 Next Visit Focus/Plan Next Note Type Treatment Note Next Visit Plan Check stair ambulation, monitor ROM R big toe measure after ROM stretching. Hold US on ball of R foot. Gait tolerance, try inclines and soft surfaces. DTM/MFR of R big toe flexor tendon attached to distal phalanx at DIP joint. STM to interosseous ms btn right 1st and 2nd toe. Strengthen R Big toe/ankle & L long foot flexors; & Balance training (shuttle), R foot: K-tape for R big toe for inflammation at ball of foot. ROM Big toe for flex > ext. L foot: Therapeutic Ex - strengthening Long foot plantar flexors. DTM to plantar fascia as needed.
--- NOTE | 2020-04-14 15:56 | PT.OTN ---
Current Diagnoses Ankylosis, unspecified joint (04/14/20) Plantar fascial fibromatosis (04/14/20) Physical Therapy Treatment Note PT-OP-A Visit Information Start: 01/08/20 21:01 Freq: Status: Active Protocol: Document 04/14/20 12:50 LRN (Rec: 04/14/20 13:35 LRN [id number]) Out-Patient Physical Therapy Visit Information Visit Information Visit Type Treatment Note Visit Start Time 12:50 Visit Stop Time 13:35 Total Visit Minutes 45 Visit Number 25 Evaluation Information Evaluation Date 02/05/20 Precautions Precautions Hx of Vertigo Hypothyroid As child suffered crushed tailbone, with L4, L5, S1 residual dysfunction. PT-OP-B Current Condition Start: 01/08/20 21:01 Freq: Status: Active Protocol: Document 01/10/20 09:51 LRN (Rec: 01/10/20 10:41 LRN [id number]) Current Condition History of Current Condition Onset Date R foot-09/05/18; L foot - 2018 History of Current Condition Difficulty walking with limping gait. L foot hurts more after resting and decreases with gait. R foot hurts constantly. R big toe surgery to remove bone spur and debride joint - 09/05/18. L foot plantar fasciitis - 2018 Previous rx: Insoles, K-tape but causes some irritation if worn too long. Wears shoes in house not that she has plantar fasciitis. Prior Treatments and Tests Home ex's of passive and active R big toe ext/flex. Massage therapy for L foot that was interrupted by COVID 19. Future Testing and Treatments Planned No further physician visits planned. Developmental History Developmental History See above Treatment Goals Patient/Caregiver Goals Walk normal and without pain. Hiking 6 miles a day. Squatting in shower to shave legs, Squat to weed. No pain with stair ambulation. Prior Functional Status Baseline Function- ADL's Independent Baseline Function- Mobility Independent Baseline Function- Gait Antalgic gait. Needs railing for stair ambulation. Baseline Function- Recreation/Hobbies Hiked 3-6 miles daily on trails. Current Functional Impairments (Reported) Functional Limitations- ADL's Squatting for functional activities (shaving legs, weeding). Functional Limitations- Mobility/Gait Antalgic gait. Single stepping on stairs. Needs railing for stair ambulation. Functional Limitations- Recreation/ Hiking. Hobbies Walking on level pavement at most 1 mile Personal Factors Other Personal Factors That May Effect Chronicity of L foot plantar Therapy/Recovery fasciitis since 01/2019 Back pain Thyroid disorder Autoimmune disorders. PT-OP-C Subjective Start: 01/08/20 21:01 Freq: Status: Active Protocol: Document 04/14/20 12:50 LRN (Rec: 04/14/20 13:35 LRN [id number]) OP-PT Subjective Patient Comments Patient Comments States the L foot is good. The R foot hurts underneath the Big toe and today along the lateral side of the foot. Seeing MD 05/09/20. PT-OP-D Balance Start: 01/08/20 21:01 Freq: Status: Active Protocol: Document 03/20/20 13:35 LRN (Rec: 03/20/20 17:57 LRN [id number]) Balance Tests Romberg Romberg 60+ Single Limb Standing Single Limb- Right 3 Single Limb- Left 19 Tandem Tandem Standing R behind 18, L behind 24 Tinetti Balance Assessment Sitting Balance Sitting Balance Steady, safe Arising from Chair Ability to Arise Able, w/o using arms Standing Balance Immediate Standing Balance Steady w/o support Standing Balance Narrow stance w/o support Nudged Response Steady Standing with Eyes Closed Steady Turning Step Pattern Turning 360 Degrees Continuous steps Stability Turning 360 Degrees Steady Sitting Down Sitting Down Safe, steady Gait and Step Initiation of Gait No hesitancy Right Foot Step Length Does pass stance foot Right Foot Step Height Completely clears floor Left Foot Step Length Does pass stance foot Left Foot Step Height Completely clears floor Step Description Step Symmetry Step length appears equal Step Continuity Steps appear continuous Gait Description Path Description Straight Trunk Description No sway Walking Stance Heels apart Scoring and Interpretation Tinetti Composite Score (points) 25 Interpretation of Scores Low risk for falls (>24) PT-OP-E Functional Tests Start: 01/08/20 21:01 Freq: Status: Active Protocol: Document 01/10/20 09:51 LRN (Rec: 01/10/20 15:53 LRN [id number]) Functional Tests Tinetti Balance and Gait Assessment Balance Score 15 Gait Score 8 Composite Score 23 Balance Score Impairment Rating 1 to <20% Impaired (Score 13- 15) Gait Score Impairment Rating 20 to <40% Impaired (Score 8-9 ) Composite Score Impairment Rating 1 to <20% Impaired (Score 23- 27) PT-OP-G Mobility & Gait Start: 01/08/20 21: Freq: Status: Active Protocol: Document 01/10/20 09:51 LRN (Rec: 01/10/20 15:53 LRN [id number]) OP Gait Assessment Assistive Devices Assistive Device None Gait Deviations General Gait Pattern Antalgic Factors Limiting Gait Function Factors Limiting Gait Function Decreased Activity Tolerance, Limited Range of Motion,Pain Stair Climbing Evaluation Technique/Endurance Stair Climbing Direction Ascend and Descend Stair Climbing Technique Step to Step PT-OP-H Neuro Start: 01/08/20 21: Freq: Status: Active Protocol: Document 01/10/20 09:51 LRN (Rec: 01/10/20 15:53 LRN [id number]) Sensation Evaluation Comments Summary Comments Soft touch Sensation: R foot hypersensitivity around well healed scar. L foot sensation is normal. PT-OP-J Posture/Palpation/Skin Start: 01/08/20 21:01 Freq: Status: Active Protocol: Document 01/10/20 09:51 LRN (Rec: 01/10/20 15:53 LRN [id number]) Posture Evaluation Position Standing Knee Posture (R) Genu Varus,(L) Genu Recurvatum,(R) Genu Recurvatum Ankle/Foot Posture (L) Supinated,(R) Supinated Foot Arch (L) High Arch Comments Posture Comments Big Toe Aducted. Right: slight cross over, Left: no crossover. Palpation Assessment Location R big toe Palpation Location R big toe caudal surface Palpation Findings Soft Tissue Tightness PT-OP-K Range of Motion Start: 01/08/20 21:01 Freq: Status: Active Protocol: Document 04/14/20 12:50 LRN (Rec: 04/14/20 13:35 LRN [id number]) Toe Range of Motion Toe Right Great Toe Toe ROM WFL No MTP Flexion Active (degrees) 20 PIP Flexion Active (degrees) 36 PT-OP-M Strength Start: 01/08/20 21:01 Freq: Status: Active Protocol: Document 01/10/20 09:51 LRN (Rec: 01/10/20 15:53 LRN [id number]) Ankle/Foot Strength Ankle and Foot Manual Muscle Testing Right Reason Not Measured WFL Left Reason Not Measured WFL Toe Strength Toe Manual Muscle Testing Right Great Toe Flexion 4 Good Extension 4 Good Comments MMT is within available ROM Left Great Toe Comments Generally 5/5 Cramping of plantar fascia during testing. PT-OP-Q Treatments Start: 01/08/20 21:01 Freq: Status: Active Protocol: Document 04/14/20 12:50 LRN (Rec: 04/14/20 13:35 LRN [id number]) Cardio Equipment Treadmill Duration (Minutes) 6 Speed 1.7 Incline 0 Other Working on normalizing gait on the right. Therapeutic Exercises Sitting Exercises Long Plantar Flexor strengthening Side left Standing Exercises Up on toes PWB Standing Exercise Name Up on toes 20% WBing Side right Reps/Minutes 10x Long foot ms strengthening Standing Exercise Name Lifting of arch Side bilateral Reps/Minutes 10 hold, 6x Comments Discomfort in L heel at end Manual Therapy Treatment Soft Tissue Mobilization R Dorsal Foot Body Location Dorsal skin of R foot Mobilization Type Myofascial Release Intensity/Depth Moderate Comments Release in areas affecting R lateral foot (top, lateral, Big toe) R plantar fascia Body Location R Plantar Fascia & Flexor Hallicus Longus Mobilization Type Cross-Friction,Myofascial Release,Strumming Intensity/Depth Moderate Body Position Supine Web space Body Location R web space of 1st & 2nd toe Mobilization Type Myofascial Release,Strumming Intensity/Depth Moderate Body Position Longsit R Big toe Body Location R Big Toe Flexor & Extensor tendon Mobilization Type Myofascial Release Intensity/Depth Superficial Body Position Supine Taping K-tape R Big toe to facilitate flexion Body Location R Big Toe Treatment Focus flexion facilitation Type of Tape Kinesio Tape Comments 1/2 I-strip toe to attachment. K-tape R Big Toe Flexor tendon Body Location R Big toe flexon tendon Treatment Focus Scar tissue release Type of Tape Kinesio Tape Skin Inspection Excellent Comments 1/4 width I-strip. K-tape R lateral foot Body Location R lateral foot Treatment Focus Stability R lateral MTP joint Type of Tape Kinesio Tape Skin Inspection Good PT-OP-R Modalities Start: 01/08/20 21:01 Freq: Status: Active Protocol: Document 03/20/20 13:35 LRN (Rec: 03/20/20 17:37 LRN [id number]) Ultrasound Therapy Treatment R plantar fascia Treatment Duration (minutes) 8 Patient Position Supine Coupling Medium Ultrasound Gel Applicator Size (cm2) 10 Frequency Setting (mHz) 3 Mode Setting Pulsed Duty Cycle 50% Intensity Setting (w/cm2) 1.5 Comments Stretch applied to plantar fascia. PT-OP-T Assessment and Plan Start: 01/08/20 21:01 Freq: Status: Active Protocol: Document 04/14/20 12:50 LRN (Rec: 04/14/20 13:35 LRN [id number]) Physical Therapy Assessment Goals Five Impairment Foot pain (Right 5/10, Left 4/ 10) limiting gait tolerance. Half-Way Goal (LTG) Decrease foot pain to no greater than 1/10 with pt able to return to hiking 3 miles and being able to squat in the shower to shave legs without pain. (04/01/20: Pain to start: 3/10 R, 0/10 L; Pain at end: 2/ 10 R, 0/10 L.) LTG Duration 05/02/20 (04/01/20: 0/10 L foot pain, R ft is 1-3/10 pain) Three Impairment Decreased ankle AROM Half-Way Goal (LTG) Active Ankle DF (legs straight ) no less than 15 deg's. Active Ankle DF (knees flexed) no less than 24 deg's Pt will be able to ambulate up /down stairs with normal gait pattern. (02/12/20: Ankle DF legs straight: 20 degs R, 18 degs L Ankle DF knee flexed: 32 degs R, 30 degs L) LTG Duration 05/02/20 (04/14/20: MET GOAL) Two Impairment Decreased Big Toe Right MTP jt AROM (ext 20 deg's, flex 24 deg's) Short Term Goal (STG) Improve R big toe MTP AROM to ext 36 deg's, flex 32 deg's ( equal to left foot) with pt able to ambulate with equal step lengths without use of assistive device. (04/14/20: Right: Flex is 20 deg's; Left: Ext 40 deg's, Flex 40 deg's.) STG Duration 04/09/20 (04/14/20: Improving since last msmt) Half-Way Goal (LTG) Improve functional ability, per Foot and Ankle Ability Measure (FAAM) Score ( initially 36) no less than 50. (03/20/20: FAAM Score = 50) LTG Duration 04/09/20 (03/20/20: MET GOAL) One Impairment Lacks appropriate HEP Short Term Goal (STG) Self care I/S for scar tissue management and edema management. 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 01/15/20: Progressing. LTG Duration 05/02/20 (04/04/20: Progressing) Progress Towards Goals Progress Comments Pt able to ambulate up/down stairs without pain and a normal gait pattern at end of therapy. Improved R Big Toe active mobility: MTP flex is 20 deg's (was 18 deg's). PIP Flex is 36 deg's (was 30 deg's). Assessment Summary Assessment Pt improved in R big toe flexion at MCP and PIP jt. Ext was not measured today. Pt had R foot pain besides the ball of the foot of the big toe, but also at the toe web space and the lateral foot. S /P therapy pt complained only of the ball of the foot being uncomfortable. L foot no pain . Physical Therapy Plan Frequency and Duration Frequency of Treatment 2x/Week Plan of Care Start Date 01/10/20 Plan of Care End Date 05/02/20 Next Visit Focus/Plan Next Note Type Treatment Note Next Visit Plan Monitor ROM R big toe measure after ROM stretching. Hold US on ball of R foot. Gait tolerance, try inclines and soft surfaces. DTM/MFR of R big toe flexor tendon attached to distal phalanx at DIP joint. STM to interosseous ms btn right 1st and 2nd toe. Strengthen R Big toe/ankle & L long foot flexors; & Balance training (shuttle), R foot: K-tape for R big toe for inflammation at ball of foot. ROM Big toe for flex > ext. L foot: Therapeutic Ex - strengthening Long foot plantar flexors. DTM to plantar fascia as needed.
--- NOTE | 2020-04-17 15:23 | PT.OTN ---
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 PT-OP-B Current Condition Start: 01/08/20 21:01 Freq: Status: Active Protocol: Document 01/10/20 09:51 LRN (Rec: 01/10/20 10:41 LRN [id number]) Current Condition History of Current Condition Onset Date R foot-09/05/18; L foot - 2018 History of Current Condition Difficulty walking with limping gait. L foot hurts more after resting and decreases with gait. R foot hurts constantly. R big toe surgery to remove bone spur and debride joint - 09/05/18. L foot plantar fasciitis - 2018 Previous rx: Insoles, K-tape but causes some irritation if worn too long. Wears shoes in house not that she has plantar fasciitis. Prior Treatments and Tests Home ex's of passive and active R big toe ext/flex. Massage therapy for L foot that was interrupted by COVID 19. Future Testing and Treatments Planned No further physician visits planned. Developmental History Developmental History See above Treatment Goals Patient/Caregiver Goals Walk normal and without pain. Hiking 6 miles a day. Squatting in shower to shave legs, Squat to weed. No pain with stair ambulation. Prior Functional Status Baseline Function- ADL's Independent Baseline Function- Mobility Independent Baseline Function- Gait Antalgic gait. Needs railing for stair ambulation. Baseline Function- Recreation/Hobbies Hiked 3-6 miles daily on trails. Current Functional Impairments (Reported) Functional Limitations- ADL's Squatting for functional activities (shaving legs, weeding). Functional Limitations- Mobility/Gait Antalgic gait. Single stepping on stairs. Needs railing for stair ambulation. Functional Limitations- Recreation/ Hiking. Hobbies Walking on level pavement at most 1 mile Personal Factors Other Personal Factors That May Effect Chronicity of L foot plantar Therapy/Recovery fasciitis since 01/2019 Back pain Thyroid disorder Autoimmune disorders. PT-OP-C Subjective Start: 01/08/20 21:01 Freq: Status: Active Protocol: Document 04/17/20 12:47 LRN (Rec: 04/17/20 13:37 LRN [id number]) OP-PT Subjective Patient Comments Patient Comments States pain in R foot 0-08/31, no pain L foot. Walking on sand was very helpful to relieve stiffness. PT-OP-D Balance Start: 01/08/20 21:01 Freq: Status: Active Protocol: Document 03/20/20 13:35 LRN (Rec: 03/20/20 17:57 LRN [id number]) Balance Tests Romberg Romberg 60+ Single Limb Standing Single Limb- Right 3 Single Limb- Left 19 Tandem Tandem Standing R behind 18, L behind 24 Tinetti Balance Assessment Sitting Balance Sitting Balance Steady, safe Arising from Chair Ability to Arise Able, w/o using arms Standing Balance Immediate Standing Balance Steady w/o support Standing Balance Narrow stance w/o support Nudged Response Steady Standing with Eyes Closed Steady Turning Step Pattern Turning 360 Degrees Continuous steps Stability Turning 360 Degrees Steady Sitting Down Sitting Down Safe, steady Gait and Step Initiation of Gait No hesitancy Right Foot Step Length Does pass stance foot Right Foot Step Height Completely clears floor Left Foot Step Length Does pass stance foot Left Foot Step Height Completely clears floor Step Description Step Symmetry Step length appears equal Step Continuity Steps appear continuous Gait Description Path Description Straight Trunk Description No sway Walking Stance Heels apart Scoring and Interpretation Tinetti Composite Score (points) 25 Interpretation of Scores Low risk for falls (>24) PT-OP-E Functional Tests Start: 01/08/20 21:01 Freq: Status: Active Protocol: Document 01/10/20 09:51 LRN (Rec: 01/10/20 15:53 LRN [id number]) Functional Tests Tinetti Balance and Gait Assessment Balance Score 15 Gait Score 8 Composite Score 23 Balance Score Impairment Rating 1 to <20% Impaired (Score 13- 15) Gait Score Impairment Rating 20 to <40% Impaired (Score 8-9 ) Composite Score Impairment Rating 1 to <20% Impaired (Score 23- 27) PT-OP-G Mobility & Gait Start: 01/08/20 21:01 Freq: Status: Active Protocol: Document 01/10/20 09:51 LRN (Rec: 01/10/20 15:53 LRN [id number]) OP Gait Assessment Assistive Devices Assistive Device None Gait Deviations General Gait Pattern Antalgic Factors Limiting Gait Function Factors Limiting Gait Function Decreased Activity Tolerance, Limited Range of Motion,Pain Stair Climbing Evaluation Technique/Endurance Stair Climbing Direction Ascend and Descend Stair Climbing Technique Step to Step PT-OP-H Neuro Start: 01/08/20 21: Freq: Status: Active Protocol: Document 01/10/20 09:51 LRN (Rec: 01/10/20 15:53 LRN [id number]) Sensation Evaluation Comments Summary Comments Soft touch Sensation: R foot hypersensitivity around well healed scar. L foot sensation is normal. PT-OP-J Posture/Palpation/Skin Start: 01/08/20 21: Freq: Status: Active Protocol: Document 01/10/20 09:51 LRN (Rec: 01/10/20 15:53 LRN [id number]) Posture Evaluation Position Standing Knee Posture (R) Genu Varus,(L) Genu Recurvatum,(R) Genu Recurvatum Ankle/Foot Posture (L) Supinated,(R) Supinated Foot Arch (L) High Arch Comments Posture Comments Big Toe Aducted. Right: slight cross over, Left: no crossover. Palpation Assessment Location R big toe Palpation Location R big toe caudal surface Palpation Findings Soft Tissue Tightness PT-OP-K Range of Motion Start: 01/08/20 21:01 Freq: Status: Active Protocol: Document 04/14/20 12:50 LRN (Rec: 04/14/20 13:35 LRN [id number]) Toe Range of Motion Toe Right Great Toe Toe ROM WFL No MTP Flexion Active (degrees) 20 PIP Flexion Active (degrees) 36 PT-OP-M Strength Start: 01/08/20 21:01 Freq: Status: Active Protocol: Document 01/10/20 09:51 LRN (Rec: 01/10/20 15:53 LRN [id number]) Ankle/Foot Strength Ankle and Foot Manual Muscle Testing Right Reason Not Measured WFL Left Reason Not Measured WFL Toe Strength Toe Manual Muscle Testing Right Great Toe Flexion 4 Good Extension 4 Good Comments MMT is within available ROM Left Great Toe Comments Generally 5/5 Cramping of plantar fascia during testing. PT-OP-Q Treatments Start: 01/08/20 21:01 Freq: Status: Active Protocol: Document 04/17/20 12:47 LRN (Rec: 04/17/20 13:37 LRN [id number]) Cardio Equipment Treadmill Duration (Minutes) 7 Speed 1.6 Incline 0, 1 Other Speed change and adding incline with limiting R foot pain. Manual Therapy Treatment Soft Tissue Mobilization R Dorsal Foot Body Location Dorsal skin of R foot Mobilization Type Myofascial Release Intensity/Depth Moderate Comments Release in areas affecting R lateral foot (top, lateral, Big toe) R plantar fascia Body Location R Plantar Fascia & Flexor Hallicus Longus Mobilization Type Cross-Friction,Myofascial Release,Strumming Intensity/Depth Moderate Body Position Supine Comments MFR with tendon gliding Web space Body Location R web space of 1st & 2nd toe Mobilization Type Myofascial Release,Strumming Intensity/Depth Moderate Body Position Longsit R Big toe Body Location R Big Toe Flexor & Extensor tendon Mobilization Type Myofascial Release Intensity/Depth Superficial Body Position Supine Joint Mobilizations R MTP joint Joint R MTP joint Direction PD>DP Body Position Longsit Taping K-tape Body Location Ball of right 1st toe. Treatment Focus Improving scar mobility and decreasing pain Type of Tape Kinesio Tape Skin Inspection Good Manual Techniques PROM R Big Toe Type PROM Flex/Ext/tendon glifde of MTP jt Body Location Big toe Body Position Supine Reps/Duration 4' Comments ROM taken after stretching. Neuro Re-Education Treatment Balance Activities Standing on BOSU Ball Details Standing and marching on BOSU ball Surface Soft side Reps/Duration 4' Walking unlevel surfaces Details Walking on Blue and Black foam and folded red mat Reps/Duration 10' Comments Rocking back and forth and walking. PT-OP-R Modalities Start: 01/08/20 21:01 Freq: Status: Active Protocol: Document 03/20/20 13:35 LRN (Rec: 03/20/20 17:37 LRN [id number]) Ultrasound Therapy Treatment R plantar fascia Treatment Duration (minutes) 8 Patient Position Supine Coupling Medium Ultrasound Gel Applicator Size (cm2) 10 Frequency Setting (mHz) 3 Mode Setting Pulsed Duty Cycle 50% Intensity Setting (w/cm2) 1.5 Comments Stretch applied to plantar fascia. PT-OP-T Assessment and Plan Start: 01/08/20 21:01 Freq: Status: Active Protocol: Document 04/17/20 12:47 LRN (Rec: 04/17/20 13:37 LRN [id number]) Physical Therapy Assessment Goals Five Impairment Foot pain (Right 5/10, Left 4/ 10) limiting gait tolerance. Usp Goal (LTG) Decrease foot pain to no greater than 1/10 with pt able to return to hiking 3 miles and being able to squat in the shower to shave legs without pain. 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 Active Ankle DF (knees flexed) no less than 24 deg's Pt will be able to ambulate up /down stairs with normal gait pattern. (02/12/20: Ankle DF legs straight: 20 degs R, 18 degs L Ankle DF knee flexed: 32 degs R, 30 degs L) LTG Duration 05/02/20 (04/14/20: MET GOAL) Two Impairment Decreased Big Toe Right MTP jt AROM (ext 20 deg's, flex 24 deg's) Short Term Goal (STG) Improve R big toe MTP AROM to ext 36 deg's, flex 32 deg's ( equal to left foot) with pt able to ambulate with equal step lengths without use of assistive device. (04/14/20: Right: Flex is 20 deg's; Left: Ext 40 deg's, Flex 40 deg's.) STG Duration 04/09/20 (04/14/20: Improving since last msmt) Engineering Manager Electronics Goal (LTG) Improve functional ability, per Foot and Ankle Ability Measure (FAAM) Score ( initially 36) no less than 50. (03/20/20: FAAM Score = 50) LTG Duration 04/09/20 (03/20/20: MET GOAL) One Impairment Lacks appropriate HEP Short Term Goal (STG) Self care I/S for scar tissue management and edema management. STG Duration 01/21/20 (12/22/19: GOAL MET) Usp Goal (LTG) Pt will be independent in a self care HEP to manage her mobility, strength and endurance of her bilateral foot/ankles. 01/15/20: Progressing. LTG Duration 05/02/20 (04/04/20: Progressing) Progress Towards Goals Progress Comments L foot pain is fairly consistently 0/10. R foot pain: start 10/29, post therapy 08/31. Assessment Summary Assessment Pain is less in R foot, along the flexor tendon of the 1st Big toe. Pain is primarily along the FHL tendon and ball of foot on WBing (possibly sesmoiditis). L foot appears resolved for daily activities. Physical Therapy Plan Frequency and Duration Frequency of Treatment 2x/Week Plan of Care Start Date 01/10/20 Plan of Care End Date 05/02/20 Next Visit Focus/Plan Next Note Type Treatment Note Next Visit Plan Monitor ROM R big toe: measure before/after ROM stretching. Hold US on ball of R foot. Gait tolerance, progress inclines and soft surfaces, shuttle balance. DTM/MFR of R big toe flexor tendon attached to distal phalanx at DIP joint. STM to interosseous ms btn right 1st and 2nd toe. Strengthen R Big toe/ankle & L long foot flexors; R foot: K-tape for R big toe for inflammation at ball of foot. ROM Big toe for flex > ext. L foot: Therapeutic Ex - strengthening Long foot plantar flexors. DTM to plantar fascia as needed.
--- NOTE | 2020-04-22 16:47 | PT.OTN ---
Current Diagnoses Ankylosis, unspecified joint (04/22/20) Plantar fascial fibromatosis (04/22/20) Physical Therapy Treatment Note PT-OP-A Visit Information Start: 01/08/20 21:01 Freq: Status: Active Protocol: Document 04/22/20 12:48 LRN (Rec: 04/22/20 13:34 LRN [id number]) Out-Patient Physical Therapy Visit Information Visit Information Visit Type Treatment Note Visit Note Fire Drill first part of therapy; therefore started treatment late. 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 PT-OP-B Current Condition Start: 01/08/20 21:01 Freq: Status: Active Protocol: Document 01/10/20 09:51 LRN (Rec: 01/10/20 10:41 LRN [id number]) Current Condition History of Current Condition Onset Date R foot-09/05/18; L foot - 2018 History of Current Condition Difficulty walking with limping gait. L foot hurts more after resting and decreases with gait. R foot hurts constantly. R big toe surgery to remove bone spur and debride joint - 09/05/18. L foot plantar fasciitis - 2018 Previous rx: Insoles, K-tape but causes some irritation if worn too long. Wears shoes in house not that she has plantar fasciitis. Prior Treatments and Tests Home ex's of passive and active R big toe ext/flex. Massage therapy for L foot that was interrupted by COVID 19. Future Testing and Treatments Planned No further physician visits planned. Developmental History Developmental History See above Treatment Goals Patient/Caregiver Goals Walk normal and without pain. Hiking 6 miles a day. Squatting in shower to shave legs, Squat to weed. No pain with stair ambulation. Prior Functional Status Baseline Function- ADL's Independent Baseline Function- Mobility Independent Baseline Function- Gait Antalgic gait. Needs railing for stair ambulation. Baseline Function- Recreation/Hobbies Hiked 3-6 miles daily on trails. Current Functional Impairments (Reported) Functional Limitations- ADL's Squatting for functional activities (shaving legs, weeding). Functional Limitations- Mobility/Gait Antalgic gait. Single stepping on stairs. Needs railing for stair ambulation. Functional Limitations- Recreation/ Hiking. Hobbies Walking on level pavement at most 1 mile Personal Factors Other Personal Factors That May Effect Chronicity of L foot plantar Therapy/Recovery fasciitis since 01/2019 Back pain Thyroid disorder Autoimmune disorders. PT-OP-C Subjective Start: 01/08/20 21:01 Freq: Status: Active Protocol: Document 04/22/20 12:48 LRN (Rec: 04/22/20 16:37 LRN [id number]) OP-PT Subjective Patient Comments Patient Comments States her R foot hurts on the bottom and top of the big toe at the area of the MTP joint mildly (mild on pain scale is 2/10). PT-OP-D Balance Start: 01/08/20 21:01 Freq: Status: Active Protocol: Document 03/20/20 13:35 LRN (Rec: 03/20/20 17:57 LRN [id number]) Balance Tests Romberg Romberg 60+ Single Limb Standing Single Limb- Right 3 Single Limb- Left 19 Tandem Tandem Standing R behind 18, L behind 24 Tinetti Balance Assessment Sitting Balance Sitting Balance Steady, safe Arising from Chair Ability to Arise Able, w/o using arms Standing Balance Immediate Standing Balance Steady w/o support Standing Balance Narrow stance w/o support Nudged Response Steady Standing with Eyes Closed Steady Turning Step Pattern Turning 360 Degrees Continuous steps Stability Turning 360 Degrees Steady Sitting Down Sitting Down Safe, steady Gait and Step Initiation of Gait No hesitancy Right Foot Step Length Does pass stance foot Right Foot Step Height Completely clears floor Left Foot Step Length Does pass stance foot Left Foot Step Height Completely clears floor Step Description Step Symmetry Step length appears equal Step Continuity Steps appear continuous Gait Description Path Description Straight Trunk Description No sway Walking Stance Heels apart Scoring and Interpretation Tinetti Composite Score (points) 25 Interpretation of Scores Low risk for falls (>24) PT-OP-E Functional Tests Start: 01/08/20 21:01 Freq: Status: Active Protocol: Document 01/10/20 09:51 LRN (Rec: 01/10/20 15:53 LRN [id number]) Functional Tests Tinetti Balance and Gait Assessment Balance Score 15 Gait Score 8 Composite Score 23 Balance Score Impairment Rating 1 to <20% Impaired (Score 13- 15) Gait Score Impairment Rating 20 to <40% Impaired (Score 8-9 ) Composite Score Impairment Rating 1 to <20% Impaired (Score 23- 27) PT-OP-G Mobility & Gait Start: 01/08/20 21:01 Freq: Status: Active Protocol: Document 04/22/20 12:48 LRN (Rec: 04/22/20 16:37 LRN [id number]) OP Gait Assessment Comments Gait Comments R foot: Pt supinates and the Big toe appears to lack toe flexion/push off due to rotation away from the toe ( into supination). L foot: fallen arch with pronation of foot. PT-OP-H Neuro Start: 01/08/20 21:01 Freq: Status: Active Protocol: Document 01/10/20 09:51 LRN (Rec: 01/10/20 15:53 LRN [id number]) Sensation Evaluation Comments Summary Comments Soft touch Sensation: R foot hypersensitivity around well healed scar. L foot sensation is normal. PT-OP-J Posture/Palpation/Skin Start: 01/08/20 21:01 Freq: Status: Active Protocol: Document 01/10/20 09:51 LRN (Rec: 01/10/20 15:53 LRN [id number]) Posture Evaluation Position Standing Knee Posture (R) Genu Varus,(L) Genu Recurvatum,(R) Genu Recurvatum Ankle/Foot Posture (L) Supinated,(R) Supinated Foot Arch (L) High Arch Comments Posture Comments Big Toe Aducted. Right: slight cross over, Left: no crossover. Palpation Assessment Location R big toe Palpation Location R big toe caudal surface Palpation Findings Soft Tissue Tightness PT-OP-K Range of Motion Start: 01/08/20 21:01 Freq: Status: Active Protocol: Document 04/22/20 12:48 LRN (Rec: 04/22/20 16:44 LRN [id number]) Toe Range of Motion Toe Right Great Toe Toe ROM WFL No MTP Flexion Active (degrees) 20 MTP Flexion Passive (degrees) 32 MTP Extension Active (degrees) 14 MTP Extension Passive (degrees) 26 PIP Flexion Active (degrees) 30 PIP Flexion Passive (degrees) 40 Left Great Toe MTP Flexion Active (degrees) 36 MTP Extension Active (degrees) 38 PIP Flexion Active (degrees) 34 Toes ROM Limitations Comments S/P Therapy AROM of R Big toe: MTP Flexion is 24 deg's MTP Extension is 18 deg's PIP Flexion is 34 deg's PT-OP-M Strength Start: 01/08/20 21:01 Freq: Status: Active Protocol: Document 01/10/20 09:51 LRN (Rec: 01/10/20 15:53 LRN [id number]) Ankle/Foot Strength Ankle and Foot Manual Muscle Testing Right Reason Not Measured WFL Left Reason Not Measured WFL Toe Strength Toe Manual Muscle Testing Right Great Toe Flexion 4 Good Extension 4 Good Comments MMT is within available ROM Left Great Toe Comments Generally 5/5 Cramping of plantar fascia during testing. PT-OP-Q Treatments Start: 01/08/20 21:01 Freq: Status: Active Protocol: Document 04/22/20 12:48 LRN (Rec: 04/22/20 16:37 LRN [id number]) Therapeutic Exercises Supine Exercises PROM R Big Toe PROM Supine Exercise Name Big Toe PROM into flex/ext Side right Reps/Minutes 9' Comments PROM msmts taken Active Big Toe ROM Supine Exercise Name AROM & AAROM Big Toe Side right Reps/Minutes 9' Comments L & R AROM msmts taken Sitting Exercises R ankle CKC Eversion Sitting Exercise Name R ankle CKC Eversion Side right Reps/Minutes 3' Long Plantar Flexor strengthening Sitting Exercise Name L foot gerald long foot flexor contractions partially during R toe man thpy Side left Reps/Minutes 4' Toe Curls Sitting Exercise Name L foot moving marbles from IV to EV partially during R toe manual therapy Side left Reps/Minutes 4' Standing Exercises Grass walking Standing Exercise Name Grass walking Reps/Minutes 2' Manual Therapy Treatment Soft Tissue Mobilization R Dorsal Foot Body Location Dorsal skin of R foot Mobilization Type Myofascial Release Intensity/Depth Moderate Comments Release in areas affecting R lateral foot (top, lateral, Big toe) R Big toe Body Location R Big Toe Flexor & Extensor tendon Mobilization Type Myofascial Release Intensity/Depth Superficial Body Position Supine Joint Mobilizations R ankle Joint Talocalcaneal joint Direction EV Grade II Body Position Sitting Reps/Duration 3' Comments Pt shown how she can self mobilize the joint. R MTP joint Joint R MTP joint Direction PD>DP Body Position Longsit PT-OP-R Modalities Start: 01/08/20 21:01 Freq: Status: Active Protocol: Document 03/20/20 13:35 LRN (Rec: 03/20/20 17:37 LRN [id number]) Ultrasound Therapy Treatment R plantar fascia Treatment Duration (minutes) 8 Patient Position Supine Coupling Medium Ultrasound Gel Applicator Size (cm2) 10 Frequency Setting (mHz) 3 Mode Setting Pulsed Duty Cycle 50% Intensity Setting (w/cm2) 1.5 Comments Stretch applied to plantar fascia. PT-OP-T Assessment and Plan Start: 01/08/20 21:01 Freq: Status: Active Protocol: Document 04/22/20 12:48 LRN (Rec: 04/22/20 16:37 LRN [id number]) Physical Therapy Assessment Goals Five Impairment Foot pain (Right 5/10, Left 4/ 10) limiting gait tolerance. Assisted Goal (LTG) Decrease foot pain to no greater than 1/10 with pt able to return to hiking 3 miles and being able to squat in the shower to shave legs without pain. (04/17/20: Pain to start: 3/10 R, 0/10 L; Pain at end: 1/ 10 R, 0/10 L.) LTG Duration 05/02/20 (04/22/20: 0/10 L foot pain, R ft is 1-2/10 pain) Three Impairment Decreased ankle AROM Assisted Goal (LTG) Active Ankle DF (legs straight ) no less than 15 deg's. Active Ankle DF (knees flexed) no less than 24 deg's Pt will be able to ambulate up /down stairs with normal gait pattern. (02/12/20: Ankle DF legs straight: 20 degs R, 18 degs L Ankle DF knee flexed: 32 degs R, 30 degs L) LTG Duration 05/02/20 (04/14/20: MET GOAL) Two Impairment Decreased Big Toe Right MTP jt AROM (ext 20 deg's, flex 24 deg's) Short Term Goal (STG) Improve R big toe MTP AROM to ext 36 deg's, flex 32 deg's ( equal to left foot) with pt able to ambulate with equal step lengths without use of assistive device. (04/14/20: Right: Flex is 20 deg's; Left: Ext 40 deg's, Flex 40 deg's.) STG Duration 04/09/20 (04/14/20: Improving since last msmt) Graphic Designer Goal (LTG) Improve functional ability, per Foot and Ankle Ability Measure (FAAM) Score ( initially 36) no less than 50. (03/20/20: FAAM Score = 50) LTG Duration 04/09/20 (03/20/20: MET GOAL) One Impairment Lacks appropriate HEP Short Term Goal (STG) Self care I/S for scar tissue management and edema management. STG Duration 01/21/20 (12/22/19: GOAL MET) Assisted Goal (LTG) Pt will be independent in a self care HEP to manage her mobility, strength and endurance of her bilateral foot/ankles. 01/15/20: Progressing. LTG Duration 05/02/20 (04/22/20: Progressing ) Progress Towards Goals Progress Comments R foot pain: start 10/01, end . Improve R big toe AROM after therapy session. (Start in deg 's: MTP flex 20, MTP Ext 14, PIP Flex 30; After Therapy in deg's: MTP flex 24, MTP Ext 18 , PIP Flex 34). Assessment Summary Assessment R Big Toe AROM improved after therapy 4 deg's. Starting ROM of R big toe MTP active flex was unchanged from last sessions ending ROM. IP active flex was less than ending of last session. Pt is reporting less onset of R big toe pain. Gait analysis indicates she supinates the R foot on toe off and is decreased with mobility into EV; therefore causing discomfort on the lateral foot as noted in the past with gait. Physical Therapy Plan Frequency and Duration Frequency of Treatment 2x/Week Plan of Care Start Date 01/10/20 Plan of Care End Date 05/02/20 Next Visit Focus/Plan Next Note Type Treatment Note Next Visit Plan Monitor ROM R big toe: measure before/after ROM stretching. Hold US on ball of R foot. Gait tolerance, progress inclines and soft surfaces, shuttle balance. R foot: K-tape for R big toe for inflammation at ball of foot as needed. AROM Big toe for flex & ext. Mob/Strengthen ankle EV, L long foot flexors; Stretch f/b strengthening of R big toe flexor tendon attached to distal phalanx at DIP joint as needed. L foot: Therapeutic Ex - strengthening Long foot plantar flexors and ankle IV. DTM to plantar fascia as needed.
--- NOTE | 2020-04-25 19:02 | PT.OTN ---
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 PT-OP-B Current Condition Start: 01/08/20 21:01 Freq: Status: Active Protocol: Document 01/10/20 09:51 LRN (Rec: 01/10/20 10:41 LRN [id number]) Current Condition History of Current Condition Onset Date R foot-09/05/18; L foot - 2018 History of Current Condition Difficulty walking with limping gait. L foot hurts more after resting and decreases with gait. R foot hurts constantly. R big toe surgery to remove bone spur and debride joint - 09/05/18. L foot plantar fasciitis - 2018 Previous rx: Insoles, K-tape but causes some irritation if worn too long. Wears shoes in house not that she has plantar fasciitis. Prior Treatments and Tests Home ex's of passive and active R big toe ext/flex. Massage therapy for L foot that was interrupted by COVID 19. Future Testing and Treatments Planned No further physician visits planned. Developmental History Developmental History See above Treatment Goals Patient/Caregiver Goals Walk normal and without pain. Hiking 6 miles a day. Squatting in shower to shave legs, Squat to weed. No pain with stair ambulation. Prior Functional Status Baseline Function- ADL's Independent Baseline Function- Mobility Independent Baseline Function- Gait Antalgic gait. Needs railing for stair ambulation. Baseline Function- Recreation/Hobbies Hiked 3-6 miles daily on trails. Current Functional Impairments (Reported) Functional Limitations- ADL's Squatting for functional activities (shaving legs, weeding). Functional Limitations- Mobility/Gait Antalgic gait. Single stepping on stairs. Needs railing for stair ambulation. Functional Limitations- Recreation/ Hiking. Hobbies Walking on level pavement at most 1 mile Personal Factors Other Personal Factors That May Effect Chronicity of L foot plantar Therapy/Recovery fasciitis since 01/2019 Back pain Thyroid disorder Autoimmune disorders. PT-OP-C Subjective Start: 01/08/20 21:01 Freq: Status: Active Protocol: Document 04/25/20 12:45 LRN (Rec: 04/25/20 13:33 LRN [id number]) OP-PT Subjective Patient Comments Patient Comments States her foot around the R MTP joint and plantar surface of Big toe from MTP jt to top of toe. Pain is 1-2/10, worse pain is 4/10. PT-OP-D Balance Start: 01/08/20 21:01 Freq: Status: Active Protocol: Document 03/20/20 13:35 LRN (Rec: 03/20/20 17:57 LRN [id number]) Balance Tests Romberg Romberg 60+ Single Limb Standing Single Limb- Right 3 Single Limb- Left 19 Tandem Tandem Standing R behind 18, L behind 24 Tinetti Balance Assessment Sitting Balance Sitting Balance Steady, safe Arising from Chair Ability to Arise Able, w/o using arms Standing Balance Immediate Standing Balance Steady w/o support Standing Balance Narrow stance w/o support Nudged Response Steady Standing with Eyes Closed Steady Turning Step Pattern Turning 360 Degrees Continuous steps Stability Turning 360 Degrees Steady Sitting Down Sitting Down Safe, steady Gait and Step Initiation of Gait No hesitancy Right Foot Step Length Does pass stance foot Right Foot Step Height Completely clears floor Left Foot Step Length Does pass stance foot Left Foot Step Height Completely clears floor Step Description Step Symmetry Step length appears equal Step Continuity Steps appear continuous Gait Description Path Description Straight Trunk Description No sway Walking Stance Heels apart Scoring and Interpretation Tinetti Composite Score (points) 25 Interpretation of Scores Low risk for falls (>24) PT-OP-E Functional Tests Start: 01/08/20 21:01 Freq: Status: Active Protocol: Document 01/10/20 09:51 LRN (Rec: 01/10/20 15:53 LRN [id number]) Functional Tests Tinetti Balance and Gait Assessment Balance Score 15 Gait Score 8 Composite Score 23 Balance Score Impairment Rating 1 to <20% Impaired (Score 13- 15) Gait Score Impairment Rating 20 to <40% Impaired (Score 8-9 ) Composite Score Impairment Rating 1 to <20% Impaired (Score 23- 27) PT-OP-G Mobility & Gait Start: 01/08/20 21: Freq: Status: Active Protocol: Document 04/22/20 12:48 LRN (Rec: 04/22/20 16:37 LRN [id number]) OP Gait Assessment Comments Gait Comments R foot: Pt supinates and the Big toe appears to lack toe flexion/push off due to rotation away from the toe ( into supination). L foot: fallen arch with pronation of foot. PT-OP-H Neuro Start: 01/08/20 21: Freq: Status: Active Protocol: Document 01/10/20 09:51 LRN (Rec: 01/10/20 15:53 LRN [id number]) Sensation Evaluation Comments Summary Comments Soft touch Sensation: R foot hypersensitivity around well healed scar. L foot sensation is normal. PT-OP-J Posture/Palpation/Skin Start: 01/08/20 21: Freq: Status: Active Protocol: Document 01/10/20 09:51 LRN (Rec: 01/10/20 15:53 LRN [id number]) Posture Evaluation Position Standing Knee Posture (R) Genu Varus,(L) Genu Recurvatum,(R) Genu Recurvatum Ankle/Foot Posture (L) Supinated,(R) Supinated Foot Arch (L) High Arch Comments Posture Comments Big Toe Aducted. Right: slight cross over, Left: no crossover. Palpation Assessment Location R big toe Palpation Location R big toe caudal surface Palpation Findings Soft Tissue Tightness PT-OP-K Range of Motion Start: 01/08/20 21:01 Freq: Status: Active Protocol: Document 04/25/20 12:45 LRN (Rec: 04/25/20 13:33 LRN [id number]) Ankle and Foot Goniometric Range of Motion Ankle and Foot Right Active Dorsiflexion with Knee Extended 25 Plantarflexion 73 Inversion 46 Eversion 14 Toe Range of Motion Toe Right Great Toe Toe ROM WFL No MTP Flexion Active (degrees) 14 MTP Extension Active (degrees) 20 PIP Flexion Active (degrees) 40 PIP Flexion Passive (degrees) 48 PT-OP-M Strength Start: 01/08/20 21:01 Freq: Status: Active Protocol: Document 01/10/20 09:51 LRN (Rec: 01/10/20 15:53 LRN [id number]) Ankle/Foot Strength Ankle and Foot Manual Muscle Testing Right Reason Not Measured WFL Left Reason Not Measured WFL Toe Strength Toe Manual Muscle Testing Right Great Toe Flexion 4 Good Extension 4 Good Comments MMT is within available ROM Left Great Toe Comments Generally 5/5 Cramping of plantar fascia during testing. PT-OP-Q Treatments Start: 01/08/20 21:01 Freq: Status: Active Protocol: Document 04/25/20 12:45 LRN (Rec: 04/25/20 14:23 LRN [id number]) Therapeutic Exercises Supine Exercises PROM R Big Toe PROM Supine Exercise Name Big Toe PROM into flex/ext Side right Reps/Minutes 6' Active Big Toe ROM Supine Exercise Name AROM & AAROM Big Toe Side right Reps/Minutes 9' Comments L & R AROM msmts taken Manual Therapy Treatment Soft Tissue Mobilization R Dorsal Foot Body Location Dorsal skin of R foot, Big toe Mobilization Type Myofascial Release Intensity/Depth Moderate R plantar fascia Body Location R Plantar Fascia & Flexor Hallicus Longus Mobilization Type Cross-Friction,Myofascial Release,Strumming Intensity/Depth Moderate Body Position Supine Comments MFR with tendon gliding Web space Body Location Medial side to R big toe Intensity/Depth Superficial R Big toe Body Location R Big Toe Flexor & Extensor tendon Mobilization Type Myofascial Release Intensity/Depth Superficial Joint Mobilizations R ankle Joint Talocalcaneal joint Direction EV, PF, DF Grade II Body Position Supine Reps/Duration 6' R MTP joint Joint R MTP joint Direction PD>DP Body Position Longsit PT-OP-R Modalities Start: 01/08/20 21:01 Freq: Status: Active Protocol: Document 04/25/20 12:45 LRN (Rec: 04/25/20 19:01 LRN [id number]) Hot Pack/Cold Pack Treatment Cold Pack Location R distal foot Treatment Duration (minutes) 6 Comments During ankle mob treatment. PT-OP-T Assessment and Plan Start: 01/08/20 21:01 Freq: Status: Active Protocol: Document 04/25/20 12:45 LRN (Rec: 04/25/20 13:33 LRN [id number]) Physical Therapy Assessment Goals Five Impairment Foot pain (Right 5/10, Left 4/ 10) limiting gait tolerance. Fdc Goal (LTG) Decrease foot pain to no greater than 1/10 with pt able to return to hiking 3 miles and being able to squat in the shower to shave legs without pain. (04/17/20: Pain to start: 3/10 R, 0/10 L; Pain at end: 1/ 10 R, 0/10 L.) LTG Duration 05/02/20 (04/22/20: 0/10 L foot pain, R ft is 1-2/10 pain) Two Impairment Decreased Big Toe Right MTP jt AROM (ext 20 deg's, flex 24 deg's) Short Term Goal (STG) Improve R big toe MTP AROM to ext 36 deg's, flex 32 deg's ( equal to left foot) with pt able to ambulate with equal step lengths without use of assistive device. (04/14/20: Right: Flex is 20 deg's; Left: Ext 40 deg's, Flex 40 deg's.) STG Duration 04/09/20 (04/25/20: Walks equal step length) Gamewell Operator Goal (LTG) Improve functional ability, per Foot and Ankle Ability Measure (FAAM) Score ( initially 36) no less than 50. (03/20/20: FAAM Score = 50) LTG Duration 04/09/20 (03/20/20: MET GOAL) One Impairment Lacks appropriate HEP Short Term Goal (STG) Self care I/S for scar tissue management and edema management. STG Duration 01/21/20 (12/22/19: GOAL MET) Gamewell Operator Goal (LTG) Pt will be independent in a self care HEP to manage her mobility, strength and endurance of her bilateral foot/ankles. 01/15/20: Progressing. LTG Duration 05/02/20 (04/22/20: Progressing ) Progress Towards Goals Progress Comments R Ankle DF with leg straight is improved (20, was 14), IV is WNL. Pt able to walk without pain in the feet bilaterally 1 entire day wearing sandals. Assessment Summary Assessment Active R ankle DF is WNL with leg straight, will check with knee flexed next visit. EV is decreased (< 15), IV is WNL ( >35). Edema of R foot, possibly from wearing of sandals allowing greater ROM at toes. Physical Therapy Plan Frequency and Duration Frequency of Treatment 2x/Week Plan of Care Start Date 01/10/20 Plan of Care End Date 05/02/20 Next Visit Focus/Plan Next Note Type Treatment Note Next Visit Plan Assess pt trial of wearing winter regular shoes vs stiff hiking boots, and squatting in shower to shave. Improve R foot EV ROM, strengthen ankles (R. EV>L. IV) & R big toe and L foot flexors, Monitor ROM R big toe: measure before/after ROM stretching. Try K-tape for R big toe for AB Hold US on ball of R foot. Gait tolerance, progress inclines and soft surfaces, shuttle balance. R foot: K-tape for inflammation at ball of foot as needed. AROM Big toe for flex & ext. Mob/Strengthen ankle EV, L long foot flexors; Stretch f/b strengthening of R big toe flexor tendon attached to distal phalanx at DIP joint as needed. L foot: Therapeutic Ex - strengthening Long foot plantar flexors and ankle IV. DTM to plantar fascia as needed.
--- NOTE | 2020-05-16 16:30 | PT.OTN ---
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 PT-OP-B Current Condition Start: 01/08/20 21:01 Freq: Status: Active Protocol: Document 01/10/20 09:51 LRN (Rec: 01/10/20 10:41 LRN [id number]) Current Condition History of Current Condition Onset Date R foot-09/05/18; L foot - 2018 History of Current Condition Difficulty walking with limping gait. L foot hurts more after resting and decreases with gait. R foot hurts constantly. R big toe surgery to remove bone spur and debride joint - 09/05/18. L foot plantar fasciitis - 2018 Previous rx: Insoles, K-tape but causes some irritation if worn too long. Wears shoes in house not that she has plantar fasciitis. Prior Treatments and Tests Home ex's of passive and active R big toe ext/flex. Massage therapy for L foot that was interrupted by COVID 19. Future Testing and Treatments Planned No further physician visits planned. Developmental History Developmental History See above Treatment Goals Patient/Caregiver Goals Walk normal and without pain. Hiking 6 miles a day. Squatting in shower to shave legs, Squat to weed. No pain with stair ambulation. Prior Functional Status Baseline Function- ADL's Independent Baseline Function- Mobility Independent Baseline Function- Gait Antalgic gait. Needs railing for stair ambulation. Baseline Function- Recreation/Hobbies Hiked 3-6 miles daily on trails. Current Functional Impairments (Reported) Functional Limitations- ADL's Squatting for functional activities (shaving legs, weeding). Functional Limitations- Mobility/Gait Antalgic gait. Single stepping on stairs. Needs railing for stair ambulation. Functional Limitations- Recreation/ Hiking. Hobbies Walking on level pavement at most 1 mile Personal Factors Other Personal Factors That May Effect Chronicity of L foot plantar Therapy/Recovery fasciitis since 01/2019 Back pain Thyroid disorder Autoimmune disorders. PT-OP-C Subjective Start: 01/08/20 21:01 Freq: Status: Active Protocol: Document 05/16/20 08:15 LRN (Rec: 05/16/20 09:12 LRN [id number]) OP-PT Subjective Patient Comments Patient Comments States the R big toe MCP jt was collapsed and she is bone on bone. L foot heels painis present, like fascia spearating, noting at calcaneal tubercle. Surgery not yet scheduled, planned for next year. No plantar fascia pain. Only place there is pain is in the L heel. No pain on waking. Pain going down stairs and uneven ground. PT-OP-D Balance Start: 01/08/20 21:01 Freq: Status: Active Protocol: Document 03/20/20 13:35 LRN (Rec: 03/20/20 17:57 LRN [id number]) Balance Tests Romberg Romberg 60+ Single Limb Standing Single Limb- Right 3 Single Limb- Left 19 Tandem Tandem Standing R behind 18, L behind 24 Tinetti Balance Assessment Sitting Balance Sitting Balance Steady, safe Arising from Chair Ability to Arise Able, w/o using arms Standing Balance Immediate Standing Balance Steady w/o support Standing Balance Narrow stance w/o support Nudged Response Steady Standing with Eyes Closed Steady Turning Step Pattern Turning 360 Degrees Continuous steps Stability Turning 360 Degrees Steady Sitting Down Sitting Down Safe, steady Gait and Step Initiation of Gait No hesitancy Right Foot Step Length Does pass stance foot Right Foot Step Height Completely clears floor Left Foot Step Length Does pass stance foot Left Foot Step Height Completely clears floor Step Description Step Symmetry Step length appears equal Step Continuity Steps appear continuous Gait Description Path Description Straight Trunk Description No sway Walking Stance Heels apart Scoring and Interpretation Tinetti Composite Score (points) 25 Interpretation of Scores Low risk for falls (>24) PT-OP-E Functional Tests Start: 01/08/20 21:01 Freq: Status: Active Protocol: Document 01/10/20 09:51 LRN (Rec: 01/10/20 15:53 LRN [id number]) Functional Tests Tinetti Balance and Gait Assessment Balance Score 15 Gait Score 8 Composite Score 23 Balance Score Impairment Rating 1 to <20% Impaired (Score 13- 15) Gait Score Impairment Rating 20 to <40% Impaired (Score 8-9 ) Composite Score Impairment Rating 1 to <20% Impaired (Score 23- 27) PT-OP-G Mobility & Gait Start: 01/08/20 21:01 Freq: Status: Active Protocol: Document 04/22/20 12:48 LRN (Rec: 04/22/20 16:37 LRN [id number]) OP Gait Assessment Comments Gait Comments R foot: Pt supinates and the Big toe appears to lack toe flexion/push off due to rotation away from the toe ( into supination). L foot: fallen arch with pronation of foot. PT-OP-H Neuro Start: 01/08/20 21:01 Freq: Status: Active Protocol: Document 01/10/20 09:51 LRN (Rec: 01/10/20 15:53 LRN [id number]) Sensation Evaluation Comments Summary Comments Soft touch Sensation: R foot hypersensitivity around well healed scar. L foot sensation is normal. PT-OP-J Posture/Palpation/Skin Start: 01/08/20 21:01 Freq: Status: Active Protocol: Document 01/10/20 09:51 LRN (Rec: 01/10/20 15:53 LRN [id number]) Posture Evaluation Position Standing Knee Posture (R) Genu Varus,(L) Genu Recurvatum,(R) Genu Recurvatum Ankle/Foot Posture (L) Supinated,(R) Supinated Foot Arch (L) High Arch Comments Posture Comments Big Toe Aducted. Right: slight cross over, Left: no crossover. Palpation Assessment Location R big toe Palpation Location R big toe caudal surface Palpation Findings Soft Tissue Tightness PT-OP-K Range of Motion Start: 01/08/20 21:01 Freq: Status: Active Protocol: Document 05/16/20 08:15 LRN (Rec: 05/16/20 16:30 LRN [id number]) Toe Range of Motion Toe Right Great Toe Toe ROM WFL No MTP Flexion Active (degrees) 18 MTP Extension Active (degrees) 48 Left Great Toe Toe ROM WFL Yes MTP Flexion Active (degrees) 40 MTP Extension Active (degrees) 40 PT-OP-M Strength Start: 01/08/20 21:01 Freq: Status: Active Protocol: Document 01/10/20 09:51 LRN (Rec: 01/10/20 15:53 LRN [id number]) Ankle/Foot Strength Ankle and Foot Manual Muscle Testing Right Reason Not Measured WFL Left Reason Not Measured WFL Toe Strength Toe Manual Muscle Testing Right Great Toe Flexion 4 Good Extension 4 Good Comments MMT is within available ROM Left Great Toe Comments Generally 5/5 Cramping of plantar fascia during testing. PT-OP-Q Treatments Start: 01/08/20 21:01 Freq: Status: Active Protocol: Document 05/16/20 08:15 LRN (Rec: 05/16/20 09:12 LRN [id number]) Therapeutic Exercises Supine Exercises R LB/Hip stretch Supine Exercise Name KTC stretch Side right Reps/Minutes 2' Lateral Hip stretch Supine Exercise Name LTR stretch Side right Reps/Minutes 4' Piriformis stretch Supine Exercise Name Piriformis stretch Side right Reps/Minutes 4' Prone Exercises MIRZA Prone Exercise Name MIRZA Reps/Minutes 10x Comments Extra time to determine max movement Other Exercises Thread the needle Other Exercise Name 4pt with L arm reach to the R. Reps/Minutes 2' Manual Therapy Treatment Joint Mobilizations Lumbar Joint L2-L3, L3-L4 Direction Correcting L rotated vertebra Body Position Prone Reps/Duration 5' Comments MFR Sacrum Joint Correcting a L rotated sacrum Body Position Prone Reps/Duration 4' Comments MFR PT-OP-R Modalities Start: 01/08/20 21:01 Freq: Status: Active Protocol: Document 05/16/20 08:15 LRN (Rec: 05/16/20 09:12 LRN [id number]) Ultrasound Therapy Treatment L plantar fascia at heel Treatment Duration (minutes) 8 Patient Position Prone Coupling Medium Ultrasound Gel Applicator Size (cm2) 2 Frequency Setting (mHz) 3 Mode Setting Pulsed Duty Cycle 50% Intensity Setting (w/cm2) 1.0 PT-OP-T Assessment and Plan Start: 01/08/20 21:01 Freq: Status: Active Protocol: Document 05/16/20 08:15 LRN (Rec: 05/16/20 09:12 LRN [id number]) Physical Therapy Assessment Goals Five Impairment Foot pain (Right 5/10, Left 4/ 10) limiting gait tolerance. Half-Way Goal (LTG) Decrease foot pain to no greater than 1/10 with pt able to return to hiking 3 miles and being able to squat in the shower to shave legs without pain. (05/16/20: Pain: 1/10 (rarely > 3/10) R, 0/10 plantar fascitis pain, 2-3/10 heel pain L. Will not hike and will not able to normally squat until after R big toe surgery). LTG Duration 05/02/20 (05/16/20: NOT MET) Four Impairment Decreased Balance: SLS EO ( Right - 1 sec, Left 19 sec), Tinetti Half-Way Goal (LTG) Pt will be able to SLS EO - 10 sec bilaterally without LOB to improve function and safety with resulting in improved Tinetti Score of > 24. (: Tinetti score = 26; 04/04: SLS: L is 52 secs, R is 54 secs). LTG Duration 05/02/20 (04/04/20: MET GOAL) Three Impairment Decreased ankle AROM Farm[employer] Cranberry Goal (LTG) Active Ankle DF (legs straight ) no less than 15 deg's. Active Ankle DF (knees flexed) no less than 24 deg's Pt will be able to ambulate up /down stairs with normal gait pattern. (02/12/20: Ankle DF legs straight: 20 degs R, 18 degs L Ankle DF knee flexed: 32 degs R, 30 degs L) LTG Duration 05/02/20 (04/14/20: MET GOAL) Two Impairment Decreased Big Toe Right MTP jt AROM (ext 20 deg's, flex 24 deg's) Short Term Goal (STG) Improve R big toe MTP AROM to ext 36 deg's, flex 32 deg's ( equal to left foot) with pt able to ambulate with equal step lengths without use of assistive device. (05/16/20: Right: Flex is 18 deg's, Ext 48 deg's; Left: Ext 40 deg's, Flex 40 deg's.) STG Duration 04/09/20 (05/16/20: NOT MET, Walks equal step length) Half-Way Goal (LTG) Improve functional ability, per Foot and Ankle Ability Measure (FAAM) Score ( initially 36) no less than 50. (03/20/20: FAAM Score = 50) LTG Duration 04/09/20 (03/20/20: MET GOAL) One Impairment Lacks appropriate HEP Short Term Goal (STG) Self care I/S for scar tissue management and edema management. STG Duration 01/21/20 (12/22/19: GOAL MET) Half-Way Goal (LTG) Pt will be independent in a self care HEP to manage her mobility, strength and endurance of her bilateral foot/ankles. LTG Duration 05/02/20 (05/16/20: MET GOAL) Assessment Summary Assessment Pt has met most of her goals but understands until she has surgery on her R toe she will be limited in her functional squatting and ability to hike. She is having L heel pain ( no plantar fascia pain) that appears to be related to her SIJ and is controlled mostly with stabilization of her pelvis and core. Use of ultrasound to the L heel was helpful in decreasing pain on palpation, but with stair ambulation, core stability was needed. The pt has a good HEP that she can now continue on her own to maintain her present status of no plantar fascia pain in her feet bilaterally. She is ready for discharge to her HEP. Physical Therapy Plan Frequency and Duration Frequency of Treatment 2x/Week Plan of Care Start Date 01/10/20 Plan of Care End Date 05/02/20 Discharge Physical Therapy Discharge Reasons Patient Request Discharge Comments Pt is to continue with her HEP to maintain her painfree plantar fascia condition. Pt plans on having R big toe surgery and is planning on returning after her surgery. I would be happy to work with this pleasant individual again if needed. Thank you for your referral.
== END 2020-05-23 09:03 ==
LOC: PHYS 08:15
PROVIDERS: PCP Family Medicine; Referring Provider Podiatrist; Visit Provider Podiatrist
DX: M24.60 Ankylosis, unspecified joint (principal); M72.2 Plantar fascial fibromatosis
CPT/HCPCS: 97035; 97110; 97112; 97116; 97140; 97162; 97535

== ENCOUNTER 2020-06-10 11:48 | Emergency (ER) | payer OTHER, SELFPAY ==
[2020-06-10 11:55] VITALS: BP 145/73; PULSE 99; RESP 14; TEMP 36.9; O2SAT 95; BMI 25.8
[2020-06-10 12:15] LABS: Bacteria Urine Many (>30); Culture Indicated Urine Specimen Cultured; RBC Urine >100/HPF (0-5/HPF); WBC Urine >100/HPF (0-5/HPF)
--- NOTE | 2020-06-10 12:19 | ED_ITS ---
HPI - Female Genitourinary <JEFFERY Hopper - Last Filed: 06/10/20 12:24> General Chief complaint: Urogenital-Female Stated complaint: UTI Time Seen by Provider: 06/10/20 11:54 Source: patient Mode of arrival: Ambulatory Limitations: no limitations History of Present Illness HPI Narrative: This is a 50-year-old female, former smoker, who presents to ED with chief complain of I have an UTI. Patient reports this is her 4th out UTI symptoms last 2 years. Patient is in menopausal state for last 2 years and uses progesterone p.o. and estrogen topical medications. Patient reports bladder happiness and cramping sensation with burning with urination, urinary frequency, and hematuria. Patient denies fever, chills, nausea or vomiting, or flank pain. Patient had used Keflex in the past with good results. Urine culture test in the past showing E coli with susceptibility to cefazolin, cefepime, ceftriaxone. Related Data Home Medications Medication Instructions Recorded Confirmed meclizine 25 mg PO PRN #0 06/02/12 08/03/19 adeno/hydroxy PO DAILY 06/03/20 methylated B comlex PO 3XW 06/03/20 Previous Rx's Medication Instructions Recorded cetirizine 10 mg PO QDAY #30 tab 05/11/17 [naltrexone] 4.5 mg PO Q DAY #90 cap 03/07/19 levothyroxine 125 mcg capsule 125 mcg PO DAILY 90 Days #90 cap 08/03/19 progesterone e4m 100 mg PO .HS #90 caplet 10/26/19 Bi-est 50/50 0.2 mg TOP QAM #18 mg 11/26/19 liothyronine 5 mcg tablet 17.5 mcg PO BID #630 tab 03/24/20 cephalexin [Keflex] 500 mg PO QID 7 Days #28 cap 06/10/20 phenazopyridine [Pyridium] 100 mg PO Q8H PRN #6 tab 06/10/20 Allergies Allergy/AdvReac Type Severity Reaction Status Date / Time DUST Allergy Mild RHINITIS Uncoded 08/03/19 13:49 GOOSE FEATHERS Allergy Mild RHINITIS Uncoded 08/03/19 13:49 fluoroquinolone. Allergy Uncoded 06/10/20 12:00 Review of Systems <JEFFERY Hopper - Last Filed: 06/10/20 12:24> Review of Systems Narrative: General: Denies fever, chills, fatigue, malaise, sweats. Respiratory: Denies dyspnea, cough, wheezing, hemoptysis, sputum. Cardiovascular: Denies chest pain, palpitations, orthopnea, edema. Gastrointestinal: Denies nausea, vomiting, abdominal pain, diarrhea, constipation, melena. : See HPI Musculoskeletal: Denies weakness, joint pain or bony pain. 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) Depression (Chronic 1987) Foot fracture (Resolved 1981) Genital warts (Resolved 1989) Yogesh's disease (Chronic 2014) Heterozygous MTHFR mutation [id number] (Acute) Heterozygous MTHFR mutation C677T (Acute) Hyperlipidemia (Chronic 1999) Hypothyroidism (Chronic 1999) Irregular menstrual cycle (Chronic 2014) Lichen sclerosus (Chronic 1999) Mumps (Resolved 1979) Muscle weakness (Chronic) Peripheral neuropathy (Chronic 2014) Raynaud's disease (Chronic 2012) Shoulder pain (Chronic 2014) Small intestinal bacterial overgrowth (Acute) 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) Typhus (Resolved 1996) Vertigo (Resolved ~2007) Surgical History Anesthesia complication (Resolved) Status post delivery (Resolved 06/20/00) Status post hammer toe correction (Resolved 1997) Family History Brother Age: 42 Benign tumor Psoriasis High cholesterol Father Age: 72 Common variable immunodeficiency High cholesterol Restless leg syndrome Sleep apnea Grandfather Heart disease Lung disease Sleep apnea Grandmother History of hysterectomy Hypothyroidism Uterine cancer Kidney disease Yogesh's disease Mother Age: 71 Kidney disease Osteopenia Raynaud's disease MGUS (monoclonal gammopathy of unknown significance) Grandfather Heart disease Bone cancer Myeloma High cholesterol Sister Age: 47 Kidney infection High cholesterol MS (multiple sclerosis) Pancreatitis Family/Other Uterine cancer Other Alcoholism Cancer Depression Thyroid cancer alcohol intake frequency: holidays/special occasions only Substance Use Type: does not use Exam <Jose Francisco JEFFERY Tan - Last Filed: 06/10/20 12:24> Narrative Exam Narrative: GEN: Alert, oriented x 3, well appearing and nourished, and in no acute distress. Head: Normal cephalic, atraumatic. No scalp or temporal tenderness, palpable mass or rash. EYES: Pupils are equal, round, and reactive to light and accommodation. Extraocular muscles are intact bilaterally. There is no subconjunctival hemorrhage, exudate and sclera non-icteric. ENT: Hearing grossly intact. Airway patent. Neck: Trachea in midline. No JVD, non-tender without lymphadenopathy. No masses or thyroid megaly. Supple, non-tender and no meningeal signs. CARDIAC: Normal regular rate and rhythm without murmurs, gallops, or rubs. No chest wall tenderness. No peripheral edema, cyanosis or pallor. Capillary refill is less than 2 seconds. RESPIRATORY: Lungs are clear to auscultate bilaterally. No cough, wheezes, rales, or rhonchi. No stridor, respiratory distress, increase work of breathing, or accessary muscle used. ABD: Abdomen soft, nontender and non-distended. No guarding or rebound tenderness to palpate. Bowel sounds are normal in all 4 quadrants. There is no palpable masses or organomegaly. EXT: Full painless ROM of all extremities with no loss of sensation, strength, effusion or edema. SKIN: Warm, dry, normal color for patient. No erythema, lesions or rash over visible areas. BACK: Nontender without deformity or crepitance. No flank tenderness. NEUROLOGICAL: Alert and oriented to place, time and person. Sensation and motor function intact bilaterally. No facial droops, dysphasia. PSYCHIATRIC: Good judgement and reason, without hallucinations, abnormal affect or abnormal behaviors during the examination. Patient is not suicidal. Initial Vital Signs Initial Vital Signs: Vital Signs Temperature 98.4 F 06/10/20 11:55 Pulse Rate 99 H 06/10/20 11:55 Respiratory Rate 14 06/10/20 11:55 Blood Pressure 145/73 H 06/10/20 11:55 Pulse Oximetry 95 06/10/20 11:55 <Navneet Weber DO - Last Filed: 06/10/20 12:36> Initial Vital Signs Initial Vital Signs: Vital Signs Temperature 98.4 F 06/10/20 11:55 Pulse Rate 99 H 06/10/20 11:55 Respiratory Rate 14 06/10/20 11:55 Blood Pressure 145/73 H 06/10/20 11:55 Pulse Oximetry 95 06/10/20 11:55 Scores <[facility] - Last Filed: 06/10/20 12:24> GCS [place]den coma scale eye opening: Spontaneous [place] coma scale verbal response: Orientated [place]ane coma scale motor response: Obey commands [place] coma scale total score: 15 Course <Jose Francisco JEFFERY Tan - Last Filed: 06/10/20 12:24> Orders Ordered: ED Orders 06/10/20 11:51 Urine Culture Stat Urine Microscopic Stat Vital Signs Vital signs: Vital Signs - 8 hr 06/10/20 11:55 Temperature 98.4 F Pulse Rate 99 H Respiratory Rate 14 Blood Pressure 145/73 H Pulse Oximetry 95 <Navneet Weber DO - Last Filed: 06/10/20 12:36> Orders Ordered: ED Orders 06/10/20 11:51 Urine Culture Stat Urine Microscopic Stat Vital Signs Vital signs: Vital Signs - 8 hr 06/10/20 11:55 Temperature 98.4 F Pulse Rate 99 H Respiratory Rate 14 Blood Pressure 145/73 H Pulse Oximetry 95 MDM - Female Genitourinary <[facility] - Last Filed: 06/10/20 12:24> Differential Diagnosis Differential diagnosis: Likely urinary tract infection and cystitis Medical Records Attestation: I reviewed the patient's medical records. Lab Data Attestation: I reviewed the patient's lab results. Labs: Lab Results 06/10/20 Range/Units 11:51 Urine RBC >100/hpf H (0-5/HPF) Urine WBC >100/hpf H (0-5/HPF) Urine Bacteria Many (>30) H (None) Ur Culture Indicated? Specimen cultured Urine Dip Bedside Urine Glucose Negative Bedside Urine Bilirubin - Negative Bedside Urine Ketone - Negative Urine Specific [place] 1.025 Bedside Urine Occult Blood +++ Bedside Urine pH 6.0 Bedside Urine Protein ++ 100 Bedside Urine Urobilinogen - Negative Bedside Urine Nitrite + Positive Bedside Urine Leukocytes ++ 125 Esterase MDM Narrative Medical decision making narrative: This is a 50-year-old female in menopause state for last 2 years presents to with UTI symptoms. Patient is nontoxic appearing with normal temperature and blood pressure. Patient does not endorses constitutional symptoms. POC urine test is consistent with UTI. Urine culture is pending. Previous urine culture shows E coli and had good results using Keflex. Patient discharged to home with Keflex 500 mg q.i.d. dose for 7 day course and Pyridium to help with her urinary symptoms. Return precautions were discussed with patient. Patient verbalized understanding and agreement with the treatment plan. <Navneet Weber, DO - Last Filed: 06/10/20 12:36> Lab Data Labs: Lab Results 06/10/20 Range/Units 11:51 Urine RBC >100/hpf H (0-5/HPF) Urine WBC >100/hpf H (0-5/HPF) Urine Bacteria Many (>30) H (None) Ur Culture Indicated? Specimen cultured Urine Dip Bedside Urine Glucose Negative Bedside Urine Bilirubin - Negative Bedside Urine Ketone - Negative Urine Specific [place] 1.025 Bedside Urine Occult Blood +++ Bedside Urine pH 6.0 Bedside Urine Protein ++ 100 Bedside Urine Urobilinogen - Negative Bedside Urine Nitrite + Positive Bedside Urine Leukocytes ++ 125 Esterase Discharge Plan Departure Patient Disposition: Home Clinical Impression: UTI (urinary tract infection) Qualifiers: Urinary tract infection type: site unspecified Hematuria presence: with hematuria Qualified Code(s): N39.0 - Urinary tract infection, site not specified Instructions: DI for Urinary Tract Infection (UTI) Activity Restrictions/Additional Instructions: You have been diagnosed with [acute urinary tract infection. You will receive a phone call from us if you require different antibiotic medication per urine culture test.]. What to do: *Take your medications as directed. Please start antibiotic medication Keflex 4 times a day for next 7 days. You can use Pyridium for as needed for bladder/urinary tract discomfort. You can take [id number] Tylenol and or Motrin as needed for discomfort as well. Hydrate adequately. These medication have been transmitted to [facility] in [facility]. *Follow up with your primary care provider in 2-3 days, call for an appointment. Let them know you were seen in the ED and that we asked you to be seen in follow up. *Return to ED if you have any new, worsening, or concerning symptoms, such as [fever/chills, unable to tolerate fluids, chest pain, flank pain, breathing difficulty, or any acute concerns]. Prescriptions: New cephalexin [Keflex] 500 mg capsule 500 mg PO QID 7 Days Qty: 28 RF: 0 phenazopyridine [Pyridium] 100 mg tablet 100 mg PO Q8H PRN (Reason: Urinary pain) Qty: 6 RF: 0 No Action meclizine 25 MG tablet,chewable 25 mg PO PRN Qty: 0 RF: 0 cetirizine 10 MG tablet 10 mg PO QDAY Qty: 30 RF: 5 [naltrexone] 4.5 mg capsule 4.5 mg PO Q DAY Qty: 90 RF: 1 progesterone e4m 100 mg PO .HS Qty: 90 RF: 3 Bi-est 50/50 cream 0.2 mg TOP QAM Qty: 18 RF: 1 liothyronine [Cytomel] 5 mcg tablet 17.5 mcg PO BID Qty: 630 RF: 0 adeno/hydroxy PO DAILY RF: 0 methylated B comlex PO 3XW RF: 0 Tirosint 125 mcg capsule 125 mcg PO DAILY 90 Days Qty: 90 RF: 3 Referrals: Cristiane Parish DO [Primary Care Provider] - <Navneet Weber DO - Last Filed: 06/10/20 12:36> Cosign ED Attending Cosignature Attestation: Dr Weber Co-Sign Statement: I was available for consultation during this patient's emergency department visit. This chart is signed by myself for administrative purposes only. I did not have direct contact with this patient during this visit. They were seen independently by the APC.
[2020-06-10 12:37] VITALS: TEMP 36.9
== END 2020-06-10 12:37 | disposition home or self-care (01) ==
PROVIDERS: Emergency Provider Nurse Practitioner Family; PCP Family Medicine
DX: N39.0 Urinary tract infection, site not specified (principal); R31.9 Hematuria, unspecified
CPT/HCPCS: 81003; 81015; 87077; 87086; 87186; 99281; 99282

== ENCOUNTER → 2020-08-25 07:41 | Outpatient (CLI) | payer BC, OTHER, SELFPAY ==
[2020-08-25 09:24] LABS: Vitamin D 25 Hydroxy (D3) 58.1 ng/mL (30.0-100.0)
[2020-08-25 09:29] LABS: Free T3, Triiodothyronine Free 5.32 pg/mL (2.77-5.27); Free T4, Direct Thyroxine 1.25 ng/dL (0.78-2.19)
[2020-08-25 09:43] LABS: Thyroid Stimulating Hormone < 0.015 uIU/mL (0.47-4.68)
== END ==
PROVIDERS: PCP Family Medicine; Referring Provider Family Medicine; Visit Provider Family Medicine
DX: E06.3 Autoimmune thyroiditis (principal)
CPT/HCPCS: 36415; 82306; 84439; 84443; 84481

== ENCOUNTER → 2020-09-03 16:07 | Outpatient (CLI) | payer BC, OTHER, SELFPAY ==
[2020-09-03 17:17] LABS: Add Manual Diff / Slide Review NO; Basophils Absolute Auto 0 /uL (0-100); Basophils Percent Auto 0.5 % (0-2); Eosinophils Absolute Auto 200 /uL (0-450); Hematocrit 37.4 % (36-46); Hemoglobin 12.3 g/dL (12.0-16.0); Lymphocytes Absolute Auto 2900 /uL (1100-4500); Lymphocytes Percent Auto 35.2 % (25-40); Mean Corpuscular HGB Conc 32.9 % (30-36); Mean Corpuscular Volume 88.4 fL (80-100); Monocytes Absolute Auto 400 /uL (0-900); Monocytes Percent Auto 5.4 % (3-14); Neutrophils Absolute Auto 4600 /uL (1500-7000); Neutrophils Percent Auto 56.9 % (50-75); Platelet Count 347 X10^3/uL (150-400); Red Blood Cell Count 4.23 X10^6/uL (4.0-5.2); Red Cell Distribution Width 14.4 % (11.6-14.8); White Blood Cell Count 8.1 X10^3/uL (4.5-11.0)
[2020-09-03 18:19] LABS: Alanine Aminotransferase 25 IU/L (<35); Albumin 3.8 g/dL (3.5-5.0); Albumin Globulin Ratio 1.4 (1.0-2.8); Alkaline Phosphatase 85 U/L (38-126); Aspartate Aminotransferase 26 IU/L (14-36); BUN Creatinine Ratio 29.6 (6-22); Blood Urea Nitrogen 24 mg/dL (7-17); Calcium 9.1 mg/dL (8.4-10.2); Carbon Dioxide 33 mmol/L (22-32); Chloride 104 mmol/L (98-107); Estimated Glomerular Filt Rate > 60.0 mL/min (>60); Globulin 2.7 g/dL (1.7-4.1); Glucose 159 mg/dL (70-100); HEMOLYSIS < 15 (0-50); Potassium 3.6 mmol/L (3.4-5.1); Sodium 139 mmol/L (137-145); Total Protein 6.5 g/dL (6.3-8.2)
[2020-09-03 18:20] LABS: Bilirubin Total < 0.1 mg/dL (0.2-1.3)
== END ==
PROVIDERS: PCP Family Medicine; Referring Provider Family Medicine; Visit Provider Family Medicine
DX: Z01.818 Encounter for other preprocedural examination (principal)
CPT/HCPCS: 36415; 80053; 85025

== ENCOUNTER → 2020-09-06 11:07 | Outpatient (CLI) | payer BC, OTHER, SELFPAY ==
[2020-09-06 11:58] LABS: COVID19 -Nasal RAPID Negative (Negative)
== END ==
PROVIDERS: PCP Family Medicine; Visit Provider Physician Assistant
DX: Z20.822 Contact with and (suspected) exposure to COVID-19 (principal)
CPT/HCPCS: 87635

== ENCOUNTER → 2020-10-27 07:39 | Outpatient (CLI) | payer BC, OTHER, SELFPAY | PROVIDERS: PCP Family Medicine; Referring Provider Family Medicine; Visit Provider Family Medicine | DX: N95.9 Unspecified menopausal and perimenopausal disorder (principal) | CPT/HCPCS: 36415; 82670 ==

== ENCOUNTER → 2020-11-14 07:18 | Outpatient (CLI) | payer BC, OTHER, SELFPAY ==
[2020-11-14 08:35] LABS: Glucose 107 mg/dL (70-100)
[2020-11-14 08:55] LABS: Free T3, Triiodothyronine Free 4.53 pg/mL (2.77-5.27); Free T4, Direct Thyroxine 1.42 ng/dL (0.78-2.19)
[2020-11-14 09:17] LABS: Thyroid Stimulating Hormone < 0.015 uIU/mL (0.47-4.68)
[2020-11-15 05:20] LABS: Thyroid Peroxidase Antibodies 13 IU/mL (0-34)
[2020-11-15 05:41] LABS: Insulin Level Total 10.8 uIU/mL (2.6-24.9)
[2020-11-15 15:36] LABS: Anti Thyroglobulin Antibody 1.5 IU/mL (0.0-0.9)
[2020-11-26 14:12] LABS: Triiodothyronine T3 Reverse 23.5 ng/dL (9.2-24.1)
== END ==
PROVIDERS: PCP Family Medicine; Referring Provider Family Medicine; Visit Provider Family Medicine
DX: E06.3 Autoimmune thyroiditis (principal); R73.9 Hyperglycemia, unspecified
CPT/HCPCS: 36415; 82947; 83525; 84439; 84443; 84481; 84482; 86376; 86800

== ENCOUNTER → 2020-12-05 12:37 | Outpatient (CLI) | payer BC, OTHER, SELFPAY ==
--- NOTE | 2020-12-05 12:38 | DI.US.S_ITS ---
PROCEDURE: US PELVIC COMPLETE INDICATIONS: pelvic pressure, tenderness over ovaries TECHNIQUE: Real-time scanning was performed of the pelvic organs, with image documentation. Additional endovaginal scanning was necessary due to incomplete visualization of the adnexal and endometrial structures by transabdominal scanning. COMPARISON: [facility], , PELVIC COMPLETE, 01/21/2014, 14:43. FINDINGS: Uterus: Uterus is anteverted and normal in size at 4.0 x 2.8 by 3.4 cm. The endometrium measures one mm in combined thickness. Ovaries: The right ovary measures 1.0 x 1.7 x 1.1 cm. The left ovary measures 1.6 x 0.9 x 1.3 cm. No dominant follicle associated with either ovary. No suspicious adnexal masses Other: No pathologic free abdominal or pelvic fluid. IMPRESSION: Normal appearing uterus and ovaries for postmenopausal female. Dictated by: Katalina Carlson M.D. on 12/05/2020 at 17:03 Approved by: Katalina Carlson M.D. on 12/05/2020 at 17:06
== END ==
PROVIDERS: PCP Family Medicine; Referring Provider Family Medicine; Visit Provider Family Medicine
DX: R10.2 Pelvic and perineal pain (principal)
CPT/HCPCS: 76830; 76856

== ENCOUNTER → 2021-04-13 08:25 | Outpatient (CLI) | payer BC, OTHER, SELFPAY ==
[2021-04-13 14:09] LABS: COVID19 -Nasal RAPID Negative (Negative)
== END ==
PROVIDERS: PCP Family Medicine; Visit Provider Nurse Practitioner
DX: Z20.822 Contact with and (suspected) exposure to COVID-19 (principal); Z01.812 Encounter for preprocedural laboratory examination
CPT/HCPCS: 87635

== ENCOUNTER 2021-04-14 13:52 | Day surgery (SDC) | payer BC, OTHER, SELFPAY ==
[2021-04-14 14:22] VITALS: BP 117/73; PULSE 90; RESP 16; TEMP 36.4; O2SAT 99; BMI 26.6
[2021-04-14] MEDS: SODIUM CHLORIDE 0.9% 1,000 ML 84 ML IV (14:33)
--- NOTE | 2021-04-14 14:50 | PM.HP.1 ---
History of Present Illness History of Present Illness Date Patient Seen: 04/14/21 Time Patient Seen: 14:51 Chief complaint: [facility] [place] Narrative: I reviewed Dr. 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 House dust mite allergy Hyperlipidemia (1999) Hypothyroidism (1999) Irregular menstrual cycle (01/18/14) Lichen sclerosus (1999) Mumps (1979) Raynaud's disease (2012) Recurrent UTI Shoulder pain (2014) 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) Vertigo (~2007) Surgical History Anesthesia complication Status post delivery (06/20/00) Status post hammer toe correction (1997) Family & Social History Family History Brother Age: 43 Benign tumor Psoriasis High cholesterol Father Age: 73 Common variable immunodeficiency High cholesterol Restless leg syndrome Sleep apnea Grandfather Heart disease Lung disease Sleep apnea Grandmother History of hysterectomy Hypothyroidism Uterine cancer Kidney disease Yogesh's disease Mother Age: 72 Kidney disease Osteopenia Raynaud's disease MGUS (monoclonal gammopathy of unknown significance) Grandfather Heart disease Bone cancer Myeloma High cholesterol Sister Age: 48 Kidney infection High cholesterol MS (multiple sclerosis) Pancreatitis Family/Other Uterine cancer Other Alcoholism Cancer Depression Thyroid cancer Social History: household members spouse Tobacco & Substance use: Smoking Status Former smoker alcohol intake frequency holiday/special occasion Substance Use Type does not use Meds Home Medications and Allergies Home Medications Medication Instructions Recorded Confirmed Type [naltrexone] 4.5 mg PO Q DAY #90 cap 03/07/19 04/14/21 Rx adeno/hydroxy PO DAILY 06/03/20 11/28/20 History methylated B comlex PO 3XW 06/03/20 11/28/20 History progesterone e4m 75 mg PO .HS caplet 06/25/20 11/28/20 History Bi-est See Rx Instructions VAGINAL DAILY 08/11/20 11/28/20 Rx #30 day liothyronine 5 mcg tablet See Rx Instructions .ROUTE 02/06/21 Rx .COMPLEX #630 tab levothyroxine 125 mcg capsule 125 mcg PO DAILY 90 Days #90 cap 04/08/21 04/14/21 Rx (Tirosint) Allergies Allergy/AdvReac Type Severity Reaction Status Date / Time ciprofloxacin Allergy Verified 04/14/21 14:20 delafloxacin Allergy Verified 04/14/21 14:20 gemifloxacin Allergy Verified 04/14/21 14:20 levofloxacin [From Levaquin] Allergy Verified 04/14/21 14:20 moxifloxacin [From Avelox] Allergy Verified 04/14/21 14:20 ofloxacin Allergy Verified 04/14/21 14:20 DUST Allergy Mild RHINITIS Uncoded 04/14/21 14:03 GOOSE FEATHERS Allergy Mild RHINITIS Uncoded 04/14/21 14:03 Review of Systems Review of Systems ROS: Yes All systems reviewed with the patient and are negative except as otherwise documented Exam Vital Signs (past 8 hours): - 04/14/21 14:22 Temperature 97.6 F Pulse Rate 90 Respiratory Rate 16 Blood Pressure 117/73 Pulse Oximetry 99 Oxygen Delivery Method Room Air Const General: cooperative and comfortable Orientation: alert HENAR Head: normocephalic Ears: external ears normal Nose: external nose normal Face and sinus: normal facial exam Mouth: oral mucosae normal Eyes General: appearance normal, both eyes and all related structures Neck Neck: normal visual inspection Chest Chest: normal inspection of the chest Resp Effort & Inspection: normal respiratory effort Auscultation: clear to auscultation bilaterally Cardio Rate: regular rate Rhythm: regular rhythm Heart Sounds: no murmurs GI Inspection: normal to inspection Palpation: soft and No tender Auscultation: normal bowel sounds Skin General: no rashes or lesions noted and No jaundice Neuro General: patient alert and moves all extremities Cognition: normal cognition Speech: speech normal Extrem General: no pedal edema Psych Appearance: grossly normal Assessment & Plan Assessment & Plan narrative: Indicated for colon cancer screening. The pelvic pain symptoms have resolved. After lengthy discussion with the patient she would like to proceed with colonoscopy using IV conscious sedation (it sounds like the prior problem with sedation was related to significant pain involved in addressing a bone spur where she woke up at the point of incision)
--- NOTE | 2021-04-14 14:54 | PM.PREOP ---
Pre-operative Note COVID-19 COVID-19 status: Negative Result date/Date tested (Pos, Neg/Pending): 04/13/21 Interval Note History & Physical reviewed/Exam performed by Physician: Yes Changes to H&P: Yes H&P completed within 30 days and has changed as indicated here:: See updated H/P for change in plan. ASA Class (for procedural sedation): II
[2021-04-14] MEDS: MIDAZOLAM 5 MG/5 ML VIAL IV (15:03)
[2021-04-14] MEDS: fentaNYL 250 MCG/5 ML INJ IV (15:03)
--- NOTE | 2021-04-14 15:18 | PM.OP.ENDO ---
Operative Date/Time/Diagnoses Date of procedure: 04/14/21 Time of procedure: 15:18 Pre-op diagnosis: Colon cancer screening Post-op diagnosis: same Procedure & Clinicians Study performed: Colonoscopy Same procedure as scheduled: Yes Indications: Colon cancer screening Surgeon: Gurpreet Pereira Procedure Notes SCOAP/Timeout: Done Procedure in detail: After the risks and benefits were explained, written and verbal informed consent was obtained. The patient was brought into the procedure room and placed into the left lateral decubitus position. Conscious sedation medication was applied as per nursing documentation. Digital rectal examination was accomplished. The scope was introduced into the patient and advanced under direct visualization to the cecum as identified by the appendiceal orifice and ileocecal valve. The scope was slowly withdrawn to carefully examine the mucosa for any defects or lesions. Comprehensive imaging was accomplished throughout the rectum including the dentate line. The colon was decompressed, the scope was then removed from the patient who tolerated the procedure well. 5 mg Versed 100 mcg fentanyl Bowel prep adequate Pediatric colonoscope Scope withdrawal time: 7 minutes Sedation minutes: 20 Specimen(s): none sent Complications: none Impression: Patient had a slightly tortuous colon medication was somewhat challenging. Patient tolerated the procedure quite well and was awake for much of it. No significant polyps mass lesions or inflammatory features identified throughout. Mild grade 1 internal hemorrhoids noted. Endoscopic diagnosis 1. Grade 1 internal hemorrhoids 2. Otherwise visually unremarkable colonoscopy to cecum Post-procedure Recommendations: Colonscopy in 10 years Plan for aftercare: Repeat colonoscopy 10 years time sooner should symptoms warrant an earlier exam. Disposition: PACU
[2021-04-14 15:23] VITALS: BP 116/57; PULSE 75; RESP 12; TEMP 36.7; O2SAT 99
[2021-04-14 15:28] VITALS: BP 106/57; PULSE 75; RESP 12; O2SAT 99
[2021-04-14 15:32] VITALS: BP 123/72; PULSE 85; RESP 16; O2SAT 100
[2021-04-14 15:35] VITALS: PULSE 80; RESP 14; TEMP 36.2; O2SAT 97
--- NOTE | 2021-04-14 15:36 | SUR.PHASEI ---
Pt transferred to OPD by Yulissa SIMPSON. SBAR report at bedside.
[2021-04-14 15:47] VITALS: BP 106/74; PULSE 83; RESP 16; TEMP 36.4; O2SAT 96
--- NOTE | 2021-04-14 15:49 | SUR.PHASEII ---
Pt given discharge instructions. pt to be discharged with her mom.
== END 2021-04-14 15:50 | disposition home or self-care (01) ==
PROVIDERS: PCP Family Medicine; Referring Provider Internal Medicine Gastroenterology; Visit Provider Internal Medicine Gastroenterology
PROC: 0DJD8ZZ Inspection of Lower Intestinal Tract, Via Natural or Artificial Opening Endoscopic (ICD-10-PCS; CPT 45378; principal; 2021-04-14 15:00)
DX: Z12.11 Encounter for screening for malignant neoplasm of colon (principal); K64.0 First degree hemorrhoids
CPT/HCPCS: 45378; J2250; J3010

== ENCOUNTER → 2021-05-21 17:44 | Outpatient (CLI) | payer BC, OTHER, SELFPAY ==
--- NOTE | 2021-05-21 17:45 | DI.MG.S_ITS ---
BILATERAL DIGITAL SCREENING MAMMOGRAM 3D/2D WITH CAD: 05/21/2021 CLINICAL: Routine screening. Comparison is made to exams dated: 03/13/2020 mammogram, 11/07/2018 mammogram, and 10/07/2017 mammogram - [facility]. There are scattered fibroglandular elements in both breasts. Current study was also evaluated with a Computer Aided Detection (CAD) system. No significant masses, calcifications, or other findings are seen in either breast. There has been no significant interval change. IMPRESSION: NEGATIVE There is no mammographic evidence of malignancy. A 1 year screening mammogram is recommended. This exam was interpreted at Station ID: [id number]. NOTE: For mammograms, a report in lay terms will be sent to the patient. Approximately 15% of breast malignancies will not be visualized mammographically. In the management of a palpable breast mass, a negative mammogram must not discourage biopsy of a clinically suspicious lesion. Electronically Signed By: Prasanna taylor/paula:05/22/2021 07:22:01 letter sent: Normal Exam ACR BI-RADS Category 1: Negative 3341F
== END ==
PROVIDERS: PCP Family Medicine; Referring Provider Family Medicine; Visit Provider Family Medicine
DX: Z12.31 Encounter for screening mammogram for malignant neoplasm of breast (principal)
CPT/HCPCS: 77063; 77067

== ENCOUNTER → 2021-08-24 08:00 | Outpatient (CLI) | payer BC, OTHER, SELFPAY ==
[2021-08-24 09:29] LABS: Alanine Aminotransferase 23 IU/L (<35); Albumin 4.6 g/dL (3.5-5.0); Albumin Globulin Ratio 1.8 (1.0-2.8); Alkaline Phosphatase 76 U/L (38-126); Aspartate Aminotransferase 25 IU/L (14-36); BUN Creatinine Ratio 30.6 (6-22); Bilirubin Total 0.5 mg/dL (0.2-1.3); Blood Urea Nitrogen 19 mg/dL (7-17); Carbon Dioxide 28 mmol/L (22-32); Chloride 105 mmol/L (98-107); Cholesterol 233 mg/dL (140-199); Estimated Glomerular Filt Rate > 60.0 mL/min (>60); Globulin 2.5 g/dL (1.7-4.1); Glucose 113 mg/dL (70-100); HDL Cholesterol 61 mg/dL (40-60); HEMOLYSIS < 15 (0-50); LDL Cholesterol Calculated 150 mg/dL (<100); Potassium 4.5 mmol/L (3.4-5.1); Sodium 138 mmol/L (137-145); Total Protein 7.1 g/dL (6.3-8.2); Triglycerides 110 mg/dL (35-150)
[2021-08-24 09:45] LABS: Free T3, Triiodothyronine Free 4.64 pg/mL (2.77-5.27); Free T4, Direct Thyroxine 1.23 ng/dL (0.78-2.19)
[2021-08-24 10:03] LABS: Thyroid Stimulating Hormone < 0.015 uIU/mL (0.47-4.68)
[2021-08-28 11:09] LABS: Estradiol 9.8 pg/mL (.); Estriol,Serum <0.1 ng/mL (.); Estrone,Serum 63 pg/mL (.)
[2021-08-29 09:09] LABS: Percent Free Testosterone 1.88 % (0.50-2.80); Testosterone Free 0.51 ng/dL (0.10-0.85); Testosterone Total 27.1 ng/dL (.)
[2021-08-31 16:22] LABS: Triiodothyronine T3 Reverse 19.5 ng/dL (9.2-24.1)
[2021-09-04 22:19] LABS: % Free Progesterone 2.5 % (.); Free Progesterone 0.65 ng/dL (.); Progesterone, Serum 26 ng/dL (.)
== END ==
PROVIDERS: PCP Family Medicine; Referring Provider Family Medicine; Visit Provider Family Medicine
DX: E06.3 Autoimmune thyroiditis (principal); E78.5 Hyperlipidemia, unspecified; N95.9 Unspecified menopausal and perimenopausal disorder; R73.01 Impaired fasting glucose; N92.6 Irregular menstruation, unspecified
CPT/HCPCS: 36415; 80053; 80061; 82670; 82677; 82679; 84144; 84402; 84403; 84439; 84443; 84481; 84482; 84999

== ENCOUNTER → 2022-05-31 07:31 | Outpatient (CLI) | payer BC, OTHER, SELFPAY ==
[2022-05-31 08:26] LABS: Alanine Aminotransferase 21 IU/L (<35); Albumin 4.1 g/dL (3.5-5.0); Albumin Globulin Ratio 1.5 (1.0-2.8); Alkaline Phosphatase 76 U/L (38-126); Aspartate Aminotransferase 22 IU/L (14-36); BUN Creatinine Ratio 30.8 (6-22); Bilirubin Total 0.2 mg/dL (0.2-1.3); Blood Urea Nitrogen 16 mg/dL (7-17); Calcium 8.9 mg/dL (8.4-10.2); Carbon Dioxide 27 mmol/L (22-32); Chloride 108 mmol/L (98-107); Cholesterol 207 mg/dL (140-199); Estimated Glomerular Filt Rate > 60 mL/min (>60); Globulin 2.8 g/dL (1.7-4.1); Glucose 109 mg/dL (70-100); HDL Cholesterol 48 mg/dL (40-60); HEMOLYSIS < 15 (0-50); LDL Cholesterol Calculated 136 mg/dL (<100); Potassium 4.2 mmol/L (3.4-5.1); Sodium 140 mmol/L (137-145); Total Protein 6.9 g/dL (6.3-8.2); Triglycerides 117 mg/dL (35-150)
[2022-05-31 09:39] LABS: Free T4, Direct Thyroxine 1.35 ng/dL (0.78-2.19)
[2022-05-31 09:55] LABS: Thyroid Stimulating Hormone < 0.015 uIU/mL (0.47-4.68)
[2022-06-01 05:21] LABS: Thyroid Peroxidase Antibodies 14 IU/mL (0-34)
[2022-06-01 14:36] LABS: Anti Thyroglobulin Antibody 1.6 IU/mL (0.0-0.9)
[2022-06-03 10:46] LABS: Triiodothyronine T3 Reverse 15.6 ng/dL (9.2-24.1)
== END ==
PROVIDERS: PCP Registered Nurse Diabetes Educator; Referring Provider Family Medicine; Visit Provider Family Medicine
DX: E06.3 Autoimmune thyroiditis (principal); E66.3 Overweight; E78.00 Pure hypercholesterolemia, unspecified; R73.01 Impaired fasting glucose
CPT/HCPCS: 36415; 80053; 80061; 84439; 84443; 84481; 84482; 86376; 86800

== ENCOUNTER → 2022-06-22 07:36 | Outpatient (CLI) | payer BC, OTHER, SELFPAY ==
--- NOTE | 2022-06-22 | DI.MG.S_ITS ---
BILATERAL DIGITAL SCREENING MAMMOGRAM 3D/2D WITH CAD: 06/22/2022 CLINICAL: Routine screening. Comparison is made to exams dated: 05/21/2021 mammogram, 03/13/2020 mammogram, and 11/07/2018 mammogram - [facility]. There are scattered areas of fibroglandular density in both breasts (category b / 25%-50% glandular tissue). Current study was also evaluated with a Computer Aided Detection (CAD) system. No significant masses, calcifications, or other findings are seen in either breast. There has been no significant interval change. IMPRESSION: NEGATIVE There is no mammographic evidence of malignancy. A 1 year screening mammogram is recommended. Based on the Tyrer Cuzick model (a risk assessment model) the patient's lifetime risk is 8.4% and her 10 year risk is 2.2%. According to the ACR, ACS, and NCCN guidelines, an annual breast MRI exam along with mammogram is recommended if the patient's lifetime risk is 20% or greater. This exam was interpreted at Station ID: [id number]. NOTE: For mammograms, a report in lay terms will be sent to the patient. Approximately 15% of breast malignancies will not be visualized mammographically. In the management of a palpable breast mass, a negative mammogram must not discourage biopsy of a clinically suspicious lesion. Electronically Signed By: Nelly driver/paula:06/22/2022 09:08:35 letter sent: Normal Exam ACR BI-RADS Category 1: Negative 3341F
== END ==
PROVIDERS: PCP Registered Nurse Diabetes Educator; Referring Provider Registered Nurse Diabetes Educator; Visit Provider Registered Nurse Diabetes Educator
DX: Z12.31 Encounter for screening mammogram for malignant neoplasm of breast (principal)
CPT/HCPCS: 77063; 77067

== ENCOUNTER → 2022-11-30 07:23 | Outpatient (CLI) | payer BC, OTHER, SELFPAY ==
[2022-11-30 09:14] LABS: Free T3, Triiodothyronine Free 4.85 pg/mL (2.77-5.27); Free T4, Direct Thyroxine 1.38 ng/dL (0.78-2.19)
[2022-11-30 09:31] LABS: Thyroid Stimulating Hormone < 0.015 uIU/mL (0.47-4.68)
[2022-11-30 09:45] LABS: Vitamin B12 796 pg/mL (239-931)
[2022-12-01 07:51] LABS: Thyroid Peroxidase Antibodies 14 IU/mL (0-34)
[2022-12-01 21:03] LABS: Anti Thyroglobulin Antibody 1.9 IU/mL (0.0-0.9)
[2022-12-07 13:05] LABS: Triiodothyronine T3 Reverse 16.8
== END ==
PROVIDERS: PCP Naturopath; Referring Provider Naturopath; Visit Provider Naturopath
DX: E06.3 Autoimmune thyroiditis (principal)
CPT/HCPCS: 36415; 82607; 84439; 84443; 84481; 84482; 86376; 86800

== ENCOUNTER → 2023-06-28 17:10 | Outpatient (CLI) | payer BC, OTHER, SELFPAY ==
--- NOTE | 2023-06-28 | DI.MG.S_ITS ---
BILATERAL DIGITAL SCREENING MAMMOGRAM 3D/2D WITH CAD: 06/28/2023 CLINICAL: Routine screening. Comparison is made to exams dated: 06/22/2022 mammogram, 05/21/2021 mammogram, and 03/13/2020 mammogram - [facility]. There are scattered areas of fibroglandular density in both breasts (category b / 25%-50% glandular tissue). Current study was also evaluated with a Computer Aided Detection (CAD) system. No significant masses, calcifications, or other findings are seen in either breast. There has been no significant interval change. IMPRESSION: NEGATIVE There is no mammographic evidence of malignancy. A 1 year screening mammogram is recommended. Based on the Tyrer Cuzick model (a risk assessment model) the patient's lifetime risk is 8.5% and her 10 year risk is 2.3%. According to the ACR, ACS, and NCCN guidelines, an annual breast MRI exam along with mammogram is recommended if the patient's lifetime risk is 20% or greater. This exam was interpreted at Station ID: [id number]. NOTE: For mammograms, a report in lay terms will be sent to the patient. Approximately 15% of breast malignancies will not be visualized mammographically. In the management of a palpable breast mass, a negative mammogram must not discourage biopsy of a clinically suspicious lesion. Electronically Signed By: José Manuel maxwell/paula:06/29/2023 12:12:04 letter sent: Normal Exam ACR BI-RADS Category 1: Negative 3341F
== END ==
PROVIDERS: PCP Naturopath; Referring Provider Naturopath; Visit Provider Naturopath
DX: Z12.31 Encounter for screening mammogram for malignant neoplasm of breast (principal)
CPT/HCPCS: 77063; 77067

== ENCOUNTER → 2023-11-09 07:03 | Outpatient (CLI) | payer BC, OTHER, SELFPAY ==
[2023-11-09 07:48] LABS: Add Manual Diff / Slide Review NO; Basophils Absolute Auto 0 /uL (0-100); Basophils Percent Auto 0.5 % (0-2); Eosinophils Absolute Auto 200 /uL (0-450); Hematocrit 41.1 % (36-46); Hemoglobin 13.6 g/dL (12.0-16.0); Lymphocytes Absolute Auto 3100 /uL (1100-4500); Lymphocytes Percent Auto 41.3 % (25-40); Mean Corpuscular HGB Conc 33.2 % (30-36); Mean Corpuscular Hemoglobin 29.8 PG (26-34); Mean Corpuscular Volume 89.8 fL (80-100); Monocytes Absolute Auto 500 /uL (0-900); Monocytes Percent Auto 6.4 % (3-14); Neutrophils Absolute Auto 3700 /uL (1500-7000); Neutrophils Percent Auto 48.8 % (50-75); Platelet Count 325 X10^3/uL (150-400); Red Blood Cell Count 4.58 X10^6/uL (4.0-5.2); Red Cell Distribution Width 14.1 % (11.6-14.8); White Blood Cell Count 7.6 X10^3/uL (4.5-11.0)
[2023-11-09 08:16] LABS: Alanine Aminotransferase 24 IU/L (<35); Albumin 4.1 g/dL (3.5-5.0); Albumin Globulin Ratio 1.7 (1.0-2.8); Alkaline Phosphatase 76 U/L (38-126); Aspartate Aminotransferase 27 IU/L (14-36); BUN Creatinine Ratio 23.9 (6-22); Bilirubin Total 0.7 mg/dL (0.2-1.3); Blood Urea Nitrogen 16 mg/dL (7-17); Calcium 9.4 mg/dL (8.4-10.2); Carbon Dioxide 30 mmol/L (22-32); Chloride 109 mmol/L (98-107); Cholesterol 217 mg/dL (140-199); Estimated Glomerular Filt Rate > 60 mL/min (>60); Globulin 2.4 g/dL (1.7-4.1); Glucose 99 mg/dL (70-100); HDL Cholesterol 62 mg/dL (40-60); HEMOLYSIS < 15 (0-50); LDL Cholesterol Calculated 135 mg/dL (<100); Potassium 4.3 mmol/L (3.4-5.1); Sodium 142 mmol/L (137-145); Total Protein 6.5 g/dL (6.3-8.2); Triglycerides 100 mg/dL (35-150)
[2023-11-09 08:23] LABS: Free T3, Triiodothyronine Free 3.69 pg/mL (2.77-5.27); Free T4, Direct Thyroxine 1.04 ng/dL (0.78-2.19)
[2023-11-09 08:36] LABS: Thyroid Stimulating Hormone < 0.015 uIU/mL (0.47-4.68)
== END ==
LOC: LAB 07:04
PROVIDERS: PCP Naturopath; Referring Provider Naturopath; Visit Provider Naturopath
DX: Z00.00 Encounter for general adult medical examination without abnormal findings (principal); E06.3 Autoimmune thyroiditis
CPT/HCPCS: 36415; 80053; 80061; 84439; 84443; 84481; 84482; 85025

== ENCOUNTER → 2024-01-09 06:57 | Outpatient (CLI) | payer BC, OTHER, SELFPAY ==
[2024-01-09 09:15] LABS: Free T3, Triiodothyronine Free 6.74 pg/mL (2.77-5.27)
[2024-01-09 09:35] LABS: Thyroid Stimulating Hormone < 0.015 uIU/mL (0.47-4.68)
[2024-01-10 20:11] LABS: Anti Thyroglobulin Antibody 1.8 IU/mL (0.0-0.9); Thyroid Peroxidase Antibodies <9 IU/mL (0-34)
== END ==
PROVIDERS: PCP Naturopath; Referring Provider Naturopath; Visit Provider Naturopath
DX: E06.3 Autoimmune thyroiditis (principal)
CPT/HCPCS: 84439; 84443; 84481; 84482; 86376; 86800

== ENCOUNTER → 2024-02-07 09:48 | Outpatient (CLI) | payer BC, OTHER, SELFPAY ==
--- NOTE | 2024-02-07 10:00 | DI.CT.S_ITS ---
PROCEDURE: CT LUNG LOW DOSE SCREENING INDICATIONS: History of smoking and tobacco use TECHNIQUE: Noncontrast 2.0-2.5 mm thick sections acquired from the pulmonary apices to the posterior costophrenic angles. 7 mm thick axial MIP, and 5 mm coronal and sagittal reformats were then acquired. For radiation dose reduction, the following was used: automated exposure control, adjustment of mA and/or kV according to patient size. COMPARISON: None. FINDINGS: Image quality: Diagnostic. Lower Neck: No enlarged lymph nodes. Thyroid: No thyroid nodules which require sonographic follow up, per consensus guidelines. Axillae: No enlarged lymph nodes. Chest Wall: Unremarkable. Bones: Unremarkable. Lungs and Pleura: No pneumothorax or pleural effusions. No consolidation or suspicious nodules. Heart: Heart size is normal. No pericardial effusion. Thoracic Vessels: The aorta and pulmonary arteries demonstrate normal size. Mediastinum and Jana: No enlarged lymph nodes. Esophagus: No wall thickening. No hiatal hernia. Upper Abdomen: Visualized upper abdomen solid organs and bowel loops appear normal. IMPRESSION: No suspicious pulmonary nodules. LUNG-RADS 1; continued annual screening, if eligible. Clinically Significant Non-pulmonary Findings: None. Dictated by: Ella Carrera M.D. on 02/07/2024 at 16:01 Approved by: Ella Carrera M.D. on 02/07/2024 at 16:02
== END ==
PROVIDERS: PCP Family Medicine; Referring Provider Family Medicine; Visit Provider Family Medicine
DX: Z12.2 Encounter for screening for malignant neoplasm of respiratory organs (principal); Z87.891 Personal history of nicotine dependence
CPT/HCPCS: 71271

== ENCOUNTER → 2024-03-20 06:56 | Outpatient (CLI) | payer BC, OTHER, SELFPAY ==
[2024-03-20 08:33] LABS: HEMOLYSIS < 15 (0-50); Iron 65 ug/dL (37-170)
[2024-03-20 08:43] LABS: Percent Iron Saturation 21 % (15-50); Total Iron Binding Capacity 308 ug/dL (265-497); Transferrin 256 mg/dL (206-381)
[2024-03-20 09:08] LABS: Ferritin 32 ng/mL (11-264)
[2024-03-20 09:09] LABS: Free T3, Triiodothyronine Free 4.68 pg/mL (2.77-5.27); Free T4, Direct Thyroxine 1.46 ng/dL (0.78-2.19)
[2024-03-20 09:24] LABS: Thyroid Stimulating Hormone < 0.015 uIU/mL (0.47-4.68)
== END ==
PROVIDERS: PCP Family Medicine; Referring Provider Naturopath; Visit Provider Naturopath
DX: E06.3 Autoimmune thyroiditis (principal); D64.9 Anemia, unspecified
CPT/HCPCS: 36415; 82728; 83540; 83550; 84439; 84443; 84481

== ENCOUNTER 2025-04-04 10:45 | Outpatient (RCR) | payer BC, OTHER, SELFPAY ==
--- NOTE | 2024-12-03 15:24 | PT.OIE ---
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) Depression (1987) Foot fracture (1981) Genital warts (1989) Yogesh's disease (2014) Hemorrhoid (~1999) Heterozygous MTHFR mutation [id number] Heterozygous MTHFR mutation C677T History of HPV infection House dust mite allergy Human papilloma virus (~1989) Hyperlipidemia (1999) Irregular menstrual cycle (01/18/14) Lichen sclerosus (1999) Lumbar disc disease Mumps (1979) Raynaud's disease (2012) Recurrent UTI (~2020) Shoulder pain (2014) 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 Tonia Katz DPM Attending Provider Non-Staff Referring Provider Specialty: Podiatry Address: [address] [place] [address], [phone] Email: Physical Therapy Initial Evaluation PT-OP-A Visit Information Start: 12/03/24 14:06 Freq: Status: Active Protocol: Document 12/03/24 11:30 DCW (Rec: 12/03/24 14:17 DCW [id number]) Out-Patient Physical Therapy Visit Information Visit Information Visit Type Initial Evaluation Visit Start Time 11:30 Visit Stop Time 12:15 Visit Number 1 Number of SENIOR OFFICER Visits 0 Evaluation Information Evaluation Date 12/03/24 PT-OP-B Current Condition Start: 12/03/24 14:06 Freq: Status: Active Protocol: Document 12/03/24 11:30 DCW (Rec: 12/03/24 14:17 DCW [id number]) Current Condition History of Current Condition Onset Date Three-year history Current Complaints R great toe adduction, worsening gait History of Current Condition Pt is a 54 year old female presenting with a three-year history of right foot/toe issues. Pt reports that three years ago, she had a large, painful bone spur removed from the MTP of her right great toe. Within the next year, this led to her joint collapse, and she had to undergo a joint replacement. Following this, her right second toe began to gravitate to my big toe, which led to a third surgery ~six months ago in which three pins were placed in her second toe to straighten it back out. Since that time, her great toe has now been going toward her second toe into adduction. Reports that her great toe doesn't really touch the ground unless she actively presses it down, it otherwise just stays into an extended, adducted position. This position causes rubbing/ blistering over extended walks , and she finds that she often walks on the lateral surface of her foot. Notes she was given post-op exercises, however they do not seem to be working. Unable to perform marble pick-ups yet. Really wants to avoid any further foot surgeries. PT-OP-C Subjective Start: 12/03/24 14:06 Freq: Status: Active Protocol: Document 12/03/24 11:30 DCW (Rec: 12/03/24 14:17 DCW [id number]) OP-PT Subjective Patient Comments Patient Comments It's not really bad, but I don't want it to get worse. I don't want to go through another foot surgery. Patient Questionnaires Lower Extremity Functional Scale LEFS Score 79/80 = 98.75% LEFS Impairment 1 to 19% Impaired (Score 63-79 ) PT-OP-F Manual Assessment Start: 12/03/24 14:06 Freq: Status: Active Protocol: Document 12/03/24 11:30 DCW (Rec: 12/03/24 15:08 DCW [id number]) Manual Assessments Soft Tissue Assessment Soft Tissue Mobility Assessment Significant scar tissue/ adhesion along second toe following surgical pin placement Joint Mobility Assessment Joint Mobility Assessment General joint stiffness in MTP and IP joint of right great toe. Passively flexible. Inability for pt to abduct great toe. PT-OP-G Mobility & Gait Start: 12/03/24 14:06 Freq: Status: Active Protocol: Document 12/03/24 11:30 DCW (Rec: 12/03/24 15:08 DCW [id number]) OP Gait Assessment Gait Gait Assistance Required: Independent Assistive Devices Assistive Device None Comments Gait Comments Mild limitations during push- off of right foot, slight increased stance on lateral plantar surface of foot. PT-OP-K Range of Motion Start: 12/03/24 14:06 Freq: Status: Active Protocol: Document 12/03/24 11:30 DCW (Rec: 12/03/24 15:08 DCW [id number]) Toe Range of Motion Toe Right Great Toe MTP Flexion Active (degrees) 10 MTP Extension Active (degrees) 5 PIP Flexion Active (degrees) 3 Comments At baseline, MTP at 10? adduction, unable to actively get to neutral PT-OP-Q Treatments Start: 12/03/24 14:06 Freq: Status: Active Protocol: Document 12/03/24 11:30 DCW (Rec: 12/03/24 14:23 DCW [id number]) Therapeutic Exercises Sitting Exercises Toe Abduction Sitting Exercise Name Great toe abduction Side right Resistance Lv 1 Comments Toe isometric hold with inversion Manual Therapy Treatment Joint Mobilizations Great toe Joint 1st MTP, IP joints Grade III Body Position Sitting PT-OP-T Assessment and Plan Start: 12/03/24 14:06 Freq: Status: Active Protocol: Document 12/03/24 11:30 DCW (Rec: 12/03/24 15:24 DCW [id number]) Physical Therapy Assessment Rehab Potential Rehabilitation Potential Good Evaluation Complexity Number of Personal Factors/Comorbidities 3 or More Number of Body Systems Impaired 4 or More Clinical Presentation at Evaluation Evolving Impairments Impairments Activity Tolerance,Functional Activities,Functional Mobility ,Gait,ROM,Soft Tissue Mobility ,Strength Goals Three Impairment Pt exhibits increased scar tissue/adhesions over right second toe Correction Lieutenant Goal (LTG) Pt to improve first and second MTP flexion to 30? to demonstrate decreased scar tissue adhesion and help normalize gait LTG Duration 02/02/25 Two Impairment R Great Toe in 10? adduction at baseline Correction Lieutenant Goal (LTG) Pt to improve MTP to neutral ( 0?) at rest in order to limit rubbing/blistering during longer walks LTG Duration 02/02/25 One Impairment Pt does not have an appropriate home exercise program Short Term Goal (STG) Pt to be independent and compliant with an appropriate HEP STG Duration 01/02/25 Assessment Summary Assessment Pt presents with signs and symptoms consistent with referring diagnosis. Pt demonstrate limited mobility of first and second right toes , particularly at the MTP. Affects pt's ability to ambulate long distances and has increased weight-bearing on lateral plantar surface. Has difficulty with push-off phase of gait. Great toe in 10 ? of adduction at rest, very limited abduction. Pt will likely benefit from skilled therapy focusing on strengthening (especially flexion and abduction of great toe), gait training, balance challenges, scar massage, and joint mobilizations. Physical Therapy Plan Frequency and Duration Frequency of Treatment 2x/Week Plan of Care Start Date 12/03/24 Plan of Care End Date 02/02/25 Therapeutic Interventions Therapeutic Interventions Balance Training,Gait Training ,Home Exercise Program,Joint Mobilizations,Manual Therapy, Neuromuscular Re-education, Patient/Caregiver Education, Self-Care/Home Management,Soft Tissue Mobilization,Taping, Therapeutic Activities, Therapeutic Exercises Modalities Cold Pack/Ice Massage,Hot Packs,Ultrasound Next Visit Focus/Plan Next Note Type Treatment Note Next Visit Plan STM, scar massage, joint mobilization, toe strengthening
--- NOTE | 2024-12-03 15:25 | PT.OPPOC ---
Physical, Occupational & Speech Therapy At [facility] Current Diagnoses Acquired deformities of toe(s), unspecified, right foot (12/03/24) Stiffness of right foot, not elsewhere classified (12/03/24) Metatarsalgia, right foot (12/03/24) Visit Care Team Role Provider Type Annette Loco DO Primary Care Provider Physician Specialty: Medical Address: [address] [place] [address], [address], [place], [address] Email: [email or web address] Tonia Katz DPM Attending Provider Non-Staff Referring Provider Specialty: Podiatry Address: [address] [facility], [place], [address] Email: Plan Of Care PT-OP-B Current Condition Start: 12/03/24 14:06 Freq: Status: Active Protocol: Document 12/03/24 11:30 DCW (Rec: 12/03/24 14:17 DCW [id number]) Current Condition History of Current Condition Onset Date Three-year history Current Complaints R great toe adduction, worsening gait History of Current Condition Pt is a 54 year old female presenting with a three-year history of right foot/toe issues. Pt reports that three years ago, she had a large, painful bone spur removed from the MTP of her right great toe. Within the next year, this led to her joint collapse, and she had to undergo a joint replacement. Following this, her right second toe began to gravitate to my big toe, which led to a third surgery ~six months ago in which three pins were placed in her second toe to straighten it back out. Since that time, her great toe has now been going toward her second toe into adduction. Reports that her great toe doesn't really touch the ground unless she actively presses it down, it otherwise just stays into an extended, adducted position. This position causes rubbing/ blistering over extended walks , and she finds that she often walks on the lateral surface of her foot. Notes she was given post-op exercises, however they do not seem to be working. Unable to perform marble pick-ups yet. Really wants to avoid any further foot surgeries. PT-OP-T Assessment and Plan Start: 12/03/24 14:06 Freq: Status: Active Protocol: Document 12/03/24 11:30 DCW (Rec: 12/03/24 15:24 DCW [id number]) Physical Therapy Assessment Rehab Potential Rehabilitation Potential Good Evaluation Complexity Number of Personal Factors/Comorbidities 3 or More Number of Body Systems Impaired 4 or More Clinical Presentation at Evaluation Evolving Impairments Impairments Activity Tolerance,Functional Activities,Functional Mobility ,Gait,ROM,Soft Tissue Mobility ,Strength Goals Three Impairment Pt exhibits increased scar tissue/adhesions over right second toe Vp Transportation Goal (LTG) Pt to improve first and second MTP flexion to 30? to demonstrate decreased scar tissue adhesion and help normalize gait LTG Duration 02/02/25 Two Impairment R Great Toe in 10? adduction at baseline Fdc Goal (LTG) Pt to improve MTP to neutral ( 0?) at rest in order to limit rubbing/blistering during longer walks LTG Duration 02/02/25 One Impairment Pt does not have an appropriate home exercise program Short Term Goal (STG) Pt to be independent and compliant with an appropriate HEP STG Duration 01/02/25 Assessment Summary Assessment Pt presents with signs and symptoms consistent with referring diagnosis. Pt demonstrate limited mobility of first and second right toes , particularly at the MTP. Affects pt's ability to ambulate long distances and has increased weight-bearing on lateral plantar surface. Has difficulty with push-off phase of gait. Great toe in 10 ? of adduction at rest, very limited abduction. Pt will likely benefit from skilled therapy focusing on strengthening (especially flexion and abduction of great toe), gait training, balance challenges, scar massage, and joint mobilizations. Physical Therapy Plan Frequency and Duration Frequency of Treatment 2x/Week Plan of Care Start Date 12/03/24 Plan of Care End Date 02/02/25 Therapeutic Interventions Therapeutic Interventions Balance Training,Gait Training ,Home Exercise Program,Joint Mobilizations,Manual Therapy, Neuromuscular Re-education, Patient/Caregiver Education, Self-Care/Home Management,Soft Tissue Mobilization,Taping, Therapeutic Activities, Therapeutic Exercises Modalities Cold Pack/Ice Massage,Hot Packs,Ultrasound Next Visit Focus/Plan Next Note Type Treatment Note Next Visit Plan STM, scar massage, joint mobilization, toe strengthening Plan of Care Dates Plan of Care Start Date 12/03/24 Plan of Care End Date 02/02/25 Electronically Signed by: Romulo Small, PT 12/03/24 1525 If you are in agreement with this Plan of Care, please return a signed and dated copy. I have reviewed this Plan of Care and certify that the skilled therapy services above are required to meet the patient?s needs. Physician Signature Date Printed Name and Credentials Clinical Instructor Signature Printed Name and Credentials
--- NOTE | 2024-12-06 12:13 | PT.OTN ---
Current Diagnoses Acquired deformities of toe(s), unspecified, right foot (12/06/24) Stiffness of right foot, not elsewhere classified (12/06/24) Metatarsalgia, right foot (12/06/24) Physical Therapy Treatment Note PT-OP-A Visit Information Start: 12/03/24 14:06 Freq: Status: Active Protocol: Document 12/06/24 11:30 DCW (Rec: 12/06/24 12:12 DCW [id number]) Out-Patient Physical Therapy Visit Information Visit Information Visit Type Treatment Note Visit Start Time 11:30 Visit Stop Time 12:15 Visit Number 2 Number of CARD WRITER HAND Visits 0 Evaluation Information Evaluation Date 12/03/24 PT-OP-B Current Condition Start: 12/03/24 14:06 Freq: Status: Active Protocol: Document 12/03/24 11:30 DCW (Rec: 12/03/24 14:17 DCW [id number]) Current Condition History of Current Condition Onset Date Three-year history Current Complaints R great toe adduction, worsening gait History of Current Condition Pt is a 54 year old female presenting with a three-year history of right foot/toe issues. Pt reports that three years ago, she had a large, painful bone spur removed from the MTP of her right great toe. Within the next year, this led to her joint collapse, and she had to undergo a joint replacement. Following this, her right second toe began to gravitate to my big toe, which led to a third surgery ~six months ago in which three pins were placed in her second toe to straighten it back out. Since that time, her great toe has now been going toward her second toe into adduction. Reports that her great toe doesn't really touch the ground unless she actively presses it down, it otherwise just stays into an extended, adducted position. This position causes rubbing/ blistering over extended walks , and she finds that she often walks on the lateral surface of her foot. Notes she was given post-op exercises, however they do not seem to be working. Unable to perform marble pick-ups yet. Really wants to avoid any further foot surgeries. PT-OP-C Subjective Start: 12/03/24 14:06 Freq: Status: Active Protocol: Document 12/06/24 11:30 DCW (Rec: 12/06/24 12:12 DCW [id number]) OP-PT Subjective Patient Comments Patient Comments Pt reports HEP is going well, feels like the toe abduction is working the right thing. Has been able to spread toes apart a tiny bit. PT-OP-F Manual Assessment Start: 12/03/24 14:06 Freq: Status: Active Protocol: Document 12/03/24 11:30 DCW (Rec: 12/03/24 15:08 DCW [id number]) Manual Assessments Soft Tissue Assessment Soft Tissue Mobility Assessment Significant scar tissue/ adhesion along second toe following surgical pin placement Joint Mobility Assessment Joint Mobility Assessment General joint stiffness in MTP and IP joint of right great toe. Passively flexible. Inability for pt to abduct great toe. PT-OP-G Mobility & Gait Start: 12/03/24 14:06 Freq: Status: Active Protocol: Document 12/03/24 11:30 DCW (Rec: 12/03/24 15:08 DCW [id number]) OP Gait Assessment Gait Gait Assistance Required: Independent Assistive Devices Assistive Device None Comments Gait Comments Mild limitations during push- off of right foot, slight increased stance on lateral plantar surface of foot. PT-OP-K Range of Motion Start: 12/03/24 14:06 Freq: Status: Active Protocol: Document 12/03/24 11:30 DCW (Rec: 12/03/24 15:08 DCW [id number]) Toe Range of Motion Toe Right Great Toe MTP Flexion Active (degrees) 10 MTP Extension Active (degrees) 5 PIP Flexion Active (degrees) 3 Comments At baseline, MTP at 10? adduction, unable to actively get to neutral PT-OP-Q Treatments Start: 12/03/24 14:06 Freq: Status: Active Protocol: Document 12/06/24 11:30 DCW (Rec: 12/06/24 12:12 DCW [id number]) Therapeutic Exercises Standing Exercises Heel Raises Standing Exercise Name Heel Raises Side bilateral Comments DL->SL Manual Therapy Treatment Soft Tissue Mobilization Scar Massage Body Location Scar massage over 2nd toe Mobilization Type Cross-Friction Intensity/Depth Moderate Body Position Sitting Joint Mobilizations Great toe Joint 1st MTP, IP joints, metatarsal mobility Grade III Body Position Sitting Neuro Re-Education Treatment Balance Activities Foam Details SLS Surface AirEx Comments VCs to keep toes down. PT-OP-T Assessment and Plan Start: 12/03/24 14:06 Freq: Status: Active Protocol: Document 12/06/24 11:30 DCW (Rec: 12/06/24 12:12 DCW [id number]) Physical Therapy Assessment Impairments Impairments Activity Tolerance,Functional Activities,Functional Mobility ,Gait,ROM,Soft Tissue Mobility ,Strength Goals Three Impairment Pt exhibits increased scar tissue/adhesions over right second toe Shopping Centre Manager Goal (LTG) Pt to improve first and second MTP flexion to 30? to demonstrate decreased scar tissue adhesion and help normalize gait LTG Duration 02/02/25 Two Impairment R Great Toe in 10? adduction at baseline Shopping Centre Manager Goal (LTG) Pt to improve MTP to neutral ( 0?) at rest in order to limit rubbing/blistering during longer walks LTG Duration 02/02/25 One Impairment Pt does not have an appropriate home exercise program Short Term Goal (STG) Pt to be independent and compliant with an appropriate HEP STG Duration 01/02/25 Assessment Summary Assessment Pt tolerated treatment very well. Able to feel toes working with balance challenges. Pt demonstrating some change with great toe abduction, able to move her great and second toe apart, which she was not able to do at her evaluation. Continue to focus on toe strengthening, joint mobility, and functional movement. Physical Therapy Plan Frequency and Duration Frequency of Treatment 2x/Week Plan of Care Start Date 12/03/24 Plan of Care End Date 02/02/25 Therapeutic Interventions Therapeutic Interventions Balance Training,Gait Training ,Home Exercise Program,Joint Mobilizations,Manual Therapy, Neuromuscular Re-education, Patient/Caregiver Education, Self-Care/Home Management,Soft Tissue Mobilization,Taping, Therapeutic Activities, Therapeutic Exercises Modalities Cold Pack/Ice Massage,Hot Packs,Ultrasound Next Visit Focus/Plan Next Note Type Treatment Note Next Visit Plan STM, scar massage, joint mobilization, toe strengthening
--- NOTE | 2024-12-13 11:29 | PT.OTN ---
Current Diagnoses Acquired deformities of toe(s), unspecified, right foot (12/13/24) Stiffness of right foot, not elsewhere classified (12/13/24) Metatarsalgia, right foot (12/13/24) Physical Therapy Treatment Note PT-OP-A Visit Information Start: 12/03/24 14:06 Freq: Status: Active Protocol: Document 12/13/24 10:45 DCW (Rec: 12/13/24 11:29 DCW [id number]) Out-Patient Physical Therapy Visit Information Visit Information Visit Type Treatment Note Visit Start Time 10:45 Visit Stop Time 11:30 Visit Number 3 Number of GAS ENGINE REPAIRER Visits 0 Evaluation Information Evaluation Date 12/03/24 PT-OP-B Current Condition Start: 12/03/24 14:06 Freq: Status: Active Protocol: Document 12/03/24 11:30 DCW (Rec: 12/03/24 14:17 DCW [id number]) Current Condition History of Current Condition Onset Date Three-year history Current Complaints R great toe adduction, worsening gait History of Current Condition Pt is a 54 year old female presenting with a three-year history of right foot/toe issues. Pt reports that three years ago, she had a large, painful bone spur removed from the MTP of her right great toe. Within the next year, this led to her joint collapse, and she had to undergo a joint replacement. Following this, her right second toe began to gravitate to my big toe, which led to a third surgery ~six months ago in which three pins were placed in her second toe to straighten it back out. Since that time, her great toe has now been going toward her second toe into adduction. Reports that her great toe doesn't really touch the ground unless she actively presses it down, it otherwise just stays into an extended, adducted position. This position causes rubbing/ blistering over extended walks , and she finds that she often walks on the lateral surface of her foot. Notes she was given post-op exercises, however they do not seem to be working. Unable to perform marble pick-ups yet. Really wants to avoid any further foot surgeries. PT-OP-C Subjective Start: 12/03/24 14:06 Freq: Status: Active Protocol: Document 12/13/24 10:45 DCW (Rec: 12/13/24 11:29 DCW [id number]) OP-PT Subjective Patient Comments Patient Comments Notes a bit of pain in the big toe joint, I suspect I'll have random weirdness for a while. Notes toe continues to move better. PT-OP-F Manual Assessment Start: 12/03/24 14:06 Freq: Status: Active Protocol: Document 12/03/24 11:30 DCW (Rec: 12/03/24 15:08 DCW [id number]) Manual Assessments Soft Tissue Assessment Soft Tissue Mobility Assessment Significant scar tissue/ adhesion along second toe following surgical pin placement Joint Mobility Assessment Joint Mobility Assessment General joint stiffness in MTP and IP joint of right great toe. Passively flexible. Inability for pt to abduct great toe. PT-OP-G Mobility & Gait Start: 12/03/24 14:06 Freq: Status: Active Protocol: Document 12/03/24 11:30 DCW (Rec: 12/03/24 15:08 DCW [id number]) OP Gait Assessment Gait Gait Assistance Required: Independent Assistive Devices Assistive Device None Comments Gait Comments Mild limitations during push- off of right foot, slight increased stance on lateral plantar surface of foot. PT-OP-K Range of Motion Start: 12/03/24 14:06 Freq: Status: Active Protocol: Document 12/03/24 11:30 DCW (Rec: 12/03/24 15:08 DCW [id number]) Toe Range of Motion Toe Right Great Toe MTP Flexion Active (degrees) 10 MTP Extension Active (degrees) 5 PIP Flexion Active (degrees) 3 Comments At baseline, MTP at 10? adduction, unable to actively get to neutral PT-OP-Q Treatments Start: 12/03/24 14:06 Freq: Status: Active Protocol: Document 12/13/24 10:45 DCW (Rec: 12/13/24 11:29 DCW [id number]) Manual Therapy Treatment Consent Patient gave verbal consent for manual Yes treatment Soft Tissue Mobilization Scar Massage Body Location Scar massage over 2nd toe Mobilization Type Cross-Friction Intensity/Depth Moderate Body Position Sitting Joint Mobilizations Great toe Joint 1st MTP, IP joints, metatarsal mobility Grade III Body Position Sitting PT-OP-T Assessment and Plan Start: 12/03/24 14:06 Freq: Status: Active Protocol: Document 12/13/24 10:45 DCW (Rec: 12/13/24 11:29 DCW [id number]) Physical Therapy Assessment Assessment Summary Assessment Focused on manual today, both scar and joint mobs. Pt doing well with HEP. Continue to focus on joint mobility, toe strengthening. May benefit from additional balance challenges to improve foot reactive forces. Physical Therapy Plan Frequency and Duration Frequency of Treatment 2x/Week Plan of Care Start Date 12/03/24 Plan of Care End Date 02/02/25 Therapeutic Interventions Therapeutic Interventions Balance Training,Gait Training ,Home Exercise Program,Joint Mobilizations,Manual Therapy, Neuromuscular Re-education, Patient/Caregiver Education, Self-Care/Home Management,Soft Tissue Mobilization,Taping, Therapeutic Activities, Therapeutic Exercises Modalities Cold Pack/Ice Massage,Hot Packs,Ultrasound Next Visit Focus/Plan Next Note Type Treatment Note Next Visit Plan STM, scar massage, joint mobilization, toe strengthening
--- NOTE | 2024-12-18 14:00 | PT.OTN ---
Current Diagnoses Acquired deformities of toe(s), unspecified, right foot (12/18/24) Stiffness of right foot, not elsewhere classified (12/18/24) Metatarsalgia, right foot (12/18/24) Physical Therapy Treatment Note PT-OP-A Visit Information Start: 12/03/24 14:06 Freq: Status: Active Protocol: Document 12/18/24 13:09 NBM (Rec: 12/18/24 13:55 NBM Laptop) Out-Patient Physical Therapy Visit Information Visit Information Visit Type Treatment Note Visit Start Time 13:05 Visit Stop Time 13:51 Visit Number 4 Number of HEALTHCARE LIAISON Visits 1 PT-OP-B Current Condition Start: 12/03/24 14:06 Freq: Status: Active Protocol: Document 12/03/24 11:30 DCW (Rec: 12/03/24 14:17 DCW [id number]) Current Condition History of Current Condition Onset Date Three-year history Current Complaints R great toe adduction, worsening gait History of Current Condition Pt is a 54 year old female presenting with a three-year history of right foot/toe issues. Pt reports that three years ago, she had a large, painful bone spur removed from the MTP of her right great toe. Within the next year, this led to her joint collapse, and she had to undergo a joint replacement. Following this, her right second toe began to gravitate to my big toe, which led to a third surgery ~six months ago in which three pins were placed in her second toe to straighten it back out. Since that time, her great toe has now been going toward her second toe into adduction. Reports that her great toe doesn't really touch the ground unless she actively presses it down, it otherwise just stays into an extended, adducted position. This position causes rubbing/ blistering over extended walks , and she finds that she often walks on the lateral surface of her foot. Notes she was given post-op exercises, however they do not seem to be working. Unable to perform marble pick-ups yet. Really wants to avoid any further foot surgeries. PT-OP-C Subjective Start: 12/03/24 14:06 Freq: Status: Active Protocol: Document 12/18/24 13:09 NBM (Rec: 12/18/24 13:55 NBM Laptop) OP-PT Subjective Patient Comments Patient Comments Maddie reports no pain and she notices her toe will pop back up when she pulls it down . I can feel that the toe is up right now in my shoe. Telephone Claims Representative told her the knot under her R foot arch is not a muscular knot but is a tissue that some people have and so she doesn't need to work on it, but pt only has it on the R foot so wonders. PT-OP-F Manual Assessment Start: 12/03/24 14:06 Freq: Status: Active Protocol: Document 12/03/24 11:30 DCW (Rec: 12/03/24 15:08 DCW [id number]) Manual Assessments Soft Tissue Assessment Soft Tissue Mobility Assessment Significant scar tissue/ adhesion along second toe following surgical pin placement Joint Mobility Assessment Joint Mobility Assessment General joint stiffness in MTP and IP joint of right great toe. Passively flexible. Inability for pt to abduct great toe. PT-OP-G Mobility & Gait Start: 12/03/24 14:06 Freq: Status: Active Protocol: Document 12/03/24 11:30 DCW (Rec: 12/03/24 15:08 DCW [id number]) OP Gait Assessment Gait Gait Assistance Required: Independent Assistive Devices Assistive Device None Comments Gait Comments Mild limitations during push- off of right foot, slight increased stance on lateral plantar surface of foot. PT-OP-K Range of Motion Start: 12/03/24 14:06 Freq: Status: Active Protocol: Document 12/03/24 11:30 DCW (Rec: 12/03/24 15:08 DCW [id number]) Toe Range of Motion Toe Right Great Toe MTP Flexion Active (degrees) 10 MTP Extension Active (degrees) 5 PIP Flexion Active (degrees) 3 Comments At baseline, MTP at 10? adduction, unable to actively get to neutral PT-OP-Q Treatments Start: 12/03/24 14:06 Freq: Status: Active Protocol: Document 12/18/24 13:09 NBM (Rec: 12/18/24 13:55 NBM Laptop) Manual Therapy Treatment Consent Patient gave verbal consent for manual Yes treatment Soft Tissue Mobilization Plantar Body Location R Hallux, 2nd toe, plantar fascia Mobilization Type Cross-Friction,Rolling,Other Intensity/Depth Moderate Body Position Sitting Scar Massage Body Location Scar massage over 2nd and 1st toe Mobilization Type Cross-Friction,Instrument Assisted Intensity/Depth Moderate Body Position Sitting Comments cupping in neutral and on stretch w/ focus along scar and Extensor hallucis longus and brevis, and Extensor digitorum longus and brevis of 2nd toe. Joint Mobilizations Great toe Joint 1st MTP, IP joints, metatarsal mobility Grade III Body Position Sitting PT-OP-T Assessment and Plan Start: 12/03/24 14:06 Freq: Status: Active Protocol: Document 12/18/24 13:09 NBM (Rec: 12/18/24 13:55 NBM Laptop) Physical Therapy Assessment Goals Three Impairment Pt exhibits increased scar tissue/adhesions over right second toe Payroll And Benefits Manager Goal (LTG) Pt to improve first and second MTP flexion to 30? to demonstrate decreased scar tissue adhesion and help normalize gait LTG Duration 02/02/25 Two Impairment R Great Toe in 10? adduction at baseline Payroll And Benefits Manager Goal (LTG) Pt to improve MTP to neutral ( 0?) at rest in order to limit rubbing/blistering during longer walks LTG Duration 02/02/25 One Impairment Pt does not have an appropriate home exercise program Short Term Goal (STG) Pt to be independent and compliant with an appropriate HEP STG Duration 01/02/25 Assessment Summary Assessment Treatment focus on manual therapy today and trialed cupping to address adhesions along scar tissue. Pt reports sensitivity and tightness improve throughout dorsal aspect of R foot and particularly along Hallucis longus tendon and scar, and pattern remains of being tighter proximally along scar. Physical Therapy Plan Frequency and Duration Frequency of Treatment 2x/Week Plan of Care Start Date 12/03/24 Plan of Care End Date 02/02/25 Therapeutic Interventions Therapeutic Interventions Balance Training,Gait Training ,Home Exercise Program,Joint Mobilizations,Manual Therapy, Neuromuscular Re-education, Patient/Caregiver Education, Self-Care/Home Management,Soft Tissue Mobilization,Taping, Therapeutic Activities, Therapeutic Exercises Modalities Cold Pack/Ice Massage,Hot Packs,Ultrasound Next Visit Focus/Plan Next Note Type Treatment Note Next Visit Plan STM, scar massage, joint mobilization, toe strengthening
--- NOTE | 2024-12-20 17:50 | PT.OTN ---
Current Diagnoses Acquired deformities of toe(s), unspecified, right foot (12/20/24) Stiffness of right foot, not elsewhere classified (12/20/24) Metatarsalgia, right foot (12/20/24) Physical Therapy Treatment Note PT-OP-A Visit Information Start: 12/03/24 14:06 Freq: Status: Active Protocol: Document 12/20/24 17:00 DCW (Rec: 12/20/24 17:50 DCW [id number]) Out-Patient Physical Therapy Visit Information Visit Information Visit Type Treatment Note Visit Start Time 17:00 Visit Stop Time 17:45 Visit Number 5 Number of DEAF TEACHER Visits 0 Evaluation Information Evaluation Date 12/03/24 PT-OP-B Current Condition Start: 12/03/24 14:06 Freq: Status: Active Protocol: Document 12/03/24 11:30 DCW (Rec: 12/03/24 14:17 DCW [id number]) Current Condition History of Current Condition Onset Date Three-year history Current Complaints R great toe adduction, worsening gait History of Current Condition Pt is a 54 year old female presenting with a three-year history of right foot/toe issues. Pt reports that three years ago, she had a large, painful bone spur removed from the MTP of her right great toe. Within the next year, this led to her joint collapse, and she had to undergo a joint replacement. Following this, her right second toe began to gravitate to my big toe, which led to a third surgery ~six months ago in which three pins were placed in her second toe to straighten it back out. Since that time, her great toe has now been going toward her second toe into adduction. Reports that her great toe doesn't really touch the ground unless she actively presses it down, it otherwise just stays into an extended, adducted position. This position causes rubbing/ blistering over extended walks , and she finds that she often walks on the lateral surface of her foot. Notes she was given post-op exercises, however they do not seem to be working. Unable to perform marble pick-ups yet. Really wants to avoid any further foot surgeries. PT-OP-C Subjective Start: 12/03/24 14:06 Freq: Status: Active Protocol: Document 12/20/24 17:00 DCW (Rec: 12/20/24 17:50 DCW [id number]) OP-PT Subjective Patient Comments Patient Comments Pt feels like she has a little more mobility following cupping last visit. PT-OP-F Manual Assessment Start: 12/03/24 14:06 Freq: Status: Active Protocol: Document 12/03/24 11:30 DCW (Rec: 12/03/24 15:08 DCW [id number]) Manual Assessments Soft Tissue Assessment Soft Tissue Mobility Assessment Significant scar tissue/ adhesion along second toe following surgical pin placement Joint Mobility Assessment Joint Mobility Assessment General joint stiffness in MTP and IP joint of right great toe. Passively flexible. Inability for pt to abduct great toe. PT-OP-G Mobility & Gait Start: 12/03/24 14:06 Freq: Status: Active Protocol: Document 12/03/24 11:30 DCW (Rec: 12/03/24 15:08 DCW [id number]) OP Gait Assessment Gait Gait Assistance Required: Independent Assistive Devices Assistive Device None Comments Gait Comments Mild limitations during push- off of right foot, slight increased stance on lateral plantar surface of foot. PT-OP-K Range of Motion Start: 12/03/24 14:06 Freq: Status: Active Protocol: Document 12/03/24 11:30 DCW (Rec: 12/03/24 15:08 DCW [id number]) Toe Range of Motion Toe Right Great Toe MTP Flexion Active (degrees) 10 MTP Extension Active (degrees) 5 PIP Flexion Active (degrees) 3 Comments At baseline, MTP at 10? adduction, unable to actively get to neutral PT-OP-Q Treatments Start: 12/03/24 14:06 Freq: Status: Active Protocol: Document 12/20/24 17:00 DCW (Rec: 12/20/24 17:50 DCW [id number]) Manual Therapy Treatment Consent Patient gave verbal consent for manual Yes treatment Soft Tissue Mobilization Plantar Body Location R Hallux, 2nd toe, plantar fascia Mobilization Type Cross-Friction,Rolling,Other Intensity/Depth Moderate Body Position Sitting Scar Massage Body Location Scar massage over 2nd and 1st toe Mobilization Type Cross-Friction,Instrument Assisted Intensity/Depth Moderate Body Position Sitting Comments cupping in neutral and on stretch w/ focus along scar and Extensor hallucis longus and brevis, and Extensor digitorum longus and brevis of 2nd toe. Joint Mobilizations Great toe Joint 1st MTP, IP joints, metatarsal mobility Grade III Body Position Sitting PT-OP-T Assessment and Plan Start: 12/03/24 14:06 Freq: Status: Active Protocol: Document 12/20/24 17:00 DCW (Rec: 12/20/24 17:50 DCW [id number]) Physical Therapy Assessment Impairments Impairments Activity Tolerance,Functional Activities,Functional Mobility ,Gait,ROM,Soft Tissue Mobility ,Strength Goals Three Impairment Pt exhibits increased scar tissue/adhesions over right second toe Wrapper Caser Goal (LTG) Pt to improve first and second MTP flexion to 30? to demonstrate decreased scar tissue adhesion and help normalize gait LTG Duration 02/02/25 Two Impairment R Great Toe in 10? adduction at baseline Wrapper Caser Goal (LTG) Pt to improve MTP to neutral ( 0?) at rest in order to limit rubbing/blistering during longer walks LTG Duration 02/02/25 One Impairment Pt does not have an appropriate home exercise program Short Term Goal (STG) Pt to be independent and compliant with an appropriate HEP STG Duration 01/02/25 Assessment Summary Assessment Pt responded very well to cupping last visit, performed more today, able to get more of the mid-range of the scar. Pt doing much better overall, increased mobility of her great toe. Physical Therapy Plan Frequency and Duration Frequency of Treatment 2x/Week Plan of Care Start Date 12/03/24 Plan of Care End Date 02/02/25 Therapeutic Interventions Therapeutic Interventions Balance Training,Gait Training ,Home Exercise Program,Joint Mobilizations,Manual Therapy, Neuromuscular Re-education, Patient/Caregiver Education, Self-Care/Home Management,Soft Tissue Mobilization,Taping, Therapeutic Activities, Therapeutic Exercises Modalities Cold Pack/Ice Massage,Hot Packs,Ultrasound Next Visit Focus/Plan Next Note Type Treatment Note Next Visit Plan STM, scar massage, joint mobilization, toe strengthening
--- NOTE | 2025-01-10 11:27 | PT.OTN ---
Current Diagnoses Acquired deformities of toe(s), unspecified, right foot (01/10/25) Stiffness of right foot, not elsewhere classified (01/10/25) Metatarsalgia, right foot (01/10/25) Physical Therapy Treatment Note PT-OP-A Visit Information Start: 12/03/24 14:06 Freq: Status: Active Protocol: Document 01/10/25 10:47 PG (Rec: 01/10/25 12:00 PG [id number]) Out-Patient Physical Therapy Visit Information Visit Information Visit Type Treatment Note Visit Note AURORA Bolanos led tx with permission of pt and direct supervision of Hanane ALLISON. 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 Pt reports that three years ago, she had a large, painful bone spur removed from the MTP of her right great toe. Within the next year, this led to her joint collapse, and she had to undergo a joint replacement. Following this, her right second toe began to gravitate to my big toe, which led to a third surgery ~six months ago in which three pins were placed in her second toe to straighten it back out. Since that time, her great toe has now been going toward her second toe into adduction. Reports that her great toe doesn't really touch the ground unless she actively presses it down, it otherwise just stays into an extended, adducted position. This position causes rubbing/ blistering over extended walks , and she finds that she often walks on the lateral surface of her foot. Notes she was given post-op exercises, however they do not seem to be working. Unable to perform marble pick-ups yet. Really wants to avoid any further foot surgeries. PT-OP-C Subjective Start: 12/03/24 14:06 Freq: Status: Active Protocol: Document 01/10/25 10:47 PG (Rec: 01/10/25 12:00 PG [id number]) OP-PT Subjective Patient Comments Patient Comments Pt states she's been doing well. Has recently had a lot' s of cramping in her arch area , tried paddle boarding this weekend but felt cramping when getting on the board and feet being tucked underneath her in PF. PT-OP-F Manual Assessment Start: 12/03/24 14:06 Freq: Status: Active Protocol: Document 12/03/24 11:30 DCW (Rec: 12/03/24 15:08 DCW [id number]) Manual Assessments Soft Tissue Assessment Soft Tissue Mobility Assessment Significant scar tissue/ adhesion along second toe following surgical pin placement Joint Mobility Assessment Joint Mobility Assessment General joint stiffness in MTP and IP joint of right great toe. Passively flexible. Inability for pt to abduct great toe. PT-OP-G Mobility & Gait Start: 12/03/24 14:06 Freq: Status: Active Protocol: Document 12/03/24 11:30 DCW (Rec: 12/03/24 15:08 DCW [id number]) OP Gait Assessment Gait Gait Assistance Required: Independent Assistive Devices Assistive Device None Comments Gait Comments Mild limitations during push- off of right foot, slight increased stance on lateral plantar surface of foot. PT-OP-K Range of Motion Start: 12/03/24 14:06 Freq: Status: Active Protocol: Document 12/03/24 11:30 DCW (Rec: 12/03/24 15:08 DCW [id number]) Toe Range of Motion Toe Right Great Toe MTP Flexion Active (degrees) 10 MTP Extension Active (degrees) 5 PIP Flexion Active (degrees) 3 Comments At baseline, MTP at 10? 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 toe flex over ball Side right Reps/Minutes several reps, reviewed past HEP Comments 2. 2nd and 3rd digits held by SPT[employer] to reduce recruitment Toe Abduction Sitting Exercise Name Reviewed Side right Comments 2nd and 3rd digits held by SPTA to reduce recruitment Manual Therapy Treatment Soft Tissue Mobilization Plantar Body Location R Hallux, 2nd toe, plantar fascia Mobilization Type Cross-Friction,Rolling,Other Intensity/Depth Moderate Body Position Sitting Scar Massage Body Location Scar massage over 2nd and 1st toe Mobilization Type Cross-Friction,Instrument Assisted Intensity/Depth Moderate Body Position Sitting Comments cupping in neutral and on stretch w/ focus along scar and Extensor hallucis longus and brevis, and Extensor digitorum longus and brevis of 2nd toe. Joint Mobilizations Great toe Joint 1st MTP, IP joints, metatarsal mobility Direction a/p, rotational, m/lat Grade III Body Position Sitting Taping KT Tape Body Location 2nd toe Treatment Focus scar mobilization Comments zigzag over scar Other Other Manual Treatments Autogenic inhibition technique with great toe flexion Self-Care/Home Management Treatment Education Patient Education Home Exercise Program,Joint Protection Other Education Educated pt on the use of putty between great toe and 2nd digit as a low level separator that is flexible. Provided yellow putty for trial at home. Also trialing exercises with a step under lateral foot and digits 2-5, for isolated great toe flexion ROM. PT-OP-T Assessment and Plan Start: 12/03/24 14:06 Freq: Status: Active Protocol: Document 01/10/25 10:47 PG (Rec: 01/10/25 12:00 PG [id number]) Physical Therapy Assessment Impairments Impairments Activity Tolerance,Functional Activities,Functional Mobility ,Gait,ROM,Soft Tissue Mobility ,Strength Goals Three Impairment Pt exhibits increased scar tissue/adhesions over right second toe Retirement Goal (LTG) Pt to improve first and second MTP flexion to 30? to demonstrate decreased scar tissue adhesion and help normalize gait LTG Duration 02/02/25 Two Impairment R Great Toe in 10? adduction at baseline Road Worker Goal (LTG) Pt to improve MTP to neutral ( 0?) at rest in order to limit rubbing/blistering during longer walks LTG Duration 02/02/25 One Impairment Pt does not have an appropriate home exercise program Short Term Goal (STG) Pt to be independent and compliant with an appropriate HEP STG Duration 01/02/25 Assessment Summary Assessment Continued with STM and cupping along scar tissue. Difficulty targeting the midrange of the scar where adhesions are tightest due to small surface area. Continues to have limited flexion and difficulty isolating the great toe to strengthen into flexion/abduction without recruiting and fatiguing the 2nd and 3rd digits. Trialed KT tape for scar mobility and educated pt on potential options such as putty as toe separator. Physical Therapy Plan Frequency and Duration Frequency of Treatment 2x/Week Plan of Care Start Date 12/03/24 Plan of Care End Date 02/02/25 Therapeutic Interventions Therapeutic Interventions Balance Training,Gait Training ,Home Exercise Program,Joint Mobilizations,Manual Therapy, Neuromuscular Re-education, Patient/Caregiver Education, Self-Care/Home Management,Soft Tissue Mobilization,Taping, Therapeutic Activities, Therapeutic Exercises Modalities Cold Pack/Ice Massage,Hot Packs,Ultrasound Next Visit Focus/Plan Next Note Type Treatment Note Next Visit Plan Next: Check in with pt about KT tape, putty separator from last tx. Did she get a bunion relief/toe corrector to try? POC: STM, scar massage, joint mobilization, toe strengthening
--- NOTE | 2025-01-16 11:31 | PT.OTN ---
Current Diagnoses Acquired deformities of toe(s), unspecified, right foot (01/16/25) Stiffness of right foot, not elsewhere classified (01/16/25) Metatarsalgia, right foot (01/16/25) Physical Therapy Treatment Note PT-OP-A Visit Information Start: 12/03/24 14:06 Freq: Status: Active Protocol: Document 01/16/25 10:45 DCW (Rec: 01/16/25 11:31 DCW [id number]) Out-Patient Physical Therapy Visit Information Visit Information Visit Type Treatment Note Visit Start Time 10:45 Visit Stop Time 11:30 Visit Number 7 Number of FLIGHT TOWER DISPATCHER Visits 0 Evaluation Information Evaluation Date 12/03/24 PT-OP-B Current Condition Start: 12/03/24 14:06 Freq: Status: Active Protocol: Document 12/03/24 11:30 DCW (Rec: 12/03/24 14:17 DCW [id number]) Current Condition History of Current Condition Onset Date Three-year history Current Complaints R great toe adduction, worsening gait History of Current Condition Pt is a 54 year old female presenting with a three-year history of right foot/toe issues. Pt reports that three years ago, she had a large, painful bone spur removed from the MTP of her right great toe. Within the next year, this led to her joint collapse, and she had to undergo a joint replacement. Following this, her right second toe began to gravitate to my big toe, which led to a third surgery ~six months ago in which three pins were placed in her second toe to straighten it back out. Since that time, her great toe has now been going toward her second toe into adduction. Reports that her great toe doesn't really touch the ground unless she actively presses it down, it otherwise just stays into an extended, adducted position. This position causes rubbing/ blistering over extended walks , and she finds that she often walks on the lateral surface of her foot. Notes she was given post-op exercises, however they do not seem to be working. Unable to perform marble pick-ups yet. Really wants to avoid any further foot surgeries. PT-OP-C Subjective Start: 12/03/24 14:06 Freq: Status: Active Protocol: Document 01/16/25 10:45 DCW (Rec: 01/16/25 11:31 DCW [id number]) OP-PT Subjective Patient Comments Patient Comments Continues to cramp in her foot , but does note that her great toe is showing some increased mobility. Is still having difficulty during gait getting her toe down. PT-OP-F Manual Assessment Start: 12/03/24 14:06 Freq: Status: Active Protocol: Document 12/03/24 11:30 DCW (Rec: 12/03/24 15:08 DCW [id number]) Manual Assessments Soft Tissue Assessment Soft Tissue Mobility Assessment Significant scar tissue/ adhesion along second toe following surgical pin placement Joint Mobility Assessment Joint Mobility Assessment General joint stiffness in MTP and IP joint of right great toe. Passively flexible. Inability for pt to abduct great toe. PT-OP-G Mobility & Gait Start: 12/03/24 14:06 Freq: Status: Active Protocol: Document 12/03/24 11:30 DCW (Rec: 12/03/24 15:08 DCW [id number]) OP Gait Assessment Gait Gait Assistance Required: Independent Assistive Devices Assistive Device None Comments Gait Comments Mild limitations during push- off of right foot, slight increased stance on lateral plantar surface of foot. PT-OP-K Range of Motion Start: 12/03/24 14:06 Freq: Status: Active Protocol: Document 12/03/24 11:30 DCW (Rec: 12/03/24 15:08 DCW [id number]) Toe Range of Motion Toe Right Great Toe MTP Flexion Active (degrees) 10 MTP Extension Active (degrees) 5 PIP Flexion Active (degrees) 3 Comments At baseline, MTP at 10? adduction, unable to actively get to neutral PT-OP-Q Treatments Start: 12/03/24 14:06 Freq: Status: Active Protocol: Document 01/16/25 10:45 DCW (Rec: 01/16/25 11:31 DCW [id number]) Manual Therapy Treatment Consent Patient gave verbal consent for manual Yes treatment Soft Tissue Mobilization Plantar Body Location R Hallux, 2nd toe, plantar fascia Mobilization Type Cross-Friction,Rolling,Other Intensity/Depth Moderate Body Position Sitting Scar Massage Body Location Scar massage over 2nd and 1st toe Mobilization Type Cross-Friction,Instrument Assisted Intensity/Depth Moderate Body Position Sitting Comments cupping in neutral and on stretch w/ focus along scar and Extensor hallucis longus and brevis, and Extensor digitorum longus and brevis of 2nd toe. Joint Mobilizations Great toe Joint 1st MTP, IP joints, metatarsal mobility Grade III Body Position Sitting PT-OP-T Assessment and Plan Start: 12/03/24 14:06 Freq: Status: Active Protocol: Document 01/16/25 10:45 DCW (Rec: 01/16/25 11:31 DCW [id number]) Physical Therapy Assessment Impairments Impairments Activity Tolerance,Functional Activities,Functional Mobility ,Gait,ROM,Soft Tissue Mobility ,Strength Goals Three Impairment Pt exhibits increased scar tissue/adhesions over right second toe [facility] Goal (LTG) Pt to improve first and second MTP flexion to 30? to demonstrate decreased scar tissue adhesion and help normalize gait LTG Duration 02/02/25 Two Impairment R Great Toe in 10? adduction at baseline [facility] Goal (LTG) Pt to improve MTP to neutral ( 0?) at rest in order to limit rubbing/blistering during longer walks LTG Duration 02/02/25 One Impairment Pt does not have an appropriate home exercise program Short Term Goal (STG) Pt to be independent and compliant with an appropriate HEP STG Duration 01/02/25 Assessment Summary Assessment Continues to respond well to cupping for scar mobilization. Exhibiting improved alignment in her toes when non-weight bearing, but continues to have difficulty with great toe adducting into second toe in standing. Physical Therapy Plan Frequency and Duration Frequency of Treatment 2x/Week Plan of Care Start Date 12/03/24 Plan of Care End Date 02/02/25 Therapeutic Interventions Therapeutic Interventions Balance Training,Gait Training ,Home Exercise Program,Joint Mobilizations,Manual Therapy, Neuromuscular Re-education, Patient/Caregiver Education, Self-Care/Home Management,Soft Tissue Mobilization,Taping, Therapeutic Activities, Therapeutic Exercises Modalities Cold Pack/Ice Massage,Hot Packs,Ultrasound Next Visit Focus/Plan Next Note Type Treatment Note Next Visit Plan STM, scar massage, joint mobilization, toe strengthening
--- NOTE | 2025-01-18 09:46 | PT.OTN ---
Current Diagnoses Acquired deformities of toe(s), unspecified, right foot (01/18/25) Stiffness of right foot, not elsewhere classified (01/18/25) Metatarsalgia, right foot (01/18/25) Physical Therapy Treatment Note PT-OP-A Visit Information Start: 12/03/24 14:06 Freq: Status: Active Protocol: Document 01/18/25 09:46 PG (Rec: 01/18/25 10:42 PG Laptop) Out-Patient Physical Therapy Visit Information Visit Information Visit Type Treatment Note Visit Note AURORA Bolanos led tx with permission of pt and direct supervision of Hanane ALLISON. Visit Start Time 09:46 Visit Stop Time 10:31 Visit Number 8 Number of EMERGENCY DEPARTMENT COORDINATOR Visits 1 Evaluation Information Evaluation Date 12/03/24 PT-OP-B Current Condition Start: 12/03/24 14:06 Freq: Status: Active Protocol: Document 12/03/24 11:30 DCW (Rec: 12/03/24 14:17 DCW [id number]) Current Condition History of Current Condition Onset Date Three-year history Current Complaints R great toe adduction, worsening gait History of Current Condition Pt is a 54 year old female presenting with a three-year history of right foot/toe issues. Pt reports that three years ago, she had a large, painful bone spur removed from the MTP of her right great toe. Within the next year, this led to her joint collapse, and she had to undergo a joint replacement. Following this, her right second toe began to gravitate to my big toe, which led to a third surgery ~six months ago in which three pins were placed in her second toe to straighten it back out. Since that time, her great toe has now been going toward her second toe into adduction. Reports that her great toe doesn't really touch the ground unless she actively presses it down, it otherwise just stays into an extended, adducted position. This position causes rubbing/ blistering over extended walks , and she finds that she often walks on the lateral surface of her foot. Notes she was given post-op exercises, however they do not seem to be working. Unable to perform marble pick-ups yet. Really wants to avoid any further foot surgeries. PT-OP-C Subjective Start: 12/03/24 14:06 Freq: Status: Active Protocol: Document 01/18/25 09:46 PG (Rec: 01/18/25 10:42 PG Laptop) OP-PT Subjective Patient Comments Patient Comments Pt states she tried bunion corrector but it was too short for her big toe. Tried putty between toes and that them but didn't hold while walking. PT-OP-F Manual Assessment Start: 12/03/24 14:06 Freq: Status: Active Protocol: Document 12/03/24 11:30 DCW (Rec: 12/03/24 15:08 DCW [id number]) Manual Assessments Soft Tissue Assessment Soft Tissue Mobility Assessment Significant scar tissue/ adhesion along second toe following surgical pin placement Joint Mobility Assessment Joint Mobility Assessment General joint stiffness in MTP and IP joint of right great toe. Passively flexible. Inability for pt to abduct great toe. PT-OP-G Mobility & Gait Start: 12/03/24 14:06 Freq: Status: Active Protocol: Document 12/03/24 11:30 DCW (Rec: 12/03/24 15:08 DCW [id number]) OP Gait Assessment Gait Gait Assistance Required: Independent Assistive Devices Assistive Device None Comments Gait Comments Mild limitations during push- off of right foot, slight increased stance on lateral plantar surface of foot. PT-OP-K Range of Motion Start: 12/03/24 14:06 Freq: Status: Active Protocol: Document 12/03/24 11:30 DCW (Rec: 12/03/24 15:08 DCW [id number]) Toe Range of Motion Toe Right Great Toe MTP Flexion Active (degrees) 10 MTP Extension Active (degrees) 5 PIP Flexion Active (degrees) 3 Comments At baseline, MTP at 10? adduction, unable to actively get to neutral PT-OP-Q Treatments Start: 12/03/24 14:06 Freq: Status: Active Protocol: Document 01/18/25 09:46 PG (Rec: 01/18/25 10:42 PG Laptop) Therapeutic Exercises Standing Exercises Great toe flexion Standing Exercise Name Trialed digits 2-5 on top of step w great toe off edge Side right Equipment Used 1UE support, small towel roll between great toe and digit 2 Manual Therapy Treatment Soft Tissue Mobilization Plantar Body Location R Hallux, 2nd toe, plantar fascia Mobilization Type Cross-Friction,Rolling,Other Intensity/Depth Moderate Body Position Sitting Scar Massage Body Location Scar massage over 2nd and 1st toe Mobilization Type Cross-Friction,Instrument Assisted Intensity/Depth Moderate Body Position Sitting Comments cupping in neutral and on stretch w/ focus along scar and Extensor hallucis longus and brevis, and Extensor digitorum longus and brevis of 2nd toe. Joint Mobilizations Great toe Joint 1st MTP, IP joints, metatarsal mobility Grade III Body Position Sitting Neuro Re-Education Treatment Balance Activities Foam Details SLS Surface AirEx Equipment 1UE on bed for support Comments VCs to keep toes down, tried towel corner slightly rolled between big toe and digit 2 to prevent overlapping. Self-Care/Home Management Treatment Education Patient Education Home Exercise Program,Joint Protection Other Education Spoke with pt further about taping toes 2-5 so that big toe could be more isolated during exercises. Pt didn't know what tape she could use that wouldn't be too stretchy or cause skin irritation. Educated pt on trying prewrap and white med/sports tape. Also educated pt on using toe spreaders while performing exercises to keep toes apart. PT-OP-T Assessment and Plan Start: 12/03/24 14:06 Freq: Status: Active Protocol: Document 01/18/25 09:46 PG (Rec: 01/18/25 10:42 PG Laptop) Physical Therapy Assessment Impairments Impairments Activity Tolerance,Functional Activities,Functional Mobility ,Gait,ROM,Soft Tissue Mobility ,Strength Goals Three Impairment Pt exhibits increased scar tissue/adhesions over right second toe Skilled Nursing Goal (LTG) Pt to improve first and second MTP flexion to 30? to demonstrate decreased scar tissue adhesion and help normalize gait LTG Duration 02/02/25 Two Impairment R Great Toe in 10? adduction at baseline Concession Cashier Goal (LTG) Pt to improve MTP to neutral ( 0?) at rest in order to limit rubbing/blistering during longer walks LTG Duration 02/02/25 One Impairment Pt does not have an appropriate home exercise program Short Term Goal (STG) Pt to be independent and compliant with an appropriate HEP STG Duration 01/02/25 Assessment Summary Assessment Continued with great toe joint mobs and cupping for scar mobilization with good feedback from pt. Trialed SLS and great toe flexion exercises with part of towel rolled up between great toe and 2nd digit to work great toe flexion w/o overlapping. Pt will trial using toe spacers at home while completing exercises. Physical Therapy Plan Frequency and Duration Frequency of Treatment 2x/Week Plan of Care Start Date 12/03/24 Plan of Care End Date 02/02/25 Therapeutic Interventions Therapeutic Interventions Balance Training,Gait Training ,Home Exercise Program,Joint Mobilizations,Manual Therapy, Neuromuscular Re-education, Patient/Caregiver Education, Self-Care/Home Management,Soft Tissue Mobilization,Taping, Therapeutic Activities, Therapeutic Exercises Modalities Cold Pack/Ice Massage,Hot Packs,Ultrasound Next Visit Focus/Plan Next Note Type Treatment Note Next Visit Plan STM, scar massage, joint mobilization, toe strengthening
--- NOTE | 2025-01-21 16:03 | PT.OTN ---
Current Diagnoses Acquired deformities of toe(s), unspecified, right foot (01/21/25) Stiffness of right foot, not elsewhere classified (01/21/25) Metatarsalgia, right foot (01/21/25) Physical Therapy Treatment Note PT-OP-A Visit Information Start: 12/03/24 14:06 Freq: Status: Active Protocol: Document 01/21/25 15:15 DCW (Rec: 01/21/25 16:02 DCW [id number]) Out-Patient Physical Therapy Visit Information Visit Information Visit Type Treatment Note Visit Note Student PT Darren Coley participated in treatment session w/ PT direct supervision and direction Visit Start Time 15:15 Visit Stop Time 16:00 Visit Number 9 Number of WARM IN Visits 0 Evaluation Information Evaluation Date 12/03/24 PT-OP-B Current Condition Start: 12/03/24 14:06 Freq: Status: Active Protocol: Document 12/03/24 11:30 DCW (Rec: 12/03/24 14:17 DCW [id number]) Current Condition History of Current Condition Onset Date Three-year history Current Complaints R great toe adduction, worsening gait History of Current Condition Pt is a 54 year old female presenting with a three-year history of right foot/toe issues. Pt reports that three years ago, she had a large, painful bone spur removed from the MTP of her right great toe. Within the next year, this led to her joint collapse, and she had to undergo a joint replacement. Following this, her right second toe began to gravitate to my big toe, which led to a third surgery ~six months ago in which three pins were placed in her second toe to straighten it back out. Since that time, her great toe has now been going toward her second toe into adduction. Reports that her great toe doesn't really touch the ground unless she actively presses it down, it otherwise just stays into an extended, adducted position. This position causes rubbing/ blistering over extended walks , and she finds that she often walks on the lateral surface of her foot. Notes she was given post-op exercises, however they do not seem to be working. Unable to perform marble pick-ups yet. Really wants to avoid any further foot surgeries. PT-OP-C Subjective Start: 12/03/24 14:06 Freq: Status: Active Protocol: Document 01/21/25 15:15 DCW (Rec: 01/21/25 16:02 DCW [id number]) OP-PT Subjective Patient Comments Patient Comments Things are okay, but they've been a little crampy today. PT-OP-F Manual Assessment Start: 12/03/24 14:06 Freq: Status: Active Protocol: Document 12/03/24 11:30 DCW (Rec: 12/03/24 15:08 DCW [id number]) Manual Assessments Soft Tissue Assessment Soft Tissue Mobility Assessment Significant scar tissue/ adhesion along second toe following surgical pin placement Joint Mobility Assessment Joint Mobility Assessment General joint stiffness in MTP and IP joint of right great toe. Passively flexible. Inability for pt to abduct great toe. PT-OP-G Mobility & Gait Start: 12/03/24 14:06 Freq: Status: Active Protocol: Document 12/03/24 11:30 DCW (Rec: 12/03/24 15:08 DCW [id number]) OP Gait Assessment Gait Gait Assistance Required: Independent Assistive Devices Assistive Device None Comments Gait Comments Mild limitations during push- off of right foot, slight increased stance on lateral plantar surface of foot. PT-OP-K Range of Motion Start: 12/03/24 14:06 Freq: Status: Active Protocol: Document 12/03/24 11:30 DCW (Rec: 12/03/24 15:08 DCW [id number]) Toe Range of Motion Toe Right Great Toe MTP Flexion Active (degrees) 10 MTP Extension Active (degrees) 5 PIP Flexion Active (degrees) 3 Comments At baseline, MTP at 10? adduction, unable to actively get to neutral PT-OP-Q Treatments Start: 12/03/24 14:06 Freq: Status: Active Protocol: Document 01/21/25 15:15 DCW (Rec: 01/21/25 16:02 DCW [id number]) Manual Therapy Treatment Consent Patient gave verbal consent for manual Yes treatment Soft Tissue Mobilization Plantar Body Location R Hallux, 2nd toe, plantar fascia Mobilization Type Cross-Friction,Rolling,Other Intensity/Depth Moderate Body Position Sitting Scar Massage Body Location Scar massage over 2nd and 1st toe Mobilization Type Cross-Friction,Instrument Assisted Intensity/Depth Moderate Body Position Sitting Comments cupping in neutral and on stretch w/ focus along scar and Extensor hallucis longus and brevis, and Extensor digitorum longus and brevis of 2nd toe. Joint Mobilizations Great toe Joint 1st MTP, IP joints, metatarsal mobility Grade III Body Position Sitting PT-OP-T Assessment and Plan Start: 12/03/24 14:06 Freq: Status: Active Protocol: Document 01/21/25 15:15 DCW (Rec: 01/21/25 16:02 DCW [id number]) Physical Therapy Assessment Impairments Impairments Activity Tolerance,Functional Activities,Functional Mobility ,Gait,ROM,Soft Tissue Mobility ,Strength Goals Three Impairment Pt exhibits increased scar tissue/adhesions over right second toe [place] Goal (LTG) Pt to improve first and second MTP flexion to 30? to demonstrate decreased scar tissue adhesion and help normalize gait LTG Duration 02/02/25 Two Impairment R Great Toe in 10? adduction at baseline [place] Goal (LTG) Pt to improve MTP to neutral ( 0?) at rest in order to limit rubbing/blistering during longer walks LTG Duration 02/02/25 One Impairment Pt does not have an appropriate home exercise program Short Term Goal (STG) Pt to be independent and compliant with an appropriate HEP STG Duration 01/02/25 Assessment Summary Assessment Continues to reports good overall improvement with toe strength and mobility, although remains limited when in standing position, great toe goes into extension and second toe adducts under great toe. Pt will likely benefit from continued work on toe strengthening, joint mobility, balance training, and functional mobilization. Physical Therapy Plan Frequency and Duration Frequency of Treatment 2x/Week Plan of Care Start Date 12/03/24 Plan of Care End Date 02/02/25 Therapeutic Interventions Therapeutic Interventions Balance Training,Gait Training ,Home Exercise Program,Joint Mobilizations,Manual Therapy, Neuromuscular Re-education, Patient/Caregiver Education, Self-Care/Home Management,Soft Tissue Mobilization,Taping, Therapeutic Activities, Therapeutic Exercises Modalities Cold Pack/Ice Massage,Hot Packs,Ultrasound Next Visit Focus/Plan Next Note Type Treatment Note Next Visit Plan STM, scar massage, joint mobilization, toe strengthening
--- NOTE | 2025-01-23 11:29 | PT.OTN ---
Current Diagnoses Acquired deformities of toe(s), unspecified, right foot (01/23/25) Stiffness of right foot, not elsewhere classified (01/23/25) Metatarsalgia, right foot (01/23/25) Physical Therapy Treatment Note PT-OP-A Visit Information Start: 12/03/24 14:06 Freq: Status: Active Protocol: Document 01/23/25 10:49 SP (Rec: 01/23/25 11:31 SP [id number]) Out-Patient Physical Therapy Visit Information Visit Information Visit Type Treatment Note Visit Start Time 10:49 Visit Stop Time 11:29 Visit Number 10 Number of ASSOCIATE ACCOUNT DIRECTOR Visits 1 Evaluation Information Evaluation Date 12/03/24 PT-OP-B Current Condition Start: 12/03/24 14:06 Freq: Status: Active Protocol: Document 12/03/24 11:30 DCW (Rec: 12/03/24 14:17 DCW [id number]) Current Condition History of Current Condition Onset Date Three-year history Current Complaints R great toe adduction, worsening gait History of Current Pt is a 54 year old female presenting with a three-year Condition history of right foot/toe issues. Pt reports that three years ago, she had a large, painful bone spur removed from the MTP of her right great toe. Within the next year, this led to her joint collapse, and she had to undergo a joint replacement. Following this, her right second toe began to gravitate to my big toe, which led to a third surgery ~six months ago in which three pins were placed in her second toe to straighten it back out. Since that time, her great toe has now been going toward her second toe into adduction. Reports that her great toe doesn't really touch the ground unless she actively presses it down, it otherwise just stays into an extended, adducted position. This position causes rubbing/blistering over extended walks, and she finds that she often walks on the lateral surface of her foot. Notes she was given post-op exercises, however they do not seem to be working. Unable to perform marble pick-ups yet. Really wants to avoid any further foot surgeries. PT-OP-C Subjective Start: 12/03/24 14:06 Freq: Status: Active Protocol: Document 01/23/25 10:49 SP (Rec: 01/23/25 11:31 SP [id number]) OP-PT Subjective Patient Comments Patient Comments Pt reports doing well with self manual STMs and jt mobs , TB toe flexion/abd, stretching, marble fruit picker. PT-OP-F Manual Assessment Start: 12/03/24 14:06 Freq: Status: Active Protocol: Document 12/03/24 11:30 DCW (Rec: 12/03/24 15:08 DCW [id number]) Manual Assessments Soft Tissue Assessment Soft Tissue Mobility Significant scar tissue/adhesion along second toe Assessment following surgical pin placement Joint Mobility Assessment Joint Mobility General joint stiffness in MTP and IP joint of right Assessment great toe. Passively flexible. Inability for pt to abduct great toe. PT-OP-G Mobility & Gait Start: 12/03/24 14:06 Freq: Status: Active Protocol: Document 12/03/24 11:30 DCW (Rec: 12/03/24 15:08 DCW [id number]) OP Gait Assessment Gait Gait Assistance Independent Required: Assistive Devices Assistive Device None Comments Gait Comments Mild limitations during push-off of right foot, slight increased stance on lateral plantar surface of foot. PT-OP-K Range of Motion Start: 12/03/24 14:06 Freq: Status: Active Protocol: Document 12/03/24 11:30 DCW (Rec: 12/03/24 15:08 DCW [id number]) Toe Range of Motion Toe Right Great Toe MTP Flexion Active ( 10 degrees) MTP Extension Active 5 (degrees) PIP Flexion Active ( 3 degrees) Comments At baseline, MTP at 10? adduction, unable to actively get to neutral PT-OP-Q Treatments Start: 12/03/24 14:06 Freq: Status: Active Protocol: Document 01/23/25 10:49 SP (Rec: 01/23/25 11:31 SP [id number]) Therapeutic Exercises Sitting Exercises Toe Flexion Sitting Exercise 1-5 toe flex over golf ball Name Side right Resistance ASSOCIATE ACCOUNT DIRECTOR's thumb between 1-2 MTP maintain space Equipment Used golf ball Reps/Minutes several reps, reviewed past HEP Comments ed find something between toe support midline medial R 1st MTP during flex. Toe Abduction Sitting Exercise Reviewed 1st MTP ABD Name Side right Comments 2-5 digits held by ASSOCIATE ACCOUNT DIRECTOR to reduce recruitment Standing Exercises Star Taps Standing Exercise RLE SLS: LLE Many various clock phases- added to HEP ( Name declined HO) Side right Resistance AROM Equipment Used floor, front mirror Reps/Minutes 5 reps x2 sets Comments cued knee alignment with mid floot/hip hinge, WB into R great toe flex Stre Great toe flexion Standing Exercise Trialed digits 2-5 on top of step w great toe off edge Name Side right Equipment Used 1UE support, 2-5 MTP on 2 platform great toe flexion Reps/Minutes many reps Comments 1st MTP flexion Manual Therapy Treatment Consent Patient gave verbal Yes consent for manual treatment Soft Tissue Mobilization Plantar Body Location R Hallux, 2nd toe, plantar fascia Mobilization Type Cross-Friction,Rolling,Other Intensity/Depth Moderate Body Position Sitting Scar Massage Body Location Scar massage over 2nd and 1st toe: EHL & EHB, EDL & EDB 2nd toe Mobilization Type Cross-Friction,Instrument Assisted,Myofascial Release, Strumming Intensity/Depth Moderate Body Position hooklying/LEs over wedge Comments STMs on stretch w/ focus along scar 1-2 MTPs, cupping challenge 2nd toe today 01/23, used tool flat and manual ASSOCIATE ACCOUNT DIRECTOR finger twist/med/lat opp directions scar MF glides no lotion Neuro Re-Education Treatment Balance Activities Foam Details SLS- added to HEP declined HO Surface AirEx (suggested pillow home) Equipment 1UE PRN elevated table Reps/Duration 30 sec x2 Comments VCs wt shift into L toes 1> 2-5 PT-OP-T Assessment and Plan Start: 12/03/24 14:06 Freq: Status: Active Protocol: Document 01/23/25 10:49 SP (Rec: 01/23/25 11:31 SP [id number]) Physical Therapy Assessment Goals Three Impairment Pt exhibits increased scar tissue/adhesions over right second toe Fpc Goal (LTG) Pt to improve first and second MTP flexion to 30? to demonstrate decreased scar tissue adhesion and help normalize gait LTG Duration 02/02/25 Two Impairment R Great Toe in 10? adduction at baseline Skin Toggler Goal (LTG) Pt to improve MTP to neutral (0?) at rest in order to limit rubbing/blistering during longer walks LTG Duration 02/02/25 One Impairment Pt does not have an appropriate home exercise program Short Term Goal (STG Pt to be independent and compliant with an appropriate ) HEP STG Duration 01/02/25 Assessment Summary Assessment Challenging cupping this tx, provided MFR lateral twisting/med/lat glide scar instead with ed self carryover no lotion for marketing content manager ability. Reviewed 1st great toe flexion use step and ball with noted flexion performance. Progressed intrinsic and toe flexion during SLS on foam and SLS star taps with good tolerance, cues for emphasis on WB into R 1st great toe flexion for stability and strengthening. Physical Therapy Plan Frequency and Duration Frequency of 2x/Week Treatment Plan of Care Start 12/03/24 Date Plan of Care End 02/02/25 Date Therapeutic Interventions Therapeutic Balance Training,Gait Training,Home Exercise Program, Interventions Joint Mobilizations,Manual Therapy,Neuromuscular Re- education,Patient/Caregiver Education,Self-Care/Home Management,Soft Tissue Mobilization,Taping,Therapeutic Activities,Therapeutic Exercises Modalities Cold Pack/Ice Massage,Hot Packs,Ultrasound Next Visit Focus/Plan Next Note Type Treatment Note Next Visit Plan Check PN. Pt has 2 more appts scheduled. PT to add more if needed last visit. POC: STM, scar massage, joint mobilization, toe strengthening
--- NOTE | 2025-01-29 12:39 | PT.OTN ---
Current Diagnoses Acquired deformities of toe(s), unspecified, right foot (01/29/25) Stiffness of right foot, not elsewhere classified (01/29/25) Metatarsalgia, right foot (01/29/25) Physical Therapy Treatment Note PT-OP-A Visit Information Start: 12/03/24 14:06 Freq: Status: Active Protocol: Document 01/29/25 10:47 AB (Rec: 01/29/25 12:39 AB Laptop) Out-Patient Physical Therapy Visit Information Visit Information Visit Type Treatment Note Visit Start Time 10:47 Visit Stop Time 11:32 Visit Number 11 Number of SPOT WELDER BODY ASSEMBLY Visits 2 Evaluation Information Evaluation Date 12/03/24 PT-OP-B Current Condition Start: 12/03/24 14:06 Freq: Status: Active Protocol: Document 12/03/24 11:30 DCW (Rec: 12/03/24 14:17 DCW [id number]) Current Condition History of Current Condition Onset Date Three-year history Current Complaints R great toe adduction, worsening gait History of Current Pt is a 54 year old female presenting with a three-year Condition history of right foot/toe issues. Pt reports that three years ago, she had a large, painful bone spur removed from the MTP of her right great toe. Within the next year, this led to her joint collapse, and she had to undergo a joint replacement. Following this, her right second toe began to gravitate to my big toe, which led to a third surgery ~six months ago in which three pins were placed in her second toe to straighten it back out. Since that time, her great toe has now been going toward her second toe into adduction. Reports that her great toe doesn't really touch the ground unless she actively presses it down, it otherwise just stays into an extended, adducted position. This position causes rubbing/blistering over extended walks, and she finds that she often walks on the lateral surface of her foot. Notes she was given post-op exercises, however they do not seem to be working. Unable to perform marble pick-ups yet. Really wants to avoid any further foot surgeries. PT-OP-C Subjective Start: 12/03/24 14:06 Freq: Status: Active Protocol: Document 01/29/25 10:47 AB (Rec: 01/29/25 12:39 AB Laptop) OP-PT Subjective Patient Comments Patient Comments Patient reports increased pain 2nd toe over weekend, attributes to the foot on step exercise. PT-OP-F Manual Assessment Start: 12/03/24 14:06 Freq: Status: Active Protocol: Document 12/03/24 11:30 DCW (Rec: 12/03/24 15:08 DCW [id number]) Manual Assessments Soft Tissue Assessment Soft Tissue Mobility Significant scar tissue/adhesion along second toe Assessment following surgical pin placement Joint Mobility Assessment Joint Mobility General joint stiffness in MTP and IP joint of right Assessment great toe. Passively flexible. Inability for pt to abduct great toe. PT-OP-G Mobility & Gait Start: 12/03/24 14:06 Freq: Status: Active Protocol: Document 12/03/24 11:30 DCW (Rec: 12/03/24 15:08 DCW [id number]) OP Gait Assessment Gait Gait Assistance Independent Required: Assistive Devices Assistive Device None Comments Gait Comments Mild limitations during push-off of right foot, slight increased stance on lateral plantar surface of foot. PT-OP-K Range of Motion Start: 12/03/24 14:06 Freq: Status: Active Protocol: Document 12/03/24 11:30 DCW (Rec: 12/03/24 15:08 DCW [id number]) Toe Range of Motion Toe Right Great Toe MTP Flexion Active ( 10 degrees) MTP Extension Active 5 (degrees) PIP Flexion Active ( 3 degrees) Comments At baseline, MTP at 10? adduction, unable to actively get to neutral PT-OP-Q Treatments Start: 12/03/24 14:06 Freq: Status: Active Protocol: Document 01/29/25 10:47 AB (Rec: 01/29/25 12:39 AB Laptop) Therapeutic Exercises Sitting Exercises towel scrunch Side right Reps/Minutes 1-2 min Toe yoga Side bilateral Reps/Minutes X 10 without tape X 10 X 2 with tape Comments Verbal cues, patient ed to perform bilaterally for carryover seated hip abd with band Sitting Exercise HEP Name Side bilateral Resistance level 4 and level 5 band Reps/Minutes one min each band Comments verbal and visual cues Toe Flexion Sitting Exercise 1-5 toe flex over golf ball Name Side right Equipment Used golf ball Reps/Minutes X 5 Comments post manual Toe Abduction Side bilateral Reps/Minutes X 10 X 3 Comments verbal and tactile cues, patient ed to perform bilaterally, also standing Manual Therapy Treatment Soft Tissue Mobilization Plantar Body Location R Hallux, 2nd toe, plantar fascia Mobilization Type Cross-Friction,Instrument Assisted,Rolling Intensity/Depth Hooklying Body Position Hooklying Comments also with cupping and toe abd add mvt Scar Massage Body Location scar tissue Mobilization Type Cross-Friction,Instrument Assisted,Myofascial Release Intensity/Depth Moderate Body Position hooklying/LEs over wedge Comments cupping with toe abd add Joint Mobilizations MT Joint R LE Direction ap and pa Grade III Body Position Hooklying Reps/Duration X 10 each Taping KT Tape Body Location during toe yoga only to keep 2nd toe with 3,4,5 PT-OP-T Assessment and Plan Start: 12/03/24 14:06 Freq: Status: Active Protocol: Document 01/29/25 10:47 AB (Rec: 01/29/25 12:39 AB Laptop) Physical Therapy Assessment Goals Three Impairment Pt exhibits increased scar tissue/adhesions over right second toe Fpc Goal (LTG) Pt to improve first and second MTP flexion to 30? to demonstrate decreased scar tissue adhesion and help normalize gait LTG Duration 02/02/25 Two Impairment R Great Toe in 10? adduction at baseline Fpc Goal (LTG) Pt to improve MTP to neutral (0?) at rest in order to limit rubbing/blistering during longer walks LTG Duration 02/02/25 One Impairment Pt does not have an appropriate home exercise program Short Term Goal (STG Pt to be independent and compliant with an appropriate ) HEP STG Duration 01/02/25 Assessment Summary Assessment Patient reports arch feels better ambulating out of session without device. Physical Therapy Plan Frequency and Duration Frequency of 2x/Week Treatment Plan of Care Start 12/03/24 Date Plan of Care End 02/02/25 Date Therapeutic Interventions Therapeutic Balance Training,Gait Training,Home Exercise Program, Interventions Joint Mobilizations,Manual Therapy,Neuromuscular Re- education,Patient/Caregiver Education,Self-Care/Home Management,Soft Tissue Mobilization,Taping,Therapeutic Activities,Therapeutic Exercises Modalities Cold Pack/Ice Massage,Hot Packs,Ultrasound Next Visit Focus/Plan Next Note Type Treatment Note Next Visit Plan Check PN. Pt has 2 more appts scheduled. PT to add more if needed last visit. POC: STM, scar massage, joint mobilization, toe strengthening
--- NOTE | 2025-01-31 11:33 | PT.OTN ---
Current Diagnoses Acquired deformities of toe(s), unspecified, right foot (01/31/25) Stiffness of right foot, not elsewhere classified (01/31/25) Metatarsalgia, right foot (01/31/25) Physical Therapy Treatment Note PT-OP-A Visit Information Start: 12/03/24 14:06 Freq: Status: Active Protocol: Document 01/31/25 10:45 DCW (Rec: 01/31/25 11:33 DCW [id number]) Out-Patient Physical Therapy Visit Information Visit Information Visit Type Progress Note Visit Start Time 10:45 Visit Stop Time 11:30 Visit Number 12 Number of PAIN MEDICINE PHYSICIAN Visits 0 Evaluation Information Evaluation Date 12/03/24 PT-OP-B Current Condition Start: 12/03/24 14:06 Freq: Status: Active Protocol: Document 12/03/24 11:30 DCW (Rec: 12/03/24 14:17 DCW [id number]) Current Condition History of Current Condition Onset Date Three-year history Current Complaints R great toe adduction, worsening gait History of Current Pt is a 54 year old female presenting with a three-year Condition history of right foot/toe issues. Pt reports that three years ago, she had a large, painful bone spur removed from the MTP of her right great toe. Within the next year, this led to her joint collapse, and she had to undergo a joint replacement. Following this, her right second toe began to gravitate to my big toe, which led to a third surgery ~six months ago in which three pins were placed in her second toe to straighten it back out. Since that time, her great toe has now been going toward her second toe into adduction. Reports that her great toe doesn't really touch the ground unless she actively presses it down, it otherwise just stays into an extended, adducted position. This position causes rubbing/blistering over extended walks, and she finds that she often walks on the lateral surface of her foot. Notes she was given post-op exercises, however they do not seem to be working. Unable to perform marble pick-ups yet. Really wants to avoid any further foot surgeries. PT-OP-C Subjective Start: 12/03/24 14:06 Freq: Status: Active Protocol: Document 01/31/25 10:45 DCW (Rec: 01/31/25 10:48 DCW [id number]) OP-PT Subjective Patient Comments Patient Comments Pt reports some of the new exercises (toe raises, balance challenges) have increased joint pain in her right great and second toes PT-OP-F Manual Assessment Start: 12/03/24 14:06 Freq: Status: Active Protocol: Document 01/31/25 10:45 DCW (Rec: 01/31/25 11:04 DCW [id number]) Manual Assessments Soft Tissue Assessment Soft Tissue Mobility Significant scar tissue/adhesion along second toe Assessment following surgical pin placement Joint Mobility Assessment Joint Mobility General joint stiffness in MTP and IP joint of right Assessment great toe. Passively flexible. Limited ability for pt to abduct great toe. PT-OP-G Mobility & Gait Start: 12/03/24 14:06 Freq: Status: Active Protocol: Document 01/31/25 10:45 DCW (Rec: 01/31/25 11:04 DCW [id number]) OP Gait Assessment Gait Gait Assistance Independent Required: Assistive Devices Assistive Device None Comments Gait Comments Mild limitations during push-off of right foot, slight increased stance on lateral plantar surface of foot. PT-OP-K Range of Motion Start: 12/03/24 14:06 Freq: Status: Active Protocol: Document 01/31/25 10:45 DCW (Rec: 01/31/25 11:04 DCW [id number]) Toe Range of Motion Toe Right Great Toe MTP Flexion Active ( 18 degrees) MTP Extension Active 15 (degrees) PIP Flexion Active ( 20 degrees) PIP Extension Active 0 (degrees) Comments At baseline, MTP at 5? adduction, actively gets to neutral PT-OP-Q Treatments Start: 12/03/24 14:06 Freq: Status: Active Protocol: Document 01/31/25 10:45 DCW (Rec: 01/31/25 11:33 DCW [id number]) Manual Therapy Treatment Consent Patient gave verbal Yes consent for manual treatment Soft Tissue Mobilization Plantar Body Location R Hallux, 2nd toe, plantar fascia Mobilization Type Cross-Friction,Rolling,Other Intensity/Depth Moderate Body Position Sitting Scar Massage Body Location Scar massage over 2nd and 1st toe Mobilization Type Cross-Friction,Instrument Assisted Intensity/Depth Moderate Body Position Sitting Joint Mobilizations Great toe Joint 1st MTP, IP joints, metatarsal mobility Grade III Body Position Sitting PT-OP-T Assessment and Plan Start: 12/03/24 14:06 Freq: Status: Active Protocol: Document 01/31/25 10:45 DCW (Rec: 01/31/25 11:33 DCW [id number]) Physical Therapy Assessment Impairments Impairments Activity Tolerance,Functional Activities,Functional Mobility,Gait,ROM,Soft Tissue Mobility,Strength Goals Three Impairment Pt exhibits increased scar tissue/adhesions over right second toe Consultant In Ergonomics And Safety Goal (LTG) Pt to improve first and second MTP flexion to 30? to demonstrate decreased scar tissue adhesion and help normalize gait LTG Duration 04/02/25 Two Impairment R Great Toe in 10? adduction at baseline Shelter Goal (LTG) Pt to improve MTP to neutral (0?) at rest in order to limit rubbing/blistering during longer walks LTG Duration 04/02/25 One Impairment Pt does not have an appropriate home exercise program Short Term Goal (STG Pt to be independent and compliant with an appropriate ) HEP STG Duration 03/02/25 Assessment Summary Assessment Pt showing very good progress overall, significant improvement with ROM in MTP and IP joints of great toe. Pt noting much less adduction and overlap of great toe on second toe. Pt instructed to decrease frequency of new exercises that have been increasing joint pain. Pt will likely continue to benefit from skilled therapeutic intervention focusing on strengthening, joint mobility, and functional activity tolerance of right foot and great/second toes. Physical Therapy Plan Frequency and Duration Frequency of 2x/Week Treatment Plan of Care Start 01/31/25 Date Plan of Care End 04/02/25 Date Therapeutic Interventions Therapeutic Balance Training,Gait Training,Home Exercise Program, Interventions Joint Mobilizations,Manual Therapy,Neuromuscular Re- education,Patient/Caregiver Education,Self-Care/Home Management,Soft Tissue Mobilization,Taping,Therapeutic Activities,Therapeutic Exercises Modalities Cold Pack/Ice Massage,Hot Packs,Ultrasound Next Visit Focus/Plan Next Note Type Treatment Note Next Visit Plan POC: STM, scar massage, joint mobilization, toe strengthening
--- NOTE | 2025-01-31 11:33 | PT.OPPOC ---
Physical, Occupational & Speech Therapy At [facility] Current Diagnoses Acquired deformities of toe(s), unspecified, right foot (01/31/25) Stiffness of right foot, not elsewhere classified (01/31/25) Metatarsalgia, right foot (01/31/25) Visit Care Team Role Provider Type Annette Loco DO Primary Care Provider Physician Specialty: Medical Address: [address] [place] [address], [address], [place], [address] Email: [email or web address] Tonia Katz DPM Attending Provider Non-Staff Referring Provider Specialty: Podiatry Address: [address] [facility], [place], [address] Email: Plan Of Care PT-OP-B Current Condition Start: 12/03/24 14:06 Freq: Status: Active Protocol: Document 12/03/24 11:30 DCW (Rec: 12/03/24 14:17 DCW [id number]) Current Condition History of Current Condition Onset Date Three-year history Current Complaints R great toe adduction, worsening gait History of Current Pt is a 54 year old female presenting with a three-year Condition history of right foot/toe issues. Pt reports that three years ago, she had a large, painful bone spur removed from the MTP of her right great toe. Within the next year, this led to her joint collapse, and she had to undergo a joint replacement. Following this, her right second toe began to gravitate to my big toe, which led to a third surgery ~six months ago in which three pins were placed in her second toe to straighten it back out. Since that time, her great toe has now been going toward her second toe into adduction. Reports that her great toe doesn't really touch the ground unless she actively presses it down, it otherwise just stays into an extended, adducted position. This position causes rubbing/blistering over extended walks, and she finds that she often walks on the lateral surface of her foot. Notes she was given post-op exercises, however they do not seem to be working. Unable to perform marble pick-ups yet. Really wants to avoid any further foot surgeries. PT-OP-T Assessment and Plan Start: 12/03/24 14:06 Freq: Status: Active Protocol: Document 01/31/25 10:45 DCW (Rec: 01/31/25 11:33 DCW [id number]) Physical Therapy Assessment Impairments Impairments Activity Tolerance,Functional Activities,Functional Mobility,Gait,ROM,Soft Tissue Mobility,Strength Goals Three Impairment Pt exhibits increased scar tissue/adhesions over right second toe Fpc Goal (LTG) Pt to improve first and second MTP flexion to 30? to demonstrate decreased scar tissue adhesion and help normalize gait LTG Duration 04/02/25 Two Impairment R Great Toe in 10? adduction at baseline Soccer Commentator Goal (LTG) Pt to improve MTP to neutral (0?) at rest in order to limit rubbing/blistering during longer walks LTG Duration 04/02/25 One Impairment Pt does not have an appropriate home exercise program Short Term Goal (STG Pt to be independent and compliant with an appropriate ) HEP STG Duration 03/02/25 Assessment Summary Assessment Pt showing very good progress overall, significant improvement with ROM in MTP and IP joints of great toe. Pt noting much less adduction and overlap of great toe on second toe. Pt instructed to decrease frequency of new exercises that have been increasing joint pain. Pt will likely continue to benefit from skilled therapeutic intervention focusing on strengthening, joint mobility, and functional activity tolerance of right foot and great/second toes. Physical Therapy Plan Frequency and Duration Frequency of 2x/Week Treatment Plan of Care Start 01/31/25 Plan of Care End 04/02/25 Date Therapeutic Interventions Therapeutic Balance Training,Gait Training,Home Exercise Program, Interventions Joint Mobilizations,Manual Therapy,Neuromuscular Re- education,Patient/Caregiver Education,Self-Care/Home Management,Soft Tissue Mobilization,Taping,Therapeutic Activities,Therapeutic Exercises Modalities Cold Pack/Ice Massage,Hot Packs,Ultrasound Next Visit Focus/Plan Next Note Type Treatment Note Next Visit Plan POC: STM, scar massage, joint mobilization, toe strengthening Plan of Care Dates Plan of Care Start Date 01/31/25 Plan of Care End Date 04/02/25 Electronically Signed by: Romulo Small, PT 01/31/25 [id number] If you are in agreement with this Plan of Care, please return a signed and dated copy. I have reviewed this Plan of Care and certify that the skilled therapy services above are required to meet the patient?s needs. Physician Signature Date Printed Name and Credentials Clinical Instructor Signature Printed Name and Credentials
--- NOTE | 2025-02-14 16:19 | PT-OP ANOTE ---
Pt cancelled 2nd consecutive appt (02/15/25)> 24 hr notice, reported sick earlier this week. Next appt with PT 02/19
--- NOTE | 2025-02-19 16:04 | PT.OTN ---
Current Diagnoses Acquired deformities of toe(s), unspecified, right foot (02/19/25) Stiffness of right foot, not elsewhere classified (02/19/25) Metatarsalgia, right foot (02/19/25) Physical Therapy Treatment Note PT-OP-A Visit Information Start: 12/03/24 14:06 Freq: Status: Active Protocol: Document 02/19/25 15:15 DCW (Rec: 02/19/25 16:04 DCW [id number]) Out-Patient Physical Therapy Visit Information Visit Information Visit Type Treatment Note Visit Start Time 15:15 Visit Stop Time 16:00 Visit Number 13 Number of PATIENT PLACEMENT COORDINATOR Visits 0 Evaluation Information Evaluation Date 12/03/24 PT-OP-B Current Condition Start: 12/03/24 14:06 Freq: Status: Active Protocol: Document 12/03/24 11:30 DCW (Rec: 12/03/24 14:17 DCW [id number]) Current Condition History of Current Condition Onset Date Three-year history Current Complaints R great toe adduction, worsening gait History of Current Pt is a 54 year old female presenting with a three-year Condition history of right foot/toe issues. Pt reports that three years ago, she had a large, painful bone spur removed from the MTP of her right great toe. Within the next year, this led to her joint collapse, and she had to undergo a joint replacement. Following this, her right second toe began to gravitate to my big toe, which led to a third surgery ~six months ago in which three pins were placed in her second toe to straighten it back out. Since that time, her great toe has now been going toward her second toe into adduction. Reports that her great toe doesn't really touch the ground unless she actively presses it down, it otherwise just stays into an extended, adducted position. This position causes rubbing/blistering over extended walks, and she finds that she often walks on the lateral surface of her foot. Notes she was given post-op exercises, however they do not seem to be working. Unable to perform marble pick-ups yet. Really wants to avoid any further foot surgeries. PT-OP-C Subjective Start: 12/03/24 14:06 Freq: Status: Active Protocol: Document 02/19/25 15:15 DCW (Rec: 02/19/25 16:04 DCW [id number]) OP-PT Subjective Patient Comments Patient Comments Foot is okay. Notes she hasn't been doing much, was travelling two weeks ago, and got sick, so she has kevan recovering the past week. PT-OP-F Manual Assessment Start: 12/03/24 14:06 Freq: Status: Active Protocol: Document 01/31/25 10:45 DCW (Rec: 01/31/25 11:04 DCW [id number]) Manual Assessments Soft Tissue Assessment Soft Tissue Mobility Significant scar tissue/adhesion along second toe Assessment following surgical pin placement Joint Mobility Assessment Joint Mobility General joint stiffness in MTP and IP joint of right Assessment great toe. Passively flexible. Limited ability for pt to abduct great toe. PT-OP-G Mobility & Gait Start: 12/03/24 14:06 Freq: Status: Active Protocol: Document 01/31/25 10:45 DCW (Rec: 01/31/25 11:04 DCW [id number]) OP Gait Assessment Gait Gait Assistance Independent Required: Assistive Devices Assistive Device None Comments Gait Comments Mild limitations during push-off of right foot, slight increased stance on lateral plantar surface of foot. PT-OP-K Range of Motion Start: 12/03/24 14:06 Freq: Status: Active Protocol: Document 01/31/25 10:45 DCW (Rec: 01/31/25 11:04 DCW [id number]) Toe Range of Motion Toe Right Great Toe MTP Flexion Active ( 18 degrees) MTP Extension Active 15 (degrees) PIP Flexion Active ( 20 degrees) PIP Extension Active 0 (degrees) Comments At baseline, MTP at 5? adduction, actively gets to neutral PT-OP-Q Treatments Start: 12/03/24 14:06 Freq: Status: Active Protocol: Document 02/19/25 15:15 DCW (Rec: 02/19/25 16:04 DCW [id number]) Therapeutic Exercises Sitting Exercises Toe Abduction Sitting Exercise 3rd and 4th toes - putty squeeze Name Side bilateral Manual Therapy Treatment Consent Patient gave verbal Yes consent for manual treatment Soft Tissue Mobilization Plantar Body Location R Hallux, 2nd toe, plantar fascia Mobilization Type Cross-Friction,Rolling,Other Intensity/Depth Moderate Body Position Sitting Scar Massage Body Location Scar massage over 2nd and 1st toe Mobilization Type Cross-Friction,Instrument Assisted Intensity/Depth Moderate Body Position Sitting Joint Mobilizations Great toe Joint 1st MTP, IP joints, metatarsal mobility Grade III Body Position Sitting PT-OP-T Assessment and Plan Start: 12/03/24 14:06 Freq: Status: Active Protocol: Document 02/19/25 15:15 DCW (Rec: 02/19/25 16:04 DCW [id number]) Physical Therapy Assessment Impairments Impairments Activity Tolerance,Functional Activities,Functional Mobility,Gait,ROM,Soft Tissue Mobility,Strength Goals Three Impairment Pt exhibits increased scar tissue/adhesions over right second toe Pediatric Dietician Goal (LTG) Pt to improve first and second MTP flexion to 30? to demonstrate decreased scar tissue adhesion and help normalize gait LTG Duration 04/02/25 Two Impairment R Great Toe in 10? adduction at baseline Penitentiary Goal (LTG) Pt to improve MTP to neutral (0?) at rest in order to limit rubbing/blistering during longer walks LTG Duration 04/02/25 One Impairment Pt does not have an appropriate home exercise program Short Term Goal (STG Pt to be independent and compliant with an appropriate ) HEP STG Duration 03/02/25 Assessment Summary Assessment Pt showing improvement with toe positioning in sitting, although continues to have abduction of 3rd and 4th toes in standing. Good response to manual therapy today . Physical Therapy Plan Frequency and Duration Frequency of 2x/Week Treatment Plan of Care Start 01/31/25 Date Plan of Care End 04/02/25 Date Therapeutic Interventions Therapeutic Balance Training,Gait Training,Home Exercise Program, Interventions Joint Mobilizations,Manual Therapy,Neuromuscular Re- education,Patient/Caregiver Education,Self-Care/Home Management,Soft Tissue Mobilization,Taping,Therapeutic Activities,Therapeutic Exercises Modalities Cold Pack/Ice Massage,Hot Packs,Ultrasound Next Visit Focus/Plan Next Note Type Treatment Note Next Visit Plan POC: STM, scar massage, joint mobilization, toe strengthening
--- NOTE | 2025-02-21 11:24 | PT.OTN ---
Current Diagnoses Acquired deformities of toe(s), unspecified, right foot (02/21/25) Stiffness of right foot, not elsewhere classified (02/21/25) Metatarsalgia, right foot (02/21/25) Physical Therapy Treatment Note PT-OP-A Visit Information Start: 12/03/24 14:06 Freq: Status: Active Protocol: Document 02/21/25 10:45 DCW (Rec: 02/21/25 11:24 DCW [id number]) Out-Patient Physical Therapy Visit Information Visit Information Visit Type Treatment Note Visit Start Time 10:45 Visit Stop Time 11:25 Visit Number 14 Number of TRANSFUSION NURSE Visits 0 Evaluation Information Evaluation Date 12/03/24 PT-OP-B Current Condition Start: 12/03/24 14:06 Freq: Status: Active Protocol: Document 12/03/24 11:30 DCW (Rec: 12/03/24 14:17 DCW [id number]) Current Condition History of Current Condition Onset Date Three-year history Current Complaints R great toe adduction, worsening gait History of Current Pt is a 54 year old female presenting with a three-year Condition history of right foot/toe issues. Pt reports that three years ago, she had a large, painful bone spur removed from the MTP of her right great toe. Within the next year, this led to her joint collapse, and she had to undergo a joint replacement. Following this, her right second toe began to gravitate to my big toe, which led to a third surgery ~six months ago in which three pins were placed in her second toe to straighten it back out. Since that time, her great toe has now been going toward her second toe into adduction. Reports that her great toe doesn't really touch the ground unless she actively presses it down, it otherwise just stays into an extended, adducted position. This position causes rubbing/blistering over extended walks, and she finds that she often walks on the lateral surface of her foot. Notes she was given post-op exercises, however they do not seem to be working. Unable to perform marble pick-ups yet. Really wants to avoid any further foot surgeries. PT-OP-C Subjective Start: 12/03/24 14:06 Freq: Status: Active Protocol: Document 02/21/25 10:45 DCW (Rec: 02/21/25 11:24 DCW [id number]) OP-PT Subjective Patient Comments Patient Comments Pt feeling okay, the second toe is hurting a bit. PT-OP-F Manual Assessment Start: 12/03/24 14:06 Freq: Status: Active Protocol: Document 01/31/25 10:45 DCW (Rec: 01/31/25 11:04 DCW [id number]) Manual Assessments Soft Tissue Assessment Soft Tissue Mobility Significant scar tissue/adhesion along second toe Assessment following surgical pin placement Joint Mobility Assessment Joint Mobility General joint stiffness in MTP and IP joint of right Assessment great toe. Passively flexible. Limited ability for pt to abduct great toe. PT-OP-G Mobility & Gait Start: 12/03/24 14:06 Freq: Status: Active Protocol: Document 01/31/25 10:45 DCW (Rec: 01/31/25 11:04 DCW [id number]) OP Gait Assessment Gait Gait Assistance Independent Required: Assistive Devices Assistive Device None Comments Gait Comments Mild limitations during push-off of right foot, slight increased stance on lateral plantar surface of foot. PT-OP-K Range of Motion Start: 12/03/24 14:06 Freq: Status: Active Protocol: Document 01/31/25 10:45 DCW (Rec: 01/31/25 11:04 DCW [id number]) Toe Range of Motion Toe Right Great Toe MTP Flexion Active ( 18 degrees) MTP Extension Active 15 (degrees) PIP Flexion Active ( 20 degrees) PIP Extension Active 0 (degrees) Comments At baseline, MTP at 5? adduction, actively gets to neutral PT-OP-Q Treatments Start: 12/03/24 14:06 Freq: Status: Active Protocol: Document 02/21/25 10:45 DCW (Rec: 02/21/25 11:24 DCW [id number]) Manual Therapy Treatment Consent Patient gave verbal Yes consent for manual treatment Soft Tissue Mobilization Plantar Body Location R Hallux, 2nd toe, plantar fascia Mobilization Type Cross-Friction,Rolling,Other Intensity/Depth Moderate Body Position Sitting Scar Massage Body Location Scar massage over 2nd and 1st toe Mobilization Type Cross-Friction,Instrument Assisted Intensity/Depth Moderate Body Position Sitting Joint Mobilizations Great toe Joint 1st MTP, IP joints, metatarsal mobility Grade III Body Position Sitting PT-OP-T Assessment and Plan Start: 12/03/24 14:06 Freq: Status: Active Protocol: Document 02/21/25 10:45 DCW (Rec: 02/21/25 11:24 DCW [id number]) Physical Therapy Assessment Impairments Impairments Activity Tolerance,Functional Activities,Functional Mobility,Gait,ROM,Soft Tissue Mobility,Strength Goals Three Impairment Pt exhibits increased scar tissue/adhesions over right second toe Marketing Proposal Specialist Goal (LTG) Pt to improve first and second MTP flexion to 30? to demonstrate decreased scar tissue adhesion and help normalize gait LTG Duration 04/02/25 Two Impairment R Great Toe in 10? adduction at baseline Marketing Proposal Specialist Goal (LTG) Pt to improve MTP to neutral (0?) at rest in order to limit rubbing/blistering during longer walks LTG Duration 04/02/25 One Impairment Pt does not have an appropriate home exercise program Short Term Goal (STG Pt to be independent and compliant with an appropriate ) HEP STG Duration 03/02/25 Assessment Summary Assessment Scar tissue on second toe looking much better today, flattening out along the ends, although still fairly rounded in the middle third. Improving toe mobility. Continue to for on functional mobility, ROM, and scar massage/joint mobs. Physical Therapy Plan Frequency and Duration Frequency of 2x/Week Treatment Plan of Care Start 01/31/25 Date Plan of Care End 04/02/25 Date Therapeutic Interventions Therapeutic Balance Training,Gait Training,Home Exercise Program, Interventions Joint Mobilizations,Manual Therapy,Neuromuscular Re- education,Patient/Caregiver Education,Self-Care/Home Management,Soft Tissue Mobilization,Taping,Therapeutic Activities,Therapeutic Exercises Modalities Cold Pack/Ice Massage,Hot Packs,Ultrasound Next Visit Focus/Plan Next Note Type Treatment Note Next Visit Plan POC: STM, scar massage, joint mobilization, toe strengthening
--- NOTE | 2025-02-25 11:30 | PT.OTN ---
Current Diagnoses Acquired deformities of toe(s), unspecified, right foot (02/25/25) Stiffness of right foot, not elsewhere classified (02/25/25) Metatarsalgia, right foot (02/25/25) Physical Therapy Treatment Note PT-OP-A Visit Information Start: 12/03/24 14:06 Freq: Status: Active Protocol: Document 02/25/25 10:46 SP (Rec: 02/25/25 10:47 SP [id number]) Out-Patient Physical Therapy Visit Information Visit Information Visit Type Treatment Note Visit Start Time 10:46 Visit Stop Time 11:30 Visit Number 15 (PN by 03/02/25) Number of INTERIOR MECHANIC Visits 1 PT-OP-B Current Condition Start: 12/03/24 14:06 Freq: Status: Active Protocol: Document 12/03/24 11:30 DCW (Rec: 12/03/24 14:17 DCW [id number]) Current Condition History of Current Condition Onset Date Three-year history Current Complaints R great toe adduction, worsening gait History of Current Pt is a 54 year old female presenting with a three-year Condition history of right foot/toe issues. Pt reports that three years ago, she had a large, painful bone spur removed from the MTP of her right great toe. Within the next year, this led to her joint collapse, and she had to undergo a joint replacement. Following this, her right second toe began to gravitate to my big toe, which led to a third surgery ~six months ago in which three pins were placed in her second toe to straighten it back out. Since that time, her great toe has now been going toward her second toe into adduction. Reports that her great toe doesn't really touch the ground unless she actively presses it down, it otherwise just stays into an extended, adducted position. This position causes rubbing/blistering over extended walks, and she finds that she often walks on the lateral surface of her foot. Notes she was given post-op exercises, however they do not seem to be working. Unable to perform marble pick-ups yet. Really wants to avoid any further foot surgeries. PT-OP-C Subjective Start: 12/03/24 14:06 Freq: Status: Active Protocol: Document 02/25/25 10:46 SP (Rec: 02/25/25 10:47 SP [id number]) OP-PT Subjective Patient Comments Patient Comments Pt mid scar still rounded. Her 2nd toe longer and tires quicker so 1st toe doesn't get as much flex work. PT-OP-F Manual Assessment Start: 12/03/24 14:06 Freq: Status: Active Protocol: Document 01/31/25 10:45 DCW (Rec: 01/31/25 11:04 DCW [id number]) Manual Assessments Soft Tissue Assessment Soft Tissue Mobility Significant scar tissue/adhesion along second toe Assessment following surgical pin placement Joint Mobility Assessment Joint Mobility General joint stiffness in MTP and IP joint of right Assessment great toe. Passively flexible. Limited ability for pt to abduct great toe. PT-OP-G Mobility & Gait Start: 12/03/24 14:06 Freq: Status: Active Protocol: Document 01/31/25 10:45 DCW (Rec: 01/31/25 11:04 DCW [id number]) OP Gait Assessment Gait Gait Assistance Independent Required: Assistive Devices Assistive Device None Comments Gait Comments Mild limitations during push-off of right foot, slight increased stance on lateral plantar surface of foot. PT-OP-K Range of Motion Start: 12/03/24 14:06 Freq: Status: Active Protocol: Document 01/31/25 10:45 DCW (Rec: 01/31/25 11:04 DCW [id number]) Toe Range of Motion Toe Right Great Toe MTP Flexion Active ( 18 degrees) MTP Extension Active 15 (degrees) PIP Flexion Active ( 20 degrees) PIP Extension Active 0 (degrees) Comments At baseline, MTP at 5? adduction, actively gets to neutral PT-OP-Q Treatments Start: 12/03/24 14:06 Freq: Status: Active Protocol: Document 02/25/25 10:46 SP (Rec: 02/25/25 10:47 SP [id number]) Gym Equipment Shuttle Balance Red Details WBOS- wt shift: fwd/bwd/lateral Comments marble foam- no shoes cued 1st great toe flex, let board get close but not touch floor- no UE support or gait belt needed Therapeutic Exercises Supine Exercises toe flexion Supine Exercise Name hooklying Side right Resistance 1st great toe rubber band- INTERIOR MECHANIC anchored, blocked 2-5 toes into extension Reps/Minutes 2x10 reps Comments 1st great toe flexion Sitting Exercises Toe Abduction Sitting Exercise Emphasis on 2nd lateral abduction vs 1st Name Side right Resistance INTERIOR MECHANIC supported spacing 1-2MTP noted 2nd MTP lateral pressure fac Reps/Minutes 10 reps, 5 SH Manual Therapy Treatment Consent Patient gave verbal Yes consent for manual treatment Soft Tissue Mobilization Plantar Body Location R Hallux, 2nd toe, plantar fascia Mobilization Type Cross-Friction,Rolling,Other Intensity/Depth Moderate Body Position Sitting Scar Massage Body Location Scar massage over 2nd and 1st toe Mobilization Type Cross-Friction,Instrument Assisted Intensity/Depth Moderate Body Position Hooklying LEs over wedge Comments cupping not working today, manual scar mobility no lotion rotational MTP held in mid range vs gentle tooling held into flexion. Joint Mobilizations MT Joint R: 1, 2nd MTP Direction ap and pa, rotation Grade II Body Position Hooklying Great toe Joint 1st MTP, IP joints, metatarsal mobility Grade III Body Position Hooklying Neuro Re-Education Treatment Balance Activities Disc Details step down fwd Surface R stance LE Equipment rail support Comments yellow disc BOSU Comments 1. SLS RLE 2. squat x10- hands hover stair rail PT-OP-T Assessment and Plan Start: 12/03/24 14:06 Freq: Status: Active Protocol: Document 02/25/25 10:46 SP (Rec: 02/25/25 10:47 SP [id number]) Physical Therapy Assessment Goals Three Impairment Pt exhibits increased scar tissue/adhesions over right second toe Litigation Associate Goal (LTG) Pt to improve first and second MTP flexion to 30? to demonstrate decreased scar tissue adhesion and help normalize gait LTG Duration 04/02/25 Two Impairment R Great Toe in 10? adduction at baseline Litigation Associate Goal (LTG) Pt to improve MTP to neutral (0?) at rest in order to limit rubbing/blistering during longer walks LTG Duration 04/02/25 One Impairment Pt does not have an appropriate home exercise program Short Term Goal (STG Pt to be independent and compliant with an appropriate ) HEP STG Duration 03/02/25 Assessment Summary Assessment Improved mid scar mobility manual rotational glides and cross friction tooling. Incorporated uneven surface balance for 1st>2-5 MTP and mid foot intrinsic flexion muscle engagement on BOSU/disc/Shuttle balance with good feedback response 2>1 and arch muscle tiring. Discussed try to incorporate uneven surface no shoe SLS activities and wear silicone toe spacer 1-2MTP to maintain toe spacing. Continue 2nd toe abduction and 1st MTP flexion strength manual resistance vs rubber band. Physical Therapy Plan Frequency and Duration Frequency of 2x/Week Treatment Plan of Care Start 01/31/25 Date Plan of Care End 04/02/25 Date Therapeutic Interventions Therapeutic Balance Training,Gait Training,Home Exercise Program, Interventions Joint Mobilizations,Manual Therapy,Neuromuscular Re- education,Patient/Caregiver Education,Self-Care/Home Management,Soft Tissue Mobilization,Taping,Therapeutic Activities,Therapeutic Exercises Modalities Cold Pack/Ice Massage,Hot Packs,Ultrasound Next Visit Focus/Plan Next Note Type PRogress Note Next Visit Plan PN 03/04 appt 30 days, Recheck use of silicone spacer with HEP, 1st toe flexors, SLS/bal functional strengthening. POC: STM, scar massage, joint mobilization, toe strengthening
--- NOTE | 2025-02-27 11:30 | PT.OTN ---
Current Diagnoses Acquired deformities of toe(s), unspecified, right foot (02/27/25) Stiffness of right foot, not elsewhere classified (02/27/25) Metatarsalgia, right foot (02/27/25) Physical Therapy Treatment Note PT-OP-A Visit Information Start: 12/03/24 14:06 Freq: Status: Active Protocol: Document 02/27/25 10:46 SP (Rec: 02/27/25 10:47 SP [id number]) Out-Patient Physical Therapy Visit Information Visit Information Visit Type Treatment Note Visit Start Time 10:46 Visit Stop Time 11:30 Visit Number 16 (PN by 03/02/25) Number of GRANULIZING MACHINE OPERATOR Visits 2 Evaluation Information Evaluation Date 12/03/24 PT-OP-B Current Condition Start: 12/03/24 14:06 Freq: Status: Active Protocol: Document 12/03/24 11:30 DCW (Rec: 12/03/24 14:17 DCW [id number]) Current Condition History of Current Condition Onset Date Three-year history Current Complaints R great toe adduction, worsening gait History of Current Pt is a 54 year old female presenting with a three-year Condition history of right foot/toe issues. Pt reports that three years ago, she had a large, painful bone spur removed from the MTP of her right great toe. Within the next year, this led to her joint collapse, and she had to undergo a joint replacement. Following this, her right second toe began to gravitate to my big toe, which led to a third surgery ~six months ago in which three pins were placed in her second toe to straighten it back out. Since that time, her great toe has now been going toward her second toe into adduction. Reports that her great toe doesn't really touch the ground unless she actively presses it down, it otherwise just stays into an extended, adducted position. This position causes rubbing/blistering over extended walks, and she finds that she often walks on the lateral surface of her foot. Notes she was given post-op exercises, however they do not seem to be working. Unable to perform marble pick-ups yet. Really wants to avoid any further foot surgeries. PT-OP-C Subjective Start: 12/03/24 14:06 Freq: Status: Active Protocol: Document 02/27/25 10:46 SP (Rec: 02/27/25 10:47 SP [id number]) OP-PT Subjective Patient Comments Patient Comments Pt reports soreness and pain in Filipe quads after last tx from thinks squatting uneven surface and balance activities with inflammatory disease, was challenged sitting and descending stairs. Though the foot intrinsics on R good muscle soreness. PT-OP-F Manual Assessment Start: 12/03/24 14:06 Freq: Status: Active Protocol: Document 01/31/25 10:45 DCW (Rec: 01/31/25 11:04 DCW [id number]) Manual Assessments Soft Tissue Assessment Soft Tissue Mobility Significant scar tissue/adhesion along second toe Assessment following surgical pin placement Joint Mobility Assessment Joint Mobility General joint stiffness in MTP and IP joint of right Assessment great toe. Passively flexible. Limited ability for pt to abduct great toe. PT-OP-G Mobility & Gait Start: 12/03/24 14:06 Freq: Status: Active Protocol: Document 01/31/25 10:45 DCW (Rec: 01/31/25 11:04 DCW [id number]) OP Gait Assessment Gait Gait Assistance Independent Required: Assistive Devices Assistive Device None Comments Gait Comments Mild limitations during push-off of right foot, slight increased stance on lateral plantar surface of foot. PT-OP-K Range of Motion Start: 12/03/24 14:06 Freq: Status: Active Protocol: Document 01/31/25 10:45 DCW (Rec: 01/31/25 11:04 DCW [id number]) Toe Range of Motion Toe Right Great Toe MTP Flexion Active ( 18 degrees) MTP Extension Active 15 (degrees) PIP Flexion Active ( 20 degrees) PIP Extension Active 0 (degrees) Comments At baseline, MTP at 5? adduction, actively gets to neutral PT-OP-Q Treatments Start: 12/03/24 14:06 Freq: Status: Active Protocol: Document 02/27/25 10:46 SP (Rec: 02/27/25 10:47 SP [id number]) Therapeutic Exercises Supine Exercises toe flexion Supine Exercise Name hooklying Side right Resistance AROM Equipment Used manual blocking 2-5th toes extension and maintain space bwtn 1-2 toe. Reps/Minutes 2x10 reps Comments 1st great toe flexion, Standing Exercises Great toe flexion Standing Exercise Trialed digits 2-5 on top of step w 2 toe spacers edge Name step Side right Equipment Used 1UE support, 2-5 MTP on 6step,great toe flexion Reps/Minutes many reps Comments 1st MTP flexion- both toe spacers for width 1-2 MTP & 2nd MTP ext. Manual Therapy Treatment Consent Patient gave verbal Yes consent for manual treatment Soft Tissue Mobilization Plantar Body Location R Hallux, 2nd toe, plantar fascia Mobilization Type Cross-Friction,Rolling,Other Intensity/Depth Moderate Body Position Sitting Scar Massage Body Location Scar massage over 2nd Mobilization Type Cross-Friction,Myofascial Release,Rolling Intensity/Depth Moderate Body Position Hooklying LEs over wedge Comments manual scar mobility no lotion rotational MTP held in mid range vs gentle tooling held into flexion. slight skin lift Joint Mobilizations MT Joint R: 1, 2nd MTP Direction ap and pa, rotation Grade II Body Position Hooklying Great toe Joint 1st MTP, IP joints, metatarsal mobility Grade III Body Position Hooklying Neuro Re-Education Treatment Balance Activities Foam Details B WB, SLS Surface AirEx Equipment 1UE PRN rail Reps/Duration 30 sec x2 Comments 1. balloon volley B WB- outside SULEMA hitting 2. wt shift Filipe> SLS emphasis on 1st ray WB PT-OP-T Assessment and Plan Start: 12/03/24 14:06 Freq: Status: Active Protocol: Document 02/27/25 10:46 SP (Rec: 02/27/25 10:47 SP [id number]) Physical Therapy Assessment Goals Three Impairment Pt exhibits increased scar tissue/adhesions over right second toe Intermediate Goal (LTG) Pt to improve first and second MTP flexion to 30? to demonstrate decreased scar tissue adhesion and help normalize gait LTG Duration 04/02/25 Two Impairment R Great Toe in 10? adduction at baseline Automotive Lube Technician Goal (LTG) Pt to improve MTP to neutral (0?) at rest in order to limit rubbing/blistering during longer walks LTG Duration 04/02/25 One Impairment Pt does not have an appropriate home exercise program Short Term Goal (STG Pt to be independent and compliant with an appropriate ) HEP STG Duration 03/02/25 Assessment Summary Assessment Pt had small piece of skin lift near 2nd toe scar told pt and will be aware, cautious no lotion provided during manual more distal end scar 2nd MTP. Progressed more stationary 1st toe flexion and balance on foam and tilt board with instruction WB into more 1st ray MTP RLE emphasize toe flexion while 2 spacers maintained space between 1-2 MTP and under 2nd MTP to support extension, improved decreased 2nd toe flexion over recruitment during 1 MTP flexion. Pt pleased and will incorporate spacer with HEP and bring to PT for standing activities. Physical Therapy Plan Frequency and Duration Frequency of 2x/Week Treatment Plan of Care Start 01/31/25 Date Plan of Care End 04/02/25 Date Therapeutic Interventions Therapeutic Balance Training,Gait Training,Home Exercise Program, Interventions Joint Mobilizations,Manual Therapy,Neuromuscular Re- education,Patient/Caregiver Education,Self-Care/Home Management,Soft Tissue Mobilization,Taping,Therapeutic Activities,Therapeutic Exercises Modalities Cold Pack/Ice Massage,Hot Packs,Ultrasound Next Visit Focus/Plan Next Note Type Treatment Note Next Visit Plan Recheck use of silicone spacer with HEP. scar mobility 2nd MTP. Check skin lifted last tx over mid scar. POC: STM, scar massage, joint mobilization, toe strengthening
--- NOTE | 2025-03-04 11:25 | PT.OTN ---
Current Diagnoses Acquired deformities of toe(s), unspecified, right foot (03/04/25) Stiffness of right foot, not elsewhere classified (03/04/25) Metatarsalgia, right foot (03/04/25) Physical Therapy Treatment Note PT-OP-A Visit Information Start: 12/03/24 14:06 Freq: Status: Active Protocol: Document 03/04/25 10:45 DCW (Rec: 03/04/25 11:25 DCW [id number]) Out-Patient Physical Therapy Visit Information Visit Information Visit Type Progress Note Visit Start Time 10:45 Visit Stop Time 11:30 Visit Number 17 Number of MACHINING TECHNICIAN Visits 0 Evaluation Information Evaluation Date 12/03/24 PT-OP-B Current Condition Start: 12/03/24 14:06 Freq: Status: Active Protocol: Document 12/03/24 11:30 DCW (Rec: 12/03/24 14:17 DCW [id number]) Current Condition History of Current Condition Onset Date Three-year history Current Complaints R great toe adduction, worsening gait History of Current Pt is a 54 year old female presenting with a three-year Condition history of right foot/toe issues. Pt reports that three years ago, she had a large, painful bone spur removed from the MTP of her right great toe. Within the next year, this led to her joint collapse, and she had to undergo a joint replacement. Following this, her right second toe began to gravitate to my big toe, which led to a third surgery ~six months ago in which three pins were placed in her second toe to straighten it back out. Since that time, her great toe has now been going toward her second toe into adduction. Reports that her great toe doesn't really touch the ground unless she actively presses it down, it otherwise just stays into an extended, adducted position. This position causes rubbing/blistering over extended walks, and she finds that she often walks on the lateral surface of her foot. Notes she was given post-op exercises, however they do not seem to be working. Unable to perform marble pick-ups yet. Really wants to avoid any further foot surgeries. PT-OP-C Subjective Start: 12/03/24 14:06 Freq: Status: Active Protocol: Document 03/04/25 10:45 DCW (Rec: 03/04/25 11:25 DCW [id number]) OP-PT Subjective Patient Comments Patient Comments Pt feeling her feet have been looking better, especially in sitting, still tend to have her toes adduct in standing. PT-OP-F Manual Assessment Start: 12/03/24 14:06 Freq: Status: Active Protocol: Document 01/31/25 10:45 DCW (Rec: 01/31/25 11:04 DCW [id number]) Manual Assessments Soft Tissue Assessment Soft Tissue Mobility Significant scar tissue/adhesion along second toe Assessment following surgical pin placement Joint Mobility Assessment Joint Mobility General joint stiffness in MTP and IP joint of right Assessment great toe. Passively flexible. Limited ability for pt to abduct great toe. PT-OP-G Mobility & Gait Start: 12/03/24 14:06 Freq: Status: Active Protocol: Document 01/31/25 10:45 DCW (Rec: 01/31/25 11:04 DCW [id number]) OP Gait Assessment Gait Gait Assistance Independent Required: Assistive Devices Assistive Device None Comments Gait Comments Mild limitations during push-off of right foot, slight increased stance on lateral plantar surface of foot. PT-OP-K Range of Motion Start: 12/03/24 14:06 Freq: Status: Active Protocol: Document 01/31/25 10:45 DCW (Rec: 01/31/25 11:04 DCW [id number]) Toe Range of Motion Toe Right Great Toe MTP Flexion Active ( 18 degrees) MTP Extension Active 15 (degrees) PIP Flexion Active ( 20 degrees) PIP Extension Active 0 (degrees) Comments At baseline, MTP at 5? adduction, actively gets to neutral PT-OP-Q Treatments Start: 12/03/24 14:06 Freq: Status: Active Protocol: Document 03/04/25 10:45 DCW (Rec: 03/04/25 11:25 DCW [id number]) Manual Therapy Treatment Consent Patient gave verbal Yes consent for manual treatment Soft Tissue Mobilization Plantar Body Location R Hallux, 2nd toe, plantar fascia Mobilization Type Cross-Friction,Rolling,Other Intensity/Depth Moderate Body Position Sitting Scar Massage Body Location Scar massage over 2nd Mobilization Type Cross-Friction,Myofascial Release,Rolling Intensity/Depth Moderate Body Position Sitting Comments manual scar mobility lotion/cupping Joint Mobilizations MT Joint R: 1, 2nd MTP Direction ap and pa, rotation Grade II Body Position Hooklying Great toe Joint 1st MTP, IP joints, metatarsal mobility Grade III Body Position Hooklying Neuro Re-Education Treatment Balance Activities BOSU Details SLS, Squats Foam Details SLS (Balloon volley), Tandem Stance Surface AirEx Equipment 1UE PRN rail PT-OP-T Assessment and Plan Start: 12/03/24 14:06 Freq: Status: Active Protocol: Document 03/04/25 10:45 DCW (Rec: 03/04/25 11:25 DCW [id number]) Physical Therapy Assessment Goals Three Impairment Pt exhibits increased scar tissue/adhesions over right second toe Supervisor Twisting Department Goal (LTG) Pt to improve first and second MTP flexion to 30? to demonstrate decreased scar tissue adhesion and help normalize gait LTG Duration 04/02/25 Two Impairment R Great Toe in 10? adduction at baseline Supervisor Twisting Department Goal (LTG) Pt to improve MTP to neutral (0?) at rest in order to limit rubbing/blistering during longer walks LTG Duration 04/02/25 One Impairment Pt does not have an appropriate home exercise program Short Term Goal (STG Pt to be independent and compliant with an appropriate ) HEP STG Duration Met Assessment Summary Assessment Pt overall doing much better. Improved mobility of scar on second toe. Pt able to better position her toes, demonstrating improved strengthening of intrinsic foot musculature. Continue to work on mobility of great toe and second toe, especially when with positioning in standing. Physical Therapy Plan Frequency and Duration Frequency of 2x/Week Treatment Plan of Care Start 01/31/25 Date Plan of Care End 04/02/25 Date Therapeutic Interventions Therapeutic Balance Training,Gait Training,Home Exercise Program, Interventions Joint Mobilizations,Manual Therapy,Neuromuscular Re- education,Patient/Caregiver Education,Self-Care/Home Management,Soft Tissue Mobilization,Taping,Therapeutic Activities,Therapeutic Exercises Modalities Cold Pack/Ice Massage,Hot Packs,Ultrasound Next Visit Focus/Plan Next Note Type Treatment Note Next Visit Plan scar mobility 2nd MTP. Check skin lifted last tx over mid scar. POC: STM, scar massage, joint mobilization, toe strengthening
--- NOTE | 2025-03-26 11:29 | PT.OTN ---
Current Diagnoses Acquired deformities of toe(s), unspecified, right foot (03/26/25) Stiffness of right foot, not elsewhere classified (03/26/25) Metatarsalgia, right foot (03/26/25) Physical Therapy Treatment Note PT-OP-A Visit Information Start: 12/03/24 14:06 Freq: Status: Active Protocol: Document 03/26/25 10:45 DCW (Rec: 03/26/25 11:29 DCW [id number]) Out-Patient Physical Therapy Visit Information Visit Information Visit Type Treatment Note Visit Start Time 10:45 Visit Stop Time 11:30 Visit Number 18 Number of CONTINUOUS PICKLING LINE PICKLER HELPER Visits 0 Evaluation Information Evaluation Date 12/03/24 PT-OP-B Current Condition Start: 12/03/24 14:06 Freq: Status: Active Protocol: Document 12/03/24 11:30 DCW (Rec: 12/03/24 14:17 DCW [id number]) Current Condition History of Current Condition Onset Date Three-year history Current Complaints R great toe adduction, worsening gait History of Current Pt is a 54 year old female presenting with a three-year Condition history of right foot/toe issues. Pt reports that three years ago, she had a large, painful bone spur removed from the MTP of her right great toe. Within the next year, this led to her joint collapse, and she had to undergo a joint replacement. Following this, her right second toe began to gravitate to my big toe, which led to a third surgery ~six months ago in which three pins were placed in her second toe to straighten it back out. Since that time, her great toe has now been going toward her second toe into adduction. Reports that her great toe doesn't really touch the ground unless she actively presses it down, it otherwise just stays into an extended, adducted position. This position causes rubbing/blistering over extended walks, and she finds that she often walks on the lateral surface of her foot. Notes she was given post-op exercises, however they do not seem to be working. Unable to perform marble pick-ups yet. Really wants to avoid any further foot surgeries. PT-OP-C Subjective Start: 12/03/24 14:06 Freq: Status: Active Protocol: Document 03/26/25 10:45 DCW (Rec: 03/26/25 11:29 DCW [id number]) OP-PT Subjective Patient Comments Patient Comments Got a lot of hiking in, it's feeling pretty good. PT-OP-F Manual Assessment Start: 12/03/24 14:06 Freq: Status: Active Protocol: Document 01/31/25 10:45 DCW (Rec: 01/31/25 11:04 DCW [id number]) Manual Assessments Soft Tissue Assessment Soft Tissue Mobility Significant scar tissue/adhesion along second toe Assessment following surgical pin placement Joint Mobility Assessment Joint Mobility General joint stiffness in MTP and IP joint of right Assessment great toe. Passively flexible. Limited ability for pt to abduct great toe. PT-OP-G Mobility & Gait Start: 12/03/24 14:06 Freq: Status: Active Protocol: Document 01/31/25 10:45 DCW (Rec: 01/31/25 11:04 DCW [id number]) OP Gait Assessment Gait Gait Assistance Independent Required: Assistive Devices Assistive Device None Comments Gait Comments Mild limitations during push-off of right foot, slight increased stance on lateral plantar surface of foot. PT-OP-K Range of Motion Start: 12/03/24 14:06 Freq: Status: Active Protocol: Document 01/31/25 10:45 DCW (Rec: 01/31/25 11:04 DCW [id number]) Toe Range of Motion Toe Right Great Toe MTP Flexion Active ( 18 degrees) MTP Extension Active 15 (degrees) PIP Flexion Active ( 20 degrees) PIP Extension Active 0 (degrees) Comments At baseline, MTP at 5? adduction, actively gets to neutral PT-OP-Q Treatments Start: 12/03/24 14:06 Freq: Status: Active Protocol: Document 03/26/25 10:45 DCW (Rec: 03/26/25 11:29 DCW [id number]) Gym Equipment Shuttle Balance Red Details WBOS- DF/PF, Lateral Manual Therapy Treatment Consent Patient gave verbal Yes consent for manual treatment Soft Tissue Mobilization Plantar Body Location R Hallux, 2nd toe, plantar fascia Mobilization Type Cross-Friction,Rolling,Other Intensity/Depth Moderate Body Position Sitting Scar Massage Body Location Scar massage over 2nd Mobilization Type Cross-Friction,Myofascial Release,Rolling Intensity/Depth Moderate Body Position Sitting Comments manual scar mobility lotion/cupping Joint Mobilizations MT Joint R: 1, 2nd MTP Direction ap and pa, rotation Grade II Body Position Hooklying Great toe Joint 1st MTP, IP joints, metatarsal mobility Grade III Body Position Hooklying Neuro Re-Education Treatment Balance Activities BOSU Details Squats Foam Details SLS Surface Double stacked AirEx PT-OP-T Assessment and Plan Start: 12/03/24 14:06 Freq: Status: Active Protocol: Document 03/26/25 10:45 DCW (Rec: 03/26/25 11:29 DCW [id number]) Physical Therapy Assessment Impairments Impairments Activity Tolerance,Functional Activities,Functional Mobility,Gait,ROM,Soft Tissue Mobility,Strength Goals Three Impairment Pt exhibits increased scar tissue/adhesions over right second toe Detective Investigator Goal (LTG) Pt to improve first and second MTP flexion to 30? to demonstrate decreased scar tissue adhesion and help normalize gait LTG Duration 04/02/25 Two Impairment R Great Toe in 10? adduction at baseline Detective Investigator Goal (LTG) Pt to improve MTP to neutral (0?) at rest in order to limit rubbing/blistering during longer walks LTG Duration 04/02/25 One Impairment Pt does not have an appropriate home exercise program Short Term Goal (STG Pt to be independent and compliant with an appropriate ) HEP STG Duration Met Assessment Summary Assessment Continues to respond well to treatment, scar on second toe looking much better, increased mobility in foot. Continue to focus on STM/joint mobs, balance, functional mobility. Physical Therapy Plan Frequency and Duration Frequency of 2x/Week Treatment Plan of Care Start 01/31/25 Date Plan of Care End 04/02/25 Date Therapeutic Interventions Therapeutic Balance Training,Gait Training,Home Exercise Program, Interventions Joint Mobilizations,Manual Therapy,Neuromuscular Re- education,Patient/Caregiver Education,Self-Care/Home Management,Soft Tissue Mobilization,Taping,Therapeutic Activities,Therapeutic Exercises Modalities Cold Pack/Ice Massage,Hot Packs,Ultrasound Next Visit Focus/Plan Next Note Type Treatment Note Next Visit Plan scar mobility 2nd MTP. Check skin lifted last tx over mid scar. POC: STM, scar massage, joint mobilization, toe strengthening
--- NOTE | 2025-03-28 11:38 | PT.OTN ---
Current Diagnoses Acquired deformities of toe(s), unspecified, right foot (03/28/25) Stiffness of right foot, not elsewhere classified (03/28/25) Metatarsalgia, right foot (03/28/25) Physical Therapy Treatment Note PT-OP-A Visit Information Start: 12/03/24 14:06 Freq: Status: Active Protocol: Document 03/28/25 10:52 SP (Rec: 03/28/25 11:38 SP [id number]) Out-Patient Physical Therapy Visit Information Visit Information Visit Type Treatment Note Visit Start Time 10:52 Visit Stop Time 11:38 Visit Number 19 Number of LAN ADMINISTRATOR Visits 1 Progress Note Due 04/04/25 PT-OP-B Current Condition Start: 12/03/24 14:06 Freq: Status: Active Protocol: Document 12/03/24 11:30 DCW (Rec: 12/03/24 14:17 DCW [id number]) Current Condition History of Current Condition Onset Date Three-year history Current Complaints R great toe adduction, worsening gait History of Current Pt is a 54 year old female presenting with a three-year Condition history of right foot/toe issues. Pt reports that three years ago, she had a large, painful bone spur removed from the MTP of her right great toe. Within the next year, this led to her joint collapse, and she had to undergo a joint replacement. Following this, her right second toe began to gravitate to my big toe, which led to a third surgery ~six months ago in which three pins were placed in her second toe to straighten it back out. Since that time, her great toe has now been going toward her second toe into adduction. Reports that her great toe doesn't really touch the ground unless she actively presses it down, it otherwise just stays into an extended, adducted position. This position causes rubbing/blistering over extended walks, and she finds that she often walks on the lateral surface of her foot. Notes she was given post-op exercises, however they do not seem to be working. Unable to perform marble pick-ups yet. Really wants to avoid any further foot surgeries. PT-OP-C Subjective Start: 12/03/24 14:06 Freq: Status: Active Protocol: Document 03/28/25 10:52 SP (Rec: 03/28/25 11:38 SP [id number]) OP-PT Subjective Patient Comments Patient Comments Pt reports her quad gluts were sore after last tx. Did some stretching but when sat down quads tightened up so had to stretch more. PT-OP-F Manual Assessment Start: 12/03/24 14:06 Freq: Status: Active Protocol: Document 01/31/25 10:45 DCW (Rec: 01/31/25 11:04 DCW [id number]) Manual Assessments Soft Tissue Assessment Soft Tissue Mobility Significant scar tissue/adhesion along second toe Assessment following surgical pin placement Joint Mobility Assessment Joint Mobility General joint stiffness in MTP and IP joint of right Assessment great toe. Passively flexible. Limited ability for pt to abduct great toe. PT-OP-G Mobility & Gait Start: 12/03/24 14:06 Freq: Status: Active Protocol: Document 01/31/25 10:45 DCW (Rec: 01/31/25 11:04 DCW [id number]) OP Gait Assessment Gait Gait Assistance Independent Required: Assistive Devices Assistive Device None Comments Gait Comments Mild limitations during push-off of right foot, slight increased stance on lateral plantar surface of foot. PT-OP-K Range of Motion Start: 12/03/24 14:06 Freq: Status: Active Protocol: Document 01/31/25 10:45 DCW (Rec: 01/31/25 11:04 DCW [id number]) Toe Range of Motion Toe Right Great Toe MTP Flexion Active ( 18 degrees) MTP Extension Active 15 (degrees) PIP Flexion Active ( 20 degrees) PIP Extension Active 0 (degrees) Comments At baseline, MTP at 5? adduction, actively gets to neutral PT-OP-Q Treatments Start: 12/03/24 14:06 Freq: Status: Active Protocol: Document 03/28/25 10:52 SP (Rec: 03/28/25 11:38 SP [id number]) Gym Equipment Shuttle Balance Red Details WBOS- DF/PF, Lateral Comments wt shift, mini squat each direction cued board close to floor but not touch, more challenge into DF control Therapeutic Exercises Supine Exercises toe flexion Supine Exercise Name hooklying- hammock set up ankle and toe flex/eccentric DF/Ext Side right Resistance TB #3 [id number] green Reps/Minutes 2x10 reps Comments 1-5 MTP then isolated 1st great toe flexion added TB only Manual Therapy Treatment Consent Patient gave verbal Yes consent for manual treatment Soft Tissue Mobilization Plantar Body Location R Hallux, 2nd toe, plantar fascia Mobilization Type Cross-Friction,Rolling,Other Intensity/Depth Moderate Body Position Sitting Scar Massage Body Location Scar massage over 2nd Mobilization Type Cross-Friction,Myofascial Release,Rolling Intensity/Depth Moderate Body Position Sitting Comments manual scar mobility lotion/cupping PT-OP-T Assessment and Plan Start: 12/03/24 14:06 Freq: Status: Active Protocol: Document 03/28/25 10:52 SP (Rec: 03/28/25 11:38 SP [id number]) Physical Therapy Assessment Goals Three Impairment Pt exhibits increased scar tissue/adhesions over right second toe Poultice Machine Operator Goal (LTG) Pt to improve first and second MTP flexion to 30? to demonstrate decreased scar tissue adhesion and help normalize gait LTG Duration 04/02/25 Two Impairment R Great Toe in 10? adduction at baseline Poultice Machine Operator Goal (LTG) Pt to improve MTP to neutral (0?) at rest in order to limit rubbing/blistering during longer walks LTG Duration 04/02/25 One Impairment Pt does not have an appropriate home exercise program Short Term Goal (STG Pt to be independent and compliant with an appropriate ) HEP STG Duration Met Assessment Summary Assessment Pt responded well to tx, scar mobility improvement but continues to have mid scar restriction. Modified resisted ankle PF and added 1st great toe flexion for focused to support gait toe off strengthening and added uneven dynamic activities for ankle and toe flexion and trunk midline stability progression, good feedback response balloon volley and mini squats on shuttle recovery to assimulate balance recovery return to uneven trail hiking. Physical Therapy Plan Frequency and Duration Frequency of 2x/Week Treatment Plan of Care Start 01/31/25 Plan of Care End 04/02/25 Date Therapeutic Interventions Therapeutic Balance Training,Gait Training,Home Exercise Program, Interventions Joint Mobilizations,Manual Therapy,Neuromuscular Re- education,Patient/Caregiver Education,Self-Care/Home Management,Soft Tissue Mobilization,Taping,Therapeutic Activities,Therapeutic Exercises Modalities Cold Pack/Ice Massage,Hot Packs,Ultrasound Next Visit Focus/Plan Next Note Type Treatment Note Next Visit Plan progress scar mobility 2nd MTP. POC: STM, scar massage, joint mobilization, toe strengthening
--- NOTE | 2025-04-01 11:28 | PT.OTN ---
Current Diagnoses Acquired deformities of toe(s), unspecified, right foot (04/01/25) Stiffness of right foot, not elsewhere classified (04/01/25) Metatarsalgia, right foot (04/01/25) Physical Therapy Treatment Note PT OP: Lower Back/Lower Extremity Start: 04/01/25 10:51 Freq: Status: Active Protocol: Document 04/01/25 10:52 SP (Rec: 04/01/25 11:34 SP [id number]) Out-Patient Physical Therapy Visit Information Visit Information Visit Type Treatment Note Visit Start Time 10:48 Visit Stop Time 11:28 Visit Number 20 Number of BLENDING MACHINE FEEDER Visits 2 Progress Note Due 04/04/25 OP-PT Subjective Patient Comments Patient Comments Pt reports can do added R 1st great toe flexion with TB , continues 1st toe adduction so is still using toe abductor support between 1-2MTP. Wondered if do more STMs to adductor muscles of 1st MTP if would help all be more midline away from 2nd MTP, would like to trial this today. Gym Equipment Shuttle Rebound SLS Exercise Details SLS- R LE 3 foot positions Reps/Duration 10 reps each position (red wt bal) Comments ball throw/catch Therapeutic Exercises Supine Exercises Toe abduction Side right Reps/Minutes 10 reps post manual Comments AAROM 1st great toe Manual Therapy Treatment Consent Patient gave verbal Yes consent for manual treatment Soft Tissue Mobilization Plantar Body Location R Hallux, 2nd toe, plantar fascia, adductor hallucis and flexor brevis Mobilization Type Cross-Friction,Rolling,Other Intensity/Depth Moderate Body Position hooklying & long sit Comments focus 1st toe abduction allowance (decreased adductor tension) Scar Massage Body Location Scar massage over 2nd Mobilization Type Cross-Friction,Myofascial Release,Rolling Intensity/Depth Moderate Body Position Hooklying Comments manual scar mobility lotion/cupping Joint Mobilizations MT Joint R: 1 & 2nd MTP Direction ap and pa, rotation Grade II Body Position Hooklying Great toe Joint 1st MTP, IP joints, metatarsal mobility Grade II Body Position long sit Neuro Re-Education Treatment Balance Activities BOSU Details SLS RLE, PF/ecc DF neutral Surface BOSU Equipment rail support Comments good response 1st toe flexion without 2nd toe over recruitment with dome surface Self-Care/Home Management Treatment Education Patient Education Joint Protection,Pain Management,Posture,Safety Other Education education during manual for self application STMs, continue use accessory toe abductor support needed for reeducation during standing and activities as tolerated placement. Physical Therapy Assessment Goals Three Impairment Pt exhibits increased scar tissue/adhesions over right second toe Rough And Trueing Machine Operator Goal (LTG) Pt to improve first and second MTP flexion to 30? to demonstrate decreased scar tissue adhesion and help normalize gait LTG Duration 04/02/25 Two Impairment R Great Toe in 10? adduction at baseline Rough And Trueing Machine Operator Goal (LTG) Pt to improve MTP to neutral (0?) at rest in order to limit rubbing/blistering during longer walks LTG Duration 04/02/25 One Impairment Pt does not have an appropriate home exercise program Short Term Goal (STG Pt to be independent and compliant with an appropriate ) HEP STG Duration Met Assessment Summary Assessment Pt improved decrease 1st great toe adductor tension post manual. Continues make gains in 1-2 MTP mobility with manual and SLS today PF/DF with 1st great toe flexion strengthening emphasis/less 2nd toe flexion compnesations. Initiated SLS uneven surface throw/catch (no shoes donned), improved toe and foot intrinics and ankle strengthening. Physical Therapy Plan Frequency and Duration Frequency of 2x/Week Treatment Plan of Care Start 01/31/25 Date Plan of Care End 04/02/25 Date Therapeutic Interventions Therapeutic Balance Training,Gait Training,Home Exercise Program, Interventions Joint Mobilizations,Manual Therapy,Neuromuscular Re- education,Patient/Caregiver Education,Self-Care/Home Management,Soft Tissue Mobilization,Taping,Therapeutic Activities,Therapeutic Exercises Modalities Cold Pack/Ice Massage,Hot Packs,Ultrasound Discharge Physical Therapy Discharge Reasons Patient Request Next Visit Focus/Plan Next Note Type Discharge Summary Next Visit Plan finalize HEP for continue on own next tx.
--- NOTE | 2025-04-04 11:20 | PT.OPPOC ---
Physical, Occupational & Speech Therapy At [facility] Current Diagnoses Acquired deformities of toe(s), unspecified, right foot (04/04/25) Stiffness of right foot, not elsewhere classified (04/04/25) Metatarsalgia, right foot (04/04/25) Visit Care Team Role Provider Type Annette Loco DO Primary Care Provider Physician Specialty: Medical Address: [address] [place] [address], [address], [place], [address] Email: [email or web address] Tonia Katz DPM Attending Provider Non-Staff Referring Provider Specialty: Podiatry Address: [address] [place], [address] Email: Plan Of Care PT OP: Lower Back/Lower Extremity Start: 04/01/25 10:51 Freq: Status: Active Protocol: Document 04/04/25 10:45 DCW (Rec: 04/04/25 11:19 DCW [id number]) Out-Patient Physical Therapy Visit Information Visit Information Visit Type Discharge Summary Visit Start Time 10:45 Visit Stop Time 11:30 Visit Number 21 Number of PILATES INSTRUCTOR Visits 0 Progress Note Due 04/04/25 Evaluation Information Evaluation Date 12/03/24 OP-PT Subjective Patient Comments Patient Comments Pt comes in today planning on discharge. Doing well, but also notes her life is getting a little too busy. Manual Assessments Soft Tissue Assessment Soft Tissue Mobility Moderate scar tissue/adhesion along second toe Assessment following surgical pin placement Joint Mobility Assessment Joint Mobility General joint stiffness in MTP and IP joint of right Assessment great toe. Passively flexible. Limited ability for pt to abduct great toe. Toe Range of Motion Toe Measured in Degrees Right Great Toe MTP Flexion Active ( 16 degrees) MTP Extension Active 30 (degrees) PIP Flexion Active ( 20 degrees) PIP Extension Active 10 (degrees) Comments At baseline, MTP at 5? adduction, actively gets to neutral Manual Therapy Treatment Consent Patient gave verbal Yes consent for manual treatment Soft Tissue Mobilization Plantar Body Location R Hallux, 2nd toe, plantar fascia, adductor hallucis and flexor brevis Mobilization Type Cross-Friction,Rolling,Other Intensity/Depth Moderate Body Position hooklying & long sit Comments focus 1st toe abduction allowance (decreased adductor tension) Scar Massage Body Location Scar massage over 2nd Mobilization Type Cross-Friction,Myofascial Release,Rolling Intensity/Depth Moderate Body Position Hooklying Comments manual scar mobility lotion/cupping Joint Mobilizations MT Joint R: 1 & 2nd MTP Direction ap and pa, rotation Grade II Body Position Hooklying Great toe Joint 1st MTP, IP joints, metatarsal mobility Grade II Body Position long sit Physical Therapy Assessment Impairments Impairments Activity Tolerance,Functional Activities,Functional Mobility,Gait,ROM,Soft Tissue Mobility,Strength Goals Three Impairment Pt exhibits increased scar tissue/adhesions over right second toe Snf Goal (LTG) Pt to improve first and second MTP flexion to 30? to demonstrate decreased scar tissue adhesion and help normalize gait LTG Duration 04/02/25 Two Impairment R Great Toe in 10? adduction at baseline Snf Goal (LTG) Pt to improve MTP to neutral (0?) at rest in order to limit rubbing/blistering during longer walks LTG Duration 04/02/25 One Impairment Pt does not have an appropriate home exercise program Short Term Goal (STG Pt to be independent and compliant with an appropriate ) HEP STG Duration Met Assessment Summary Assessment Pt feels confident in transitioning to independent HEP. Very happy with her current functional level. Feels her foot mobility is much better, and the best thing is that there's no pain anymore. Pt requests discharge at this time. Physical Therapy Plan Frequency and Duration Frequency of 2x/Week Treatment Plan of Care Start 04/04/25 Date Plan of Care End 04/05/25 Date Therapeutic Interventions Therapeutic Balance Training,Gait Training,Home Exercise Program, Interventions Joint Mobilizations,Manual Therapy,Neuromuscular Re- education,Patient/Caregiver Education,Self-Care/Home Management,Soft Tissue Mobilization,Taping,Therapeutic Activities,Therapeutic Exercises Modalities Cold Pack/Ice Massage,Hot Packs,Ultrasound Discharge Physical Therapy Discharge Reasons Patient Request Next Visit Focus/Plan Next Note Type Discharge Summary Plan of Care Dates Plan of Care Start Date 04/04/25 Plan of Care End Date 04/05/25 Electronically Signed by: Romulo Small, PT 04/04/25 3806 If you are in agreement with this Plan of Care, please return a signed and dated copy. I have reviewed this Plan of Care and certify that the skilled therapy services above are required to meet the patient?s needs. Physician Signature Date Printed Name and Credentials Clinical Instructor Signature Printed Name and Credentials
== END 2025-06-12 10:51 | disposition home or self-care (01) ==
LOC: PHYS 10:45
PROVIDERS: PCP Family Medicine; Referring Provider Podiatrist; Visit Provider Podiatrist
DX: M20.61 Acquired deformities of toe(s), unspecified, right foot (principal); M77.41 Metatarsalgia, right foot; M25.674 Stiffness of right foot, not elsewhere classified
CPT/HCPCS: 97110; 97112; 97140; 97162

== ENCOUNTER → 2025-05-03 06:54 | Outpatient (CLI) | payer BC, OTHER, SELFPAY ==
[2025-05-03 07:37] LABS: Add Manual Diff / Slide Review NO; Hematocrit 41.5 % (36-46); Hemoglobin 13.7 g/dL (12.0-16.0); Lymphocytes Absolute Auto 2900 /uL (1100-4500); Mean Corpuscular HGB Conc 33.1 % (30-36); Mean Corpuscular Hemoglobin 29.5 PG (26-34); Mean Corpuscular Volume 89.2 fL (80-100); Platelet Count 323 X10^3/uL (150-400)
[2025-05-03 08:09] LABS: Alanine Aminotransferase 20 IU/L (<35); Albumin 4.1 g/dL (3.5-5.0); Albumin Globulin Ratio 1.8 (1.0-2.8); Alkaline Phosphatase 77 U/L (38-126); Blood Urea Nitrogen 23 mg/dL (7-17); Calcium 9.1 mg/dL (8.4-10.2); Carbon Dioxide 26 mmol/L (22-32); Chloride 107 mmol/L (98-107); Cholesterol 204 mg/dL (140-199); Estimated Glomerular Filt Rate > 60 mL/min (>60); Globulin 2.3 g/dL (1.7-4.1); Glucose 110 mg/dL (70-99); HDL Cholesterol 55 mg/dL (40-60); HEMOLYSIS < 15 (0-50); Potassium 4.4 mmol/L (3.4-5.1); Sodium 139 mmol/L (137-145); Total Protein 6.4 g/dL (6.3-8.2); Triglycerides 89 mg/dL (35-150)
[2025-05-03 08:23] LABS: Free T3, Triiodothyronine Free 4.88 pg/mL (2.77-5.27); Free T4, Direct Thyroxine 1.38 ng/dL (0.78-2.19)
[2025-05-03 08:24] LABS: Vitamin D 25 Hydroxy (D3) 106 ng/mL (30.0-100.0)
[2025-05-03 08:37] LABS: Thyroid Stimulating Hormone < 0.015 uIU/mL (0.47-4.68)
[2025-05-03 08:56] LABS: Vitamin B12 824 pg/mL (239-931)
[2025-05-04 22:08] LABS: Anti Thyroglobulin Antibody 1.9 IU/mL (0.0-0.9)
[2025-05-07 13:36] LABS: Triiodothyronine T3 Reverse 19.4 ng/dL (.)
== END ==
PROVIDERS: PCP Family Medicine; Referring Provider Naturopath; Visit Provider Naturopath
DX: Z00.00 Encounter for general adult medical examination without abnormal findings (principal); E06.3 Autoimmune thyroiditis; E55.9 Vitamin D deficiency, unspecified; N95.1 Menopausal and female climacteric states; Z76.89 Persons encountering health services in other specified circumstances
CPT/HCPCS: 36415; 80053; 80061; 82306; 82607; 84439; 84443; 84481; 84482; 85025; 86376; 86800